=== PATIENT | male | born 1930 | race Caucasian/White ===

== ENCOUNTER 2016-03-08 08:00 | Outpatient (CLI) | payer MEDICARE, OTHER | END 2016-03-08 08:01 | disposition home or self-care (01) | DX: R30.0 Dysuria (principal) ==

== ENCOUNTER 2016-07-12 08:45 | Outpatient (CLI) | payer MEDICARE, OTHER ==
[2016-07-12 13:49] LABS: BASOPHILS % (AUTO) 0.7 %; EOSINOPHILS # (AUTO) 0.3 10^3/uL (0.0-0.7); EOSINOPHILS % (AUTO) 4.7 %; HGB - HEMOGLOBIN 13.7 g/dL (14.0-18.0); LYMPHOCYTES # (AUTO) 1.3 10^3/uL (1.5-3.5); MEAN CORPUSCULAR HEMOGLOBIN 32.5 pg (27.0-31.0); MEAN CORPUSCULAR HGB CONC 34.3 g/dL (32.0-36.0); MEAN CORPUSCULAR VOLUME 94.8 fL (80.0-94.0); MEAN PLATELET VOLUME 9.3 fL (7.4-11.4); MONOCYTES # (AUTO) 0.5 10^3/uL (0.0-1.0); MONOCYTES % (AUTO) 8.8 %; NEUTROPHILS # (AUTO) 3.5 10^3/uL (1.5-6.6); NEUTROPHILS % (AUTO) 62.8 %; RED BLOOD COUNT 4.22 10^6/uL (4.70-6.10); RED CELL DISTRIBUTION WIDTH 11.7 % (12.0-15.0); UNCORRECTED WHITE BLOOD COUNT 5.6 x10^3/uL; WHITE BLOOD COUNT 5.6 x10^3/uL (4.8-10.8)
[2016-07-12 14:28] LABS: ALBUMIN/GLOBULIN RATIO 1.6 (1.0-2.2); BILIRUBIN,TOTAL 0.6 mg/dL (0.2-1.0); BUN - BLOOD UREA NITROGEN 26 mg/dL (6-20); CALCIUM 9.7 mg/dL (8.5-10.3); CARBON DIOXIDE - CO2 26 mmol/L (21-32); CHLORIDE 105 mmol/L (101-111); CHOL/HDL RATIO 6.1 (<5.0); CHOLESTEROL 224 mg/dL; CREATININE 1.2 mg/dL (0.6-1.2); GFR - MDRD 58 (>89); GLUCOSE 123 mg/dL (70-100); HDL CHOLESTEROL 37 mg/dL; HEMOGLOBIN A1C 0.66 g/dL; LDL/HDL RATIO 3.7 (<3.6); POTASSIUM 4.3 mmol/L (3.5-5.0); SODIUM 138 mmol/L (135-145); TOTAL PROTEIN 7.3 g/dL (6.7-8.2); TRIGLYCERIDES 251 mg/dL; VLDL CHOLESTEROL 50 mg/dL
== END 2016-07-12 23:59 | disposition home or self-care (01) ==
LOC: LAB.WCP 08:45
PROVIDERS: ATTEND Family Medicine
DX: E78.5 Hyperlipidemia, unspecified (principal)
CPT/HCPCS: 36415; 80053; 80061; 83036; 85025

== ENCOUNTER 2016-09-11 11:28 | Outpatient (CLI) | payer MEDICARE, OTHER | END 2016-09-11 11:29 | disposition home or self-care (01) | LOC: SC 11:28 | PROVIDERS: ATTEND Nurse Practitioner Family | DX: G47.33 Obstructive sleep apnea (adult) (pediatric) (principal) | CPT/HCPCS: 99214; G0463; 99212 ==

== ENCOUNTER 2016-10-14 13:19 | Outpatient (CLI) | payer MEDICARE, OTHER | END 2016-10-14 13:20 | disposition home or self-care (01) | LOC: SC 13:19 | PROVIDERS: ATTEND Nurse Practitioner Family | DX: G47.33 Obstructive sleep apnea (adult) (pediatric) (principal); G47.00 Insomnia, unspecified | CPT/HCPCS: 99214; G0463; 99212 ==

== ENCOUNTER 2016-11-11 18:25 | Emergency (ER) | payer MEDICARE, OTHER ==
[2016-11-11 18:51] LABS: BASOPHILS # (AUTO) 0.1 10^3/uL (0.0-0.1); BASOPHILS % (AUTO) 0.7 %; EOSINOPHILS # (AUTO) 0.2 10^3/uL (0.0-0.7); EOSINOPHILS % (AUTO) 2.3 %; HCT - HEMATOCRIT 42.9 % (42.0-52.0); HGB - HEMOGLOBIN 14.6 g/dL (14.0-18.0); LYMPHOCYTES # (AUTO) 1.4 10^3/uL (1.5-3.5); LYMPHOCYTES % (AUTO) 14.4 %; MEAN CORPUSCULAR HEMOGLOBIN 33.2 pg (27.0-31.0); MEAN CORPUSCULAR HGB CONC 34.1 g/dL (32.0-36.0); MEAN CORPUSCULAR VOLUME 97.3 fL (80.0-94.0); MEAN PLATELET VOLUME 8.1 fL (7.4-11.4); MONOCYTES # (AUTO) 0.8 10^3/uL (0.0-1.0); MONOCYTES % (AUTO) 8.2 %; NEUTROPHILS # (AUTO) 7.5 10^3/uL (1.5-6.6); NEUTROPHILS % (AUTO) 74.4 %; NUCLEATED RED BLOOD CELLS AUTO 0.1 /100WBC; RED BLOOD COUNT 4.41 10^6/uL (4.70-6.10); RED CELL DISTRIBUTION WIDTH 12.4 % (12.0-15.0); UNCORRECTED WHITE BLOOD COUNT 10.1 x10^3/uL; WHITE BLOOD COUNT 10.1 x10^3/uL (4.8-10.8)
[2016-11-11] MEDS ORDERED: SODIUM CHLORIDE 0.9% 1,000 ML IV ONE (18:59)
[2016-11-11] MEDS ORDERED: HYDROmorphone 1 MG/ML CARPUJECT IVP STA (18:59)
[2016-11-11] MEDS ORDERED: ONDANSETRON 4 MG/2 ML VIAL IVP STA (18:59)
--- NOTE | 2016-11-11 19:03 | ED Physician Documentation ---
PD HPI CHEST PAIN - Stated complaint Stated Complaint: CHEST PAIN - Chief complaint Chief Complaint: Cardiac - History obtained from History obtained from: Patient, Family - History of Present Illness Timing - onset: Other (Abruptly at 1:00 after eating lunch he developed chest pain, although he points at the right upper quadrant which later radiated to the right mid back. He is mildly nauseous. He says it is both sharp and dull and is reminiscent of prior heart attack. His first heart attack was in 1985, he has had a couple of angioplasties and at least one stent since then. 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 denies: Palpitations, Pedal edema, Calf pain Respiratory: denies: Dyspnea, Cough GI: reports: Abdominal Pain, Nausea. denies: Vomiting : denies: Dysuria, Frequency PD PAST MEDICAL HISTORY - Past Medical History Past Medical History: Yes Cardiovascular: Hypertension, High cholesterol, Coronary artery disease, [place] Respiratory: Sleep apnea, CPAP use Neuro: None Endocrine/Autoimmune: Type 2 diabetes GI: GERD, Ulcers, Colon polyps : Nocturia, Frequency HEENT: Chronic vision loss, Chronic hearing loss Musculoskeletal: Osteoarthritis, Chronic back pain, Other Derm: Other - Past Surgical History Past Surgical History: Yes General: Colonoscopy Ortho: Carpal Tunnel surgery Cardiovascular: Coronary stent, Angioplasty - Present Medications Home Medications: Ambulatory Orders Medication Instructions Recorded Confirmed Aspirin [Aspir 81] 81 mg PO DAILY 09/27/13 06/08/15 Cholecalciferol (Vitamin D3) 2,000 unit PO BID 09/27/13 06/08/15 [Vitamin D-3] Cyanocobalamin (Vitamin B-12) 2,500 mcg SL DAILY 09/27/13 06/08/15 [Vitamin B-12] Krill/[place]-3/Dha/Epa/Lipids 1 each PO DAILY 09/27/13 06/08/15 [Krill Oil 300 mg Softgel] Losartan [Cozaar] 50 mg PO DAILY 09/27/13 06/08/15 Metformin HCl 500 mg PO BID 09/27/13 06/08/15 Ubidecarenone [Co Q-10] 200 mg PO DAILY 09/27/13 06/08/15 Vitamin B Complex Vit C No.4 150 mg PO DAILY 09/27/13 06/08/15 [Super B Complex] Esomeprazole Magnesium [Nexium] 20 mg PO DAILY 03/05/15 06/08/15 Meloxicam 15 mg PO DAILY 03/05/15 06/08/15 Hydrocodone/Acetaminophen 1 tab 06/08/15 [Hydrocodon-Acetaminophen 5-325] Multivitamin W/Minerals Liq 06/08/15 [Centrum] HYDROcod/ACETAM 5/325 [Hammond 5/325] 1 - 2 ea PO Q6H PRN #15 tablet 11/11/16 - Allergies Allergies/Adverse Reactions: Allergies Allergy/AdvReac Type Severity Reaction Status Date / Time No Known Drug Allergies Allergy Verified 06/08/15 12:20 - Social History Does the pt smoke?: No Smoking Status: Never smoker Does the pt drink ETOH?: Yes Does the pt have substance abuse?: No - Family History Family history: reports: Non contributory - Immunizations Immunizations are current?: Yes - POLST Patient has POLST: Yes PD ED PE NORMAL - Vitals Vital signs reviewed: Yes - General General: Alert and oriented X 3, No acute distress - HEENT HEENT: PERRL, EOMI - Neck Neck: Supple, no meningeal sign, No bony TTP - Cardiac Cardiac: RRR, Other (4 out of 6 decrescendo systolic murmur, old per patient) - Respiratory Respiratory: No respiratory distress, Clear bilaterally - Abdomen Abdomen: Other (Mild tenderness in the right upper quadrant without guarding or rebound) - Back Back: No CVA TTP, No spinal TTP - Derm Derm: Normal color, Warm and dry - Extremities Extremities: No edema, No calf tenderness / cord - Neuro Neuro: Alert and oriented X 3, Normal speech - Psych Psych: Normal mood, Normal affect Results - Vitals Vitals: Vital Signs - 24 hr 11/11/16 11/11/16 18:32 20:14 Temperature 36.9 C Heart Rate 62 55 L Respiratory 20 16 Rate Blood Pressure 174/147 H 147/76 H O2 Saturation 98 98 Oxygen O2 Source Room air - EKG (time done) 1842 Rate: Rate (enter#) (60) Rhythm: NSR Victor: Normal Intervals: Normal SC Ischemia: Q waves (Inferior) Compare to prior EKG: Unchanged from prior EKG (Prior EKG, June 08, 2015, no change from then.) Computer interpretation: Agree with computer - Labs Labs: Laboratory Tests 11/11/16 11/11/16 11/11/16 18:44 18:44 18:44 WBC 10.1 RBC 4.41 L Hgb 14.6 Hct 42.9 MCV 97.3 H MCH 33.2 H MCHC 34.1 RDW 12.4 Plt Count 188 MPV 8.1 Neut # 7.5 H Lymph # 1.4 L [place] # 0.8 Eos # 0.2 Baso # 0.1 Absolute Nucleated RBC 0.01 Nucleated RBCs 0.1 Sodium 139 Potassium 4.3 Chloride 102 Carbon Dioxide 28 Anion Gap 9.0 BUN 33 H Creatinine 1.4 H Estimated GFR (MDRD) 48 L Glucose 149 H Calcium 9.6 Total Bilirubin 0.7 AST 19 ALT 21 Alkaline Phosphatase 55 Troponin I < 0.04 Total Protein 7.7 Albumin 4.5 Globulin 3.2 Albumin/Globulin Ratio 1.4 Lipase 30 11/11/16 22:06 WBC RBC Hgb Hct MCV MCH MCHC RDW Plt Count MPV Neut # Lymph # [place] # Eos # Baso # Absolute Nucleated RBC Nucleated RBCs Sodium Potassium Chloride Carbon Dioxide Anion Gap BUN Creatinine Estimated GFR (MDRD) Glucose Calcium Total Bilirubin AST ALT Alkaline Phosphatase Troponin I < 0.04 Total Protein Albumin Globulin Albumin/Globulin Ratio Lipase - Rads (name of study) 1v chest Radiology: EMP read contemporaneously (NAD) RUQ sono Radiology: EMP read contemporaneously (Distended GB with gallstones, fatty liver.) Ct Angio abd Radiology: EMP read contemporaneously (Atherosclerosis without dissection. There is some interstitial lung disease, and L4-L5 central canal soft tissue density.) PD MEDICAL DECISION MAKING - ED course ED course: 85-year-old gentleman presents with "chest pain" but he points to the right upper quadrant where he is tender. He does have gallstones on ultrasound. His EKG is unchanged from prior and 2 troponins were done in the department and are undetectable despite continued pain. He remains slightly tender after the administration of Dilaudid but felt much better. There is no evidence of active cholecystitis. The on-call surgeon, Dr. Hassapis briefly saw him in the emergency department and feels he can safely be discharged home and will see him in the office to arrange for interval cholecystectomy in the patient and family were comfortable with the plan. Departure - Departure Disposition: Home, Self Care Clinical Impression: Biliary colic Chest pain Qualifiers: Chest pain type: unspecified Qualified Code(s): R07.9 - Chest pain, unspecified Condition: Good Record reviewed to determine appropriate education?: Yes Instructions: ED Gallstone W Biliary Colic Follow-Up: Mando Eugene MD [Provider Admit Priv/Credential] - Prescriptions: HYDROcod/ACETAM 5/325 [Hammond 5/325] 1 - 2 ea PO Q6H PRN #15 tablet PRN Reason: Pain Comments: Call Dr. Eugene's office tomorrow, make sure his front office medical assistant is aware that he saw you in the emergency department and would like to see the patient as soon as possible. Return if worse. Eat a very light diet with very low fat and protein as discussed.
[2016-11-11 19:06] LABS: ALBUMIN/GLOBULIN RATIO 1.4 (1.0-2.2); BILIRUBIN,TOTAL 0.7 mg/dL (0.2-1.0); CALCIUM 9.6 mg/dL (8.5-10.3); CREATININE 1.4 mg/dL (0.6-1.2); POTASSIUM 4.3 mmol/L (3.5-5.0); TOTAL PROTEIN 7.7 g/dL (6.7-8.2)
[2016-11-11] MEDS ORDERED: ONDANSETRON 4 MG/2 ML VIAL ONE (19:16)
[2016-11-11] MEDS ORDERED: HYDROmorphone 1 MG/ML CARPUJECT ONE (19:16)
--- NOTE | 2016-11-11 19:46 | XRAY Preliminary Report ---
Exam: XR Chest 1 View IMPRESSION: No acute disease. [facility] SITE ID: [id number]
--- NOTE | 2016-11-11 19:48 | XRAY Report ---
EXAM: CHEST RADIOGRAPHY EXAM DATE: 11/11/2016 07:24 PM. CLINICAL HISTORY: Chest pain. COMPARISON: 06/08/2015. TECHNIQUE: 1 view. FINDINGS: Lungs/Pleura: Mild interstitial prominence. No localized infiltrate, consolidation, effusion, or pneu mothorax. Mediastinum: Normal heart size, unchanged. Upper lobe vessels not distended. Other: Right PIC catheter tip at cavoatrial junction about 5.4 cm below level of dotty. Degenerative changes. IMPRESSION: No acute disease. [facility] Referring Provider Line: [phone] SITE ID: [id number]
--- NOTE | 2016-11-11 20:53 | Ultrasound Preliminary Report ---
Exam: US Abdomen Limited IMPRESSION: 1. Distended gallbladder without gallbladder wall thickening or pericholecystic fluid or sonographic Douglass sign. Positive for gallstones. 2. Markedly heterogeneous and hyperechoic liver consistent with fatty infiltration. No mass. 3. Normal common bile duct, however, not well seen. [facility] SITE ID: [id number]
--- NOTE | 2016-11-11 21:06 | Ultrasound Report ---
EXAM: ABDOMEN ULTRASOUND LIMITED, RIGHT UPPER QUADRANT EXAM DATE: 11/11/2016 08:06 PM. CLINICAL HISTORY: Right upper quadrant pain. COMPARISON: None. TECHNIQUE: Real-time scanning was performed with static images obtained. FINDINGS: Liver: Liver parenchyma is heterogeneous and markedly hyperechoic. No discrete liver masses or intr ahepatic bile duct dilation. However, evaluation for masses is limited secondary to the echogenicity . 15.9 cm. Main portal vein flow: Hepatopetal. Focal fat sparing near the gallbladder fossa. Gallbladder: Positive for sludge and multiple stones and possible gallbladder polyps. No gallbladder wall thickening. Per report, patient had a negative sonographic Douglass's sign. No gallbladder wall th ickening is noted. Gallbladder is distended. Biliary System: CBD measures 4 mm. No intrahepatic or extrahepatic ductal dilatation. Not well seen. Right kidney: Length measures 11.3 cm. No hydronephrosis. Other: None. IMPRESSION: 1. Distended gallbladder without gallbladder wall thickening or pericholecystic fluid or sonographic Douglass's sign. Positive for gallstones. 2. Markedly heterogeneous and hyperechoic liver consistent with fatty infiltration. No mass. 3. Normal common bile duct; however, not well seen. [facility] Referring Provider Line: [phone] SITE ID: [id number]
[2016-11-11] MEDS ORDERED: IOPAMIDOL-300 100 ML VIAL ONE (21:35)
--- NOTE | 2016-11-11 22:46 | CT Preliminary Report ---
Exam: CT Abdomen Angio IMPRESSION: 1. Moderate to severe aortic and branch vessel atherosclerosis. No evidence of aortic aneurysm or dis section. 2. Mild peripheral reticular density within the lung bases bilaterally, potentially atelectasis. Mild interstitial lung disease difficult to exclude with certainty. There is small peribronchial opacity within the lingula, which may also be from atelectasis. Aspiration or pneumonia difficult to exclude with certainty. 3. No kidney stone or hydronephrosis. No gallstone, cholecystitis, or biliary ductal dilatation demon strated. No pancreatitis. No bowel obstruction. 4. Increased soft tissue fullness within the L4-L5 central canal region of uncertain significance and etiology. [facility] SITE ID: [id number]
--- NOTE | 2016-11-11 22:56 | CT Report ---
EXAM: CT ANGIOGRAM ABDOMEN WITH CONTRAST EXAM DATE: 11/11/2016 10:04 PM. CLINICAL HISTORY: Abdominal pain with eating to the back COMPARISONS: None. TECHNIQUE: Routine helical CT angiogram imaging was performed through the abdomen in the arterial pha se. IV contrast: 100 mL Isovue 300. Enteric contrast: No. Reconstructions: Coronal, sagittal, and 3D MIP reconstructions. In accordance with CT protocol optimization, one or more of the following dose reduction techniques w ere utilized for this exam: automated exposure control, adjustment of mA and/or KV based on patient s ize, or use of iterative reconstructive technique. FINDINGS: Vasculature: Moderate to severe aortic and branch vessel atherosclerosis is noted. There is no eviden ce of dissection. No aortic aneurysm demonstrated. Conventional upper abdominal arterial anatomy is p resent. Moderate atherosclerosis within the proximal aspect of the superior mesenteric artery. Celiac and SMA are without critical stenosis. There is a single right-sided renal artery with mild to moder ate disease. There is a small accessory left renal artery supplying the lower pole. There is mild dis ease within the left main as well as accessory renal artery. Inferior mesenteric artery is patent. Mo derate disease within the common iliac arteries bilaterally without critical stenosis. Lung Bases: There is no significant consolidation. No significant effusion. Abdominal Solid Organs: Liver, adrenals, pancreas, spleen, and kidneys without definite suspicious ab normality within the confines of arterial phase imaging. This results in slightly reduced exam sensit ivity for detection of a small parenchymal mass. Bowel: Visualized bowel loops are without evidence of obstruction. Other: No free fluid or pathologic lymphadenopathy. Bones: No definite suspicious bony lesions. Multilevel degenerative changes within the spine. L4-L5 p osterior spinous fixation is noted. Hypertrophic L4-L5 facet arthropathy noted. Prior right hemilamin otomy at L4. Abnormal soft tissue fullness is noted at L4-L5 level within the central canal region. Other: None. IMPRESSION: 1. Moderate to severe aortic and branch vessel atherosclerosis. No evidence of aortic aneurysm or dis section demonstrated. 2. Mild peripheral reticular density within the lung bases bilaterally, potentially atelectasis. Mild interstitial lung disease difficult to exclude with certainty. There is small peribronchial opacity within the lingula, which may also be from atelectasis. Aspiration or pneumonia difficult to exclude with certainty. 3. No kidney stone or hydronephrosis. No gallstone, cholecystitis, or biliary ductal dilatation demon strated. No pancreatitis. No bowel obstruction. 4. Increased soft tissue fullness within the L4-L5 central canal region of uncertain significance and etiology. [facility] Referring Provider Line: [phone] SITE ID: [id number]
[2016-11-11] MEDS ORDERED: HYDROcod/ACET 5/325 Prepack 6 PO STA (23:07)
[2016-11-11] MEDS ORDERED: HYDROcod/ACET 5/325 Prepack 6 PO ONE (23:13)
[2016-11-11 23:28] VITALS: BP 140/76
== END 2016-11-11 23:30 | disposition home or self-care (01) ==
LOC: ED 18:25
DX: K80.50 Calculus of bile duct without cholangitis or cholecystitis without obstruction (principal); R07.9 Chest pain, unspecified; I10 Essential (primary) hypertension; I25.10 Atherosclerotic heart disease of native coronary artery without angina pectoris; I25.2 Old myocardial infarction; E11.9 Type 2 diabetes mellitus without complications; Z79.84 Long term (current) use of oral hypoglycemic drugs; E78.00 Pure hypercholesterolemia, unspecified; G47.30 Sleep apnea, unspecified; K21.9 Gastro-esophageal reflux disease without esophagitis; M19.90 Unspecified osteoarthritis, unspecified site; Z86.010 Personal history of colon polyps; Z87.11 Personal history of peptic ulcer disease; Z79.82 Long term (current) use of aspirin
CPT/HCPCS: 36415; 71010; 74175; 76705; 80053; 83690; 84484; 85025; 93005; 96374; 96375; 99283; 99284; J1170; Q9967

== ENCOUNTER 2016-11-17 11:00 | Inpatient (IN) | payer MEDICARE, OTHER ==
[2016-11-17 11:57] LABS: BASOPHILS # (AUTO) 0.1 10^3/uL (0.0-0.1); BASOPHILS % (AUTO) 0.9 %; EOSINOPHILS # (AUTO) 0.3 10^3/uL (0.0-0.7); EOSINOPHILS % (AUTO) 2.4 %; HCT - HEMATOCRIT 36.9 % (42.0-52.0); HGB - HEMOGLOBIN 12.4 g/dL (14.0-18.0); LYMPHOCYTES # (AUTO) 0.7 10^3/uL (1.5-3.5); LYMPHOCYTES % (AUTO) 5.9 %; MEAN CORPUSCULAR HEMOGLOBIN 32.4 pg (27.0-31.0); MEAN CORPUSCULAR HGB CONC 33.7 g/dL (32.0-36.0); MEAN CORPUSCULAR VOLUME 96.1 fL (80.0-94.0); MEAN PLATELET VOLUME 8.1 fL (7.4-11.4); MONOCYTES % (AUTO) 8.8 %; NEUTROPHILS # (AUTO) 9.6 10^3/uL (1.5-6.6); RED BLOOD COUNT 3.84 10^6/uL (4.70-6.10); UNCORRECTED WHITE BLOOD COUNT 11.6 x10^3/uL; WHITE BLOOD COUNT 11.6 x10^3/uL (4.8-10.8)
[2016-11-17 12:09] LABS: BILIRUBIN,TOTAL 0.6 mg/dL (0.2-1.0); CALCIUM 9.8 mg/dL (8.5-10.3); CREATININE 1.2 mg/dL (0.6-1.2); POTASSIUM 4.4 mmol/L (3.5-5.0); TOTAL PROTEIN 8.2 g/dL (6.7-8.2)
[2016-11-17] MEDS ORDERED: SODIUM CHLORIDE 0.9% 1,000 ML IV ONE (12:09)
[2016-11-17] MEDS ORDERED: HYDROmorphone 1 MG/ML CARPUJECT IVP STA (12:09)
[2016-11-17] MEDS ORDERED: ONDANSETRON 4 MG/2 ML VIAL IVP STA (12:09)
--- NOTE | 2016-11-17 12:09 | ED Physician Documentation ---
PD HPI ABD PAIN - Stated complaint Stated Complaint: MALE - Chief complaint Chief Complaint: Abd Pain - History obtained from History obtained from: Patient, Family - History of Present Illness Timing - onset: How many days ago (7) Timing - duration: Days (7) Timing - details: Gradual onset, Still present, Waxing and waning Quality: Sharp, Pain Location: RUQ Radiation: Chest Improved by: Laying still Worsened by: Eating, Moving, Breathing, Position, Palpation Associated symptoms: Nausea Similar symptoms before: Diagnosis (gallbladder) Recently seen: Emergency Dept (one week ago with abdominal pain) - Additional information Additional information: 85-year-old male with a recent history of biliary colic has had pain for the past week it is never completely resolved and over the past 24 hours he has had a marked increase in his pain in the right upper quadrant he was able to eat dinner last night today is not able to eat and has severe pain in the right upper quadrant. Review of Systems Constitutional: denies: Fever, Chills Eyes: denies: Decreased vision Ears: denies: Ear pain Nose: denies: Congestion Throat: denies: Sore throat Cardiac: denies: Chest pain / pressure, Palpitations Respiratory: denies: Dyspnea, Cough GI: reports: Abdominal Pain, Nausea : denies: Dysuria, Frequency Skin: denies: Rash Musculoskeletal: denies: Neck pain, Back pain, Extremity pain Neurologic: reports: Generalized weakness. denies: Focal weakness, Numbness PD PAST MEDICAL HISTORY - Past Medical History Past Medical History: Yes Cardiovascular: Hypertension, High cholesterol, Coronary artery disease, [place] Respiratory: Sleep apnea, CPAP use Neuro: None Endocrine/Autoimmune: Type 2 diabetes GI: GERD, Ulcers, Colon polyps : Nocturia, Frequency HEENT: Chronic vision loss, Chronic hearing loss Musculoskeletal: Osteoarthritis, Chronic back pain, Other Derm: Other - Past Surgical History Past Surgical History: Yes General: Colonoscopy Ortho: Carpal Tunnel surgery Cardiovascular: Coronary stent, Angioplasty - Present Medications Home Medications: Ambulatory Orders Medication Instructions Recorded Confirmed Cholecalciferol (Vitamin D3) 2,000 unit PO BID 09/27/13 06/08/15 [Vitamin D-3] Cyanocobalamin (Vitamin B-12) 2,500 mcg SL DAILY 09/27/13 06/08/15 [Vitamin B-12] Krill/[place]-3/Dha/Epa/Lipids 1 each PO DAILY 09/27/13 06/08/15 [Krill Oil 300 mg Softgel] Losartan [Cozaar] 50 mg PO DAILY 09/27/13 06/08/15 Metformin HCl 500 mg PO BID 09/27/13 06/08/15 Ubidecarenone [Co Q-10] 200 mg PO DAILY 09/27/13 06/08/15 Vitamin B Complex Vit C No.4 150 mg PO DAILY 09/27/13 06/08/15 [Super B Complex] Esomeprazole Magnesium [Nexium] 20 mg PO DAILY 03/05/15 06/08/15 Meloxicam 15 mg PO DAILY 03/05/15 06/08/15 Multivitamin W/Minerals Liq 06/08/15 [Centrum] HYDROcod/ACETAM 5/325 [Natalia 5/325] 1 - 2 ea PO Q6H PRN #15 tablet 11/11/16 - Allergies Allergies/Adverse Reactions: Allergies Allergy/AdvReac Type Severity Reaction Status Date / Time No Known Drug Allergies Allergy Verified 11/17/16 11:06 - Social History Does the pt smoke?: No Smoking Status: Never smoker Does the pt drink ETOH?: Yes Does the pt have substance abuse?: No - Immunizations Immunizations are current?: Yes - POLST Patient has POLST: Yes PD ED PE NORMAL - Vitals Vital signs reviewed: Yes (hypertensive) - General General: Well developed/nourished, Other (85 y/o male appears to be in pain and is grunting with each breath. ) - HEENT HEENT: Atraumatic, PERRL, EOMI - Neck Neck: Supple, no meningeal sign - Cardiac Cardiac: RRR, Other (blowing holosystolic murmer at LSB) - Respiratory Respiratory: No respiratory distress, Clear bilaterally - Abdomen Abdomen: Soft, Other (distended abdomen with marked right upper quadrand tenderness ) - Back Back: No CVA TTP, No spinal TTP - Derm Derm: Normal color, Warm and dry, No rash - Extremities Extremities: No deformity, Normal ROM s pain, No edema - Neuro Neuro: Alert and oriented X 3, No motor deficit, No sensory deficit, Normal speech Results - Vitals Vitals: Vital Signs - 24 hr 11/17/16 11/17/16 11:04 12:45 Temperature 36.5 C Heart Rate 69 67 Respiratory 18 14 Rate Blood Pressure 142/78 H 122/71 O2 Saturation 94 99 Oxygen O2 Source Room air - Labs Labs: Laboratory Tests 11/17/16 11/17/16 11/17/16 11:47 11:47 11:47 WBC 11.6 H RBC 3.84 L Hgb 12.4 L Hct 36.9 L MCV 96.1 H MCH 32.4 H MCHC 33.7 RDW 12.0 Plt Count 272 MPV 8.1 Neut # 9.6 H Lymph # 0.7 L Reynolds # 1.0 Eos # 0.3 Baso # 0.1 Absolute Nucleated RBC 0.00 Nucleated RBC % 0.0 Sodium 136 Potassium 4.4 Chloride 100 L Carbon Dioxide 23 Anion Gap 13.0 BUN 26 H Creatinine 1.2 Estimated GFR (MDRD) 58 L Glucose 171 H Calcium 9.8 Total Bilirubin 0.6 AST 25 ALT 39 Alkaline Phosphatase 69 Troponin I < 0.04 Total Protein 8.2 Albumin 4.0 Globulin 4.2 Albumin/Globulin Ratio 1.0 Lipase 18 L Procedures - Bedside sono Bedside sono by EMP: The gallbladder is imaged in the right upper quadrant it is very lateral it is distended gallbladder wall thickness is up to a centimeter and there does appear to be some pericholecystic fluid. The area is tender in general. PD MEDICAL DECISION MAKING - ED course Complexity details: reviewed old records, reviewed results, re-evaluated patient , considered differential, d/w patient, d/w family ED course: 85-year-old male with acute cholecystitis has worsening over the past week. He has marked right upper quadrant tenderness over the white blood cell count and a tender enlarged gallbladder with thickened wall and pericholecystic fluid. He is administered intravenous Dilaudid and Zofran and a liter of saline and intravenous Zosyn. Dr. Brady is consulted in the case and will admit the patient to the hospital for definitive care. Departure - Departure Disposition: [facility] DC/Erika Clinical Impression: Cholecystitis Condition: Stable
[2016-11-17] MEDS ORDERED: HYDROmorphone 1 MG/ML CARPUJECT ONE (12:22)
[2016-11-17] MEDS ORDERED: ONDANSETRON 4 MG/2 ML VIAL ONE (12:22)
[2016-11-17] MEDS ORDERED: PIPERACILLIN/TAZOBACTAM 3.375 GM in SODIUM CHLORIDE 0.9% MINIBAG 100 ML IV STA (13:26)
[2016-11-17] MEDS ORDERED: SODIUM CHLORIDE FLUSH 0.9% 10 ML SYRINGE IVP ONE (13:38)
[2016-11-17] MEDS ORDERED: ONDANSETRON 4 MG/2 ML VIAL IVP PRN (15:39)
[2016-11-17] MEDS ORDERED: SODIUM CHLORIDE FLUSH 0.9% 10 ML SYRINGE IVP PRN (15:39)
[2016-11-17] MEDS: D5NS W/20 MEQ KCL 1,000 ML IV SCH (17:26)
[2016-11-17] MEDS: PIPERACILLIN/TAZOBACTAM 3.375 GM in SODIUM CHLORIDE 0.9% MINIBAG 100 ML IV SCH ×2 (17:27→22:08)
[2016-11-17] MEDS: SODIUM CHLORIDE FLUSH 0.9% 10 ML SYRINGE IVP SCH (17:27)
[2016-11-17] MEDS: HYDROmorphone 1 MG/ML SYRINGE IVP PRN (17:32)
[2016-11-17] MEDS ORDERED: ZINC OXIDE 20% OINT 28.35 GM TUBE TOP PRN (19:22)
[2016-11-17 19:25] LABS: BILIRUBIN,URINE NEGATIVE (NEGATIVE); PH,URINE 5.5 PH (5.0-7.5)
[2016-11-17 19:26] LABS: UA CHARGE (STRIP ONLY) YES
[2016-11-17 19:27] LABS: UR CULTURE IF IND INDICATED
--- NOTE | 2016-11-18 01:49 | SURGERY HX AND PHYSICAL(T) ---
Surgical History & Physical - PMH/PSH/Social Hx Does the pt have a hx of MRSA?: No Neurological History: None Eyes, Ears, Nose, Throat: Chronic vision loss, Chronic hearing loss Cardiovascular: Hypertension, High cholesterol, Coronary artery disease, NV Respiratory: Sleep apnea, CPAP use Skin: Other Endocrine/Autoimmune: Type 2 diabetes Gastrointestinal: GERD, Ulcers, Colon polyps Urinary: Nocturia, Frequency Musculoskeletal: Osteoarthritis, Chronic back pain, Other General: Colonoscopy Orthopedic: Carpal Tunnel surgery Cardiothoracic: Coronary stent, Angioplasty Smoking Status: Former smoker Does the pt drink ETOH?: Yes Frequency: Daily Number: 1 Amount/day: Glasses/day Does the pt have substance abuse?: No - Home Meds and Allergies Home Medications: Cholecalciferol (Vitamin D3) [Vitamin D-3] 2,000 unit PO BID 09/27/13 Cyanocobalamin (Vitamin B-12) [Vitamin B-12] 2,500 mcg SL DAILY 09/27/13 Krill/[place]-3/Dha/Epa/Lipids [Krill Oil 300 mg Softgel] 1 each PO DAILY Losartan [Cozaar] 50 mg PO DAILY 09/27/13 Metformin HCl 500 mg PO BID 09/27/13 Ubidecarenone [Co Q-10] 200 mg PO DAILY 09/27/13 Vitamin B Complex Vit C No.4 [Super B Complex] 150 mg PO DAILY 09/27/13 Esomeprazole Magnesium [Nexium] 20 mg PO DAILY 03/05/15 Meloxicam 15 mg PO DAILY 03/05/15 Multivitamin W/Minerals Liq [Centrum] 06/08/15 Allergies/Adverse Reactions: Allergies Allergy/AdvReac Type Severity Reaction Status Date / Time No Known Drug Allergies Allergy Verified 11/17/16 11:06 - Vital Signs Heart Rate: 60 Blood Pressure: 112/61 Temperature: 37.4 C Respiratory Rate: 18 O2 Saturation: 96 Weight (kg): 100 kg Height: 1.83 m - Patient Review Patient Review: Problems were reviewed with the patient during this visit. Medications were reviewed with the patient during this visit. Allergies were reviewed this patient during this visit. Pertinent Tests Reviewed: All pertitent test for this patient were reviewed. - Assessment & Plan Assessment and Plan: This very pleasant 85-year-old male represents to our emergency department with worsening right upper quadrant pain and I am calling consultation again by Dr. Lynn to evaluate the patient for this. The ultrasound that was obtained by Dr. Lynn shows that the patient has a worse picture regarding his gallbladder. Dr. Ray Cunha sent this very pleasant 85-year-old male to our office on consultation for evaluation and treatment of symptomatic cholelithiasis back on November 13, 2016. I actually saw the patient on November 11, 2016 in the emergency department and at that time due to the over scheduled operating room explained to him and the family that we could perform his cholecystectomy on a semi-elective case. I would see him this week and plan on operating soon as we had an open slot in the operating room. Please note he has an extraordinarily supportive family. The patient states that the pain is sharp, stabbing, and severe enough where he was doubled over in pain. Eating (especially fatty foods) is an aggravating factor whereas time or pain medications are the only alleviating factors. The patient denies hematemesis, melena, hematochezia, jaundice, or light-colored stools. As an aside the pain was so severe that when he came into the our emergency department initially thought he might be having a heart attack but he was ruled out and the ultrasound did show a distended gallbladder with stones. His called me last night and asked that if she brought him into the emergency room and ask whether or not his operation could be done on a more emergent basis. I explained that if it was an emergency than certainly. She brought him in today and states that he has been having increasing pain. He is a very stoic man. Allergies: None. Current Meds: LOVASTATIN 10 MG TABS (LOVASTATIN) Take one tablet by mouth with evening meal DULCOLAX 5 MG ORAL TBEC (BISACODYL) Take one tablet by mouth daily as needed PROBIOTIC CAPS (PROBIOTIC PRODUCT) Take by mouth daily or as directed for colon health - OTC TYLENOL 8 HOUR 650 MG ORAL CR-TABS (ACETAMINOPHEN) Take one tablet by mouth every four hours as needed. COQ10 200 MG ORAL CAPS (COENZYME Q10) Take one capsule by mouth daily. METFORMIN HCL 500 MG TABS (METFORMIN HCL) Take one tablet by mouth twice a day COZAAR 50 MG ORAL TABS (LOSARTAN POTASSIUM) take one tablet by mouth once a day ASPIRIN 81 MG CHEW (ASPIRIN) Take one tablt by mouth every day NEXIUM 20 MG ORAL CPDR (ESOMEPRAZOLE MAGNESIUM) Take one tablet daily SM SUPER B COMPLEX/C ORAL TABS (B COMPLEX-C) Take one tablet daily [employer] FISH OIL CAPS (OMEGA-3 FATTY ACIDS CAPS) Take one capsule daily VITAMIN D 2000 UNIT ORAL CAPS (CHOLECALCIFEROL) Take one capsule by mouth twice a day NITROSTAT 0.4 MG SUBL (NITROGLYCERIN) For chest pain, place one tablet under the tongue every five minutes for up to three doses. If no relief call 911. TRUETRACK TEST STRP (GLUCOSE BLOOD) Use to test blood sugar as directed * GLUCOMETER AND TEST STRIPS Use A.D. 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 Risk Factors: Smoked Tobacco Use: Former smoker Years Since Last Quit: 29 Smokeless Tobacco Use: Never Passive smoke exposure: no Drug use: no Caffeine use: 3 drinks per day Alcohol use: yes Type: wine Drinks per day: <1 Exercise: no Seatbelt use: 100 % Sun Exposure: occasionally Family History Risk Factors: Family History of NV in females < 65 years old: no Family History of NV in males < 55 years old: no Previous Tobacco Use: Signed On 08/26/2016 Smoked Tobacco Use: Former smoker Year quit: 1987 Years Since Last Quit: 29 years, 9 months, 1 days Smokeless Tobacco Use: Never Passive smoke exposure: no Drug use: no Caffeine use: 3 drinks per day Review of Systems CONSTITUTIONAL: No weight loss, fever, chills, weakness. POSITIVE for easy fatigue. HEENT: Eyes: No visual loss, blurred vision, double vision or yellow sclerae. Ears, Nose, Throat: No hearing loss, sneezing, congestion, runny nose or sore throat. SKIN: No rash or itching. CARDIOVASCULAR: No chest pain, chest pressure or chest discomfort. No palpitations or edema. RESPIRATORY: No shortness of breath, cough or sputum. GASTROINTESTINAL: See above. GENITOURINARY: No dysuria. No impotence. NEUROLOGICAL: No headache, dizziness, syncope, paralysis, ataxia, numbness or tingling in the extremities. No change in bowel or bladder control. MUSCULOSKELETAL: No muscle, back pain, joint pain or stiffness. HEMATOLOGIC: No anemia, bleeding or bruising. LYMPHATICS: No enlarged nodes. No history of splenectomy. PSYCHIATRIC: No history of depression or anxiety. ENDOCRINOLOGIC: No reports of sweating, cold or heat intolerance. No polyuria or polydipsia. ALLERGIES: No history of asthma, hives, eczema or rhinitis. Physical Exam General: 85-year old male, appears stated age, well developed, well nourished, evaluated in room 2208 at [facility] MedSurg unit. HEENT: Normocephalic, atraumatic, extraocular movement intact, mucous membranes pink and moist, sclera anicteric and not injected, white hair, male pattern baldness Neck: Supple without pain on palpation, mass or bruit Cardiac: Regular rate and rhythm without rub, or gallop, loud systolic ejection murmur Chest: Clear to auscultation bilaterally Abdomen: Soft, doughy, obese, slightly tender in right upper quadrant, normoactive bowel sounds, no hepatomegaly, no splenomegaly Genitourinary: Deferred Rectal: Deferred Extremities: No gross neurovascular problem, no clubbing, cyanosis or edema Gait: No gross motor deficit Psychiatric: Alert and oriented to person place and time, asks and answers questions appropriately, mood and affect appropriate Impression & Recommendations: Worsening pain corresponding with the worse ultrasound picture today in a 85- year-old gentleman with symptomatic cholelithiasis. Start IV antibiotics, resuscitate the patient with IV fluids, control his pain, allow anesthesia to evaluate the patient and then laparoscopic cholecystectomy, possible open cholecystectomy, possible intraoperative cholangiogram, possible common bile duct exploration. The indications, procedure, alternatives including no surgery, possible risks including infection (deep or superficial), bleeding requiring transfusion (with all of its risks), common bile duct injury and were fully explained to the patient and all questions answered. In the office, I tori pictures to help describe what the gallbladder is and how it works. In the office, I also explained the pathophysiology. In the office, I explained that following the surgery I did not want him lifting anything over 15 pounds for 6 weeks to allow for optimal healing and to decrease the likelihood that a hernia would occur. All questions were fully answered. Verbal and written consent was obtained. The patient, in preparation for surgery will be nothing by mouth, receive an antibiotic scrub on his anterior abdominal wall, and receive 2 g of Ancef with induction. I asked him to contact me with any surgical questions and his concerns and he stated that he would. I asked him to let me know if there is any way we can make his say at [facility] more comfortable and he stated that he would let me know. 30 minutes of [id number] time spent with the patient and his family in repeating this history and physical and preparing him for surgery Dragon disclaimer: This document was created in part using voice recognition technology. Because of the inherent limitations of the system ([employer]'s [employer] user manual states that the licensee understands that speech recognition is a statistical process and that recognition errors are inherent in the process), occasional same sounding word substitutions and grammatical errors do occur and persist despite proofreading. Please read this document for context.
[2016-11-18] MEDS: PIPERACILLIN/TAZOBACTAM 3.375 GM in SODIUM CHLORIDE 0.9% MINIBAG 100 ML IV SCH ×4 (03:42→21:29)
[2016-11-18] MEDS: D5NS W/20 MEQ KCL 1,000 ML IV SCH ×3 (03:46→19:32)
[2016-11-18] MEDS: HYDROmorphone 1 MG/ML SYRINGE IVP PRN ×4 (05:25→13:09)
[2016-11-18] MEDS: SODIUM CHLORIDE FLUSH 0.9% 10 ML SYRINGE IVP SCH ×3 (05:26→21:30)
[2016-11-18 06:24] LABS: BASOPHILS % (AUTO) 0.4 %; EOSINOPHILS # (AUTO) 0.2 10^3/uL (0.0-0.7); EOSINOPHILS % (AUTO) 2.4 %; HGB - HEMOGLOBIN 12.5 g/dL (14.0-18.0); LYMPHOCYTES # (AUTO) 0.8 10^3/uL (1.5-3.5); LYMPHOCYTES % (AUTO) 8.7 %; MEAN CORPUSCULAR HEMOGLOBIN 33.6 pg (27.0-31.0); MEAN CORPUSCULAR HGB CONC 34.6 g/dL (32.0-36.0); MEAN CORPUSCULAR VOLUME 96.9 fL (80.0-94.0); MONOCYTES # (AUTO) 0.8 10^3/uL (0.0-1.0); MONOCYTES % (AUTO) 7.7 %; NEUTROPHILS # (AUTO) 7.9 10^3/uL (1.5-6.6); NEUTROPHILS % (AUTO) 80.8 %; NUCLEATED RED BLOOD CELLS AUTO 0.1 /100WBC; RED BLOOD COUNT 3.71 10^6/uL (4.70-6.10); RED CELL DISTRIBUTION WIDTH 12.2 % (12.0-15.0); UNCORRECTED WHITE BLOOD COUNT 9.8 x10^3/uL; WHITE BLOOD COUNT 9.8 x10^3/uL (4.8-10.8)
[2016-11-18 06:36] LABS: ALBUMIN/GLOBULIN RATIO 0.8 (1.0-2.2); BILIRUBIN,TOTAL 0.8 mg/dL (0.2-1.0); CALCIUM 8.7 mg/dL (8.5-10.3); CREATININE 1.2 mg/dL (0.6-1.2); POTASSIUM 3.9 mmol/L (3.5-5.0)
[2016-11-18] MEDS ORDERED: PANTOPRAZOLE 40 MG VIAL IVP SCH (07:00)
[2016-11-18] MEDS: POLYETHYLENE GLYCOL 3350 17 GM PACKET PO SCH (09:35)
[2016-11-18] MEDS ORDERED: LACTATED RINGERS 1,000 ML IV ONE ×3 (15:54→19:07)
[2016-11-18] MEDS ORDERED: GLYCOPYRROLATE 1 MG/5 ML VIAL IVP ONE (16:00)
[2016-11-18] MEDS ORDERED: SUCCINYLCHOLINE 200 MG/10 ML VIAL IVP ONE (16:00)
[2016-11-18] MEDS ORDERED: LIDOCAINE-PF 2% 10 ML AMP SUBQ ONE (16:00)
[2016-11-18] MEDS ORDERED: ROCURONIUM 50 MG/5 ML VIAL IVP ONE (16:00)
[2016-11-18] MEDS ORDERED: ePHEDrine 50 MG/ML VIAL IVP ONE (16:00)
[2016-11-18] MEDS ORDERED: NEOSTIGMINE 1 MG/1 ML 10 ML MDV IVP ONE (16:00)
[2016-11-18] MEDS ORDERED: KETOROLAC 30 MG/ML VIAL IVP ONE (16:00)
[2016-11-18] MEDS ORDERED: PROPOFOL 200 MG/20 ML VIAL IVP ONE (16:00)
[2016-11-18] MEDS ORDERED: fentaNYL 100 MCG/2 ML VIAL IVP ONE (16:00)
[2016-11-18] MEDS ORDERED: MIDAZOLAM 2 MG/2 ML VIAL IVP ONE (16:00)
[2016-11-18] MEDS ORDERED: DEXAMETHASONE 4 MG/ML VIAL IVP ONE (16:00)
[2016-11-18] MEDS ORDERED: ONDANSETRON 4 MG/2 ML VIAL IVP ONE (16:00)
[2016-11-18] MEDS ORDERED: ACETAMINOPHEN 1,000 MG/100 ML 100 ML IV ONE (16:00)
[2016-11-18] MEDS ORDERED: BUPIVACAINE 0.5% PF 30 ML VIAL SUBQ ONE (16:35)
[2016-11-18] MEDS: HYDROmorphone 1 MG/ML SYRINGE ONE ×2 (18:50→18:55)
--- NOTE | 2016-11-18 19:13 | OPERATIVE REPORT ---
Operative Report - General Admit Date: 11/17/16 Planned Procedure: Laparoscopic cholecystectomy, possible open cholecystectomy, possible intra Pre-Op Diagnosis: Acute cholecystitis and umbilical hernia Procedure Performed: Laparoscopic cholecystectomy and umbilical herniorrhaphy Post Op Diagnosis: Hydrops of the gallbladder and umbilical hernia - Procedure Note Primary Surgeon: Mando Eugene MD Anesthesia Provider: Ron Ramirez Anesthesia Technique: General ET tube, Local (30 mL's of half percent Marcaine) IV Fluids (mL): 1,800 Estimated Blood Loss (mL): 400 Urine Output (mL): 500 Complications: None. - Other Other Information/Narrative: OPERATIVE DESCRIPTION/REPORT: After verbal and written informed consent was obtained detailing the risks of infection, bleeding with all of its risks including transfusion, common bile duct injury, and the patient was brought to the operative suite and placed in the supine position on the operating room table. Monitoring devices were applied along with TEDs and pneumatic compressive stockings. Care was taken to avoid pressure points. Prophylactic antibiotics were given. An adequate level of general endotracheal anesthesia was established by Khalida. The abdomen was then prepped with ChloraPrep and draped in a sterile fashion. A "time in" then confirmed that the patient was identified with 3 identifiers (name, date and medical record number), the history and physical was in the chart, the signed consent confirming the procedure was in the chart, the patient was in the correct position, the aforementioned prophylactic measures were in place or given, we had the correct perso maya and equipment to complete the procedure and that anesthesia, surgery and nursing were given an opportunity to express any concerns. The initial incision was at the umbilicus and dissection to the hernia defect was completed using blunt dissection. In the hernia defect, a 12 mm blunt tipped, balloon tipped port was placed and the balloon was inflated to keep the port in position. The abdominal cavity was insufflated with carbon dioxide to steady-state pressure of 12 and then 15 mmHg. Three additional 5 mm ports were placed in standard location for laparoscopic cholecystectomy (subxiphoid and 2 right subcostal) under direct vision of the 30 degree laparoscope and without incident. The patient was then placed in reverse Trendelenburg position and was rotated slightly to their left. The gallbladder could not even be seen due to the dense adhesions of the omentum to the gallbladder. A photograph was taken of this. Traction and countertraction was used to free the gallbladder from the dense adhesions of the omentum. The gallbladder could then be seen approximately 4-5 times the size with normal gallbladder and very thick-walled. Due to this large and thick -walled nature I could not grasp the gallbladder. I decided to drain this with a laparoscopic needle and hydrops was noted. Even with the needle I was unable to drain the gallbladder adequately. As such a small opening was made in the gallbladder using Bovie electrocautery and the suction was inserted into the gallbladder and the fluid removed. Please note that the fluid was sent for aerobic and anaerobic culture. The gallbladder fundus was grasped with an atraumatic grasper. Multiple adhesions had to be taken down by blunt and sharp dissection along with electrocautery. Eventually, we identified the infundibulum, and this was then grasped and retracted inferior and laterally. Dissection was then begun in the angle of [place]. The cystic duct and (slightly medially and posteriorly) cystic artery were clearly identified. The critical view was obtained. Two clips proximally and one clip distally were used to control both the cystic duct and cystic artery. The clips were carefully placed to avoid occluding the juncture with the common bile duct. Both the cystic duct and then the cystic artery were then transected with laparoscopic kt. Upon transecting the cystic artery there was some persistent bleeding posteriorly that had to be controlled with placement of several clips as well as Surgicel. The gallbladder was then removed from its fossa in a retrograde fashion using electrocautery. This removal was simply miserable. The gallbladder was densely adherent to the liver and there was no plane. I was either in the gallbladder or I was in the liver. There was no happy medium. Eventually the gallbladder was removed from the liver bed and there was no significant bleeding coming from the liver bed. With the 30 degree 5 mm scope in the subxiphoid position, the gallbladder was placed in an EndoCatch bag to be extracted through the 12 mm port site. I irrigated the right upper quadrant with 3 liters of warm sterile saline, and the area was aspirated dry. I inspected the gallbladder fossa and there was no bleeding or bile leak. Clips on the cystic duct and cystic artery appeared to be secure. I briefly visually explored the abdomen. There was no other evidence of overt pathology. I injected the port sites at the peritoneal, fascial, and skin levels under direct vision with 0.5% Marcaine. All ports and the EndoCatch containing the gallbladder were removed. Following gallbladder removal, the remaining carbon dioxide was expelled from the abdomen. The fascia at the umbilicus was reapproximated using 2 [id number] 0 Vicryl sutures closing the umbilical hernia. The skin at each port site was approximated using a subcuticular 4-0 Monocryl. The surgical count of instruments, needles and sponges was reported as correct twice. Mastisol, Steri -Strips and sterile surgical dressings were applied. The patient was then awakened from anesthesia, extubated, and having tolerated the procedure well, was recovered in the operating room due to his MRSA positivity. No complications were encountered. A "time out" confirmed the operation performed , the fluids given, the estimated blood loss and anesthesia, surgery and nursing were given an opportunity to express any concerns. I then spoke with the patient's and family regarding the operative findings and his postoperative condition.
[2016-11-19] MEDS: PIPERACILLIN/TAZOBACTAM 3.375 GM in SODIUM CHLORIDE 0.9% MINIBAG 100 ML IV SCH ×4 (03:50→22:10)
[2016-11-19] MEDS: HYDROcod/ACETAM 5/325 MG TABLET PO PRN ×2 (03:52→16:02)
[2016-11-19] MEDS: D5NS W/20 MEQ KCL 1,000 ML IV SCH ×3 (06:16→22:11)
[2016-11-19] MEDS: PANTOPRAZOLE 40 MG TABLET PO SCH (06:16)
[2016-11-19] MEDS: SODIUM CHLORIDE FLUSH 0.9% 10 ML SYRINGE IVP SCH ×4 (06:17→18:07)
[2016-11-19] MEDS: HYDROmorphone 1 MG/ML SYRINGE IVP PRN ×2 (06:29→10:07)
[2016-11-19 06:41] LABS: BASOPHILS % (AUTO) 0.3 %; EOSINOPHILS % (AUTO) 0.4 %; HCT - HEMATOCRIT 33.3 % (42.0-52.0); HGB - HEMOGLOBIN 11.3 g/dL (14.0-18.0); LYMPHOCYTES # (AUTO) 0.7 10^3/uL (1.5-3.5); LYMPHOCYTES % (AUTO) 6.5 %; MEAN CORPUSCULAR HEMOGLOBIN 33.2 pg (27.0-31.0); MEAN CORPUSCULAR VOLUME 97.6 fL (80.0-94.0); MEAN PLATELET VOLUME 8.4 fL (7.4-11.4); MONOCYTES # (AUTO) 0.5 10^3/uL (0.0-1.0); MONOCYTES % (AUTO) 5.3 %; NEUTROPHILS # (AUTO) 8.8 10^3/uL (1.5-6.6); NEUTROPHILS % (AUTO) 87.5 %; RED BLOOD COUNT 3.41 10^6/uL (4.70-6.10); RED CELL DISTRIBUTION WIDTH 11.9 % (12.0-15.0); UNCORRECTED WHITE BLOOD COUNT 10.1 x10^3/uL; WHITE BLOOD COUNT 10.1 x10^3/uL (4.8-10.8)
[2016-11-19 06:55] LABS: ALBUMIN/GLOBULIN RATIO 0.8 (1.0-2.2); BILIRUBIN,TOTAL 0.7 mg/dL (0.2-1.0); CALCIUM 8.2 mg/dL (8.5-10.3); CREATININE 1.3 mg/dL (0.6-1.2); POTASSIUM 4.3 mmol/L (3.5-5.0)
[2016-11-19] MEDS: POLYETHYLENE GLYCOL 3350 17 GM PACKET PO SCH (08:00)
[2016-11-19] MEDS ORDERED: HYDROmorphone 1 MG/ML SYRINGE IVP PRN (15:02)
[2016-11-19] MEDS: SODIUM CHLORIDE FLUSH 0.9% 10 ML SYRINGE IVP PRN ×3 (16:02→22:11)
[2016-11-19] MEDS: TAMSULOSIN 0.4 MG CAPSULE PO SCH (16:02)
[2016-11-19] MEDS: ACETAMINOPHEN 325 MG TABLET PO PRN (17:49)
--- NOTE | 2016-11-19 19:12 | XRAY Preliminary Report ---
Exam: XR Chest 2 View PA/LAT IMPRESSION: Hypoinflated lungs with mild bibasilar atelectasis/infiltrate and small pleural effusions . [facility] SITE ID: [id number]
--- NOTE | 2016-11-19 19:14 | XRAY Report ---
EXAM: CHEST RADIOGRAPHY EXAM DATE: 11/19/2016 06:17 PM. CLINICAL HISTORY: Low grade fever. COMPARISON: 11/11/2016. TECHNIQUE: 2 views. FINDINGS: Lungs/Pleura: Hypoinflated lungs with mild haziness in the bases. Upper lungs clear. Lateral film guerrero ws small effusions. No pneumothorax identified. Mediastinum: Heart and mediastinal contours are unremarkable. Other: No compression fractures. IMPRESSION: Hypoinflated lungs with mild bibasilar atelectasis/infiltrate and small pleural effusions . [facility] Referring Provider Line: [phone] SITE ID: [id number]
--- NOTE | 2016-11-19 23:08 | PROVIDER PROGRESS NOTE ---
Subjective - General Admit Date: 11/17/16 Procedure Date: 11/18/16 Post Op Days: 1 Procedure Performed: Laparoscopic cholecystectomy (difficult) with hydrops and umbilical hernior - Review of Systems Wound/Incisions: positive: Healing well General: positive: Other (Postoperative pain but better than previously.) HEENT: positive: No symptoms Pulmonary: positive: Shortness of breath (Slight.) Cardiovascular: positive: No symptoms Gastrointestinal: positive: Abdominal pain (Postoperative and expected.) Genitourinary: positive: Other (Handy was in and pulled. Patient has a history of a neurogenic bladder. Flomax started and hopefully we will be able to keep the Handy out.) Musculoskeletal: positive: No symptoms Skin: positive: No symptoms Psychiatric: positive: No symptoms Objective - Patient Data Reviewed Vital Signs: Yes Vital Signs: Vital Signs x48h Temp Pulse Resp BP Pulse Ox 11/19/16 22:45 73 109/57 L 11/19/16 17:20 38.1 C H 11/19/16 16:59 36.7 C 11/19/16 15:54 38.6 C H 72 20 107/61 96 Weight: Weight 11/17/16 11/18/16 11/19/16 23:59 23:59 23:59 Weight (kg) 100 kg 100 kg Intake & Output: Intake and Output Totals x24h 11/17/16 11/18/16 11/19/16 23:59 23:59 23:59 Intake Total 200 3400.000 3810.200 Output Total 400 890 Balance 200 3000.000 2920.200 - Lab Results Lab Results: 11/19/16 06:16 11/19/16 06:16 Other Lab Results: Lab Results x24hrs 11/19/16 11/19/16 11/19/16 Range/Units 11:33 06:16 06:16 WBC 10.1 (4.8-10.8) x10^3/uL RBC 3.41 L (4.70-6.10) 10^6/uL Hgb 11.3 L (14.0-18.0) g/dL Hct 33.3 L (42.0-52.0) % MCV 97.6 H (80.0-94.0) fL MCH 33.2 H (27.0-31.0) pg MCHC 34.0 (32.0-36.0) g/dL RDW 11.9 L (12.0-15.0) % Plt Count 213 (130-450) 10^3/uL MPV 8.4 (7.4-11.4) fL Neut # 8.8 H (1.5-6.6) 10^3/uL Lymph # 0.7 L (1.5-3.5) 10^3/uL [place] # 0.5 (0.0-1.0) 10^3/uL Eos # 0.0 (0.0-0.7) 10^3/uL Baso # 0.0 (0.0-0.1) 10^3/uL Absolute Nucleated RBC 0.00 x10^3/uL Nucleated RBC % 0.0 /100WBC Sodium 137 (135-145) mmol/L Potassium 4.3 (3.5-5.0) mmol/L Chloride 107 (101-111) mmol/L Carbon Dioxide 22 (21-32) mmol/L Anion Gap 8.0 (6-13) BUN 19 (6-20) mg/dL Creatinine 1.3 H (0.6-1.2) mg/dL Estimated GFR (MDRD) 53 L (>89) Glucose 184 H (70-100) mg/dL POC Whole Bld Glucose 118 H (70 - 100) mg/dL Calcium 8.2 L (8.5-10.3) mg/dL Total Bilirubin 0.7 (0.2-1.0) mg/dL AST 46 H (10-42) IU/L ALT 52 (10-60) IU/L Alkaline Phosphatase 53 (42-121) IU/L Total Protein 6.0 L (6.7-8.2) g/dL Albumin 2.7 L (3.2-5.5) g/dL Globulin 3.3 (2.1-4.2) g/dL Albumin/Globulin Ratio 0.8 L (1.0-2.2) - Current Medications Current Medications: Current Medications Generic Name Dose Route Start Last Admin Trade Name Freq PRN Reason Stop Dose Admin Acetaminophen 650 mg 11/19/16 17:38 11/19/16 17:49 Tylenol PO 650 mg Q4HR PRN Administration Pain or Fever > 38C (100.4F) Acetaminophen/Hydrocodone Bitart 1 tab 11/18/16 19:04 11/19/16 16:02 [place] 5/325 PO 1 tab Q4HR PRN Administration PAIN Hydromorphone HCl 0.2 mg 11/19/16 15:02 11/19/16 22:11 Dilaudid Inj Syringe IVP 0.2 mg Q2HR PRN Administration PAIN Piperacillin Sod/Tazobactam 100 mls @ 200 mls/hr 11/17/16 16:00 11/19/16 22: 40 Sod 3.375 gm/ Sodium Chloride IV Infused Q6H CARLOS Infusion Potassium Chloride/Dextrose/Sod Cl 1,000 mls @ 50 mls/hr 11/19/16 15:02 11/19 22:11 IV 50 mls/hr .Q20H CARLOS Administration Pantoprazole Sodium 40 mg 11/19/16 07:00 11/19/16 06:16 Protonix PO 40 mg QDAC CARLOS Administration Polyethylene Glycol 17 gm 11/18/16 09:00 11/19/16 08:00 Miralax PO Not Given DAILY CARLOS Sodium Chloride 10 ml 11/18/16 22:00 11/19/16 18:07 Normal Saline Flush 0.9% IVP 10 ml Q8HR CARLOS Administration Sodium Chloride 10 ml 11/18/16 19:04 11/19/16 22:11 Normal Saline Flush 0.9% IVP 10 ml PRN PRN Administration NEEDED PER PROVIDER ORDERS Tamsulosin HCl 0.4 mg 11/19/16 16:00 11/19/16 16:02 Flomax PO 0.4 mg DAILY CARLOS Administration - Physical Exam Wound/Incisions: positive: Dressing dry and intact (Mostly.) Eyes Bilateral: positive: No lid inflammation, Conjunctivae nml, No scleral icterus Neck: positive: Trachea midline Respiratory: positive: Chest non-tender, No respiratory distress, Breath sounds nml (Slightly decreased efort.) Cardiovascular: positive: Regular rate & rhythm Abdomen: positive: Abnml bowel sounds (Slightly decreased but patient has been eating without problem. Doughy. Incisional tenderness.) Skin: positive: Color nml Extremities: positive: Nml appearance Neurologic/Psychiatric: positive: Oriented x3 Impression/Plan - Problem List Problem List: Day 1 status post laparoscopic cholecystectomy (very difficult with a markedly enlarged gallbladder necessitating drainage and hydrops) as well as umbilical herniorrhaphy. Due to this patient's advanced age and comorbidities as well as his general weak constitution he is not ready to go home yet today. He is requiring oxygen which he did not require preoperatively and he is developing a fever. He is a set up for an infection as his gallbladder was obstructed and he had hydrops. The fluid was sent off for culture and pulmonary cultures revealed that there are gram-negative rods. He is on the right antibiotics for most all gram- negative rods however there was spillage of bile into the abdominal cavity as well as spillage of several stones that were ultimately not recovered. As such I have a heightened concern for infection. He is to remain on the IV Zosyn. I have ordered up a chest x-ray to ensure that the fever is not pulmonary in origin. Interestingly his white count is normal today. His hemoglobin and hematocrit also appeared to be stable. I have decreased his IV fluids a bit and also decrease his IV pain medication as the month that I gave him 0.5 was simply too much. It has been decreased to 0.2 mg of Dilaudid for breakthrough pain. I have ordered repeat labs in the morning and will check on him. Additionally I have ordered physical therapy to start working with him to see if we cannot increase his strength and mobility.
[2016-11-20] MEDS: HYDROcod/ACETAM 5/325 MG TABLET PO PRN ×4 (00:09→13:35)
[2016-11-20] MEDS: PIPERACILLIN/TAZOBACTAM 3.375 GM in SODIUM CHLORIDE 0.9% MINIBAG 100 ML IV SCH ×3 (04:01→15:58)
[2016-11-20] MEDS: SODIUM CHLORIDE FLUSH 0.9% 10 ML SYRINGE IVP SCH ×3 (04:13→22:51)
[2016-11-20 05:12] LABS: BASOPHILS # (AUTO) 0.1 10^3/uL (0.0-0.1); BASOPHILS % (AUTO) 0.6 %; EOSINOPHILS # (AUTO) 0.2 10^3/uL (0.0-0.7); EOSINOPHILS % (AUTO) 1.9 %; HCT - HEMATOCRIT 32.4 % (42.0-52.0); HGB - HEMOGLOBIN 11.1 g/dL (14.0-18.0); LYMPHOCYTES # (AUTO) 0.8 10^3/uL (1.5-3.5); LYMPHOCYTES % (AUTO) 8.6 %; MEAN CORPUSCULAR HEMOGLOBIN 33.3 pg (27.0-31.0); MEAN CORPUSCULAR HGB CONC 34.2 g/dL (32.0-36.0); MEAN CORPUSCULAR VOLUME 97.4 fL (80.0-94.0); MEAN PLATELET VOLUME 8.2 fL (7.4-11.4); MONOCYTES # (AUTO) 0.5 10^3/uL (0.0-1.0); MONOCYTES % (AUTO) 5.3 %; NEUTROPHILS # (AUTO) 8.2 10^3/uL (1.5-6.6); NEUTROPHILS % (AUTO) 83.6 %; RED BLOOD COUNT 3.32 10^6/uL (4.70-6.10); RED CELL DISTRIBUTION WIDTH 11.8 % (12.0-15.0); UNCORRECTED WHITE BLOOD COUNT 9.8 x10^3/uL; WHITE BLOOD COUNT 9.8 x10^3/uL (4.8-10.8)
[2016-11-20 05:22] LABS: ALBUMIN/GLOBULIN RATIO 0.6 (1.0-2.2); BILIRUBIN,TOTAL 0.7 mg/dL (0.2-1.0); CREATININE 1.2 mg/dL (0.6-1.2); POTASSIUM 3.7 mmol/L (3.5-5.0); TOTAL PROTEIN 6.4 g/dL (6.7-8.2)
[2016-11-20] MEDS: PANTOPRAZOLE 40 MG TABLET PO SCH (06:08)
[2016-11-20] MEDS: POLYETHYLENE GLYCOL 3350 17 GM PACKET PO SCH (08:10)
[2016-11-20] MEDS: TAMSULOSIN 0.4 MG CAPSULE PO SCH (08:11)
[2016-11-20] MEDS: ACETAMINOPHEN 325 MG TABLET PO PRN (18:40)
[2016-11-20] MEDS: D5NS W/20 MEQ KCL 1,000 ML IV SCH (20:30)
--- NOTE | 2016-11-20 22:20 | PROVIDER PROGRESS NOTE ---
Subjective - General Admit Date: 11/17/16 Procedure Date: 11/18/16 Post Op Days: 2 Procedure Performed: Laparoscopic cholecystectomy (difficult) with hydrops and umbilical hernior - Review of Systems Wound/Incisions: positive: Dressing dry and intact (Mostly.) General: positive: Other (Postoperative pain much better.) HEENT: positive: No symptoms Pulmonary: positive: No symptoms Cardiovascular: positive: No symptoms Gastrointestinal: positive: Abdominal pain (Postoperative and expected but markedly approved.) Genitourinary: positive: Other (Handy was in and pulled. Patient has a history of a neurogenic bladder. Flomax started and hopefully we will be able to keep the Handy out.) Musculoskeletal: positive: No symptoms Skin: positive: No symptoms Psychiatric: positive: No symptoms Objective - Patient Data Reviewed Vital Signs: Yes Vital Signs: Vital Signs x48h Temp Pulse Resp BP Pulse Ox 11/20/16 15:42 36.8 C 72 18 126/65 92 Weight: Weight 11/18/16 11/19/16 11/20/16 23:59 23:59 23:59 Weight (kg) 100 kg Intake & Output: Intake and Output Totals x24h 11/18/16 11/19/16 11/20/16 23:59 23:59 23:59 Intake Total 3400.000 3810.200 1930 Output Total 410 078 2315 Balance 3000.000 2920.200 830 - Lab Results Lab Results: 11/20/16 04:57 11/20/16 04:57 Other Lab Results: Lab Results x24hrs 11/20/16 11/20/16 11/20/16 Range/Units 10:55 04:57 04:57 WBC 9.8 (4.8-10.8) x10^3/uL RBC 3.32 L (4.70-6.10) 10^6/uL Hgb 11.1 L (14.0-18.0) g/dL Hct 32.4 L (42.0-52.0) % MCV 97.4 H (80.0-94.0) fL MCH 33.3 H (27.0-31.0) pg MCHC 34.2 (32.0-36.0) g/dL RDW 11.8 L (12.0-15.0) % Plt Count 251 (130-450) 10^3/uL MPV 8.2 (7.4-11.4) fL Neut # 8.2 H (1.5-6.6) 10^3/uL Lymph # 0.8 L (1.5-3.5) 10^3/uL [place] # 0.5 (0.0-1.0) 10^3/uL Eos # 0.2 (0.0-0.7) 10^3/uL Baso # 0.1 (0.0-0.1) 10^3/uL Absolute Nucleated RBC 0.00 x10^3/uL Nucleated RBC % 0.0 /100WBC Sodium 137 (135-145) mmol/L Potassium 3.7 (3.5-5.0) mmol/L Chloride 106 (101-111) mmol/L Carbon Dioxide 22 (21-32) mmol/L Anion Gap 9.0 (6-13) BUN 16 (6-20) mg/dL Creatinine 1.2 (0.6-1.2) mg/dL Estimated GFR (MDRD) 58 L (>89) Glucose 141 H (70-100) mg/dL POC Whole Bld Glucose 181 H (70 - 100) mg/dL Calcium 8.0 L (8.5-10.3) mg/dL Total Bilirubin 0.7 (0.2-1.0) mg/dL AST 37 (10-42) IU/L ALT 54 (10-60) IU/L Alkaline Phosphatase 64 (42-121) IU/L Total Protein 6.4 L (6.7-8.2) g/dL Albumin 2.5 L (3.2-5.5) g/dL Globulin 3.9 (2.1-4.2) g/dL Albumin/Globulin Ratio 0.6 L (1.0-2.2) - Current Medications Current Medications: Current Medications Generic Name Dose Route Start Last Admin Trade Name Freq PRN Reason Stop Dose Admin Acetaminophen 650 mg 11/19/16 17:38 11/20/16 18:40 Tylenol PO 650 mg Q4HR PRN Administration Pain or Fever > 38C (100.4F) Acetaminophen/Hydrocodone Bitart 1 tab 11/18/16 19:04 11/20/16 13:35 [place] 5/325 PO 1 tab Q4HR PRN Administration PAIN Hydromorphone HCl 0.2 mg 11/19/16 15:02 11/19/16 22:11 Dilaudid Inj Syringe IVP 0.2 mg Q2HR PRN Administration PAIN Potassium Chloride/Dextrose/Sod Cl 1,000 mls @ 50 mls/hr 11/19/16 15:02 11/20 20:30 IV 50 mls/hr .Q20H CARLOS Administration Pantoprazole Sodium 40 mg 11/19/16 07:00 11/20/16 06:08 Protonix PO 40 mg QDAC CARLOS Administration Polyethylene Glycol 17 gm 11/18/16 09:00 11/20/16 08:10 Miralax PO 17 gm DAILY CARLOS Administration Sodium Chloride 10 ml 11/18/16 22:00 11/20/16 13:36 Normal Saline Flush 0.9% IVP 10 ml Q8HR CARLOS Administration Sodium Chloride 10 ml 11/18/16 19:04 11/19/16 22:11 Normal Saline Flush 0.9% IVP 10 ml PRN PRN Administration NEEDED PER PROVIDER ORDERS Tamsulosin HCl 0.4 mg 11/19/16 16:00 11/20/16 08:11 Flomax PO 0.4 mg DAILY CARLOS Administration - Physical Exam Wound/Incisions: positive: Dressing dry and intact General Appearance: positive: No acute distress Eyes Bilateral: positive: No lid inflammation, Conjunctivae nml, No scleral icterus Neck: positive: Trachea midline Respiratory: positive: Breath sounds nml (But slightly decreased motion.) Cardiovascular: positive: Regular rate & rhythm, Systolic murmur Abdomen: positive: Nml bowel sounds, Tenderness (Incisional.) Skin: positive: Color nml Extremities: positive: Non-tender, Nml appearance Neurologic/Psychiatric: positive: Oriented x3 Impression/Plan - Problem List Problem List: D2 s/p complex laparoscopic cholecystectomy with umbilical herniorrhapy Patient is tolerating a general diet with minimal IVF to support his fluid intake. PT is working with patient and getting the patient up and walking has been a challenge but this challenge pre-dates his surgery i.e. his surgery does not have a major effect on this. Additionally, the patient has a neurogenic bladder which has been unchanged with the surgery and is not correctable. As such I have removed the patient's Handy and started him on intermittent straight catheterizations as needed which could continue at home. Alternatively , patient could go home with an indwelling Handy. Additionally I prescribed Flomax in the off chance that it might help. There is no indication of ongoing infection but his gallbladder did culture Klebsiella oxytoca. I have stopped his Zosyn and started oral Levaquin (which the Klebsiella oxytoca is VERY sensitive to) and should be continued for 7 days with an eye towards planning for his discharge.
[2016-11-20] MEDS ORDERED: levoFLOXacin 250 MG TABLET PO SCH (23:00)
[2016-11-21] MEDS: HYDROcod/ACETAM 5/325 MG TABLET PO PRN ×2 (05:21→16:38)
[2016-11-21] MEDS: SODIUM CHLORIDE FLUSH 0.9% 10 ML SYRINGE IVP SCH ×3 (06:19→19:39)
[2016-11-21] MEDS: PANTOPRAZOLE 40 MG TABLET PO SCH (06:55)
--- NOTE | 2016-11-21 07:01 | CONSULTATION NOTE ---
Referring Provider Name of Referring Provider:: Mando Eugene MD Consult Date: 11/21/16 Chief Complaint - Chief Complaint Chief Complaint: sudden chest pain History of Present Illness - Admitted From Admitted From:: ER - History Obtained From Records Reviewed: [facility] History obtained from: patient Exam Limitations: memory loss - History of Present Illness HPI Comment/Other: He is an 85-year-old white male with memory loss. He woke up and was sitting at the side of the bed with the sheets thrown off the bed, he is pants taken off and his diaper also about to be removed. He was anxious, describing to the nurse that he was having chest pain. It woke him up. It was making him not be able to breathe. Was nonradiating. In the time it took her to call me, and the lab to get a troponin and EKG, the pain was completely gone within minutes. EKG shows sinus rhythm. 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 He now does not remember that this happened. He has a history of coronary artery disease with an MD and also has hypertension and cholesterol. He tells me he does not have this chest pain on a regular basis and does not remember having this before. He is postoperative day #3 for laparoscopic cholecystectomy. He has been slow to move. Does get up during the day but not regularly. 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 - Past Surgical History General: reports: Colonoscopy Ortho: reports: Carpal Tunnel surgery, Spine surgery Cardiovascular: reports: Coronary stent, Angioplasty - POLST Patient has POLST: Yes Meds/Allgy - Home Medications Home Medications: Ambulatory Orders Medication Instructions Recorded Confirmed Cholecalciferol (Vitamin D3) 2,000 unit PO BID 09/27/13 11/18/16 [Vitamin D-3] Krill/Dwarf-3/Dha/Epa/Lipids 1 each PO DAILY 09/27/13 11/18/16 [Krill Oil 300 mg Softgel] Losartan [Cozaar] 50 mg PO DAILY 09/27/13 11/18/16 Metformin HCl 500 mg PO BID 09/27/13 11/18/16 Ubidecarenone [Co Q-10] 200 mg PO DAILY 09/27/13 11/18/16 Vitamin B Complex Vit C No.4 150 mg PO DAILY 09/27/13 11/18/16 [Super B Complex] Esomeprazole Magnesium [Nexium] 20 mg PO DAILY 03/05/15 11/18/16 Acetaminophen [Tylenol] 650 mg PO Q6H PRN 11/18/16 11/18/16 Aspirin Chewable [St Juvenal 81 mg PO DAILY 11/18/16 11/18/16 Aspirin] Lovastatin 10 mg PO DAILY PM 11/18/16 11/18/16 Nitroglycerin 0.4 mg SL PRN PRN 11/18/16 11/18/16 - Allergies Allergies/Adverse Reactions: Allergies Allergy/AdvReac Type Severity Reaction Status Date / Time No Known Drug Allergies Allergy Verified 11/17/16 11:06 Review of Systems - Constitutional Constitutional: reports: Fatigue - Eyes Eyes: denies: Pain, Amaurosis - Ears, Nose & Throat Ears, Nose & Throat: denies: Tinnitus, Vertigo, Postnasal drainage - Cardiovascular Cariovascular: denies: Irregular heart rate, Palpitations, Chest pain (now. and he can't remember his calling the RN) - Respiratory Respiratory: denies: Cough, Wheezing - Gastrointestinal Gastrointestinal: reports: Abdominal pain (mild as a residual from surgery) - Genitourinary Genitourinary: reports: Other (he has a neurogenic bladder and has retention as noted in the EMR) - Musculoskeletal Musculoskeletal: reports: Back pain (mild) - Integumentary Integumentary: denies: Rash - Neurological Neurological: reports: Memory problems - Endocrine Endocrine: reports: Polyuria, Polydypsia - Hematologic/Lymphatic Hematologic/Lymphatic: reports: Anemia, Bruising, Petechiae Exam - Vital Signs Reviewed Vital Signs: Yes Vital Signs: Vital Signs x48h Temp Pulse Resp BP Pulse Ox 11/21/16 05:00 37.2 C 72 18 149/86 H 95 11/20/16 23:45 36.6 C 63 16 140/74 H 95 - Physical Exam General Appearance: positive: No acute distress, Alert Eyes Bilateral: positive: PERRL ENT: positive: No signs of dehydration Neck: positive: No JVD. negative: Lymphadenopathy (R), Lymphadenopathy (L), Stiff neck, Carotid bruit Respiratory: positive: Chest non-tender. negative: Wheezes, Rales, Rhonchi Cardiovascular: positive: Regular rate & rhythm. negative: Systolic murmur, Gallop/S4, Friction rub Peripheral Pulses: positive: 2+ Abdomen: positive: Nml bowel sounds, Tenderness (mild from incision). negative : Guarding, Rebound Skin: positive: Warm, Dry Extremities: positive: Non-tender, Full ROM Neurologic/Psychiatric: positive: Disoriented to time Conclusion/Plan - Diagnosis Diagnosis: sudden chest pain in a post operative patient with hx of MD and POD # 3 for lap chantelle. Troponin is negative and EKG without change. Order CTA to rule out PE. 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 No acute ST changes. No change from 11/12/16.)
[2016-11-21] MEDS ORDERED: IOPAMIDOL-300 100 ML VIAL ONE (07:17)
[2016-11-21] MEDS ORDERED: IOPAMIDOL-300 100 ML VIAL IVP ONE (08:11)
--- NOTE | 2016-11-21 08:43 | CT Report ---
CT PULMONARY ANGIOGRAM: 11/21/2016 CLINICAL INDICATION: Sudden onset chest pain and shortness of breath. TECHNIQUE: Axial CT images of the chest were obtained with 80 mL Isovue-300 intravenously, in pulmon elba artery phase of opacification. Sagittal and coronal 3D reconstructions were performed. In accordance with CT protocol optimization, one or more of the following dose reduction techniques w ere utilized for this exam: automated exposure control, adjustment of mA and/or KV based on patient size, or use of iterative reconstructive technique. No previous chest CT is available for comparison. FINDINGS: There is a segmental pulmonary embolus in the lateral right upper lobe. No hilar or media stinal lymphadenopathy is present. There is a right lower lobe infiltrate, and patchy left lower lob e infiltrate present, and small right and trace left pleural effusions. No pneumothorax. Limited ev aluation of upper abdominal structures demonstrates normal adrenal glands and fatty infiltration of t he liver. Osseous structures demonstrate degenerative changes. IMPRESSION: RIGHT UPPER LOBE PULMONARY EMBOLUS. RIGHT GREATER THAN LEFT LOWER LOBE INFILTRATES AND RIGHT GREATER THAN LEFT EFFUSIONS, SMALL. CRITICAL RESULT: RESULTS CALLED TO DR. BRODERICK ON 11/21/2016 AT 8:15 A.M. JOB #: [id number] EXT JOB #:[id number]
[2016-11-21] MEDS ORDERED: WARFARIN 5 MG TABLET PO SCH (09:00)
[2016-11-21] MEDS: TAMSULOSIN 0.4 MG CAPSULE PO SCH (09:27)
[2016-11-21] MEDS: ENOXAPARIN 100 MG/ML SYRINGE SUBQ SCH ×2 (09:27→20:00)
[2016-11-21] MEDS: levoFLOXacin 500 MG/100 ML 500 MG/100 ML BAG IV SCH (09:28)
[2016-11-21] MEDS: POLYETHYLENE GLYCOL 3350 17 GM PACKET PO SCH (09:28)
--- NOTE | 2016-11-21 11:18 | PROVIDER PROGRESS NOTE ---
Hospitalist Cross-cover Note - Cross-Cover Note Cross-Cover Note: Patients CTA thorax showed pulmonary embolism and bilateral infiltrates. Patient now requiring O2. Patient started on lovenox and coumadin for PE and levaquin for pneumonia. Patient to be accessed by PT for possible rehab placement. Spoke with patient and examined patient.
[2016-11-21] MEDS: D5NS W/20 MEQ KCL 1,000 ML IV SCH (18:04)
[2016-11-22] MEDS: SODIUM CHLORIDE FLUSH 0.9% 10 ML SYRINGE IVP SCH ×3 (06:15→20:33)
[2016-11-22] MEDS: PANTOPRAZOLE 40 MG TABLET PO SCH (06:15)
[2016-11-22 08:09] LABS: BASOPHILS # (AUTO) 0.1 10^3/uL (0.0-0.1); BASOPHILS % (AUTO) 0.9 %; EOSINOPHILS # (AUTO) 0.3 10^3/uL (0.0-0.7); HCT - HEMATOCRIT 31.9 % (42.0-52.0); LYMPHOCYTES # (AUTO) 0.8 10^3/uL (1.5-3.5); LYMPHOCYTES % (AUTO) 9.2 %; MEAN CORPUSCULAR HGB CONC 34.6 g/dL (32.0-36.0); MEAN CORPUSCULAR VOLUME 95.5 fL (80.0-94.0); MONOCYTES # (AUTO) 0.5 10^3/uL (0.0-1.0); NEUTROPHILS # (AUTO) 7.3 10^3/uL (1.5-6.6); NEUTROPHILS % (AUTO) 80.9 %; RED BLOOD COUNT 3.35 10^6/uL (4.70-6.10); RED CELL DISTRIBUTION WIDTH 12.1 % (12.0-15.0); UNCORRECTED WHITE BLOOD COUNT 9.1 x10^3/uL; WHITE BLOOD COUNT 9.1 x10^3/uL (4.8-10.8)
[2016-11-22 08:15] LABS: INR 1.7 (0.8-1.2)
[2016-11-22 08:30] LABS: ALBUMIN/GLOBULIN RATIO 0.6 (1.0-2.2); BILIRUBIN,TOTAL 0.4 mg/dL (0.2-1.0); BUN - BLOOD UREA NITROGEN 13 mg/dL (6-20); CALCIUM 8.7 mg/dL (8.5-10.3); CARBON DIOXIDE - CO2 23 mmol/L (21-32); CHLORIDE 103 mmol/L (101-111); CREATININE 1.1 mg/dL (0.6-1.2); GFR - MDRD 64 (>89); GLUCOSE 142 mg/dL (70-100); MAGNESIUM 1.9 mg/dL (1.7-2.8); PHOSPHORUS 3.1 mg/dL (2.5-4.6); POTASSIUM 4.1 mmol/L (3.5-5.0); SODIUM 136 mmol/L (135-145); TOTAL PROTEIN 6.4 g/dL (6.7-8.2)
[2016-11-22] MEDS: POLYETHYLENE GLYCOL 3350 17 GM PACKET PO SCH (10:21)
[2016-11-22] MEDS: SENNA 8.6 MG TABLET PO SCH (10:22)
[2016-11-22] MEDS: TAMSULOSIN 0.4 MG CAPSULE PO SCH (10:22)
[2016-11-22] MEDS: DOCUSATE SODIUM 250 MG CAPSULE PO SCH (10:22)
[2016-11-22] MEDS: ENOXAPARIN 100 MG/ML SYRINGE SUBQ SCH ×2 (10:25→20:33)
[2016-11-22] MEDS: levoFLOXacin 500 MG/100 ML 500 MG/100 ML BAG IV SCH (10:29)
[2016-11-22] MEDS ORDERED: WARFARIN 5 MG TABLET PO SCH (14:00)
--- NOTE | 2016-11-22 14:15 | PROVIDER PROGRESS NOTE ---
Subjective - General Admit Date: 11/17/16 Procedure Date: 11/18/16 Post Op Days: 4 Procedure Performed: Laparoscopic cholecystectomy (difficult) with hydrops and umbilical hernior - Review of Systems Wound/Incisions: positive: Healing well General: positive: Other (Postoperative pain much better.) HEENT: positive: No symptoms Pulmonary: positive: No symptoms Cardiovascular: positive: No symptoms Gastrointestinal: positive: Abdominal pain (Postoperative and expected but markedly approved.) Musculoskeletal: positive: No symptoms Skin: positive: No symptoms Psychiatric: positive: No symptoms (Much more awake and alert. States that he cannot leave hospital yet as he is not walking but I reminded him he was not walking well before operation.) Objective - Patient Data Reviewed Vital Signs: Yes Vital Signs: Vital Signs x48h Temp Pulse Resp BP Pulse Ox 11/22/16 11:00 37.2 C 60 16 113/74 95 Intake & Output: Intake and Output Totals x24h 11/20/16 11/21/16 11/22/16 23:59 23:59 23:59 Intake Total 1930 1940 1236 Output Total 3200 1000 150 Balance -9120 554 6141 - Lab Results Lab Results: 11/22/16 08:00 11/22/16 08:00 Other Lab Results: Lab Results x24hrs 11/22/16 11/22/16 11/22/16 Range/Units 11:38 08:00 08:00 WBC (4.8-10.8) x10^3/uL RBC (4.70-6.10) 10^6/uL Hgb (14.0-18.0) g/dL Hct (42.0-52.0) % MCV (80.0-94.0) fL MCH (27.0-31.0) pg MCHC (32.0-36.0) g/dL RDW (12.0-15.0) % Plt Count (130-450) 10^3/uL MPV (7.4-11.4) fL Neut # (1.5-6.6) 10^3/uL Lymph # (1.5-3.5) 10^3/uL [place] # (0.0-1.0) 10^3/uL Eos # (0.0-0.7) 10^3/uL Baso # (0.0-0.1) 10^3/uL Absolute Nucleated RBC x10^3/uL Nucleated RBC % /100WBC PT 19.0 H (9.9-12.6) secs INR 1.7 H (0.8-1.2) Sodium 136 (135-145) mmol/L Potassium 4.1 (3.5-5.0) mmol/L Chloride 103 (101-111) mmol/L Carbon Dioxide 23 (21-32) mmol/L Anion Gap 10.0 (6-13) BUN 13 (6-20) mg/dL Creatinine 1.1 (0.6-1.2) mg/dL Estimated GFR (MDRD) 64 L (>89) Glucose 142 H (70-100) mg/dL POC Whole Bld Glucose 160 H (70 - 100) mg/dL Calcium 8.7 (8.5-10.3) mg/dL Ionized Calcium NO Phosphorus 3.1 (2.5-4.6) mg/dL Magnesium 1.9 (1.7-2.8) mg/dL Total Bilirubin 0.4 (0.2-1.0) mg/dL AST 52 H (10-42) IU/L ALT 91 H (10-60) IU/L Alkaline Phosphatase 83 (42-121) IU/L Total Protein 6.4 L (6.7-8.2) g/dL Albumin 2.5 L (3.2-5.5) g/dL Globulin 3.9 (2.1-4.2) g/dL Albumin/Globulin Ratio 0.6 L (1.0-2.2) 11/22/16 Range/Units 08:00 WBC 9.1 (4.8-10.8) x10^3/uL RBC 3.35 L (4.70-6.10) 10^6/uL Hgb 11.0 L (14.0-18.0) g/dL Hct 31.9 L (42.0-52.0) % MCV 95.5 H (80.0-94.0) fL MCH 33.0 H (27.0-31.0) pg MCHC 34.6 (32.0-36.0) g/dL RDW 12.1 (12.0-15.0) % Plt Count 316 (130-450) 10^3/uL MPV 8.0 (7.4-11.4) fL Neut # 7.3 H (1.5-6.6) 10^3/uL Lymph # 0.8 L (1.5-3.5) 10^3/uL [place] # 0.5 (0.0-1.0) 10^3/uL Eos # 0.3 (0.0-0.7) 10^3/uL Baso # 0.1 (0.0-0.1) 10^3/uL Absolute Nucleated RBC 0.00 x10^3/uL Nucleated RBC % 0.0 /100WBC PT (9.9-12.6) secs INR (0.8-1.2) Sodium (135-145) mmol/L Potassium (3.5-5.0) mmol/L Chloride (101-111) mmol/L Carbon Dioxide (21-32) mmol/L Anion Gap (6-13) BUN (6-20) mg/dL Creatinine (0.6-1.2) mg/dL Estimated GFR (MDRD) (>89) Glucose (70-100) mg/dL POC Whole Bld Glucose (70 - 100) mg/dL Calcium (8.5-10.3) mg/dL Ionized Calcium Phosphorus (2.5-4.6) mg/dL Magnesium (1.7-2.8) mg/dL Total Bilirubin (0.2-1.0) mg/dL AST (10-42) IU/L ALT (10-60) IU/L Alkaline Phosphatase (42-121) IU/L Total Protein (6.7-8.2) g/dL Albumin (3.2-5.5) g/dL Globulin (2.1-4.2) g/dL Albumin/Globulin Ratio (1.0-2.2) - Current Medications Current Medications: Current Medications Generic Name Dose Route Start Last Admin Trade Name Freq PRN Reason Stop Dose Admin Acetaminophen 650 mg 11/19/16 17:38 11/20/16 18:40 Tylenol PO 650 mg Q4HR PRN Administration Pain or Fever > 38C (100.4F) Acetaminophen/Hydrocodone Bitart 1 tab 11/18/16 19:04 11/21/16 16:38 [place] 5/325 PO 1 tab Q4HR PRN Administration PAIN Docusate Sodium 250 - 500 mg 11/22/16 09:00 11/22/16 10:22 Colace 250mg Capsule PO 250 mg DAILY CARLOS Administration Enoxaparin Sodium 100 mg 11/21/16 09:00 11/22/16 10:25 Lovenox SUBQ 100 mg BID CARLOS Administration Hydromorphone HCl 0.2 mg 11/19/16 15:02 11/19/16 22:11 Dilaudid Inj Syringe IVP 0.2 mg Q2HR PRN Administration PAIN Potassium Chloride/Dextrose/Sod Cl 1,000 mls @ 50 mls/hr 11/19/16 15:02 11/22 06:16 IV 50 mls/hr .Q20H CARLOS Infusion Levofloxacin 500 mg in 100 mls @ 100 mls/hr 11/21/16 09:00 11/22/16 11:30 Levaquin 500 Mg/100 Ml IV Infused Q24H CARLOS Infusion Pantoprazole Sodium 40 mg 11/19/16 07:00 11/22/16 06:15 Protonix PO 40 mg QDAC CARLOS Administration Polyethylene Glycol 17 gm 11/18/16 09:00 11/22/16 10:21 Miralax PO 17 gm DAILY CARLOS Administration Senna 8.6 - 17.2 mg 11/22/16 09:00 11/22/16 10:22 Senokot PO 8.6 mg DAILY CARLOS Administration Sodium Chloride 10 ml 11/18/16 22:00 11/22/16 06:15 Normal Saline Flush 0.9% IVP Not Given Q8HR CARLOS Sodium Chloride 10 ml 11/18/16 19:04 11/19/16 22:11 Normal Saline Flush 0.9% IVP 10 ml PRN PRN Administration NEEDED PER PROVIDER ORDERS Tamsulosin HCl 0.4 mg 11/19/16 16:00 11/22/16 10:22 Flomax PO 0.4 mg DAILY CARLOS Administration - Physical Exam Wound/Incisions: positive: Healing well, No drainage. negative: Erythema General Appearance: positive: No acute distress, Alert (Much more alert.) Eyes Bilateral: positive: No lid inflammation, Conjunctivae nml, No scleral icterus, Other (Wearing glassses reading paper when I walked in.) Neck: positive: Trachea midline Respiratory: positive: No respiratory distress, Breath sounds nml Cardiovascular: positive: Regular rate & rhythm, Systolic murmur (Unchanged.) Abdomen: positive: Tenderness (Expected postoperative tenderness. Dressings and steristrips removed.) Skin: positive: Color nml Extremities: positive: Non-tender, Nml appearance Neurologic/Psychiatric: positive: Oriented x3 Impression/Plan - Problem List Problem List: D4 s/p laparoscopic cholecystectomy with umbilical herniorrhaphy complicated by DVT-PE despite TEDs and venadynes. Anticoagulation was not used due to blood loss during operation. Patient is on anticoagulation now. H&H and WBC stable. Tolerating diet. There are NO surgical issues that cannot be handled or managed better as an outpatient. Increased strength and walking will be accomplished over weeks as an outpatient. Patient can and should be discharged home or to [facility] today from a surgical standpoint. Upon discharge I would like to see patient in 7-10 days in my clinic for a postoperative visit. Finish antibiotic course as outpatient - total of 7 days (3 more days or oral Levaquin).
[2016-11-22] MEDS ORDERED: D5NS W/20 MEQ KCL 1,000 ML IV SCH (14:22)
[2016-11-22] MEDS: ACETAMINOPHEN 325 MG TABLET PO PRN (14:49)
--- NOTE | 2016-11-22 16:17 | PROVIDER PROGRESS NOTE ---
Assessment/Plan - Problem List (1) Pulmonary embolism Qualifiers: Chronicity: acute Assessment/Plan: Patient had acute onset chest pain and shortness of air CTA of the lungs showed right upper lobe PE Patient started on Lovenox and coumadin INR today is 1.7 Patient will need to be bridged with lovenox over the next 7-10 days Patient off O2 Feels much better (2) Pneumonia Qualifiers: Laterality: bilateral Lung location: lower lobe of lung Assessment/Plan: Patient had shortness of air and chest pain in the morning yesterday and was found to have a PE on CTA along with right greater than left lower lobe infiltrates concerning for pneumonia Patient started on IV levaquin day 2 Will need 7 days of abx will switch to PO at discharge (3) Diabetes Qualifiers: Diabetes mellitus type: type 2 Assessment/Plan: Patient on metformin at home Will place on SS insulin with DM diet and BG checks ACQHS Stable (4) Cholecystitis Assessment/Plan: s/p Lap chantelle POD#3 Surgery following Pain controlled PT evaluated patient and patient need to go to SNF for rehab Plan for discharge to Rehab tomorrow (5) Urinary retention Assessment/Plan: Patient has a neurogenic bladder and continues to be able to void with PVR of 600 ml The patient does not have any distress and does not want a camp catheter for home Continue flomax - Current Meds Current Meds: Current Medications Generic Name Dose Route Start Last Admin Trade Name Freq PRN Reason Stop Dose Admin Acetaminophen 650 mg 11/19/16 17:38 11/22/16 14:49 Tylenol PO 650 mg Q4HR PRN Administration Pain or Fever > 38C (100.4F) Acetaminophen/Hydrocodone Bitart 1 tab 11/18/16 19:04 11/21/16 16:38 [place]aters 5/325 PO 1 tab Q4HR PRN Administration PAIN Docusate Sodium 250 - 500 mg 11/22/16 09:00 11/22/16 10:22 Colace 250mg Capsule PO 250 mg DAILY CARLOS Administration Enoxaparin Sodium 100 mg 11/21/16 09:00 11/22/16 10:25 Lovenox SUBQ 100 mg BID CARLOS Administration Levofloxacin 500 mg in 100 mls @ 100 mls/hr 11/21/16 09:00 11/22/16 11:30 Levaquin 500 Mg/100 Ml IV Infused Q24H CARLOS Infusion Potassium Chloride/Dextrose/Sod Cl 1,000 mls @ 0 mls/hr 11/22/16 14:22 14:31 IV 30 mls/hr .Q0M CARLOS Administration TKO Pantoprazole Sodium 40 mg 11/19/16 07:00 11/22/16 06:15 Protonix PO 40 mg QDAC CARLOS Administration Polyethylene Glycol 17 gm 11/18/16 09:00 11/22/16 10:21 Miralax PO 17 gm DAILY CARLOS Administration Senna 8.6 - 17.2 mg 11/22/16 09:00 11/22/16 10:22 Senokot PO 8.6 mg DAILY CARLOS Administration Sodium Chloride 10 ml 11/18/16 22:00 11/22/16 14:50 Normal Saline Flush 0.9% IVP Not Given Q8HR CARLOS Sodium Chloride 10 ml 11/18/16 19:04 11/19/16 22:11 Normal Saline Flush 0.9% IVP 10 ml PRN PRN Administration NEEDED PER PROVIDER ORDERS Tamsulosin HCl 0.4 mg 11/19/16 16:00 11/22/16 10:22 Flomax PO 0.4 mg DAILY CARLOS Administration Warfarin Sodium 10 mg 11/22/16 14:00 11/22/16 14:28 Coumadin PO 10 mg QDWARFARIN CARLOS Administration - Lab Result Lab results reviewed: Yes Fish Bone Diagrams: 11/22/16 08:00 11/22/16 08:00 - Diagnostic Imaging Results Diagnostic Imaging Results: Final report reviewed - Additional Planning Condition/Complexity: Improved My Orders: My Active Orders 11/21/16 Dinner DIET [Regular Diet] [DIET] 11/22/16 07:44 Message to Nursing [RC] QSHIFT 11/22/16 09:00 Docusate Sodium 250Mg Capsule [Colace 250Mg Capsule] 250 - 500 mg PO DAILY Senna [Senokot] 8.6 - 17.2 mg PO DAILY 11/22/16 14:00 Warfarin [Coumadin] 10 mg PO QDWARFARIN 11/23/16 05:00 CBC - COMP BLD CT W/AUTO DIFF [HEME] DAILYLAB CMP, RFLX TO IONIZED CA IF [CHEM] DAILYLAB MAGNESIUM [CHEM] DAILYLAB PHOSPHORUS [CHEM] DAILYLAB PT WITH INR [COAG] DAILYLAB Consult/Specialty: Surgery Plan Discussed with:: Patient Time Spent: 31-60 minutes Subjective - Subjective Patient Reports: Other (Patient feels very weak but is improving daily. He denies any more chest pain or shortness of breath. No fevers, chills or abdominal pain.) Nursing Reports: No Complaints Objective Vital Signs: Vital Signs - 24 hr 11/21/16 11/21/16 11/22/16 19:30 23:45 11:00 Temperature 37.3 C 37.2 C Heart Rate [ 63 60 Brachial] Respiratory 16 18 16 Rate Blood Pressure [Left Brachial artery] Blood Pressure 140/66 H 113/74 [Right Brachial artery] O2 Saturation 96 97 95 11/22/16 15:30 Temperature 37.1 C Heart Rate [ 63 Brachial] Respiratory 20 Rate Blood Pressure 141/58 H [Left Brachial artery] Blood Pressure [Right Brachial artery] O2 Saturation 94 Oxygen O2 Source Room air I&O (Last 24 Hrs): Intake and Output Totals x24h 11/20/16 11/21/16 11/22/16 23:59 23:59 23:59 Intake Total 1930 1940 1866 Output Total 3200 1000 150 Balance -5132 205 2928 General: Alert, Oriented x3, Cooperative, No acute distress HEENT: Atraumatic, PERRLA, EOMI, Mucous membr. moist/pink Neck: Supple, No JVD, No thyromegaly, +2 carotid pulse wo bruit, No LAD Lymphatic: no adenopathy Neuro: Alert, Non Focal, CN 2-12 Grossly Intact, Oriented Times 3 Cardiovascular: Regular rate, Normal S1, Normal S2, No murmurs Respiratory: Chest non-tender, Rales (Right lower lobe), Rhonchi (Bilateral lower lobes) Abdomen: Normal bowel sounds, Soft, No tenderness, No hepatospenomegaly Extremities: No clubbing, No cyanosis, No edema Skin: No breakdown - Results Results: Laboratory Results WBC 9.1 x10^3/uL (4.8-10.8) 11/22/16 08:00 RBC 3.35 10^6/uL (4.70-6.10) L 11/22/16 08:00 Hgb 11.0 g/dL (14.0-18.0) L 11/22/16 08:00 Hct 31.9 % (42.0-52.0) L 11/22/16 08:00 MCV 95.5 fL (80.0-94.0) H 11/22/16 08:00 MCH 33.0 pg (27.0-31.0) H 11/22/16 08:00 MCHC 34.6 g/dL (32.0-36.0) 11/22/16 08:00 RDW 12.1 % (12.0-15.0) 11/22/16 08:00 Plt Count 316 10^3/uL (130-450) 11/22/16 08:00 MPV 8.0 fL (7.4-11.4) 11/22/16 08:00 Neut # 7.3 10^3/uL (1.5-6.6) H 11/22/16 08:00 Lymph # 0.8 10^3/uL (1.5-3.5) L 11/22/16 08:00 [place] # 0.5 10^3/uL (0.0-1.0) 11/22/16 08:00 Eos # 0.3 10^3/uL (0.0-0.7) 11/22/16 08:00 Baso # 0.1 10^3/uL (0.0-0.1) 11/22/16 08:00 Absolute Nucleated RBC 0.00 x10^3/uL 11/22/16 08:00 Nucleated RBC % 0.0 /100WBC 11/22/16 08:00 PT 19.0 secs (9.9-12.6) H 11/22/16 08:00 INR 1.7 (0.8-1.2) H 11/22/16 08:00 Sodium 136 mmol/L (135-145) 11/22/16 08:00 Potassium 4.1 mmol/L (3.5-5.0) 11/22/16 08:00 Chloride 103 mmol/L (101-111) 11/22/16 08:00 Carbon Dioxide 23 mmol/L (21-32) 11/22/16 08:00 Anion Gap 10.0 (6-13) 11/22/16 08:00 BUN 13 mg/dL (6-20) 11/22/16 08:00 Creatinine 1.1 mg/dL (0.6-1.2) 11/22/16 08:00 Estimated GFR (MDRD) 64 (>89) L 11/22/16 08:00 Glucose 142 mg/dL (70-100) H 11/22/16 08:00 POC Whole Bld Glucose 160 mg/dL (70 - 100) H 11/22/16 11:38 Calcium 8.7 mg/dL (8.5-10.3) 11/22/16 08:00 Ionized Calcium NO 11/22/16 08:00 Phosphorus 3.1 mg/dL (2.5-4.6) 11/22/16 08:00 Magnesium 1.9 mg/dL (1.7-2.8) 11/22/16 08:00 Total Bilirubin 0.4 mg/dL (0.2-1.0) 11/22/16 08:00 AST 52 IU/L (10-42) H 11/22/16 08:00 ALT 91 IU/L (10-60) H 11/22/16 08:00 Alkaline Phosphatase 83 IU/L (42-121) 11/22/16 08:00 Troponin I < 0.04 ng/mL (<0.49) 11/21/16 06:05 Total Protein 6.4 g/dL (6.7-8.2) L 11/22/16 08:00 Albumin 2.5 g/dL (3.2-5.5) L 11/22/16 08:00 Globulin 3.9 g/dL (2.1-4.2) 11/22/16 08:00 Albumin/Globulin Ratio 0.6 (1.0-2.2) L 11/22/16 08:00 Lipase 18 U/L (22-51) L 11/17/16 11:47 Urine Color YELLOW 11/17/16 18:50 Urine Clarity CLEAR (CLEAR) 11/17/16 18:50 Urine pH 5.5 PH (5.0-7.5) 11/17/16 18:50 Ur Specific [place] 1.025 (1.002-1.030) 11/17/16 18:50 Urine Protein NEGATIVE mg/dL (NEGATIVE) 11/17/16 18:50 Urine Glucose (UA) NEGATIVE mg/dL (NEGATIVE) 11/17/16 18:50 Urine Ketones NEGATIVE mg/dL (NEGATIVE) 11/17/16 18:50 Urine Occult Blood NEGATIVE (NEGATIVE) 11/17/16 18:50 Urine Nitrite POSITIVE (NEGATIVE) H 11/17/16 18:50 Urine Bilirubin NEGATIVE (NEGATIVE) 11/17/16 18:50 Urine Urobilinogen 0.2 (NORMAL) E.U./dL (NORMAL) 11/17/16 18:50 Ur Leukocyte Esterase NEGATIVE (NEGATIVE) 11/17/16 18:50 Ur Microscopic Review NOT INDICATED 11/17/16 18:50 Urine Culture Comments INDICATED 11/17/16 18:50 - Procedures Procedures: Procedures EXCIS KNEE SEMILUN CARTL (09/28/13) KNEE SYNOVECTOMY (09/28/13)
[2016-11-22] MEDS: INSULIN ASPART 300 UNIT/3 ML PEN SUBQ SCH ×2 (17:34→20:33)
[2016-11-23 05:14] LABS: BASOPHILS # (AUTO) 0.1 10^3/uL (0.0-0.1); BASOPHILS % (AUTO) 0.4 %; EOSINOPHILS # (AUTO) 0.3 10^3/uL (0.0-0.7); EOSINOPHILS % (AUTO) 2.6 %; HCT - HEMATOCRIT 33.3 % (42.0-52.0); HGB - HEMOGLOBIN 11.4 g/dL (14.0-18.0); LYMPHOCYTES % (AUTO) 8.9 %; MEAN CORPUSCULAR HGB CONC 34.2 g/dL (32.0-36.0); MEAN CORPUSCULAR VOLUME 96.5 fL (80.0-94.0); MEAN PLATELET VOLUME 8.3 fL (7.4-11.4); MONOCYTES # (AUTO) 0.7 10^3/uL (0.0-1.0); MONOCYTES % (AUTO) 6.2 %; NEUTROPHILS # (AUTO) 9.5 10^3/uL (1.5-6.6); NEUTROPHILS % (AUTO) 81.9 %; RED BLOOD COUNT 3.45 10^6/uL (4.70-6.10); RED CELL DISTRIBUTION WIDTH 12.2 % (12.0-15.0); UNCORRECTED WHITE BLOOD COUNT 11.6 x10^3/uL; WHITE BLOOD COUNT 11.6 x10^3/uL (4.8-10.8)
[2016-11-23 05:19] LABS: INR 2.7 (0.8-1.2); PT - PROTHROMBIN TIME 30.4 secs (9.9-12.6)
[2016-11-23] MEDS: SODIUM CHLORIDE FLUSH 0.9% 10 ML SYRINGE IVP SCH ×2 (05:25→09:41)
[2016-11-23 05:32] LABS: ALBUMIN/GLOBULIN RATIO 0.6 (1.0-2.2); BILIRUBIN,TOTAL 0.4 mg/dL (0.2-1.0); BUN - BLOOD UREA NITROGEN 13 mg/dL (6-20); CALCIUM 9.1 mg/dL (8.5-10.3); CARBON DIOXIDE - CO2 22 mmol/L (21-32); CHLORIDE 103 mmol/L (101-111); CREATININE 1.1 mg/dL (0.6-1.2); GFR - MDRD 64 (>89); GLUCOSE 146 mg/dL (70-100); MAGNESIUM 1.9 mg/dL (1.7-2.8); PHOSPHORUS 3.3 mg/dL (2.5-4.6); POTASSIUM 3.9 mmol/L (3.5-5.0); SODIUM 137 mmol/L (135-145); TOTAL PROTEIN 6.7 g/dL (6.7-8.2)
[2016-11-23] MEDS: PANTOPRAZOLE 40 MG TABLET PO SCH (06:35)
[2016-11-23] MEDS: SENNA 8.6 MG TABLET PO SCH (07:36)
[2016-11-23] MEDS: DOCUSATE SODIUM 250 MG CAPSULE PO SCH (07:36)
[2016-11-23] MEDS: POLYETHYLENE GLYCOL 3350 17 GM PACKET PO SCH (07:36)
[2016-11-23] MEDS: INSULIN ASPART 300 UNIT/3 ML PEN SUBQ SCH ×2 (08:31→12:22)
[2016-11-23] MEDS: ACETAMINOPHEN 325 MG TABLET PO PRN (08:41)
[2016-11-23] MEDS: ENOXAPARIN 100 MG/ML SYRINGE SUBQ SCH (08:41)
[2016-11-23] MEDS: TAMSULOSIN 0.4 MG CAPSULE PO SCH (08:41)
[2016-11-23] MEDS: levoFLOXacin 500 MG/100 ML 500 MG/100 ML BAG IV SCH (09:41)
[2016-11-23] MEDS ORDERED: WARFARIN 5 MG TABLET PO SCH (10:07)
--- NOTE | 2016-11-23 11:01 | Discharge Plan ---
Discharge Plan Disposition: [facility] DC/Xfer Condition: Stable Prescriptions: HYDROcod/ACETAM 325 [[place] 5325] 1 tab PO Q4HR PRN #40 tablet PRN Reason: Pain Diet: Diabetic Activity Restrictions: no lifting over 15 lbs Shower Restrictions: No Driving Restrictions: Yes Assistance Devices: Walker Weight Bearing: Full Weight Additional Instructions or Follow Up instructions: He is to have INR/PT level on Friday with PCP/surgeon being called with results. No Smoking: If you smoke, Please STOP! Call for help. Follow-up with: Ray Cunha MD [Primary Care Provider] - 2 Weeks Mando Eugene MD [Provider Admit Priv/Credential] - 2 Weeks
[2016-11-23 11:24] VITALS: BP 117/62
--- NOTE | 2016-12-03 06:13 | DISCHARGE SUMMARY ---
DATE OF ADMISSION: 11/17/2016 DATE OF DISCHARGE: 11/23/2016 This patient was admitted to the hospital on 11/17/2016 with abdominal pain. He was discharged home o n 11/23/2016 with a diagnosis of hydrops of the gallbladder and umbilical hernia, which was corrected via laparoscopic cholecystectomy and umbilical herniorrhaphy performed by myself on 11/18/2016. Cons ultation was obtained from Dr. Brit Jin on 11/21/2016 for sudden onset chest pain, which turned ou t on workup to be a pulmonary embolus. For this, he was started on blood thinners. He was then discha rged on 11/23/[address] Velasco to a SNF. His activity restrictions included no lifting over 15 poun ds for a total of 6 weeks. There are no restrictions regarding showering. He is not to drive until he was seen by us. He was given a walker for assistance device. He was told that he could bear full barron ght. His diet was a diabetic diet. He is given prescriptions for Nesbit 5/325 one tablet p.o. every 4 hours, given for pain, 40 tablets were given. He had followups with Dr. Cunha in 2 weeks and with myself in [address] Velasco instructed him to contact us with any surgical questions and/or concern s. Dr. Velasco's notes do not make mention of any blood thinners but clearly the patient should be on them on discharge, and warfarin was given in the hospital. Regarding anticoagulation, I will defer to Dr. Cunha. Again, and importantly, the patient was instructed to contact me with any surgical que stions and/or concerns. 22:9:00 JOB #: [id number] EXT JOB #:[id number]
== END 2016-11-23 13:02 | DRG 417 ==
LOC: ED 11:00 → SDS 14:25 → MS2 15:39
PROVIDERS: ADMIT Surgery; ATTEND Surgery
PROC: 0FT44ZZ Resection of Gallbladder, Percutaneous Endoscopic Approach (ICD-10-PCS; principal; 2016-11-18 15:00)
DX: K81.0 Acute cholecystitis (principal); K80.01 Calculus of gallbladder with acute cholecystitis with obstruction; I26.99 Other pulmonary embolism without acute cor pulmonale; J18.9 Pneumonia, unspecified organism; K82.1 Hydrops of gallbladder; K82.8 Other specified diseases of gallbladder; K42.9 Umbilical hernia without obstruction or gangrene; B96.89 Other specified bacterial agents as the cause of diseases classified elsewhere; I10 Essential (primary) hypertension; E78.5 Hyperlipidemia, unspecified; I25.10 Atherosclerotic heart disease of native coronary artery without angina pectoris; G47.30 Sleep apnea, unspecified; E11.9 Type 2 diabetes mellitus without complications; K21.9 Gastro-esophageal reflux disease without esophagitis; G31.84 Mild cognitive impairment of uncertain or unknown etiology; N31.9 Neuromuscular dysfunction of bladder, unspecified; I25.2 Old myocardial infarction; Z22.322 Carrier or suspected carrier of Methicillin resistant Staphylococcus aureus; Z95.5 Presence of coronary angioplasty implant and graft; Z87.891 Personal history of nicotine dependence; Z79.84 Long term (current) use of oral hypoglycemic drugs; Z79.82 Long term (current) use of aspirin
CPT/HCPCS: 36415; 51701; 71020; 71275; 80053; 81001; 81003; 83690; 83735; 84100; 84484; 85025; 85610; 87040; 87070; 87077; 87086; 87205; 87640; 88304; 93005; 96361; 96365; 96375; 99283; 99284; 99285

== ENCOUNTER 2016-12-03 08:00 | Outpatient (CLI) | payer MEDICARE, OTHER ==
[2016-12-03 20:50] LABS: BILIRUBIN,URINE NEGATIVE (NEGATIVE)
[2016-12-03 20:52] LABS: UA w/ MICROSCOPIC CHARGE YES
[2016-12-03 21:04] LABS: UR CULTURE IF IND INDICATED; WBC,URINE >25 /HPF (0-3)
== END 2016-12-03 23:59 | disposition home or self-care (01) ==
LOC: LAB.R 08:00
DX: N39.0 Urinary tract infection, site not specified (principal); I10 Essential (primary) hypertension; D64.9 Anemia, unspecified
CPT/HCPCS: 80053; 81001; 81003; 85025; 87086

== ENCOUNTER 2016-12-04 08:00 | Outpatient (CLI) | payer MEDICARE, OTHER ==
[2016-12-04 20:14] LABS: BASOPHILS # (AUTO) 0.1 10^3/uL (0.0-0.1); BASOPHILS % (AUTO) 1.2 %; EOSINOPHILS # (AUTO) 0.3 10^3/uL (0.0-0.7); HCT - HEMATOCRIT 38.2 % (42.0-52.0); HGB - HEMOGLOBIN 12.7 g/dL (14.0-18.0); LYMPHOCYTES # (AUTO) 1.1 10^3/uL (1.5-3.5); LYMPHOCYTES % (AUTO) 17.6 %; MEAN CORPUSCULAR HEMOGLOBIN 31.8 pg (27.0-31.0); MEAN CORPUSCULAR HGB CONC 33.3 g/dL (32.0-36.0); MEAN CORPUSCULAR VOLUME 95.5 fL (80.0-94.0); MEAN PLATELET VOLUME 7.8 fL (7.4-11.4); MONOCYTES # (AUTO) 0.7 10^3/uL (0.0-1.0); MONOCYTES % (AUTO) 11.9 %; NEUTROPHILS # (AUTO) 3.9 10^3/uL (1.5-6.6); NEUTROPHILS % (AUTO) 64.3 %; NUCLEATED RED BLOOD CELLS AUTO 0.1 /100WBC; RED CELL DISTRIBUTION WIDTH 12.1 % (12.0-15.0); UNCORRECTED WHITE BLOOD COUNT 6.1 x10^3/uL; WHITE BLOOD COUNT 6.1 x10^3/uL (4.8-10.8)
[2016-12-04 20:27] LABS: ALBUMIN/GLOBULIN RATIO 0.8 (1.0-2.2); BILIRUBIN,TOTAL 0.3 mg/dL (0.2-1.0); CREATININE 1.2 mg/dL (0.6-1.2); TOTAL PROTEIN 6.9 g/dL (6.7-8.2)
== END 2016-12-04 08:01 | disposition home or self-care (01) ==
LOC: LAB.R 08:00
DX: I10 Essential (primary) hypertension (principal); D64.9 Anemia, unspecified
CPT/HCPCS: 80053; 85025

== ENCOUNTER 2016-12-13 15:31 | Outpatient (CLI) | payer MEDICARE, OTHER ==
[2016-12-13 18:48] LABS: BASOPHILS # (AUTO) 0.1 10^3/uL (0.0-0.1); EOSINOPHILS # (AUTO) 0.8 10^3/uL (0.0-0.7); EOSINOPHILS % (AUTO) 10.5 %; HCT - HEMATOCRIT 37.9 % (42.0-52.0); HGB - HEMOGLOBIN 12.8 g/dL (14.0-18.0); LYMPHOCYTES # (AUTO) 1.9 10^3/uL (1.5-3.5); LYMPHOCYTES % (AUTO) 23.9 %; MEAN CORPUSCULAR HEMOGLOBIN 32.5 pg (27.0-31.0); MEAN CORPUSCULAR HGB CONC 33.7 g/dL (32.0-36.0); MEAN CORPUSCULAR VOLUME 96.4 fL (80.0-94.0); MEAN PLATELET VOLUME 8.2 fL (7.4-11.4); MONOCYTES # (AUTO) 0.5 10^3/uL (0.0-1.0); MONOCYTES % (AUTO) 6.3 %; NEUTROPHILS # (AUTO) 4.6 10^3/uL (1.5-6.6); NEUTROPHILS % (AUTO) 58.3 %; NUCLEATED RED BLOOD CELLS AUTO 0.1 /100WBC; RED BLOOD COUNT 3.93 10^6/uL (4.70-6.10); RED CELL DISTRIBUTION WIDTH 12.7 % (12.0-15.0); UNCORRECTED WHITE BLOOD COUNT 7.9 x10^3/uL; WHITE BLOOD COUNT 7.9 x10^3/uL (4.8-10.8)
[2016-12-13 19:30] LABS: ALBUMIN/GLOBULIN RATIO 1.2 (1.0-2.2); BILIRUBIN,TOTAL 0.4 mg/dL (0.2-1.0); BUN - BLOOD UREA NITROGEN 26 mg/dL (6-20); CALCIUM 9.5 mg/dL (8.5-10.3); CARBON DIOXIDE - CO2 22 mmol/L (21-32); CHLORIDE 103 mmol/L (101-111); CREATININE 1.3 mg/dL (0.6-1.2); GFR - MDRD 53 (>89); GLUCOSE 153 mg/dL (70-100); POTASSIUM 4.2 mmol/L (3.5-5.0); SODIUM 135 mmol/L (135-145); TOTAL PROTEIN 7.4 g/dL (6.7-8.2)
[2016-12-13 19:38] LABS: THYROID STIMULATING HORMONE 2.44 uIU/mL (0.34-5.60)
== END 2016-12-13 15:32 | disposition home or self-care (01) ==
LOC: LAB.WCP 15:31
PROVIDERS: ATTEND Family Medicine
DX: R41.3 Other amnesia (principal)
CPT/HCPCS: 80053; 82607; 82746; 83921; 84443; 85025

== ENCOUNTER 2016-12-16 15:45 | Outpatient (CLI) | payer MEDICARE, OTHER ==
[2016-12-16 18:42] LABS: BILIRUBIN,URINE NEGATIVE (NEGATIVE)
[2016-12-16 19:10] LABS: UR CULTURE IF IND NOT INDICATED; WBC,URINE 0-3 /HPF (0-3)
== END 2016-12-16 15:46 | disposition home or self-care (01) ==
LOC: LAB.WCP 15:45
PROVIDERS: ATTEND Family Medicine
DX: N39.0 Urinary tract infection, site not specified (principal)
CPT/HCPCS: 81001; 87086

== ENCOUNTER 2017-01-07 10:35 | Outpatient (CLI) | payer MEDICARE, OTHER | END 2017-01-07 10:36 | disposition home or self-care (01) | LOC: SC 10:35 | PROVIDERS: ATTEND Nurse Practitioner Family | DX: G47.33 Obstructive sleep apnea (adult) (pediatric) (principal) | CPT/HCPCS: 99214; G0463; 99212 ==

== ENCOUNTER 2017-02-04 13:53 | Outpatient (CLI) | payer MEDICARE, OTHER | END 2017-02-04 13:54 | disposition home or self-care (01) | LOC: SC 13:53 | PROVIDERS: ATTEND Nurse Practitioner Family | DX: G47.33 Obstructive sleep apnea (adult) (pediatric) (principal) | CPT/HCPCS: 99213; G0463; 99212 ==

== ENCOUNTER 2017-02-24 14:30 | Outpatient (CLI) | payer MEDICARE, OTHER | END 2017-02-24 14:31 | disposition home or self-care (01) | LOC: LAB.R 14:30 | PROVIDERS: ATTEND Physician Assistant Medical | DX: N39.0 Urinary tract infection, site not specified (principal) | CPT/HCPCS: 87086 ==

== ENCOUNTER 2017-03-10 13:45 | Outpatient (CLI) | payer MEDICARE, OTHER | END 2017-03-10 13:46 | disposition home or self-care (01) | LOC: SC 13:45 | PROVIDERS: ATTEND Nurse Practitioner Family | DX: G47.33 Obstructive sleep apnea (adult) (pediatric) (principal) | CPT/HCPCS: 99214; G0463; 99212 ==

== ENCOUNTER 2017-03-13 15:18 | Outpatient (CLI) | payer MEDICARE, OTHER ==
[2017-03-13 16:01] LABS: BASOPHILS # (AUTO) 0.1 10^3/uL (0.0-0.1); BASOPHILS % (AUTO) 0.9 %; EOSINOPHILS # (AUTO) 0.3 10^3/uL (0.0-0.7); EOSINOPHILS % (AUTO) 5.1 %; HGB - HEMOGLOBIN 14.3 g/dL (14.0-18.0); LYMPHOCYTES # (AUTO) 1.4 10^3/uL (1.5-3.5); LYMPHOCYTES % (AUTO) 22.5 %; MEAN CORPUSCULAR HEMOGLOBIN 32.5 pg (27.0-31.0); MEAN CORPUSCULAR HGB CONC 33.9 g/dL (32.0-36.0); MEAN CORPUSCULAR VOLUME 95.9 fL (80.0-94.0); MEAN PLATELET VOLUME 8.3 fL (7.4-11.4); MONOCYTES # (AUTO) 0.4 10^3/uL (0.0-1.0); MONOCYTES % (AUTO) 7.1 %; NEUTROPHILS # (AUTO) 3.9 10^3/uL (1.5-6.6); NEUTROPHILS % (AUTO) 64.4 %; PLT - PLATELET COUNT 209 10^3/uL (130-450); RED BLOOD COUNT 4.39 10^6/uL (4.70-6.10); RED CELL DISTRIBUTION WIDTH 12.5 % (12.0-15.0); WHITE BLOOD COUNT 6.1 x10^3/uL (4.8-10.8)
[2017-03-13 16:08] LABS: ALBUMIN 4.5 g/dL (3.2-5.5); ALBUMIN/GLOBULIN RATIO 1.6 (1.0-2.2); BILIRUBIN,TOTAL 0.3 mg/dL (0.2-1.0); CALCIUM 9.5 mg/dL (8.5-10.3); CREATININE 1.2 mg/dL (0.6-1.2); TOTAL PROTEIN 7.4 g/dL (6.7-8.2)
--- NOTE | 2017-03-14 10:39 | CT Report ---
DATE OF SERVICE: 03/13/2017 CT BRAIN WITHOUT CONTRAST: 03/13/2017 CLINICAL INDICATION: Dizziness. TECHNIQUE: Axial CT images of the brain were obtained without contrast. COMPARISON: MRI of 12/11/2012. FINDINGS: The ventricles and sulci demonstrate moderate symmetric enlargement, compatible with atrophy. The basilar cisterns are patent. There is no evidence of acute hemorrhage, mass effect, or midline shift. The visualized orbital contents and paranasal sinuses are unremarkable. IMPRESSION: ATROPHY. NO EVIDENCE OF HEMORRHAGE OR MASS EFFECT. In accordance with CT protocol optimization, one or more of the following dose reduction techniques were utilized for this exam: automated exposure control, adjustment of mA and/or KV based on patient size, or use of iterative reconstructive technique. TD: 03/14/2017 11:39
== END 2017-03-13 15:19 | disposition home or self-care (01) ==
LOC: DI 15:18
PROVIDERS: ATTEND Physician Assistant Medical
DX: R42 Dizziness and giddiness (principal); G31.9 Degenerative disease of nervous system, unspecified
CPT/HCPCS: 36415; 70450; 80053; 85025

== ENCOUNTER 2017-04-10 13:55 | Outpatient (CLI) | payer MEDICARE, OTHER | END 2017-04-10 13:56 | disposition home or self-care (01) | LOC: SC 13:55 | PROVIDERS: ATTEND Nurse Practitioner Family | DX: G47.33 Obstructive sleep apnea (adult) (pediatric) (principal) | CPT/HCPCS: 99214; G0463; 99212 ==

== ENCOUNTER 2017-04-29 08:00 | Outpatient (CLI) | payer MEDICARE, OTHER | END 2017-04-29 08:01 | disposition home or self-care (01) | LOC: LAB.WCP 08:00 | PROVIDERS: ATTEND Family Medicine | DX: N39.0 Urinary tract infection, site not specified (principal) | CPT/HCPCS: 87086 ==

== ENCOUNTER 2017-06-11 16:46 | Outpatient (CLI) | payer MEDICARE, OTHER | END 2017-06-11 23:59 | LOC: LAB.WCP 16:46 | PROVIDERS: ATTEND Family Medicine | DX: N39.0 Urinary tract infection, site not specified (principal) | CPT/HCPCS: 87086 ==

== ENCOUNTER 2017-07-10 16:42 | Outpatient (CLI) | payer MEDICARE, OTHER | END 2017-07-10 16:43 | disposition home or self-care (01) | LOC: LAB.R 16:42 | PROVIDERS: ATTEND Family Medicine | DX: N39.0 Urinary tract infection, site not specified (principal) | CPT/HCPCS: 87086; 87181 ==

== ENCOUNTER 2017-08-06 08:00 | Outpatient (CLI) | payer MEDICARE, OTHER | END 2017-08-06 08:01 | disposition home or self-care (01) | LOC: LAB.R 08:00 | PROVIDERS: ATTEND Family Medicine | DX: N39.0 Urinary tract infection, site not specified (principal) | CPT/HCPCS: 87086; 87181 ==

== ENCOUNTER 2017-09-02 13:16 | Outpatient (CLI) | payer MEDICARE, OTHER | END 2017-09-02 13:17 | disposition home or self-care (01) | LOC: SC 13:16 | PROVIDERS: ATTEND Nurse Practitioner Family | DX: G47.33 Obstructive sleep apnea (adult) (pediatric) (principal) | CPT/HCPCS: 99213; G0463; 99212 ==

== ENCOUNTER 2017-10-16 13:15 | Outpatient (CLI) | payer MEDICARE, OTHER | END 2017-10-16 13:16 | disposition home or self-care (01) | LOC: SC 13:15 | PROVIDERS: ATTEND Nurse Practitioner Family | DX: G47.33 Obstructive sleep apnea (adult) (pediatric) (principal) | CPT/HCPCS: 99214; G0463; 99212 ==

== ENCOUNTER 2017-12-24 15:10 | Outpatient (CLI) | payer MEDICARE, OTHER | END 2017-12-24 15:11 | disposition home or self-care (01) | LOC: SC 15:10 | PROVIDERS: ATTEND Nurse Practitioner Family | DX: G47.33 Obstructive sleep apnea (adult) (pediatric) (principal) | CPT/HCPCS: 99214; G0463; 99212 ==

== ENCOUNTER 2018-01-01 14:06 | Outpatient (CLI) | payer MEDICARE, OTHER ==
[2018-01-01 19:34] LABS: BASOPHILS # (AUTO) 0.1 10^3/uL (0.0-0.1); BASOPHILS % (AUTO) 0.8 %; EOSINOPHILS # (AUTO) 0.2 10^3/uL (0.0-0.7); EOSINOPHILS % (AUTO) 3.4 %; HGB - HEMOGLOBIN 14.6 g/dL (14.0-18.0); LYMPHOCYTES # (AUTO) 1.6 10^3/uL (1.5-3.5); LYMPHOCYTES % (AUTO) 24.7 %; MEAN CORPUSCULAR HGB CONC 33.5 g/dL (32.0-36.0); MEAN CORPUSCULAR VOLUME 98.6 fL (80.0-94.0); MEAN PLATELET VOLUME 8.8 fL (7.4-11.4); MONOCYTES # (AUTO) 0.5 10^3/uL (0.0-1.0); MONOCYTES % (AUTO) 7.7 %; NEUTROPHILS % (AUTO) 63.4 %; PLT - PLATELET COUNT 243 10^3/uL (130-450); RED BLOOD COUNT 4.41 10^6/uL (4.70-6.10); RED CELL DISTRIBUTION WIDTH 12.5 % (12.0-15.0); WHITE BLOOD COUNT 6.3 x10^3/uL (4.8-10.8)
[2018-01-01 20:05] LABS: ALBUMIN 4.4 g/dL (3.2-5.5); ALBUMIN/GLOBULIN RATIO 1.4 (1.0-2.2); BILIRUBIN,TOTAL 0.8 mg/dL (0.2-1.0); CALCIUM 9.4 mg/dL (8.5-10.3); CREATININE 1.3 mg/dL (0.6-1.2); TOTAL PROTEIN 7.5 g/dL (6.7-8.2)
== END 2018-01-01 14:07 ==
LOC: LAB.WCP 14:06
PROVIDERS: ATTEND Physician Assistant Medical
DX: I10 Essential (primary) hypertension (principal); N39.0 Urinary tract infection, site not specified
CPT/HCPCS: 36415; 80053; 85025

== ENCOUNTER 2018-03-14 19:42 | Outpatient (CLI) | payer MEDICARE, OTHER | END 2018-03-14 19:43 | disposition home or self-care (01) | LOC: SC 19:42 | PROVIDERS: ATTEND Internal Medicine Pulmonary Disease | DX: G47.33 Obstructive sleep apnea (adult) (pediatric) (principal); G47.39 Other sleep apnea | CPT/HCPCS: 95811 ==

== ENCOUNTER 2018-04-09 13:18 | Outpatient (CLI) | payer MEDICARE, OTHER | END 2018-04-09 13:19 | disposition home or self-care (01) | LOC: SC 13:18 | PROVIDERS: ATTEND Nurse Practitioner Family | DX: G47.33 Obstructive sleep apnea (adult) (pediatric) (principal); I49.9 Cardiac arrhythmia, unspecified | CPT/HCPCS: 99215; G0463; 99212 ==

== ENCOUNTER 2018-05-01 22:40 | Outpatient (CLI) | payer MEDICARE, OTHER | END 2018-05-01 23:59 | LOC: LAB.WCP 22:40 | PROVIDERS: ATTEND Physician Assistant Medical | DX: N39.0 Urinary tract infection, site not specified (principal) | CPT/HCPCS: 87086 ==

== ENCOUNTER 2018-05-13 15:15 | Outpatient (CLI) | payer MEDICARE, OTHER | END 2018-05-13 15:16 | disposition home or self-care (01) | LOC: SC 15:15 | PROVIDERS: ATTEND Nurse Practitioner Family | DX: G47.39 Other sleep apnea (principal) | CPT/HCPCS: 99214; G0463; 99212 ==

== ENCOUNTER 2018-08-03 10:23 | Outpatient (CLI) | payer MEDICARE, OTHER ==
[2018-08-03 14:08] LABS: BILIRUBIN,URINE NEGATIVE (NEGATIVE); GLUCOSE, URINE (UA) 100 mg/dL (NEGATIVE); KETONES,URINE (UA) NEGATIVE (NEGATIVE); LEUKOCYTE ESTERASE, URINE NEGATIVE (NEGATIVE); NITRITE,URINE NEGATIVE (NEGATIVE); OCCULT BLOOD,URINE NEGATIVE (NEGATIVE); PH,URINE 5.5 PH (5.0-7.5); PROTEIN,URINE NEGATIVE (NEGATIVE); UROBILINOGEN,URINE 0.2 (NORMAL) E.U./dL (NORMAL)
[2018-08-03 14:10] LABS: CLARITY,URINE CLEAR (CLEAR)
[2018-08-03 15:56] LABS: ALBUMIN 4.3 g/dL (3.2-5.5); ALBUMIN/GLOBULIN RATIO 1.4 (1.0-2.2); ALKALINE PHOSPHATASE 44 IU/L (42-121); ALT ALANINE AMINOTRANSFERASE 41 IU/L (10-60); AST ASPARTATE AMINOTRANSFERASE 30 IU/L (10-42); BILIRUBIN,TOTAL 0.8 mg/dL (0.2-1.0); BUN - BLOOD UREA NITROGEN 24 mg/dL (6-20); CALCIUM 9.5 mg/dL (8.5-10.3); CARBON DIOXIDE - CO2 22 mmol/L (21-32); CHLORIDE 104 mmol/L (101-111); CHOL/HDL RATIO 8.2 (<5.0); CHOLESTEROL 269 mg/dL; CREATININE 1.5 mg/dL (0.6-1.2); GFR - MDRD 44 (>89); GLUCOSE 159 mg/dL (70-100); HDL CHOLESTEROL 33 mg/dL; SODIUM 138 mmol/L (135-145); TOTAL PROTEIN 7.3 g/dL (6.7-8.2)
[2018-08-03 16:16] LABS: LDL CHOLESTEROL,DIRECT 149 mg/dL; LDLD/HDL RATIO 4.5 (<3.6)
[2018-08-03 16:23] LABS: HB2 TOTAL 15.8 g/dL; HEMOGLOBIN A1C 0.92 g/dL; HEMOGLOBIN A1C % 7.5 % (4.6-6.2)
== END 2018-08-03 10:24 | disposition home or self-care (01) ==
LOC: LAB.WCP 10:23
PROVIDERS: ATTEND Physician Assistant Medical
DX: E11.9 Type 2 diabetes mellitus without complications (principal); N39.0 Urinary tract infection, site not specified
CPT/HCPCS: 36415; 80053; 80061; 81001; 81003; 83036; 83721; 87086

== ENCOUNTER 2018-08-11 21:40 | Outpatient (CLI) | payer MEDICARE, OTHER | END 2018-08-11 21:41 | disposition critical access hospital (66) | LOC: EMS 21:40 | PROVIDERS: ATTEND Surgery | DX: R41.0 Disorientation, unspecified (principal); R26.2 Difficulty in walking, not elsewhere classified | CPT/HCPCS: A0425; A0429 ==

== ENCOUNTER 2018-08-11 21:57 | Observation (INO) | payer MEDICARE, OTHER ==
--- NOTE | 2018-08-11 22:04 | ED Physician Documentation ---
PD HPI ALTERED MENTAL STATUS - Stated complaint Stated Complaint: AMS - History obtained from History obtained from: Patient, Family, EMS - History of Present Illness Timing - onset: Today Timing - details: Gradual onset Quality / character: Confused Associated symptoms: General weakness. 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 Family called 911 due to patient exhibiting unsteady gait/bumping into others and furniture since this morning. Over the past 4 hours, he has been increasingly disoriented. He hasn't had BM in over 24 hours, which is unusual for him. Family says this evening he is unable to stand up even with support. Review of Systems Constitutional: reports: Fatigue. denies: Fever, Chills, Sweats Eyes: reports: Reviewed and negative Ears: reports: Reviewed and negative Nose: reports: Reviewed and negative Throat: reports: Reviewed and negative Cardiac: reports: Reviewed and negative Respiratory: reports: Reviewed and negative GI: reports: Constipation. denies: Abdominal Pain, Nausea, Vomiting : denies: Dysuria, Frequency, Incontinent Skin: reports: Reviewed and negative Musculoskeletal: reports: Back pain Neurologic: reports: Generalized weakness. denies: Focal weakness, Numbness PD PAST MEDICAL HISTORY - Past Medical History Cardiovascular: Hypertension, High cholesterol, Coronary artery disease, [place] Respiratory: Sleep apnea, CPAP use Endocrine/Autoimmune: Type 2 diabetes GI: GERD, Ulcers, Colon polyps : Nocturia, Frequency HEENT: Chronic vision loss, Chronic hearing loss Musculoskeletal: Osteoarthritis, Chronic back pain, Other Derm: Other - Past Surgical History Past Surgical History: Yes General: Colonoscopy Ortho: Carpal Tunnel surgery, Spine surgery Cardiovascular: Coronary stent, Angioplasty - Present Medications Home Medications: Ambulatory Orders Medication Instructions Recorded Confirmed Cholecalciferol (Vitamin D3) 2,000 unit PO BID 09/27/13 08/11/18 [Vitamin D3] Krill/[place]-3/Dha/Epa/Lipids 1 each PO DAILY 09/27/13 08/11/18 [Krill Oil 300 mg Softgel] Losartan [Cozaar] 50 mg PO DAILY 09/27/13 08/11/18 Metformin HCl 500 mg PO BID 09/27/13 08/11/18 Ubidecarenone [Co Q-10] 200 mg PO DAILY 09/27/13 08/11/18 Vitamin B Complex Vit C No.4 150 mg PO DAILY 09/27/13 08/11/18 [Super B Complex] Esomeprazole Magnesium [Nexium] 20 mg PO DAILY 03/05/15 08/11/18 Acetaminophen [Tylenol] 650 mg PO Q6H PRN 11/18/16 08/11/18 Aspirin Chewable [St Juven[place] 81 mg PO DAILY 11/18/16 08/11/18 Aspirin] Nitroglycerin 0.4 mg SL PRN PRN 11/18/16 08/11/18 Isosorbide Dinitrate 30 mg PO DAILY 08/11/18 08/11/18 Nitrofurantoin [Macrobid] 100 mg PO DAILY 08/11/18 08/11/18 Tamsulosin [Flomax] 0.4 mg PO DAILY 08/11/18 08/11/18 - Allergies Allergies/Adverse Reactions: Allergies Allergy/AdvReac Type Severity Reaction Status Date / Time No Known Drug Allergies Allergy Verified 08/11/18 22:05 - Social History Does the pt smoke?: No Smoking Status: Former smoker Does the pt drink ETOH?: Yes Does the pt have substance abuse?: No - Immunizations Immunizations are current?: Yes - POLST Patient has POLST: Yes PD ED PE NORMAL - Vitals Vital signs reviewed: Yes - General General: No acute distress, Well developed/nourished, Other (awake, alert, oriented to self. knows he is in a hospital but not which one. States year is 1999 and does not have guess as to month) - HEENT HEENT: PERRL, EOMI, Moist mucous membranes - Neck Neck: Supple, no meningeal sign - Cardiac Cardiac: RRR - Respiratory Respiratory: No respiratory distress, Clear bilaterally - Abdomen Abdomen: Soft, Non tender - Derm Derm: Normal color, Warm and dry - Extremities Extremities: No edema PD ED PE EXPANDED - Cardiac Cardiac: Murmur Present Results - Vitals Vitals: Vital Signs - 24 hr 08/11/18 08/11/18 22:02 23:00 Temperature 37.4 C Heart Rate 81 69 Respiratory 17 15 Rate Blood Pressure 103/82 H O2 Saturation 95 96 Oxygen O2 Source Room air - Labs Labs: Laboratory Tests 08/11/18 08/11/18 08/12/18 22:56 22:56 00:05 WBC 11.7 H RBC 4.58 L Hgb 14.6 Hct 43.9 MCV 95.9 H MCH 31.9 H MCHC 33.3 RDW 11.7 L Plt Count 215 MPV 10.0 Neut # (Auto) 9.4 H Lymph # (Auto) 1.2 L [place] # (Auto) 0.8 Eos # (Auto) 0.2 Baso # (Auto) 0.1 Absolute Nucleated RBC 0.00 Nucleated RBC % 0.0 Sodium 138 Potassium 4.3 Chloride 103 Carbon Dioxide 22 Anion Gap 13.0 BUN 26 H Creatinine 1.4 H Estimated GFR (MDRD) 48 L Glucose 161 H Calcium 9.6 Total Bilirubin 1.1 H AST 33 ALT 51 Alkaline Phosphatase 48 Total Protein 7.3 Albumin 4.3 Globulin 3.0 Albumin/Globulin Ratio 1.4 Lipase 25 Urine Color YELLOW Urine Clarity CLEAR Urine pH 5.5 Ur Specific [place] 1.025 Urine Protein NEGATIVE Urine Glucose (UA) NEGATIVE Urine Ketones NEGATIVE Urine Occult Blood SMALL H Urine Nitrite NEGATIVE Urine Bilirubin NEGATIVE Urine Urobilinogen 0.2 (NORMAL) Ur Leukocyte Esterase NEGATIVE Urine RBC 6-10 H Urine WBC 0-3 Ur Squamous Epith Cells NONE SEEN Urine Bacteria None Seen Ur Microscopic Review INDICATED Urine Culture Comments NOT INDICATED - Rads (name of study) CT head Radiology: Prelim report reviewed, See rad report acute abd. series Radiology: Prelim report reviewed, See rad report PD MEDICAL DECISION MAKING - ED course Complexity details: reviewed results, re-evaluated patient, considered differential, d/w patient, d/w family
--- NOTE | 2018-08-11 22:48 | XRAY Report ---
Reason: abd. distention, constipation Procedure Date: 08/11/2018 Accession Number: [id number] / [id number] Procedure: XR - Abdomen Acute CPT Code: FULL RESULT: EXAM: ABDOMINAL SERIES AND PA CHEST EXAM DATE: 08/11/2018 10:28 PM. CLINICAL HISTORY: Abd. distention, constipation. COMPARISON: CHEST 2 VIEW PA/LAT 01/01/2018 1:47 PM. TECHNIQUE: 2 views abdomen and 1 view chest. FINDINGS: CHEST: Lungs/Pleura: No focal opacities. No effusion or pneumothorax. Mediastinum: Within exam limitations, cardiomediastinal contour is normal. ABDOMEN: Bowel Gas Pattern: Within normal limits. No dilated loops or abnormal fluid levels. Free Air: None. Other: Gallbladder has been resected. This been previous instrumentation at the L5-S1 level of the spine. IMPRESSION: Nonspecific acute abdominal series. RADIA
[2018-08-11 23:01] LABS: BASOPHILS # (AUTO) 0.1 10^3/uL (0.0-0.1); BASOPHILS % (AUTO) 0.4 %; EOSINOPHILS # (AUTO) 0.2 10^3/uL (0.0-0.7); EOSINOPHILS % (AUTO) 1.5 %; HGB - HEMOGLOBIN 14.6 g/dL (14.0-18.0); LYMPHOCYTES # (AUTO) 1.2 10^3/uL (1.5-3.5); LYMPHOCYTES % (AUTO) 10.4 %; MEAN CORPUSCULAR HEMOGLOBIN 31.9 pg (27.0-31.0); MEAN CORPUSCULAR HGB CONC 33.3 g/dL (32.0-36.0); MEAN CORPUSCULAR VOLUME 95.9 fL (80.0-94.0); MONOCYTES # (AUTO) 0.8 10^3/uL (0.0-1.0); MONOCYTES % (AUTO) 7.1 %; NEUTROPHILS # (AUTO) 9.4 10^3/uL (1.5-6.6); PLT - PLATELET COUNT 215 10^3/uL (130-450); RED BLOOD COUNT 4.58 10^6/uL (4.70-6.10); RED CELL DISTRIBUTION WIDTH 11.7 % (12.0-15.0); WHITE BLOOD COUNT 11.7 x10^3/uL (4.8-10.8)
[2018-08-11 23:14] LABS: ALBUMIN 4.3 g/dL (3.2-5.5); ALBUMIN/GLOBULIN RATIO 1.4 (1.0-2.2); BILIRUBIN,TOTAL 1.1 mg/dL (0.2-1.0); CALCIUM 9.6 mg/dL (8.5-10.3); CREATININE 1.4 mg/dL (0.6-1.2); TOTAL PROTEIN 7.3 g/dL (6.7-8.2)
[2018-08-12 00:17] LABS: BILIRUBIN,URINE NEGATIVE (NEGATIVE); GLUCOSE, URINE (UA) NEGATIVE (NEGATIVE); KETONES,URINE (UA) NEGATIVE (NEGATIVE); LEUKOCYTE ESTERASE, URINE NEGATIVE (NEGATIVE); NITRITE,URINE NEGATIVE (NEGATIVE); OCCULT BLOOD,URINE SMALL (NEGATIVE); PH,URINE 5.5 PH (5.0-7.5); PROTEIN,URINE NEGATIVE (NEGATIVE); UROBILINOGEN,URINE 0.2 (NORMAL) E.U./dL (NORMAL)
[2018-08-12 00:18] LABS: CLARITY,URINE CLEAR (CLEAR)
[2018-08-12 00:24] LABS: BACTERIA,URINE None Seen /HPF (None Seen); SQUAMOUS EPITHELIAL CELL,UR NONE SEEN (<= Few)
[2018-08-12] MEDS ORDERED: NITROGLYCERIN SL 0.4 MG TABLET SL PRN (00:26)
--- NOTE | 2018-08-12 00:52 | CT Report ---
Reason: AMS Procedure Date: 08/12/2018 Accession Number: [id number] / [id number] Procedure: CT - HEAD WO CPT Code: FULL RESULT: EXAM: CT HEAD EXAM DATE: 08/12/2018 12:32 AM. CLINICAL HISTORY: AMS. COMPARISON: HEAD W/O 03/13/2017 3:37 PM. TECHNIQUE: Multiaxial CT images were obtained from the foramen magnum to the vertex. Reformats: Sagittal and coronal. IV contrast: None. In accordance with CT protocol optimization, one or more of the following dose reduction techniques were utilized for this exam: automated exposure control, adjustment of mA and/or KV based on patient size, or use of iterative reconstructive technique. FINDINGS: Parenchyma: No intraparenchymal hemorrhage. No evidence of mass, midline shift, or CT findings of acute infarction. Rocha-white differentiation is distinct. Mild diffuse chronic microangiopathic white matter changes are suggested. Extraaxial Spaces: Normal for age. No subdural or epidural collections identified. Ventricles: The ventricles are midline and moderately prominent in size which appears out of proportion to the degree of sulcal prominence. However, these findings appear stable compared to the prior CT. Sinuses and Orbits: Postsurgical changes from cataract extractions are noted in the globes. The paranasal and mastoid sinuses are not opacified. Bones: No evidence of fracture or calvarial defect. Other: Moderate intracranial atherosclerosis is present. IMPRESSION: 1. Ventriculomegaly appears out of proportion to the degree of sulcal prominence but unchanged compared to the brain CT from 03/13/2017. These findings could represent normal pressure hydrocephalus or central greater than peripheral cerebral volume loss. 2. No other acute intracranial process is identified. RADIA
--- NOTE | 2018-08-12 06:35 | HISTORY & PHYSICAL EXAMINATION ---
Chief Complaint - Chief Complaint Chief Complaint: Confused, associated weakness, gait disturbance, bowel/urinary sx's History of Present Illness - Admitted From Admitted From:: ED - History Obtained From Records Reviewed: Yes History obtained from: Family, ER staff Exam Limitations: Yes, patient is poor historian due to confusion - History of Present Illness HPI Comment/Other: This is a 87 y/o male with hx MRSA UTI's in past, HTN, HLP, CAD/NV with angio- stent, GERD/PUD, CBP with multiple back surgeries with C/L-spine fusion (Dr. Sorensen is primary Neuro[facility] in [place]), OA, neurogenic bladder, NIDDM type 2, CHL/CVL, Sleep apnea on cpap who was brought in to ED by family. Family called 911 due to patient exhibiting unsteady gait/bumping into others and furniture since this morning. Over the past 4 hours, he has been increasingly disoriented. He hasn't had BM in over 24 hours, which is unusual for him. Family says this evening he is unable to stand up even with support. Per [facility] records patient has had hx gait issues for which he was receiving outpatient PT and had MRI brain 2012 which showed NPH likely due to lateral/3rd ventricle enlargement, which was again seen on CT head on this admission. In addition, UA did not reveal pyuria or hematuria with WBC 11.7, with a an acute abd series showing NS gas bowel pattern but no overt SBO. On exam pt was distended, Aortic murmur heard, no rales, BLE trace to 1+ edema seen and was confused but hard of hearing and seeing. Daughter in law Peggy Eid was present at bedside and did mention his code status of DNR/DNI along with him being on Macrobid chronically for his repeated UTI's. Cr slightly elevated to 1.4 from baseline 0.4-0.8. History - Past Medical History Cardiovascular: reports: Hypertension, High cholesterol, Coronary artery disease, NV Respiratory: reports: Sleep apnea, CPAP use Endocrine/Autoimmune: reports: Type 2 diabetes GI: reports: GERD, Ulcers, Colon polyps : reports: Nocturia, Frequency HEENT: reports: Chronic vision loss, Chronic hearing loss Psych: reports: None Musculoskeletal: reports: Osteoarthritis, Chronic back pain, Other Derm: reports: Other MRSA Hx?: Yes - Past Surgical History General: reports: Colonoscopy Ortho: reports: Carpal Tunnel surgery, Spine surgery Cardiovascular: reports: Coronary stent, Angioplasty - POLST Patient has POLST: Yes Meds/Allgy - Home Medications Home Medications: Ambulatory Orders Medication Instructions Recorded Confirmed Cholecalciferol (Vitamin D3) 2,000 unit PO BID 09/27/13 08/11/18 [Vitamin D3] Krill/Temple-3/Dha/Epa/Lipids 1 each PO DAILY 09/27/13 08/11/18 [Krill Oil 300 mg Softgel] Losartan [Cozaar] 50 mg PO DAILY 09/27/13 08/11/18 Metformin HCl 500 mg PO BID 09/27/13 08/11/18 Ubidecarenone [Co Q-10] 200 mg PO DAILY 09/27/13 08/11/18 Vitamin B Complex Vit C No.4 150 mg PO DAILY 09/27/13 08/11/18 [Super B Complex] Esomeprazole Magnesium [Nexium] 20 mg PO DAILY 03/05/15 08/11/18 Acetaminophen [Tylenol] 650 mg PO Q6H PRN 11/18/16 08/11/18 Aspirin Chewable [St Juvenal 81 mg PO DAILY 11/18/16 08/11/18 Aspirin] Nitroglycerin 0.4 mg SL PRN PRN 11/18/16 08/11/18 Isosorbide Dinitrate 30 mg PO DAILY 08/11/18 08/11/18 Nitrofurantoin [Macrobid] 100 mg PO DAILY 08/11/18 08/11/18 Tamsulosin [Flomax] 0.4 mg PO DAILY 08/11/18 08/11/18 - Allergies Allergies/Adverse Reactions: Allergies Allergy/AdvReac Type Severity Reaction Status Date / Time No Known Drug Allergies Allergy Verified 08/11/18 22:05 Review of Systems - All Other Systems All Other Systems: reports: Reviewed and negative Prior Level of Functionality: Prior FC with walker at home, unclear of home adl's Exam - Vital Signs Reviewed Vital Signs: Yes Vital Signs: Vital Signs x48h Pulse Resp Pulse Ox 08/11/18 23:00 69 15 96 - Physical Exam General Appearance: positive: Alert, Other (confused but responds to verbal command. Hard of hearing and poor vision) Eyes Bilateral: positive: Normal inspection, PERRL, EOMI, Conjunctivae nml, No scleral icterus ENT: positive: ENT inspection nml, Pharynx nml, No signs of dehydration Neck: positive: Nml inspection, Thyroid nml, No JVD, Trachea midline. negative: Thyromegaly Respiratory: positive: Chest non-tender, No respiratory distress, Breath sounds nml Cardiovascular: positive: Regular rate & rhythm, Systolic murmur (crescendo- decrescendo blowing type murmur). negative: Gallop/S3, Gallop/S4, Friction rub Peripheral Pulses: positive: 2+ Abdomen: positive: Non-tender, No organomegaly, Other (abd distention with tympany). negative: Tenderness Skin: positive: Color nml, No rash, Warm Extremities: positive: Non-tender, Full ROM, Pedal edema (trace to 1+ pedal edema). negative: Calf tenderness, Darian's sign/cords Neurologic/Psychiatric: positive: Motor nml, Sensation nml, Disoriented to time, Weakness. negative: Facial droop, Slurred/abnml speech, Depressed mood/affect Conclusion/Plan - Problem List (1) Encephalopathy acute Conclusion/Plan: Likely secondary to macrobid use. However, hx of uti's but UA was unremarkable and mildly elevated WBC. Would hold macrobid use for now. Supportive care for now, CT head reveals NPH likely, MRI brain to confirm, may need therapeutic LP. Check labs, TSH. (2) Acute renal insufficiency Conclusion/Plan: Baseline 0.4-0.8, with cr 1.4 on admission. IVF's, correct lytes, avoid nephrotoxic agents (3) Ataxia Conclusion/Plan: Associated gait disturbance. Hx falls per [facility] notes. Would have PT evaluate here. May be related to NPH. Correct underlying issue. (4) NPH (normal pressure hydrocephalus) Conclusion/Plan: Would benefit from a therapeutic tap as he has had urinary complaints with incontinence and retention at times with now constipation, he doses have hx neurogenic bladder. May benefit to call primary neurosurgeon Dr. Sorensen at [place], [place] for further recs. (5) Constipation Conclusion/Plan: Place on bowel care protocol, fleet enemas prn, if fails then may need fecal disimpaction. Acute series does not reveal SBO, KUB to follow. Qualifiers: Constipation type: unspecified constipation type Qualified Code(s): K59.00 - Constipation, unspecified (6) Generalized weakness Conclusion/Plan: Related to multifactorial cause, macrobid use, NPH, hx CBP with associated radiculopathies and surgeries. May benefit from PT. (7) Type 2 diabetes mellitus, uncontrolled Conclusion/Plan: Place on ISS, carb controlled diet, A1c to follow. Qualifiers: Glycemic state: with hyperglycemia Qualified Code(s): E11.65 - Type 2 diabetes mellitus with hyperglycemia (8) Hx: UTI (urinary tract infection) Conclusion/Plan: MRSA UTI's in past, would hold macrobid for now as this may be precipitating side effects. UA was unremarkable in ED (meditech down). Risk factors present as he p/w constipation, would treat supportively, denies dysuria, flank pain, fevers, or pelvic pain. (9) Hyperlipidemia Conclusion/Plan: continue with statin Qualifiers: Hyperlipidemia type: unspecified Qualified Code(s): E78.5 - Hyperlipidemia, unspecified (10) Advanced care planning/counseling discussion Conclusion/Plan: Due to patients' confusion the daughter in law who use to work here for 8 years was adamant on patient's DNR/DNI status. Goals of care, medical conditions as well as trajectory of illness discussed in detail with POA. - Lab Results Fish Bones: 08/11/18 22:56 08/11/18 22:56 - Diagnostic Imaging Results Diagnostic Imaging Results: positive: Final report reviewed - EKG Results EKG Interpreted Independently: No Core Measures - Anticipated LOS I expect patient to be DC'd or transferred within 96 hours.: Yes - Issues Hospital Issues and Management Plan: Med mgmt, possible LP for NPH - DVT/VTE - Prophylaxis VTE/DVT Device ordered at admit?: Yes VTE/DVT Prophylaxis med ordered at admit?: Yes - Stroke - Rehab Assessment Rehab services assessment to be ordered?: No Not Ordered - Medical Reason: Not indicated - AMI - Statin at Admit Aspirin Prescribed on Admit: Yes
[2018-08-12] MEDS ORDERED: SIMETHICONE CHEW 80 MG TABLET PO ONE (07:00)
[2018-08-12] MEDS ORDERED: TEMAZEPAM 15 MG CAPSULE PO PRN (08:06)
[2018-08-12] MEDS ORDERED: ONDANSETRON ODT 4 MG TABLET TL PRN (08:06)
[2018-08-12 08:40] LABS: BASOPHILS # (AUTO) 0.1 10^3/uL (0.0-0.1); BASOPHILS % (AUTO) 0.4 %; EOSINOPHILS # (AUTO) 0.2 10^3/uL (0.0-0.7); EOSINOPHILS % (AUTO) 1.5 %; HGB - HEMOGLOBIN 14.3 g/dL (14.0-18.0); LYMPHOCYTES # (AUTO) 1.4 10^3/uL (1.5-3.5); LYMPHOCYTES % (AUTO) 10.7 %; MEAN CORPUSCULAR HEMOGLOBIN 32.4 pg (27.0-31.0); MEAN CORPUSCULAR HGB CONC 33.7 g/dL (32.0-36.0); MEAN CORPUSCULAR VOLUME 95.9 fL (80.0-94.0); MEAN PLATELET VOLUME 10.1 fL (7.4-11.4); MONOCYTES # (AUTO) 1.1 10^3/uL (0.0-1.0); MONOCYTES % (AUTO) 8.1 %; NEUTROPHILS # (AUTO) 10.2 10^3/uL (1.5-6.6); NEUTROPHILS % (AUTO) 78.7 %; PLT - PLATELET COUNT 204 10^3/uL (130-450); RED BLOOD COUNT 4.42 10^6/uL (4.70-6.10); RED CELL DISTRIBUTION WIDTH 11.8 % (12.0-15.0); WHITE BLOOD COUNT 12.9 x10^3/uL (4.8-10.8)
[2018-08-12 08:57] LABS: ALBUMIN/GLOBULIN RATIO 1.4 (1.0-2.2); BILIRUBIN,TOTAL 1.2 mg/dL (0.2-1.0); CALCIUM 9.3 mg/dL (8.5-10.3); CREATININE 1.3 mg/dL (0.6-1.2); TOTAL PROTEIN 6.8 g/dL (6.7-8.2); URIC ACID 6.9 mg/dL (2.6-7.2)
--- NOTE | 2018-08-12 09:04 | ADVANCE CARE PLANNING NOTE ---
Advance Care Planning - Date/Time Date: 08/12/18 Time: 10:00 - Purpose of encounter Text: To discuss goals of care as it pertains to patient's personal values, beliefs and understanding of medical conditions - Parties in attendance Parties in attendance: POA daughter in law Peggy Eid, son of patient and patient. - Decisional capacity Decisional capacity of: Due to patient's confusion, decision-making capacity is compromised. - Subjective/Patient's story Subjective/Patient's story: Patient states that he has trouble hearing and seeing but feels like his bladder has issues and always getting antibiotics. Admits to being clumsy by bumping into furniture and not having the strength and energy like before. Says his daughter in law takes care of him well and especially when he gets sick. He doesn't think his medical conditions are compromising his health despite feeling weak, confused and not knowing his prognosis to his current medical conditions. - Objective/Medical story Objective/Medical Story: This is a 87 y/o male with hx MRSA UTI's in past, HTN, HLP, CAD/[place] with angio- stent, GERD/PUD, CBP with multiple back surgeries with C/L-spine fusion (Dr. Sorensen is primary [facility] in [place]), OA, neurogenic bladder, NIDDM type 2, CHL/CVL, Sleep apnea on cpap who was brought in to ED by family. Family called 911 due to patient exhibiting unsteady gait/bumping into others and furniture since this morning. Over the past 4 hours, he has been increasingly disoriented. He hasn't had BM in over 24 hours, which is unusual for him. Family says this evening he is unable to stand up even with support. Per [facility] records patient has had hx gait issues for which he was receiving outpatient PT and had MRI brain 2012 which showed NPH likely due to lateral/3rd ventricle enlargement, which was again seen on CT head on this admission. In addition, UA did not reveal pyuria or hematuria with WBC 11.7, with a an acute abd series showing NS gas bowel pattern but no overt SBO. On exam pt was distended, Aortic murmur heard, no rales, BLE trace to 1+ edema seen and was confused but hard of hearing and seeing. Daughter in law Peggy Eid was present at bedside and did mention his code status of DNR/DNI along with him being on Macrobid chronically for his repeated UTI's. Cr slightly elevated to 1.4 from baseline 0.4-0.8. - Goals of Care Goals of care determinations: Goals of care determinations to be assessed in detail as it pertains to trajectory of illness, provider burden with daughter in law who is the POA and how they affect his terminal system operator prognosis to see if palliative care consultation is indicated and possibly hospice if further detioration is seen with his neurological status or worsening NPH which is to be determined whether this pursued with therapeutic LP vs a DIRECTOR TREASURER shunt for which the primary neurosurgeon would determine the risks and benefits of treatment options. - Plan Plan: To continue with med mgmt along with possible LP and primary neurosurgeon recommendations on intermittent LP's vs a DIRECTOR TREASURER shunt placement and neuroimaging such as MRI brain to evaluate the extent of NPH that is symptomatic. - Code Status Code Status: Do Not Attempt Resuscitation - Time Spent on Advance Care Planning Time spent on advance care plannin - Other Other comments: Consider Palliative care consultation
[2018-08-12] MEDS: ISOSORBIDE DINITRATE 10 MG TABLET PO SCH (09:21)
[2018-08-12] MEDS: FAMOTIDINE 20 MG TABLET PO SCH ×2 (09:22→21:15)
[2018-08-12] MEDS: ASPIRIN CHEW 81 MG TABLET PO SCH (09:22)
[2018-08-12] MEDS: POLYETHYLENE GLYCOL 3350 17 GM PACKET PO SCH (09:23)
[2018-08-12] MEDS: TAMSULOSIN 0.4 MG CAPSULE PO SCH (09:23)
[2018-08-12] MEDS: HEPARIN 5,000 UNIT/ML VIAL IVP SCH ×2 (09:23→21:15)
[2018-08-12] MEDS ORDERED: oxyCODONE 5 MG TABLET PO PRN (10:52)
[2018-08-12 12:10] LABS: HB2 TOTAL 14.1 g/dL; HEMOGLOBIN A1C 0.89 g/dL; HEMOGLOBIN A1C % 7.9 % (4.6-6.2)
[2018-08-12] MEDS: SODIUM CHLORIDE 0.9% 1,000 ML IV SCH ×2 (12:57→22:11)
[2018-08-12] MEDS: INSULIN ASPART 300 UNIT/3 ML PEN SUBQ SCH ×3 (12:58→21:16)
--- NOTE | 2018-08-12 14:27 | PROVIDER PROGRESS NOTE ---
Subjective - Prog Note Date Prog Note Date: 08/12/18 - Subjective Pt reports feeling: No change Subjective: pt is alert and oriented to himself and location but does not know the time, and report he is hardly hearing. he report back pain as his chronic. pt present dehydration with dry mouth and dark urine. pt denies fever, chill and chest pain Current Medications - Current Medications Current Medications: Active Medications Aspirin (St Juvenal Aspirin) 81 mg PO DAILY [facility] Last Admin: 08/12/18 09:22 Dose: 81 mg Famotidine (Pepcid) 20 mg PO BID [facility] Last Admin: 08/12/18 09:22 Dose: 20 mg Heparin Sodium (Porcine) () 5,000 unit IVP Q12H [facility] Last Admin: 08/12/18 09:23 Dose: 5,000 unit Sodium Chloride (Normal Saline 0.9%) 1,000 mls @ 100 mls/hr IV .Q10H [facility] Stop: 08/13/18 07:59 Last Admin: 08/12/18 12:57 Dose: 100 mls/hr Insulin Aspart (Novolog) 1 - 5 unit SUBQ 0800,1200,1700,2100 [facility]; Protocol Last Admin: 08/12/18 12:58 Dose: 2 unit Isosorbide Dinitrate (Isordil) 30 mg PO DAILY [facility] Last Admin: 08/12/18 09:21 Dose: 30 mg Losartan Potassium (Cozaar) 50 mg PO DAILY [facility] Nitroglycerin (Nitrostat) 0.4 mg SL PRN PRN PRN Reason: Chest Pain Ondansetron HCl (Zofran Odt) 4 mg TL Q6HR PRN PRN Reason: Nausea / Vomiting Oxycodone HCl (Roxicodone) 5 mg PO Q4HR PRN PRN Reason: PAIN Polyethylene Glycol (Miralax) 17 gm PO DAILY [facility] Last Admin: 08/12/18 09:23 Dose: 17 gm Simethicone (Mylicon) 80 mg PO 0900,1300,1800,2100 [facility] Tamsulosin HCl (Flomax) 0.4 mg PO DAILY [facility] Last Admin: 08/12/18 09:23 Dose: 0.4 mg Temazepam (Restoril) 15 mg PO QPM PRN PRN Reason: Insomnia Cholecalciferol (Vitamin D3) [Vitamin D3] 2,000 unit PO BID 09/27/13 Krill/[place]-3/Dha/Epa/Lipids [Krill Oil 300 mg Softgel] 1 each PO DAILY 09/27/13 Losartan [Cozaar] 50 mg PO DAILY 09/27/13 Metformin HCl 500 mg PO BID 09/27/13 Ubidecarenone [Co Q-10] 200 mg PO DAILY 09/27/13 Vitamin B Complex Vit C No.4 [Super B Complex] 150 mg PO DAILY 09/27/13 Esomeprazole Magnesium [Nexium] 20 mg PO DAILY 03/05/15 Acetaminophen [Tylenol] 650 mg PO Q6H PRN 11/18/16 Aspirin Chewable [St Juvenal Aspirin] 81 mg PO DAILY 11/18/16 Nitroglycerin 0.4 mg SL PRN PRN 11/18/16 Isosorbide Dinitrate 30 mg PO DAILY 08/11/18 Nitrofurantoin [Macrobid] 100 mg PO DAILY 08/11/18 Tamsulosin [Flomax] 0.4 mg PO DAILY 08/11/18 Objective - Vital Signs/Intake & Output Reviewed Vital Signs: Yes Vital Signs: Vital Signs x48h Temp Pulse Pulse Resp BP BP Pulse Ox 08/12/18 11:48 36.2 C L 60 18 105/47 L 97 08/12/18 11:30 61 105/47 L 08/12/18 09:00 36.6 C 63 18 117/54 L 97 Intake & Output: Intake & Output 08/09/18 08/10/18 08/11/18 08/12/18 23:59 23:59 23:59 23:59 Intake Total 360 Output Total 750 Balance -390 - Objective General Appearance: positive: No acute distress, Alert. negative: Lethargic Eyes Bilateral: positive: Normal inspection, PERRL, No lid inflammation, Conjunctivae nml ENT: positive: ENT inspection nml, Pharynx nml, No signs of dehydration. negative: Purulent nasal drainage, Pharyngeal erythema, Oral lesions Neck: positive: Nml inspection, Thyroid nml, No JVD, Trachea midline. negative: Thyromegaly, Lymphadenopathy (R), Lymphadenopathy (L), Stiff neck, Kernig's sign, Brudzinski's sign, Carotid bruit, Swelling/bruising, Tracheal deviation Respiratory: positive: Chest non-tender, No respiratory distress, Breath sounds nml. negative: Wheezes, Rales, Rhonchi Cardiovascular: positive: Regular rate & rhythm, No gallop, Systolic murmur. negative: No murmur, Irregularly irregular, Extrasystoles, Tachycardia, Bradycardia, JVD present, Diastolic murmur Peripheral Pulses: 2+ Radial (R), 2+ Radial (L), 2+ Dorsalis pedis (R), 2+ Dorsalis pedis (L) Abdomen: positive: Non-tender, No organomegaly, Nml bowel sounds, No distention. negative: Tenderness, Guarding, Rebound Back: positive: Nml inspection. negative: CVA tenderness (R), CVA tenderness (L) Skin: positive: Color nml, No rash, Warm, Dry. negative: Cyanosis, Diaphoresis, Pallor Extremities: positive: Non-tender, Nml appearance. negative: Calf tenderness, Joint swelling, Darian's sign/cords Neurologic/Psychiatric: positive: Sensation nml, Mood/affect nml. negative: Weakness, Sensory loss, Facial droop, Slurred/abnml speech, Depressed mood/affect - Lab Results Fish Bones: 08/12/18 08:20 08/12/18 08:20 Other Labs: Lab Results x24hrs 08/12/18 08/12/18 08/12/18 Range/Units 11:30 11:30 11:30 WBC (4.8-10.8) x10^3/uL RBC (4.70-6.10) 10^6/uL Hgb (14.0-18.0) g/dL Hct (42.0-52.0) % MCV (80.0-94.0) fL MCH (27.0-31.0) pg MCHC (32.0-36.0) g/dL RDW (12.0-15.0) % Plt Count (130-450) 10^3/uL MPV (7.4-11.4) fL Neut # (Auto) (1.5-6.6) 10^3/uL Lymph # (Auto) (1.5-3.5) 10^3/uL Spink # (Auto) (0.0-1.0) 10^3/uL Eos # (Auto) (0.0-0.7) 10^3/uL Baso # (Auto) (0.0-0.1) 10^3/uL Absolute Nucleated RBC x10^3/uL Nucleated RBC % /100WBC ESR 14 (0-20) mm/Hr Sodium (135-145) mmol/L Potassium (3.5-5.0) mmol/L Chloride (101-111) mmol/L Carbon Dioxide (21-32) mmol/L Anion Gap (6-13) BUN (6-20) mg/dL Creatinine (0.6-1.2) mg/dL Estimated GFR (MDRD) (>89) Glucose (70-100) mg/dL Glycated Hemoglobin (4.6-6.2) % Estim Average Glucose (70-100) Uric Acid (2.6-7.2) mg/dL Calcium (8.5-10.3) mg/dL Phosphorus (2.5-4.6) mg/dL Total Bilirubin (0.2-1.0) mg/dL AST (10-42) IU/L ALT (10-60) IU/L Alkaline Phosphatase (42-121) IU/L Troponin I < 0.04 (<0.49) ng/mL C-Reactive Protein 6.8 H (0-1.0) mg/dL Total Protein (6.7-8.2) g/dL Albumin (3.2-5.5) g/dL Globulin (2.1-4.2) g/dL Albumin/Globulin Ratio (1.0-2.2) Lipase (22-51) U/L TSH (0.34-5.60) uIU/mL Urine Color Urine Clarity (CLEAR) Urine pH (5.0-7.5) PH Ur Specific Peggs (1.002-1.030) Urine Protein (NEGATIVE) mg/dL Urine Glucose (UA) (NEGATIVE) mg/dL Urine Ketones (NEGATIVE) mg/dL Urine Occult Blood (NEGATIVE) Urine Nitrite (NEGATIVE) Urine Bilirubin (NEGATIVE) Urine Urobilinogen (NORMAL) E.U./dL Ur Leukocyte Esterase (NEGATIVE) Urine RBC (0-5) /HPF Urine WBC (0-3) /HPF Ur Squamous Epith Cells (<= Few) Urine Bacteria (None Seen) /HPF Ur Microscopic Review Urine Culture Comments Nasal Screen MRSA (PCR) (NEGATIVE) 08/12/18 08/12/18 08/12/18 Range/Units 08:30 08:20 08:20 WBC (4.8-10.8) x10^3/uL RBC (4.70-6.10) 10^6/uL Hgb (14.0-18.0) g/dL Hct (42.0-52.0) % MCV (80.0-94.0) fL MCH (27.0-31.0) pg MCHC (32.0-36.0) g/dL RDW (12.0-15.0) % Plt Count (130-450) 10^3/uL MPV (7.4-11.4) fL Neut # (Auto) (1.5-6.6) 10^3/uL Lymph # (Auto) (1.5-3.5) 10^3/uL Spink # (Auto) (0.0-1.0) 10^3/uL Eos # (Auto) (0.0-0.7) 10^3/uL Baso # (Auto) (0.0-0.1) 10^3/uL Absolute Nucleated RBC x10^3/uL Nucleated RBC % /100WBC ESR (0-20) mm/Hr Sodium 136 (135-145) mmol/L Potassium 3.8 (3.5-5.0) mmol/L Chloride 99 L (101-111) mmol/L Carbon Dioxide 23 (21-32) mmol/L Anion Gap 14.0 H (6-13) BUN 25 H (6-20) mg/dL Creatinine 1.3 H (0.6-1.2) mg/dL Estimated GFR (MDRD) 52 L (>89) Glucose 166 H (70-100) mg/dL Glycated Hemoglobin 7.9 H (4.6-6.2) % Estim Average Glucose 180 H (70-100) Uric Acid 6.9 (2.6-7.2) mg/dL Calcium 9.3 (8.5-10.3) mg/dL Phosphorus 3.0 (2.5-4.6) mg/dL Total Bilirubin 1.2 H (0.2-1.0) mg/dL AST 28 (10-42) IU/L ALT 44 (10-60) IU/L Alkaline Phosphatase 44 (42-121) IU/L Troponin I (<0.49) ng/mL C-Reactive Protein (0-1.0) mg/dL Total Protein 6.8 (6.7-8.2) g/dL Albumin 4.0 (3.2-5.5) g/dL Globulin 2.8 (2.1-4.2) g/dL Albumin/Globulin Ratio 1.4 (1.0-2.2) Lipase (22-51) U/L TSH 1.59 (0.34-5.60) uIU/mL Urine Color Urine Clarity (CLEAR) Urine pH (5.0-7.5) PH Ur Specific Peggs (1.002-1.030) Urine Protein (NEGATIVE) mg/dL Urine Glucose (UA) (NEGATIVE) mg/dL Urine Ketones (NEGATIVE) mg/dL Urine Occult Blood (NEGATIVE) Urine Nitrite (NEGATIVE) Urine Bilirubin (NEGATIVE) Urine Urobilinogen (NORMAL) E.U./dL Ur Leukocyte Esterase (NEGATIVE) Urine RBC (0-5) /HPF Urine WBC (0-3) /HPF Ur Squamous Epith Cells (<= Few) Urine Bacteria (None Seen) /HPF Ur Microscopic Review Urine Culture Comments Nasal Screen MRSA (PCR) (NEGATIVE) 08/12/18 08/12/18 08/12/18 Range/Units 08:20 03:00 00:05 WBC 12.9 H (4.8-10.8) x10^3/uL RBC 4.42 L (4.70-6.10) 10^6/uL Hgb 14.3 (14.0-18.0) g/dL Hct 42.4 (42.0-52.0) % MCV 95.9 H (80.0-94.0) fL MCH 32.4 H (27.0-31.0) pg MCHC 33.7 (32.0-36.0) g/dL RDW 11.8 L (12.0-15.0) % Plt Count 204 (130-450) 10^3/uL MPV 10.1 (7.4-11.4) fL Neut # (Auto) 10.2 H (1.5-6.6) 10^3/uL Lymph # (Auto) 1.4 L (1.5-3.5) 10^3/uL Spink # (Auto) 1.1 H (0.0-1.0) 10^3/uL Eos # (Auto) 0.2 (0.0-0.7) 10^3/uL Baso # (Auto) 0.1 (0.0-0.1) 10^3/uL Absolute Nucleated RBC 0.00 x10^3/uL Nucleated RBC % 0.0 /100WBC ESR (0-20) mm/Hr Sodium (135-145) mmol/L Potassium (3.5-5.0) mmol/L Chloride (101-111) mmol/L Carbon Dioxide (21-32) mmol/L Anion Gap (6-13) BUN (6-20) mg/dL Creatinine (0.6-1.2) mg/dL Estimated GFR (MDRD) (>89) Glucose (70-100) mg/dL Glycated Hemoglobin (4.6-6.2) % Estim Average Glucose (70-100) Uric Acid (2.6-7.2) mg/dL Calcium (8.5-10.3) mg/dL Phosphorus (2.5-4.6) mg/dL Total Bilirubin (0.2-1.0) mg/dL AST (10-42) IU/L ALT (10-60) IU/L Alkaline Phosphatase (42-121) IU/L Troponin I (<0.49) ng/mL C-Reactive Protein (0-1.0) mg/dL Total Protein (6.7-8.2) g/dL Albumin (3.2-5.5) g/dL Globulin (2.1-4.2) g/dL Albumin/Globulin Ratio (1.0-2.2) Lipase (22-51) U/L TSH (0.34-5.60) uIU/mL Urine Color YELLOW Urine Clarity CLEAR (CLEAR) Urine pH 5.5 (5.0-7.5) PH Ur Specific Peggs 1.025 (1.002-1.030) Urine Protein NEGATIVE (NEGATIVE) mg/dL Urine Glucose (UA) NEGATIVE (NEGATIVE) mg/dL Urine Ketones NEGATIVE (NEGATIVE) mg/dL Urine Occult Blood SMALL H (NEGATIVE) Urine Nitrite NEGATIVE (NEGATIVE) Urine Bilirubin NEGATIVE (NEGATIVE) Urine Urobilinogen 0.2 (NORMAL) (NORMAL) E.U./dL Ur Leukocyte Esterase NEGATIVE (NEGATIVE) Urine RBC 6-10 H (0-5) /HPF Urine WBC 0-3 (0-3) /HPF Ur Squamous Epith Cells NONE SEEN (<= Few) Urine Bacteria None Seen (None Seen) /HPF Ur Microscopic Review INDICATED Urine Culture Comments NOT INDICATED Nasal Screen MRSA (PCR) NEGATIVE (NEGATIVE) 08/11/18 08/11/18 Range/Units 22:56 22:56 WBC 11.7 H (4.8-10.8) x10^3/uL RBC 4.58 L (4.70-6.10) 10^6/uL Hgb 14.6 (14.0-18.0) g/dL Hct 43.9 (42.0-52.0) % MCV 95.9 H (80.0-94.0) fL MCH 31.9 H (27.0-31.0) pg MCHC 33.3 (32.0-36.0) g/dL RDW 11.7 L (12.0-15.0) % Plt Count 215 (130-450) 10^3/uL MPV 10.0 (7.4-11.4) fL Neut # (Auto) 9.4 H (1.5-6.6) 10^3/uL Lymph # (Auto) 1.2 L (1.5-3.5) 10^3/uL Spink # (Auto) 0.8 (0.0-1.0) 10^3/uL Eos # (Auto) 0.2 (0.0-0.7) 10^3/uL Baso # (Auto) 0.1 (0.0-0.1) 10^3/uL Absolute Nucleated RBC 0.00 x10^3/uL Nucleated RBC % 0.0 /100WBC ESR (0-20) mm/Hr Sodium 138 (135-145) mmol/L Potassium 4.3 (3.5-5.0) mmol/L Chloride 103 (101-111) mmol/L Carbon Dioxide 22 (21-32) mmol/L Anion Gap 13.0 (6-13) BUN 26 H (6-20) mg/dL Creatinine 1.4 H (0.6-1.2) mg/dL Estimated GFR (MDRD) 48 L (>89) Glucose 161 H (70-100) mg/dL Glycated Hemoglobin (4.6-6.2) % Estim Average Glucose (70-100) Uric Acid (2.6-7.2) mg/dL Calcium 9.6 (8.5-10.3) mg/dL Phosphorus (2.5-4.6) mg/dL Total Bilirubin 1.1 H (0.2-1.0) mg/dL AST 33 (10-42) IU/L ALT 51 (10-60) IU/L Alkaline Phosphatase 48 (42-121) IU/L Troponin I (<0.49) ng/mL C-Reactive Protein (0-1.0) mg/dL Total Protein 7.3 (6.7-8.2) g/dL Albumin 4.3 (3.2-5.5) g/dL Globulin 3.0 (2.1-4.2) g/dL Albumin/Globulin Ratio 1.4 (1.0-2.2) Lipase 25 (22-51) U/L TSH (0.34-5.60) uIU/mL Urine Color Urine Clarity (CLEAR) Urine pH (5.0-7.5) PH Ur Specific Peggs (1.002-1.030) Urine Protein (NEGATIVE) mg/dL Urine Glucose (UA) (NEGATIVE) mg/dL Urine Ketones (NEGATIVE) mg/dL Urine Occult Blood (NEGATIVE) Urine Nitrite (NEGATIVE) Urine Bilirubin (NEGATIVE) Urine Urobilinogen (NORMAL) E.U./dL Ur Leukocyte Esterase (NEGATIVE) Urine RBC (0-5) /HPF Urine WBC (0-3) /HPF Ur Squamous Epith Cells (<= Few) Urine Bacteria (None Seen) /HPF Ur Microscopic Review Urine Culture Comments Nasal Screen MRSA (PCR) (NEGATIVE) ABX Reporting Has patient been on IV antibiotics over the past 48 hours?: No Assessment/Plan - Problem List (1) Encephalopathy acute Impression: 08/12 pt is alert and oriented. he answer questions appropriately. CT head reveals NPH likely MRI of brain is pending. pt did not present fever, stiff neck, kernig's sign or headache radiologist report he can not do LP puncture because of history C/L-spine infusion (2) Acute renal insufficiency Conclusion/Plan: improved. creatinine is 1.3, continue hydration, lab monitor,avoid nephrotoxic agents (3) Ataxia Conclusion/Plan: PT evaluation and treatment for pt, will followup the recommendation (4) NPH (normal pressure hydrocephalus) Conclusion/Plan: stable, chronic condition as 2012 image study radiologist report he can not do LP puncture because of history C/L-spine infusion (5) Constipation Conclusion/Plan: nurse report pt had bowel movement on yesterday continue bowel care protocol (6) Generalized weakness Conclusion/Plan: continue PT. 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 pt has no fever or chill, or dysuria (9) Hyperlipidemia Conclusion/Plan: stable, continue with statin (10) dehydration pt present dry mouth and darken urine IVF of NS. lab monitor
[2018-08-12] MEDS: SIMETHICONE CHEW 80 MG TABLET PO SCH ×3 (15:15→21:17)
--- NOTE | 2018-08-12 16:51 | MRI Report ---
Reason: tia Procedure Date: 08/12/2018 Accession Number: [id number] / [id number] Procedure: MRI - Brain W/O CPT Code: FULL RESULT: EXAM: MRI BRAIN WITHOUT CONTRAST EXAM DATE: 08/12/2018 03:43 PM. CLINICAL HISTORY: Effusion. Weakness. Transient ischemic attack. COMPARISON: CT head 08/12/2018. TECHNIQUE: Multiplanar, multisequence T1-weighted and fluid-sensitive MR sequences of the brain were performed. Sequences optimized for routine evaluation. Other: None. IV Contrast: None. FINDINGS: No abnormal restricted diffusion signal is present in the brain parenchyma. There is a small area of gyriform magnetic susceptibility at the junction of the right parietal and temporal lobe. No abnormal T1 shortening is present in the brain parenchyma. Prominence of the ventricles is seen involving the lateral and third ventricle which is out of proportion to sulcal prominence. No abnormal T2 or FLAIR hyperintense signal is seen in the infratentorial brain. There are punctate FLAIR hyperintensities seen scattered throughout the cerebral hemisphere white matter bilaterally. No mass is present in either orbit. No mass is present in either Meckel's cave. There is an expected flow-void in the distal cervical ICA at the skull base bilaterally. The right vertebral artery is poorly visualized. This might well be small on a developmental basis. An expected flow-void is seen in the distal left vertebral artery at the skull base. IMPRESSION: 1. No acute CVA. 2. Small vessel ischemic change is present throughout the cerebral hemisphere white matter. 3. Prominence of the lateral ventricles and the third ventricle with some crowding of the sulci at the vertex. This suggests NPH rather than central volume loss. 4. No intracranial mass [facility] ADDENDUM: 08/12/18 18:07 IMPRESSION: 5. The small focus of magnetic susceptibility which is somewhat gyriform in appearance at the junction of the right parietal and temporal lobe could reflect hemosiderin staining from prior subarachnoid hemorrhage, cerebral amyloid angiopathy, or could reflect a prior ischemic event that a hemorrhagic element
[2018-08-12] MEDS ORDERED: NITROFURANTOIN MACRO 100 MG CAPSULE PO SCH (17:50)
--- NOTE | 2018-08-12 18:55 | XRAY Report ---
Reason: SOB Procedure Date: 08/12/2018 Accession Number: [id number] / [id number] Procedure: XR - Chest 1 View X-Ray CPT Code: 20413 FULL RESULT: EXAM: CHEST RADIOGRAPHY EXAM DATE: 08/12/2018 06:29 PM. CLINICAL HISTORY: Dyspnea. COMPARISON: ABDOMEN ACUTE 08/11/2018 10:09 PM. TECHNIQUE: 1 view. FINDINGS: Lungs/Pleura: No focal opacities evident. No pleural effusion. No pneumothorax. Mediastinum: Normal heart size. There is mild thoracic aortic tortuosity. Other: None. IMPRESSION: No acute intrathoracic plain film abnormality. [facility]
[2018-08-13 05:40] LABS: BASOPHILS % (AUTO) 0.3 %; EOSINOPHILS # (AUTO) 0.2 10^3/uL (0.0-0.7); EOSINOPHILS % (AUTO) 1.4 %; HGB - HEMOGLOBIN 12.7 g/dL (14.0-18.0); LYMPHOCYTES # (AUTO) 1.7 10^3/uL (1.5-3.5); LYMPHOCYTES % (AUTO) 14.3 %; MEAN CORPUSCULAR HEMOGLOBIN 32.1 pg (27.0-31.0); MEAN CORPUSCULAR HGB CONC 33.2 g/dL (32.0-36.0); MEAN CORPUSCULAR VOLUME 96.5 fL (80.0-94.0); MEAN PLATELET VOLUME 10.3 fL (7.4-11.4); MONOCYTES % (AUTO) 8.2 %; NEUTROPHILS # (AUTO) 8.9 10^3/uL (1.5-6.6); NEUTROPHILS % (AUTO) 75.4 %; PLT - PLATELET COUNT 183 10^3/uL (130-450); RED BLOOD COUNT 3.96 10^6/uL (4.70-6.10); WHITE BLOOD COUNT 11.9 x10^3/uL (4.8-10.8)
[2018-08-13 05:48] LABS: ALBUMIN 3.6 g/dL (3.2-5.5); ALBUMIN/GLOBULIN RATIO 1.3 (1.0-2.2); BILIRUBIN,TOTAL 1.1 mg/dL (0.2-1.0); CALCIUM 8.8 mg/dL (8.5-10.3); CREATININE 1.4 mg/dL (0.6-1.2); MAGNESIUM 1.7 mg/dL (1.7-2.8); TOTAL PROTEIN 6.3 g/dL (6.7-8.2)
[2018-08-13] MEDS: INSULIN ASPART 300 UNIT/3 ML PEN SUBQ SCH ×4 (08:14→20:34)
[2018-08-13] MEDS: ASPIRIN CHEW 81 MG TABLET PO SCH (10:46)
[2018-08-13] MEDS: ISOSORBIDE DINITRATE 10 MG TABLET PO SCH (10:46)
[2018-08-13] MEDS: FAMOTIDINE 20 MG TABLET PO SCH ×2 (10:47→20:34)
[2018-08-13] MEDS: LOSARTAN 50 MG TABLET PO SCH (10:47)
[2018-08-13] MEDS: SIMETHICONE CHEW 80 MG TABLET PO SCH ×4 (10:47→20:34)
[2018-08-13] MEDS: HEPARIN 5,000 UNIT/ML VIAL IVP SCH ×2 (10:47→20:36)
[2018-08-13] MEDS: TAMSULOSIN 0.4 MG CAPSULE PO SCH (10:47)
[2018-08-13] MEDS: POLYETHYLENE GLYCOL 3350 17 GM PACKET PO SCH (10:47)
[2018-08-13 11:55] LABS: BILIRUBIN,URINE NEGATIVE (NEGATIVE); GLUCOSE, URINE (UA) 500 mg/dL (NEGATIVE); KETONES,URINE (UA) NEGATIVE (NEGATIVE); LEUKOCYTE ESTERASE, URINE SMALL (NEGATIVE); NITRITE,URINE NEGATIVE (NEGATIVE); OCCULT BLOOD,URINE SMALL (NEGATIVE); PROTEIN,URINE NEGATIVE (NEGATIVE); UROBILINOGEN,URINE 1 (NORMAL) E.U./dL (NORMAL)
[2018-08-13 11:56] LABS: CLARITY,URINE CLEAR (CLEAR)
[2018-08-13 12:17] LABS: BACTERIA,URINE Rare /HPF (None Seen); SQUAMOUS EPITHELIAL CELL,UR NONE SEEN (<= Few)
--- NOTE | 2018-08-13 16:35 | PROVIDER PROGRESS NOTE ---
Subjective - Prog Note Date Prog Note Date: 08/13/18 - Subjective Pt reports feeling: No change Subjective: pt still present weakness, slowly speech. pt is alert and oriented to himself and hospital, not the time and day. pt denies fever, chill, chest pain. I called pt's neurosurgeon, Dr.Barry Moise to report pt's current image studies and medical conditions. Dr. Moise told me pt has no acute need to have surgery, and is willing to see pt after pt is d/c, and recommend pt follow up neurologist as out-pt as well. PT report pt is qualified for SNF I called pt's daughter Peggy, reported pt's medical condition to her. I answered all her concerns, and she understood. Current Medications - Current Medications Current Medications: Active Medications Aspirin (St Juvenal Aspirin) 81 mg PO DAILY [facility] Last Admin: 08/13/18 10:46 Dose: 81 mg Famotidine (Pepcid) 20 mg PO BID [facility] Last Admin: 08/13/18 10:47 Dose: 20 mg Heparin Sodium (Porcine) () 5,000 unit IVP Q12H [facility] Last Admin: 08/13/18 10:47 Dose: 5,000 unit Sodium Chloride (Normal Saline 0.9%) 1,000 mls @ 100 mls/hr IV .Q10H [facility] Stop: 08/14/18 12:59 Insulin Aspart (Novolog) 1 - 9 unit SUBQ 0800,1200,1700,2100 [facility]; Protocol Isosorbide Dinitrate (Isordil) 30 mg PO DAILY [facility] Last Admin: 08/13/18 10:46 Dose: 30 mg Losartan Potassium (Cozaar) 50 mg PO DAILY [facility] Last Admin: 08/13/18 10:47 Dose: 50 mg Nitroglycerin (Nitrostat) 0.4 mg SL PRN PRN PRN Reason: Chest Pain Ondansetron HCl (Zofran Odt) 4 mg TL Q6HR PRN PRN Reason: Nausea / Vomiting Oxycodone HCl (Roxicodone) 5 mg PO Q4HR PRN PRN Reason: PAIN Polyethylene Glycol (Miralax) 17 gm PO DAILY [facility] Last Admin: 08/13/18 10:47 Dose: 17 gm Simethicone (Mylicon) 80 mg PO 0900,1300,1800,2100 [facility] Last Admin: 08/13/18 13:11 Dose: 80 mg Tamsulosin HCl (Flomax) 0.4 mg PO DAILY [facility] Last Admin: 08/13/18 10:47 Dose: 0.4 mg Temazepam (Restoril) 15 mg PO QPM PRN PRN Reason: Insomnia Cholecalciferol (Vitamin D3) [Vitamin D3] 2,000 unit PO BID 09/27/13 Krill/[place]-3/Dha/Epa/Lipids [Krill Oil 300 mg Softgel] 1 each PO DAILY 09/27/13 Losartan [Cozaar] 50 mg PO DAILY 09/27/13 Metformin HCl 500 mg PO BID 09/27/13 Ubidecarenone [Co Q-10] 200 mg PO DAILY 09/27/13 Vitamin B Complex Vit C No.4 [Super B Complex] 150 mg PO DAILY 09/27/13 Esomeprazole Magnesium [Nexium] 20 mg PO DAILY 03/05/15 Acetaminophen [Tylenol] 650 mg PO Q6H PRN 11/18/16 Aspirin Chewable [St Juvenal Aspirin] 81 mg PO DAILY 11/18/16 Nitroglycerin 0.4 mg SL PRN PRN 11/18/16 Isosorbide Dinitrate 30 mg PO DAILY 08/11/18 Nitrofurantoin [Macrobid] 100 mg PO DAILY 08/11/18 Tamsulosin [Flomax] 0.4 mg PO DAILY 08/11/18 Objective - Vital Signs/Intake & Output Reviewed Vital Signs: Yes Vital Signs: Vital Signs x48h Temp Pulse Pulse Resp Resp BP BP 08/13/18 15:38 36.8 C 62 20 101/54 L 08/13/18 13:25 59 L 16 104/52 L 08/13/18 12:30 36.7 C 58 L 18 101/53 L Pulse Ox Pulse Ox 08/13/18 15:38 100 08/13/18 13:25 97 08/13/18 12:30 98 Intake & Output: Intake & Output 08/10/18 08/11/18 08/12/18 08/13/18 23:59 23:59 23:59 23:59 Intake Total 7425.377 6690 Output Total 1075 950 Balance 628.333 760 - Objective General Appearance: positive: No acute distress, Alert. negative: Lethargic Eyes Bilateral: positive: Normal inspection, PERRL, No lid inflammation, Conjunctivae nml ENT: positive: ENT inspection nml, Pharynx nml, No signs of dehydration. nega tive: Purulent nasal drainage, Pharyngeal erythema, Oral lesions Neck: positive: Nml inspection, Thyroid nml, No JVD, Trachea midline. negative: Thyromegaly, Lymphadenopathy (R), Lymphadenopathy (L), Stiff neck, Swelling/bruising, Tracheal deviation Respiratory: positive: Chest non-tender, No respiratory distress, Breath sounds nml. negative: Wheezes, Rales, Rhonchi Cardiovascular: positive: Regular rate & rhythm, No murmur, No gallop. negative: Irregularly irregular, Extrasystoles, Tachycardia, Bradycardia, JVD present, Systolic murmur, Diastolic murmur Peripheral Pulses: 2+ Radial (R), 2+ Radial (L), 2+ Dorsalis pedis (R), 2+ Dorsalis pedis (L) Abdomen: positive: Non-tender, No organomegaly, Nml bowel sounds, No distention. negative: Tenderness, Guarding, Rebound Back: positive: Nml inspection. negative: CVA tenderness (R), CVA tenderness (L) Skin: positive: Color nml, No rash, Warm, Dry. negative: Cyanosis, Diaphoresis, Pallor Extremities: positive: Non-tender. negative: Calf tenderness, Joint swelling, Darian's sign/cords Neurologic/Psychiatric: positive: Sensation nml, Mood/affect nml, Slurred/abnml speech. negative: Weakness, Sensory loss, Facial droop, Depressed mood/affect - Lab Results Fish Bones: 08/13/18 05:10 08/13/18 05:10 Other Labs: Lab Results x24hrs 08/13/18 08/13/18 08/13/18 Range/Units 10:55 05:10 05:10 WBC 11.9 H (4.8-10.8) x10^3/uL RBC 3.96 L (4.70-6.10) 10^6/uL Hgb 12.7 L (14.0-18.0) g/dL Hct 38.2 L (42.0-52.0) % MCV 96.5 H (80.0-94.0) fL MCH 32.1 H (27.0-31.0) pg MCHC 33.2 (32.0-36.0) g/dL RDW 12.0 (12.0-15.0) % Plt Count 183 (130-450) 10^3/uL MPV 10.3 (7.4-11.4) fL Neut # (Auto) 8.9 H (1.5-6.6) 10^3/uL Lymph # (Auto) 1.7 (1.5-3.5) 10^3/uL [place] # (Auto) 1.0 (0.0-1.0) 10^3/uL Eos # (Auto) 0.2 (0.0-0.7) 10^3/uL Baso # (Auto) 0.0 (0.0-0.1) 10^3/uL Absolute Nucleated RBC 0.00 x10^3/uL Nucleated RBC % 0.0 /100WBC Sodium 137 (135-145) mmol/L Potassium 3.7 (3.5-5.0) mmol/L Chloride 106 (101-111) mmol/L Carbon Dioxide 22 (21-32) mmol/L Anion Gap 9.0 (6-13) BUN 20 (6-20) mg/dL Creatinine 1.4 H (0.6-1.2) mg/dL Estimated GFR (MDRD) 48 L (>89) Glucose 157 H (70-100) mg/dL Calcium 8.8 (8.5-10.3) mg/dL Magnesium 1.7 (1.7-2.8) mg/dL Total Bilirubin 1.1 H (0.2-1.0) mg/dL AST 24 (10-42) IU/L ALT 36 (10-60) IU/L Alkaline Phosphatase 42 (42-121) IU/L Total Creatine Kinase (22-269) IU/L Total Protein 6.3 L (6.7-8.2) g/dL Albumin 3.6 (3.2-5.5) g/dL Globulin 2.7 (2.1-4.2) g/dL Albumin/Globulin Ratio 1.3 (1.0-2.2) Urine Color YELLOW Urine Clarity CLEAR (CLEAR) Urine pH 6.0 (5.0-7.5) PH Ur Specific [place] 1.015 (1.002-1.030) Urine Protein NEGATIVE (NEGATIVE) mg/dL Urine Glucose (UA) 500 H (NEGATIVE) mg/dL Urine Ketones NEGATIVE (NEGATIVE) mg/dL Urine Occult Blood SMALL H (NEGATIVE) Urine Nitrite NEGATIVE (NEGATIVE) Urine Bilirubin NEGATIVE (NEGATIVE) Urine Urobilinogen 1 (NORMAL) (NORMAL) E.U./dL Ur Leukocyte Esterase SMALL H (NEGATIVE) Urine RBC 6-10 H (0-5) /HPF Urine WBC 11-25 H (0-3) /HPF Ur Squamous Epith Cells NONE SEEN (<= Few) Urine Bacteria Rare (None Seen) /HPF Urine Culture Comments INDICATED 08/13/18 Range/Units 00:35 WBC (4.8-10.8) x10^3/uL RBC (4.70-6.10) 10^6/uL Hgb (14.0-18.0) g/dL Hct (42.0-52.0) % MCV (80.0-94.0) fL MCH (27.0-31.0) pg MCHC (32.0-36.0) g/dL RDW (12.0-15.0) % Plt Count (130-450) 10^3/uL MPV (7.4-11.4) fL Neut # (Auto) (1.5-6.6) 10^3/uL Lymph # (Auto) (1.5-3.5) 10^3/uL [place] # (Auto) (0.0-1.0) 10^3/uL Eos # (Auto) (0.0-0.7) 10^3/uL Baso # (Auto) (0.0-0.1) 10^3/uL Absolute Nucleated RBC x10^3/uL Nucleated RBC % /100WBC Sodium (135-145) mmol/L Potassium (3.5-5.0) mmol/L Chloride (101-111) mmol/L Carbon Dioxide (21-32) mmol/L Anion Gap (6-13) BUN (6-20) mg/dL Creatinine (0.6-1.2) mg/dL Estimated GFR (MDRD) (>89) Glucose (70-100) mg/dL Calcium (8.5-10.3) mg/dL Magnesium (1.7-2.8) mg/dL Total Bilirubin (0.2-1.0) mg/dL AST (10-42) IU/L ALT (10-60) IU/L Alkaline Phosphatase (42-121) IU/L Total Creatine Kinase 136 (22-269) IU/L Total Protein (6.7-8.2) g/dL Albumin (3.2-5.5) g/dL Globulin (2.1-4.2) g/dL Albumin/Globulin Ratio (1.0-2.2) Urine Color Urine Clarity (CLEAR) Urine pH (5.0-7.5) PH Ur Specific [place] (1.002-1.030) Urine Protein (NEGATIVE) mg/dL Urine Glucose (UA) (NEGATIVE) mg/dL Urine Ketones (NEGATIVE) mg/dL Urine Occult Blood (NEGATIVE) Urine Nitrite (NEGATIVE) Urine Bilirubin (NEGATIVE) Urine Urobilinogen (NORMAL) E.U./dL Ur Leukocyte Esterase (NEGATIVE) Urine RBC (0-5) /HPF Urine WBC (0-3) /HPF Ur Squamous Epith Cells (<= Few) Urine Bacteria (None Seen) /HPF Urine Culture Comments ABX Reporting Has patient been on IV antibiotics over the past 48 hours?: No Sepsis Event Note (H) - Evaluation Current Stage of Sepsis: Ruled out Assessment/Plan - Problem List (1) Encephalopathy acute Impression: 08/13, pt is alert and oriented to himself and location, unchanged from yesterday, stable. 08/12 pt is alert and oriented+2. he answer questions appropriately. CT head reveals NPH likely MRI of brain is pending. pt did not present fever, stiff neck, kernig's sign or headache radiologist report he can not do LP puncture because of history C/L-spine infusion (2) Acute renal insufficiency Conclusion/Plan: 08/13 stable, creatinine 1.4 continue hydration, lab monitor, avoid nephrotoxic agents improved. creatinine is 1.3, continue hydration, lab monitor,avoid nephrotoxic agents (3) Ataxia Conclusion/Plan: 08/13 PT recommend pt be d/c to SNF for continuing training. PT evaluation and treatment for pt, will followup the recommendation (4) NPH (normal pressure hydrocephalus) Conclusion/Plan: 08/13 I called pt's neurosurgeon, no acute surgery needed per surgeon's recommendation, surgeon will followup pt after d/c stable, chronic condition as 2012 image study radiologist report he can not do LP puncture because of history C/L-spine infusion (5) Constipation Conclusion/Plan: nurse report pt had bowel movement on yesterday continue bowel care protocol (6) Generalized weakness Conclusion/Plan: 08/13 PT recommend pt be d/c to SNF for continuing training. continue PT. 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 pt has no fever or chill, or dysuria (9) Hyperlipidemia Conclusion/Plan: stable, continue with statin (10) dehydration pt present dry mouth and darken urine IVF of NS. lab monitor
[2018-08-13] MEDS ORDERED: SODIUM CHLORIDE FLUSH 0.9% 10 ML SYRINGE ONE (16:55)
[2018-08-13] MEDS: SODIUM CHLORIDE 0.9% 1,000 ML IV SCH (17:51)
[2018-08-14] MEDS: SODIUM CHLORIDE 0.9% 1,000 ML IV SCH (03:39)
[2018-08-14 06:07] LABS: BASOPHILS % (AUTO) 0.4 %; EOSINOPHILS # (AUTO) 0.3 10^3/uL (0.0-0.7); EOSINOPHILS % (AUTO) 2.7 %; HGB - HEMOGLOBIN 12.2 g/dL (14.0-18.0); LYMPHOCYTES # (AUTO) 1.5 10^3/uL (1.5-3.5); LYMPHOCYTES % (AUTO) 16.4 %; MEAN CORPUSCULAR HEMOGLOBIN 31.9 pg (27.0-31.0); MEAN CORPUSCULAR HGB CONC 32.8 g/dL (32.0-36.0); MEAN CORPUSCULAR VOLUME 97.4 fL (80.0-94.0); MEAN PLATELET VOLUME 10.2 fL (7.4-11.4); MONOCYTES # (AUTO) 0.8 10^3/uL (0.0-1.0); MONOCYTES % (AUTO) 8.2 %; NEUTROPHILS # (AUTO) 6.7 10^3/uL (1.5-6.6); NEUTROPHILS % (AUTO) 71.9 %; PLT - PLATELET COUNT 169 10^3/uL (130-450); RED BLOOD COUNT 3.82 10^6/uL (4.70-6.10); RED CELL DISTRIBUTION WIDTH 12.2 % (12.0-15.0); WHITE BLOOD COUNT 9.3 x10^3/uL (4.8-10.8)
[2018-08-14 06:23] LABS: ALBUMIN 3.4 g/dL (3.2-5.5); ALBUMIN/GLOBULIN RATIO 1.1 (1.0-2.2); CALCIUM 8.9 mg/dL (8.5-10.3); CREATININE 1.4 mg/dL (0.6-1.2); TOTAL PROTEIN 6.5 g/dL (6.7-8.2)
[2018-08-14] MEDS: HEPARIN 5,000 UNIT/ML VIAL IVP SCH ×2 (08:49→20:18)
[2018-08-14] MEDS: INSULIN ASPART 300 UNIT/3 ML PEN SUBQ SCH ×4 (08:51→20:16)
[2018-08-14] MEDS: ISOSORBIDE DINITRATE 10 MG TABLET PO SCH (08:57)
[2018-08-14] MEDS: TAMSULOSIN 0.4 MG CAPSULE PO SCH (08:58)
[2018-08-14] MEDS: LOSARTAN 50 MG TABLET PO SCH (08:58)
[2018-08-14] MEDS: FAMOTIDINE 20 MG TABLET PO SCH ×2 (08:58→20:13)
[2018-08-14] MEDS: ASPIRIN CHEW 81 MG TABLET PO SCH (08:58)
[2018-08-14] MEDS: SIMETHICONE CHEW 80 MG TABLET PO SCH ×4 (08:58→20:13)
[2018-08-14] MEDS: POLYETHYLENE GLYCOL 3350 17 GM PACKET PO SCH (08:59)
[2018-08-14] MEDS: NITROFURANTOIN MACRO 100 MG CAPSULE PO SCH ×2 (10:39→20:13)
--- NOTE | 2018-08-14 11:57 | PROVIDER PROGRESS NOTE ---
Subjective - Prog Note Date Prog Note Date: 08/14/18 - Subjective Pt reports feeling: No change Subjective: pt present confused today. UA culture reveal positive for Staphy Aureus, sensitive study is pending. 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 pt take Macrobid as preventative at home. Current Medications - Current Medications Current Medications: Active Medications Aspirin (St Juvenal Aspirin) 81 mg PO DAILY [facility] Last Admin: 08/14/18 08:58 Dose: 81 mg Famotidine (Pepcid) 20 mg PO BID [facility] Last Admin: 08/14/18 08:58 Dose: 20 mg Heparin Sodium (Porcine) () 5,000 unit IVP Q12H [facility] Last Admin: 08/14/18 08:49 Dose: 5,000 unit Sodium Chloride (Normal Saline 0.9%) 1,000 mls @ 100 mls/hr IV .Q10H [facility] Stop: 08/14/18 12:59 Last Admin: 08/14/18 03:39 Dose: 100 mls/hr Insulin Aspart (Novolog) 1 - 9 unit SUBQ 0800,1200,1700,2100 [facility]; Protocol Last Admin: 08/14/18 11:54 Dose: 3 unit Isosorbide Dinitrate (Isordil) 30 mg PO DAILY [facility] Last Admin: 08/14/18 08:57 Dose: 30 mg Losartan Potassium (Cozaar) 50 mg PO DAILY [facility] Last Admin: 08/14/18 08:58 Dose: 50 mg Nitrofurantoin (Macrobid) 100 mg PO BID [facility] Last Admin: 08/14/18 10:39 Dose: 100 mg Nitroglycerin (Nitrostat) 0.4 mg SL PRN PRN PRN Reason: Chest Pain Ondansetron HCl (Zofran Odt) 4 mg TL Q6HR PRN PRN Reason: Nausea / Vomiting Oxycodone HCl (Roxicodone) 5 mg PO Q4HR PRN PRN Reason: PAIN Polyethylene Glycol (Miralax) 17 gm PO DAILY [facility] Last Admin: 08/14/18 08:59 Dose: 17 gm Simethicone (Mylicon) 80 mg PO 0900,1300,1800,2100 [facility] Last Admin: 08/14/18 11:55 Dose: 80 mg Tamsulosin HCl (Flomax) 0.4 mg PO DAILY [facility] Last Admin: 08/14/18 08:58 Dose: 0.4 mg Temazepam (Restoril) 15 mg PO QPM PRN PRN Reason: Insomnia Cholecalciferol (Vitamin D3) [Vitamin D3] 2,000 unit PO BID 09/27/13 Krill/[place]-3/Dha/Epa/Lipids [Krill Oil 300 mg Softgel] 1 each PO DAILY 09/27/13 Losartan [Cozaar] 50 mg PO DAILY 09/27/13 Metformin HCl 500 mg PO BID 09/27/13 Ubidecarenone [Co Q-10] 200 mg PO DAILY 09/27/13 Vitamin B Complex Vit C No.4 [Super B Complex] 150 mg PO DAILY 09/27/13 Esomeprazole Magnesium [Nexium] 20 mg PO DAILY 03/05/15 Acetaminophen [Tylenol] 650 mg PO Q6H PRN 11/18/16 Aspirin Chewable [St Juvenal Aspirin] 81 mg PO DAILY 11/18/16 Nitroglycerin 0.4 mg SL PRN PRN 11/18/16 Isosorbide Dinitrate 30 mg PO DAILY 08/11/18 Nitrofurantoin [Macrobid] 100 mg PO DAILY 08/11/18 Tamsulosin [Flomax] 0.4 mg PO DAILY 08/11/18 Objective - Vital Signs/Intake & Output Vital Signs: Vital Signs x48h Temp Pulse Resp BP Pulse Ox 08/14/18 07:32 37.3 C 58 L 18 113/50 L 96 08/14/18 04:25 36.9 C 59 L 16 115/68 94 Intake & Output: Intake & Output 08/11/18 08/12/18 08/13/18 08/14/18 23:59 23:59 23:59 23:59 Intake Total 6135.227 9840 1340 Output Total 1075 1325 1000 Balance 628.333 805 340 - Objective General Appearance: positive: No acute distress, Alert. negative: Lethargic Eyes Bilateral: positive: Normal inspection, PERRL, No lid inflammation, Conjunctivae nml ENT: positive: ENT inspection nml, Pharynx nml, No signs of dehydration. negative: Purulent nasal drainage, Pharyngeal erythema, Oral lesions Neck: positive: Nml inspection, Thyroid nml, No JVD, Trachea midline. negative: Thyromegaly, Lymphadenopathy (R), Lymphadenopathy (L), Stiff neck, Swelling/bruising, Tracheal deviation Respiratory: positive: Chest non-tender, No respiratory distress, Breath sounds nml. negative: Wheezes, Rales, Rhonchi Cardiovascular: positive: Regular rate & rhythm, No murmur, No gallop, Irregularly irregular, Extrasystoles, Bradycardia. negative: Tachycardia, JVD present, Systolic murmur, Diastolic murmur Peripheral Pulses: 2+ Radial (R), 2+ Radial (L), 2+ Dorsalis pedis (R), 2+ Dorsalis pedis (L) Abdomen: positive: Non-tender, No organomegaly, Nml bowel sounds, No distention. negative: Tenderness, Guarding, Rebound Back: positive: Nml inspection. negative: CVA tenderness (R), CVA tenderness (L) Skin: positive: Color nml, No rash, Warm, Dry. negative: Cyanosis, Diaphoresis, Pallor Extremities: positive: Non-tender, Nml appearance. negative: Calf tenderness, Joint swelling, Darian's sign/cords Neurologic/Psychiatric: positive: Sensation nml, Weakness. negative: Sensory loss, Facial droop, Slurred/abnml speech, Depressed mood/affect - Lab Results Fish Bones: 08/14/18 05:50 08/14/18 05:50 Other Labs: Lab Results x24hrs 08/14/18 08/14/18 08/13/18 Range/Units 05:50 05:50 10:55 WBC 9.3 (4.8-10.8) x10^3/uL RBC 3.82 L (4.70-6.10) 10^6/uL Hgb 12.2 L (14.0-18.0) g/dL Hct 37.2 L (42.0-52.0) % MCV 97.4 H (80.0-94.0) fL MCH 31.9 H (27.0-31.0) pg MCHC 32.8 (32.0-36.0) g/dL RDW 12.2 (12.0-15.0) % Plt Count 169 (130-450) 10^3/uL MPV 10.2 (7.4-11.4) fL Neut # (Auto) 6.7 H (1.5-6.6) 10^3/uL Lymph # (Auto) 1.5 (1.5-3.5) 10^3/uL [place] # (Auto) 0.8 (0.0-1.0) 10^3/uL Eos # (Auto) 0.3 (0.0-0.7) 10^3/uL Baso # (Auto) 0.0 (0.0-0.1) 10^3/uL Absolute Nucleated RBC 0.00 x10^3/uL Nucleated RBC % 0.0 /100WBC Sodium 139 (135-145) mmol/L Potassium 3.8 (3.5-5.0) mmol/L Chloride 107 (101-111) mmol/L Carbon Dioxide 23 (21-32) mmol/L Anion Gap 9.0 (6-13) BUN 19 (6-20) mg/dL Creatinine 1.4 H (0.6-1.2) mg/dL Estimated GFR (MDRD) 48 L (>89) Glucose 157 H (70-100) mg/dL Calcium 8.9 (8.5-10.3) mg/dL Total Bilirubin 1.0 (0.2-1.0) mg/dL AST 30 (10-42) IU/L ALT 43 (10-60) IU/L Alkaline Phosphatase 45 (42-121) IU/L Total Protein 6.5 L (6.7-8.2) g/dL Albumin 3.4 (3.2-5.5) g/dL Globulin 3.1 (2.1-4.2) g/dL Albumin/Globulin Ratio 1.1 (1.0-2.2) Urine Color YELLOW Urine Clarity CLEAR (CLEAR) Urine pH 6.0 (5.0-7.5) PH Ur Specific [place] 1.015 (1.002-1.030) Urine Protein NEGATIVE (NEGATIVE) mg/dL Urine Glucose (UA) 500 H (NEGATIVE) mg/dL Urine Ketones NEGATIVE (NEGATIVE) mg/dL Urine Occult Blood SMALL H (NEGATIVE) Urine Nitrite NEGATIVE (NEGATIVE) Urine Bilirubin NEGATIVE (NEGATIVE) Urine Urobilinogen 1 (NORMAL) (NORMAL) E.U./dL Ur Leukocyte Esterase SMALL H (NEGATIVE) Urine RBC 6-10 H (0-5) /HPF Urine WBC 11-25 H (0-3) /HPF Ur Squamous Epith Cells NONE SEEN (<= Few) Urine Bacteria Rare (None Seen) /HPF Urine Culture Comments INDICATED ABX Reporting Has patient been on IV antibiotics over the past 48 hours?: Yes Sepsis Event Note (H) - Evaluation Current Stage of Sepsis: Ruled out Assessment/Plan - Problem List (1) Encephalopathy acute Impression: 08/14 pt confused today. pt has negative UA at admission, but at secondary UA reveals positive Staph Aureus. pt had long hx of UTI, previous study reveals sensitive to Macrobid. treat underline UTI infection, reconcile Macrobid and new sensitive study is pending, will adjust as needed nurse support, re-orientation for pt 08/13, pt is alert and oriented to himself and location, unchanged from yesterday, stable. 08/12 pt is alert and oriented+2. he answer questions appropriately. CT head reveals NPH likely MRI of brain is pending. pt did not present fever, stiff neck, kernig's sign or headache radiologist report he can not do LP puncture because of history C/L-spine infusion (2) Acute renal insufficiency Conclusion/Plan: 08/14 stable 08/13 stable, creatinine 1.4 continue hydration, lab monitor, avoid nephrotoxic agents improved. creatinine is 1.3, continue hydration, lab monitor,avoid nephrotoxic agents (3) Ataxia Conclusion/Plan: 08/14 stable, followup PT/OT 08/13 PT recommend pt be d/c to SNF for continuing training. PT evaluation and treatment for pt, will followup the recommendation (4) NPH (normal pressure hydrocephalus) Conclusion/Plan: 08/14, advise pt followup neurosurgeon. discussed with pt's daughter for the care plan 08/13 I called pt's neurosurgeon, no acute surgery needed per surgeon's recommendation, surgeon will followup pt after d/c stable, chronic condition as 2012 image study radiologist report he can not do LP puncture because of history C/L-spine infusion (5) Constipation Conclusion/Plan: resolved nurse report pt had bowel movement on yesterday continue bowel care protocol (6) Generalized weakness Conclusion/Plan: 08/14 plan to d/c to SNF, per PT recommend 08/13 PT recommend pt be d/c to SNF for continuing training. continue PT. 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 pt has no fever or chill, or dysuria (9) Hyperlipidemia Conclusion/Plan: stable, continue with statin (10) dehydration 08/14 continue hydration, precaution of fluid over-load pt present dry mouth and darken urine IVF of NS. lab monitor (11) urinary retention pt present urinary retention, pt has hx of urinary retention, and on and off Handy in the past. Handy for pt now, and Handy care by nurse discussed care plan with pt's daughter (12) pt has bradycardia at HR 58, with missed one beats at tele strip. pt is asymptomatic, he denies dizziness, shortness of breath, chest pain. advise pt followup security intelligence analyst for further evaluation.
[2018-08-15 05:55] LABS: BASOPHILS % (AUTO) 0.5 %; EOSINOPHILS # (AUTO) 0.4 10^3/uL (0.0-0.7); EOSINOPHILS % (AUTO) 4.8 %; HGB - HEMOGLOBIN 12.7 g/dL (14.0-18.0); LYMPHOCYTES # (AUTO) 1.9 10^3/uL (1.5-3.5); LYMPHOCYTES % (AUTO) 25.1 %; MEAN CORPUSCULAR HEMOGLOBIN 33.2 pg (27.0-31.0); MEAN CORPUSCULAR HGB CONC 33.3 g/dL (32.0-36.0); MEAN CORPUSCULAR VOLUME 99.7 fL (80.0-94.0); MEAN PLATELET VOLUME 10.1 fL (7.4-11.4); MONOCYTES # (AUTO) 0.6 10^3/uL (0.0-1.0); MONOCYTES % (AUTO) 8.5 %; NEUTROPHILS # (AUTO) 4.5 10^3/uL (1.5-6.6); NEUTROPHILS % (AUTO) 60.3 %; PLT - PLATELET COUNT 193 10^3/uL (130-450); RED BLOOD COUNT 3.82 10^6/uL (4.70-6.10); RED CELL DISTRIBUTION WIDTH 11.9 % (12.0-15.0); WHITE BLOOD COUNT 7.5 x10^3/uL (4.8-10.8)
[2018-08-15 06:07] LABS: ALBUMIN 3.3 g/dL (3.2-5.5); BILIRUBIN,TOTAL 0.9 mg/dL (0.2-1.0); CREATININE 1.4 mg/dL (0.6-1.2); TOTAL PROTEIN 6.5 g/dL (6.7-8.2)
[2018-08-15] MEDS: LOSARTAN 50 MG TABLET PO SCH (09:40)
[2018-08-15] MEDS: NITROFURANTOIN MACRO 100 MG CAPSULE PO SCH (09:40)
[2018-08-15] MEDS: FAMOTIDINE 20 MG TABLET PO SCH (09:40)
[2018-08-15] MEDS: POLYETHYLENE GLYCOL 3350 17 GM PACKET PO SCH (09:41)
[2018-08-15] MEDS: INSULIN ASPART 300 UNIT/3 ML PEN SUBQ SCH ×2 (09:41→12:00)
[2018-08-15] MEDS: TAMSULOSIN 0.4 MG CAPSULE PO SCH (09:41)
[2018-08-15] MEDS: ISOSORBIDE DINITRATE 10 MG TABLET PO SCH (09:41)
[2018-08-15] MEDS: ASPIRIN CHEW 81 MG TABLET PO SCH (09:41)
[2018-08-15] MEDS: SIMETHICONE CHEW 80 MG TABLET PO SCH ×2 (09:41→12:47)
[2018-08-15] MEDS: HEPARIN 5,000 UNIT/ML VIAL IVP SCH (10:35)
--- NOTE | 2018-08-15 12:09 | Discharge Plan ---
"Discharge Plan for SNF / [facility] - Discharge Plan And Transition Orders Problem Reviewed?: Yes Disposition: 03 SNF DC/Xfer Condition: Poor Allergies and Adverse Reactions: Allergies Allergy/AdvReac Type Severity Reaction Status Date / Time No Known Drug Allergies Allergy Verified 08/11/18 22:05 Health Concerns: chronic UTI, normal pressure hydrocephalus, bradycardia Plan of Treatment: continue antibiotics course, and followup neurosurgeon, and neurologist, and followup skeet operator Care Goals: stabilization of pt's medical condition. Assessment: pt's MRI and CT of brain reveals NPH, normal pressure hydrocephalus, ECHO reveals unremarkable. - SNF / PENITENTIARY Transition Orders Admit to (Facility): [facility] Under the care of (Name): Medical provider of [facility] Discharge Diagnosis: normal pressure hydrocephalus, encephalopathy, renal insufficiency, ataxia, weakness, DM2, constipation, UTI, Medicare Certification Statement: I certify that Post Hospital detention care is medically necessary on a c ontinuing basis for any of the conditions for which she/he is receiving care during hospitalization. Notify PCP of admission and forward orders to primary provider for signature. Weight on admission and: Daily Call PCP immediately if weight increases by: 2 kg Other Notification Orders: Call PCP immediately if patient develops dyspnea, chest pain/tightness or edema. House Bowel Program: Yes Additional Bowel Program Orders: If no BM after 2 days, nurse may give M.O.M. 30ml PO PRN and/or ducolax Supp 1 [place] and/or JULIAN 250mg P.O., and/or senna 1-2 tabs PO. On day 3 nurse may give repeat above order until residents constipation is resolved. Annual Influenza Vaccine (between Oct 18 and May 17): Yes Two-step PPD per [facility] [phone] or approved exception documents: Yes Treatments & Other Orders: you may followup medical provider when you are arrival to [facility], may followup your neurosurgeon, neurologist and skeet operator as out-pt. Medication Orders: PLEASE REFER TO THE DISCHARGE MEDICATION LIST. Insulin Orders?: No - Medications New Prescriptions: Nitrofurantoin [Macrobid] 100 mg PO BID #14 capsule - Diet Type: Geriatric Texture: Regular Liquids: Thin May have monthly special meal: Yes - Therapies | Activity Therapy: Evaluation | Treat if indicated: PT, OT Rehabilitation Potential: Maximize functional status Activity: Activity as Tolerated Additional Instructions: you may followup medical provider when you are arrival to [facility], may followup your neurosurgeon, neurologist and skeet operator as out-pt."
--- NOTE | 2018-08-15 15:13 | DISCHARGE SUMMARY ---
Discharge Summary Discharge Date: 08/15/18 Discharging Provider: SERVIN Primary Care Provider: Vikki Bautista Condition at Discharge: Poor Discharge Disposition: 03 SNF DC/Xfer Discharge Facility Name: [facility] - DIAGNOSES Admission Diagnoses: (1) Encephalopathy acute (2) Acute renal insufficiency (3) Ataxia (4) NPH (normal pressure hydrocephalus) (5) Constipation (6) Generalized weakness (7) Type 2 diabetes mellitus, uncontrolled (8) Hx: UTI (urinary tract infection) (9) Hyperlipidemia Discharge Diagnoses with Status of Each Condition: (1) Encephalopathy acute resolved. pt is alert and oriented self, location and time. pt has UTI and NPH (2) Acute renal insufficiency stable. pt has creatinine at 1.3 at 2018. now his creatinine is 1.4 and stable. I discussed with pt, keeping hydration is high recommendation to him. he verbally state he understand. His is at the bedside, she will encourage her keep hydration pt's ECHO is unremarkable (3) Ataxia stable. PT/OT evaluated and treated pt pt's CT and MRI of brain reveals NPH, no stroke or no hemorrhage. I called pt's neurosurgeon, Dr. Moise told me pt has no acute need to have surgery, and is willing to see pt after pt is d/c, and recommend pt follow up neurologist as out-pt as well. I discussed with above consult with pt's daughter Peggy. (4) NPH (normal pressure hydrocephalus) stable. pt's CT and MRI of brain reveals NPH. I called pt's neurosurgeon, Dr. Moise told me pt has no acute need to have surgery, and is willing to see pt after pt is d/c, and recommend pt follow up neurologist as out-pt as well. I discussed with above consult with pt's daughter Peggy. (5) Constipation resolved, per nurse report (6) Generalized weakness improved. PT/OT evaluated and treated pt, home health PT was arranged for pt. social media marketing specialist called pt's daughter, she is happy pt can go to [facility]. pt is willing to go to [facility]. pt's is happy pt can go to [facility] as well. (7) Type 2 diabetes mellitus, uncontrolled stable, continue home regimen, followup PCP (8) urinary tract infection pt has MRSA UTI now. pt has hx of MRSA UTI. UA sensitive study reveals MRSA is sensitive to Macrobid. pt is prescribed macrobid now followup PCP and urologist continue management. (9) Hyperlipidemia stable, continue home meds (10) dehydration resolved. discussed with pt, keeping hydration is high recommendation to him. he verbally state he understand. His is at the bedside, she will encourage her keep hydration (11) urinary retention pt can not urinate by himself at this time. I discussed with pt's daughter Peggy about this new problem, she understood and will consult with urologist as out- pt. (12) Bradycardia pt has HR at 52 but pt is asymptomatic. recommend pt followup classified advertising supervisor as out-pt - HPI History of Present Illness: refer from Dr. Tirado's HPI on 08/12/18 This is a 87 y/o male with hx MRSA UTI's in past, HTN, HLP, CAD/ID with angio- stent, GERD/PUD, CBP with multiple back surgeries with C/L-spine fusion (Dr. Sorensen is primary Neurosx in [place]), OA, neurogenic bladder, NIDDM type 2, CHL/CVL, Sleep apnea on cpap who was brought in to ED by family. Family called 911 due to patient exhibiting unsteady gait/bumping into others and furniture since this morning. Over the past 4 hours, he has been increasingly disoriented. He hasn't had BM in over 24 hours, which is unusual for him. Family says this evening he is unable to stand up even with support. Per [facility] records patient has had hx gait issues for which he was receiving outpatient PT and had MRI brain 2012 which showed NPH likely due to lateral/3rd ventricle enlargement, which was again seen on CT head on this admission. In addition, UA did not reveal pyuria or hematuria with WBC 11.7, with a an acute abd series showing NS gas bowel pattern but no overt SBO. On exam pt was distended, Aortic murmur heard, no rales, BLE trace to 1+ edema seen and was confused but hard of hearing and seeing. Daughter in law Peggy Eid was present at bedside and did mention his code status of DNR/DNI along with him being on Macrobid chronically for his repeated UTI's. Cr slightly elevated to 1.4 from baseline 0.4-0.8. - HOSPITAL COURSE Hospital Course: pt was admitted for confused, ataxia, new urinary retention and weakness. pt was found to have MRSA UTI, pt was also found to have NPH normal pressure hydrocephalus in pt's MRI and CT of head. Pt has above medical hx. I called pt's neurosurgeon, Surgeon recommend no acute surgery need, will followup pt. pt was treated with antibiotics and prescribed antibiotic per sensitive study for his UTI. pt is alert and oriented to three after treatment. pt, and pt's family are happy to be discharged to [facility]. pt is arranged to have PT/OT in [facility]. - ALLERGIES Allergies/Adverse Reactions: Allergies Allergy/AdvReac Type Severity Reaction Status Date / Time No Known Drug Allergies Allergy Verified 08/11/18 22:05 - MEDICATIONS Home Medications: Ambulatory Orders Medication Instructions Recorded Confirmed Cholecalciferol (Vitamin D3) 2,000 unit PO BID 09/27/13 08/11/18 [Vitamin D3] Krill/[place]-3/Dha/Epa/Lipids 1 each PO DAILY 09/27/13 08/11/18 [Krill Oil 300 mg Softgel] Losartan [Cozaar] 50 mg PO DAILY 09/27/13 08/11/18 Metformin HCl 500 mg PO BID 09/27/13 08/11/18 Ubidecarenone [Co Q-10] 200 mg PO DAILY 09/27/13 08/11/18 Vitamin B Complex Vit C No.4 150 mg PO DAILY 09/27/13 08/11/18 [Super B Complex] Esomeprazole Magnesium [Nexium] 20 mg PO DAILY 03/05/15 08/11/18 Acetaminophen [Tylenol] 650 mg PO Q6H PRN 11/18/16 08/11/18 Aspirin Chewable [St Juvenal 81 mg PO DAILY 11/18/16 08/11/18 Aspirin] Nitroglycerin 0.4 mg SL PRN PRN 11/18/16 08/11/18 Isosorbide Dinitrate 30 mg PO DAILY 08/11/18 08/11/18 Tamsulosin [Flomax] 0.4 mg PO DAILY 08/11/18 08/11/18 Nitrofurantoin [Macrobid] 100 mg PO BID #14 capsule 08/15/18 - PHYSICAL EXAM AT DISCHARGE General Appearance: positive: No acute distress, Alert. negative: Lethargic Eyes Bilateral: positive: Normal inspection, PERRL, No lid inflammation, Conjunctivae nml ENT: positive: ENT inspection nml, Pharynx nml, No signs of dehydration. negative: Purulent nasal drainage, Pharyngeal erythema, Oral lesions Neck: positive: Nml inspection, Thyroid nml, No JVD, Trachea midline. negative: Thyromegaly, Lymphadenopathy (R), Lymphadenopathy (L), Stiff neck, Swelling/bruising, Tracheal deviation Respiratory: positive: Chest non-tender, No respiratory distress, Breath sounds nml. negative: Wheezes, Rales, Rhonchi Cardiovascular: positive: Regular rate & rhythm, No murmur, No gallop, Irregularly irregular. negative: Extrasystoles, Tachycardia, Bradycardia, JVD present, Systolic murmur, Diastolic murmur Peripheral Pulses: positive: 2+ Abdomen: positive: Non-tender, No organomegaly, Nml bowel sounds, No distention. negative: Tenderness, Guarding, Rebound Back: positive: Nml inspection. negative: CVA tenderness (R), CVA tenderness (L) Skin: positive: Color nml, No rash, Warm, Dry. negative: Cyanosis, Diaphoresis, Pallor Extremities: positive: Non-tender, Full ROM, Nml appearance. negative: Calf tenderness, Joint swelling, Darian's sign/cords Neurologic/Psychiatric: positive: Oriented x3, Sensation nml, Mood/affect nml. negative: Weakness, Sensory loss, Facial droop, Slurred/abnml speech, Depressed mood/affect - LABS Result Diagrams: 08/15/18 05:45 08/15/18 05:45 - SEPSIS Current Stage of Sepsis: Ruled out - FOLLOW UP Follow Up: you may followup medical provider when you are arrival to [facility], may followup your neurosurgeon, neurologist, urologist and classified advertising supervisor as out-pt. - TIME SPENT Time Spent in Discharge (Minutes): 60
[2018-08-15 15:46] VITALS: BP 102/55
== END 2018-08-15 16:40 ==
LOC: EDSEX → EDUNIT# → ED 21:57 → UNDOADMIN 08-12 02:15 → MS2 08-12 02:15 → MS3 08-12 02:15 → UNDODISIN 08-15 16:40
PROVIDERS: ADMIT Family Medicine; ATTEND Nurse Practitioner Gerontology
DX: G93.40 Encephalopathy, unspecified (principal); N28.9 Disorder of kidney and ureter, unspecified; R27.0 Ataxia, unspecified; N39.0 Urinary tract infection, site not specified; B95.62 Methicillin resistant Staphylococcus aureus infection as the cause of diseases classified elsewhere; G91.2 (Idiopathic) normal pressure hydrocephalus; K59.00 Constipation, unspecified; R53.1 Weakness; E11.65 Type 2 diabetes mellitus with hyperglycemia; E78.5 Hyperlipidemia, unspecified; E86.0 Dehydration; R33.9 Retention of urine, unspecified; R00.1 Bradycardia, unspecified; I25.10 Atherosclerotic heart disease of native coronary artery without angina pectoris; N31.9 Neuromuscular dysfunction of bladder, unspecified; I10 Essential (primary) hypertension; G47.30 Sleep apnea, unspecified; K21.9 Gastro-esophageal reflux disease without esophagitis; K27.9 Peptic ulcer, site unspecified, unspecified as acute or chronic, without hemorrhage or perforation; G89.29 Other chronic pain; M54.9 Dorsalgia, unspecified; R35.1 Nocturia; R35.0 Frequency of micturition; M19.90 Unspecified osteoarthritis, unspecified site; H90.2 Conductive hearing loss, unspecified; H54.7 Unspecified visual loss; Z98.1 Arthrodesis status; Z66 Do not resuscitate; Z79.2 Long term (current) use of antibiotics; Z79.84 Long term (current) use of oral hypoglycemic drugs; Z79.82 Long term (current) use of aspirin; Z95.5 Presence of coronary angioplasty implant and graft; Z87.440 Personal history of urinary (tract) infections; I25.2 Old myocardial infarction
CPT/HCPCS: 36415; 51701; 70450; 70551; 71045; 74022; 80053; 81001; 82550; 83036; 83690; 83735; 84100; 84484; 84550; 85025; 85651; 86140; 87086; 87150; 87181; 93306; 97110; 97161; 97165; 97530; 97535; 99284; A9270; G0378; 80069; 81003; 84443; 87640; 99282

== ENCOUNTER 2018-08-18 16:37 | Outpatient (CLI) | payer MEDICARE, OTHER ==
[2018-08-18 18:29] LABS: BASOPHILS # (AUTO) 0.1 10^3/uL (0.0-0.1); BASOPHILS % (AUTO) 0.8 %; EOSINOPHILS # (AUTO) 0.3 10^3/uL (0.0-0.7); EOSINOPHILS % (AUTO) 3.8 %; HGB - HEMOGLOBIN 13.8 g/dL (14.0-18.0); LYMPHOCYTES # (AUTO) 1.4 10^3/uL (1.5-3.5); LYMPHOCYTES % (AUTO) 16.1 %; MEAN CORPUSCULAR HEMOGLOBIN 33.2 pg (27.0-31.0); MEAN CORPUSCULAR HGB CONC 33.8 g/dL (32.0-36.0); MEAN CORPUSCULAR VOLUME 98.1 fL (80.0-94.0); MEAN PLATELET VOLUME 10.2 fL (7.4-11.4); MONOCYTES # (AUTO) 0.6 10^3/uL (0.0-1.0); MONOCYTES % (AUTO) 7.2 %; NEUTROPHILS % (AUTO) 70.7 %; PLT - PLATELET COUNT 282 10^3/uL (130-450); RED BLOOD COUNT 4.16 10^6/uL (4.70-6.10); RED CELL DISTRIBUTION WIDTH 11.8 % (12.0-15.0); WHITE BLOOD COUNT 8.5 x10^3/uL (4.8-10.8)
[2018-08-18 19:05] LABS: ALBUMIN 3.6 g/dL (3.2-5.5); ALBUMIN/GLOBULIN RATIO 1.2 (1.0-2.2); BILIRUBIN,TOTAL 0.6 mg/dL (0.2-1.0); CALCIUM 9.2 mg/dL (8.5-10.3); CREATININE 1.3 mg/dL (0.6-1.2); TOTAL PROTEIN 6.5 g/dL (6.7-8.2)
== END 2018-08-18 17:00 | disposition home or self-care (01) ==
LOC: LAB.R 16:37
PROVIDERS: ATTEND Physician Assistant Medical
DX: N18.9 Chronic kidney disease, unspecified (principal)
CPT/HCPCS: 80053; 85025

== ENCOUNTER 2018-10-02 14:32 | Outpatient (CLI) | payer MEDICARE, OTHER ==
[2018-10-02 19:50] LABS: BILIRUBIN,URINE NEGATIVE (NEGATIVE); GLUCOSE, URINE (UA) 250 mg/dL (NEGATIVE); KETONES,URINE (UA) NEGATIVE (NEGATIVE); LEUKOCYTE ESTERASE, URINE SMALL (NEGATIVE); NITRITE,URINE POSITIVE (NEGATIVE); OCCULT BLOOD,URINE NEGATIVE (NEGATIVE); PH,URINE 5.5 PH (5.0-7.5); PROTEIN,URINE NEGATIVE (NEGATIVE); UROBILINOGEN,URINE 0.2 (NORMAL) E.U./dL (NORMAL)
[2018-10-02 19:52] LABS: CLARITY,URINE HAZY (CLEAR)
[2018-10-02 20:01] LABS: BACTERIA,URINE Few /HPF (None Seen); RBC,URINE 0-5 /HPF (0-5); SQUAMOUS EPITHELIAL CELL,UR NONE SEEN (<= Few)
== END 2018-10-02 23:59 | disposition home or self-care (01) ==
LOC: LAB.R 14:32
PROVIDERS: ATTEND Physician Assistant Medical
DX: N39.0 Urinary tract infection, site not specified (principal)
CPT/HCPCS: 81001; 81003; 87086; 87181

== ENCOUNTER 2018-12-08 08:00 | Outpatient (CLI) | payer MEDICARE, OTHER | END 2018-12-08 08:01 | disposition home or self-care (01) | LOC: LAB.R 08:00 | PROVIDERS: ATTEND Physician Assistant Medical | DX: L89.309 Pressure ulcer of unspecified buttock, unspecified stage (principal) | CPT/HCPCS: 87070; 87077; 87181; 87205 ==

== ENCOUNTER 2019-01-21 07:00 | Outpatient (CLI) | payer MEDICARE, OTHER ==
[2019-01-21 18:49] LABS: BILIRUBIN,URINE NEGATIVE (NEGATIVE); GLUCOSE, URINE (UA) >=1000 mg/dL (NEGATIVE); KETONES,URINE (UA) NEGATIVE (NEGATIVE); LEUKOCYTE ESTERASE, URINE SMALL (NEGATIVE); NITRITE,URINE POSITIVE (NEGATIVE); OCCULT BLOOD,URINE NEGATIVE (NEGATIVE); PROTEIN,URINE NEGATIVE (NEGATIVE); UROBILINOGEN,URINE 0.2 (NORMAL) E.U./dL (NORMAL)
[2019-01-21 18:55] LABS: CLARITY,URINE HAZY (CLEAR)
[2019-01-21 19:25] LABS: BACTERIA,URINE Rare /HPF (None Seen); RBC,URINE 0-5 /HPF (0-5); SQUAMOUS EPITHELIAL CELL,UR RARE Squamous (<= Few); YEAST,URINE PRESENT
== END 2019-01-21 23:59 | disposition home or self-care (01) ==
LOC: LAB.R 07:00
PROVIDERS: ATTEND Physician Assistant Medical
DX: N39.0 Urinary tract infection, site not specified (principal)
CPT/HCPCS: 81001; 81003; 87077; 87086; 87181

== ENCOUNTER 2019-03-03 08:00 | Outpatient (CLI) | payer MEDICARE, OTHER | END 2019-03-03 23:59 | disposition home or self-care (01) | LOC: LAB.R 08:00 | PROVIDERS: ATTEND Physician Assistant Medical | DX: L89.329 Pressure ulcer of left buttock, unspecified stage (principal) | CPT/HCPCS: 87070; 87205 ==

== ENCOUNTER 2019-10-14 21:16 | Outpatient (CLI) | payer MEDICARE, OTHER | END 2019-10-14 21:17 | disposition critical access hospital (66) | LOC: EMS 21:16 | PROVIDERS: ATTEND Surgery | DX: R41.0 Disorientation, unspecified (principal); R53.83 Other fatigue; R50.9 Fever, unspecified | CPT/HCPCS: A0425; A0427 ==

== ENCOUNTER 2019-10-14 21:31 | Inpatient (IN) | payer MEDICARE, OTHER ==
--- NOTE | 2019-10-14 21:29 | ED Physician Documentation ---
History of Present Illness - Stated complaint Stated Complaint: LETHARGIC, AMS S/P TOOTH EXTRACTION - History obtained from History obtained from: Other (dentist dr. kathleen best) - Additonal information Additional information: History obtained from the patient's dentist as the patient is to lethargic to provide a history the dentist is Dr. Kathleen Best who states he performed a dental extraction recently and went to check on this patient tonight and he is not doing well and sent him to the emergency department. The dentist was concerned for postop dental infection. Remainder of the history is unknown. Review of Systems Unable to obtain: Confused PD PAST MEDICAL HISTORY - Present Medications Home Medications: Ambulatory Orders Medication Instructions Recorded Confirmed Cholecalciferol (Vitamin D3) 2,000 unit PO BID 09/27/13 07/07/19 [Vitamin D3] Krill/[place]-3/Dha/Epa/Lipids 1 each PO DAILY 09/27/13 10/14/19 [Krill Oil 300 mg Softgel] Losartan [Cozaar] 50 mg PO DAILY 09/27/13 10/14/19 Metformin HCl 500 mg PO BID 09/27/13 10/14/19 Ubidecarenone [Co Q-10] 200 mg PO DAILY 09/27/13 10/14/19 Vitamin B Complex Vit C No.4 150 mg PO DAILY 09/27/13 10/14/19 [Super B Complex] Esomeprazole Magnesium [Nexium] 20 mg PO DAILY 03/05/15 10/14/19 Acetaminophen [Tylenol] 650 mg PO Q6H PRN 11/18/16 07/07/19 Aspirin Chewable [St Juvenal 81 mg PO DAILY 11/18/16 10/14/19 Aspirin] Isosorbide Dinitrate 30 mg PO DAILY 08/11/18 10/14/19 Cyanocobalamin (Vitamin B-12) 1 tab PO DAILY 04/05/19 07/07/19 [Vitamin B-12] Multivit-Min/FA/Lycopen/Lutein 1 tab PO DAILY 04/05/19 10/14/19 [Centrum Silver Men Tablet] Rosuvastatin Calcium 0.5 tab PO DAILY 04/05/19 10/14/19 Nitrofurantoin [Macrobid] 1 cap PO BID 07/07/19 10/14/19 - Allergies Allergies/Adverse Reactions: Allergies Allergy/AdvReac Type Severity Reaction Status Date / Time No Known Drug Allergies Allergy Verified 10/14/19 21:39 PD ED PE NORMAL - Vitals Vital signs reviewed: Yes - General General: Other - HEENT HEENT: PERRL, Other (floor of the mouth is tight, submandibular region is Erythematous and swollen.Trachea midline currently protecting his airway, muffled voice Noted.) - Neck Neck: Supple, no meningeal sign - Cardiac Cardiac: RRR, No murmur - Respiratory Respiratory: No respiratory distress, Clear bilaterally - Abdomen Abdomen: Normal bowel sounds, Soft, Non tender, Non distended, No organomegaly, Other (No midline abdominal pulsatile mass) - Derm Derm: Warm and dry - Extremities Extremities: No deformity - Neuro Neuro: Other (Confused) - Psych Psych: Normal mood, Normal affect Results - Vitals Vitals: Vital Signs - 24 hr 10/14/19 10/14/19 10/14/19 21:39 21:45 21:46 Temperature 38.1 C H Heart Rate 86 86 80 Respiratory 20 18 18 Rate Blood Pressure 151/79 H 151/79 H 131/81 H O2 Saturation 99 99 98 10/14/19 10/14/19 10/14/19 22:00 22:34 23:24 Temperature Heart Rate 86 88 83 Respiratory 20 Rate Blood Pressure 131/83 H 153/88 H 158/74 H O2 Saturation 99 98 96 10/14/19 10/15/19 10/15/19 23:27 00:00 00:30 Temperature 38.1 C H Heart Rate 78 78 Respiratory 16 16 Rate Blood Pressure 136/71 H 144/71 H O2 Saturation 97 97 Oxygen O2 Source [Without Activity] Room air O2 Source Room air - EKG (time done) 00:00 Rate: Other (no stemi) - Labs Labs: Laboratory Tests 10/14/19 10/14/19 10/14/19 21:58 21:58 21:58 WBC 15.5 H RBC 4.52 L Hgb 15.1 Hct 44.3 MCV 98.0 H MCH 33.4 H MCHC 34.1 RDW 11.9 L Plt Count 214 MPV 9.8 Neut # (Auto) 13.3 H Lymph # (Auto) 0.7 L [place] # (Auto) 1.2 H Eos # (Auto) 0.2 Baso # (Auto) 0.1 Absolute Nucleated RBC 0.00 Nucleated RBC % 0.0 PT 12.4 INR 1.1 APTT 28.5 VBG pH VBG pCO2 VBG pO2 VBG HCO3 VBG Total CO2 VBG O2 Saturation VBG Base Excess Sodium 137 Potassium 4.7 Chloride 100 L Carbon Dioxide 24 Anion Gap 13.0 BUN 24 H Creatinine 1.4 H Estimated GFR (MDRD) 48 L Glucose 241 H Lactic Acid Calcium 9.7 Magnesium 1.5 L Total Bilirubin 1.1 H AST 21 ALT 30 Alkaline Phosphatase 47 Total Creatine Kinase 44 Troponin I High Sens B-Natriuretic Peptide Total Protein 7.7 Albumin 4.3 Globulin 3.4 Albumin/Globulin Ratio 1.3 Lipase 25 Urine Color Urine Clarity Urine pH Ur Specific [place] Urine Protein Urine Glucose (UA) Urine Ketones Urine Occult Blood Urine Nitrite Urine Bilirubin Urine Urobilinogen Ur Leukocyte Esterase Ur Microscopic Review Urine Culture Comments Serum Ketones NEGATIVE Influenza A (Rapid) Influenza B (Rapid) Group A Strep Rapid 10/14/19 10/14/19 10/14/19 21:58 21:58 21:58 WBC RBC Hgb Hct MCV MCH MCHC RDW Plt Count MPV Neut # (Auto) Lymph # (Auto) [place] # (Auto) Eos # (Auto) Baso # (Auto) Absolute Nucleated RBC Nucleated RBC % PT INR APTT VBG pH VBG pCO2 VBG pO2 VBG HCO3 VBG Total CO2 VBG O2 Saturation VBG Base Excess Sodium Potassium Chloride Carbon Dioxide Anion Gap BUN Creatinine Estimated GFR (MDRD) Glucose Lactic Acid 1.7 Calcium Magnesium Total Bilirubin AST ALT Alkaline Phosphatase Total Creatine Kinase Troponin I High Sens 10.3 B-Natriuretic Peptide 46 Total Protein Albumin Globulin Albumin/Globulin Ratio Lipase Urine Color Urine Clarity Urine pH Ur Specific [place] Urine Protein Urine Glucose (UA) Urine Ketones Urine Occult Blood Urine Nitrite Urine Bilirubin Urine Urobilinogen Ur Leukocyte Esterase Ur Microscopic Review Urine Culture Comments Serum Ketones Influenza A (Rapid) Influenza B (Rapid) Group A Strep Rapid 10/14/19 10/14/19 10/14/19 21:58 22:15 22:15 WBC RBC Hgb Hct MCV MCH MCHC RDW Plt Count MPV Neut # (Auto) Lymph # (Auto) [place] # (Auto) Eos # (Auto) Baso # (Auto) Absolute Nucleated RBC Nucleated RBC % PT INR APTT VBG pH 7.394 VBG pCO2 36.8 L VBG pO2 29.3 VBG HCO3 22.0 L VBG Total CO2 23.1 L VBG O2 Saturation 58.4 L VBG Base Excess -2.3 L Sodium Potassium Chloride Carbon Dioxide Anion Gap BUN Creatinine Estimated GFR (MDRD) Glucose Lactic Acid Calcium Magnesium Total Bilirubin AST ALT Alkaline Phosphatase Total Creatine Kinase Troponin I High Sens B-Natriuretic Peptide Total Protein Albumin Globulin Albumin/Globulin Ratio Lipase Urine Color Urine Clarity Urine pH Ur Specific [place] Urine Protein Urine Glucose (UA) Urine Ketones Urine Occult Blood Urine Nitrite Urine Bilirubin Urine Urobilinogen Ur Leukocyte Esterase Ur Microscopic Review Urine Culture Comments Serum Ketones Influenza A (Rapid) Negative Influenza B (Rapid) Negative Group A Strep Rapid Negative 10/14/19 23:23 WBC RBC Hgb Hct MCV MCH MCHC RDW Plt Count MPV Neut # (Auto) Lymph # (Auto) [place] # (Auto) Eos # (Auto) Baso # (Auto) Absolute Nucleated RBC Nucleated RBC % PT INR APTT VBG pH VBG pCO2 VBG pO2 VBG HCO3 VBG Total CO2 VBG O2 Saturation VBG Base Excess Sodium Potassium Chloride Carbon Dioxide Anion Gap BUN Creatinine Estimated GFR (MDRD) Glucose Lactic Acid Calcium Magnesium Total Bilirubin AST ALT Alkaline Phosphatase Total Creatine Kinase Troponin I High Sens B-Natriuretic Peptide Total Protein Albumin Globulin Albumin/Globulin Ratio Lipase Urine Color YELLOW Urine Clarity CLEAR Urine pH 5.5 Ur Specific [place] 1.015 Urine Protein NEGATIVE Urine Glucose (UA) 500 H Urine Ketones TRACE Urine Occult Blood NEGATIVE Urine Nitrite NEGATIVE Urine Bilirubin NEGATIVE Urine Urobilinogen 0.2 (NORMAL) Ur Leukocyte Esterase NEGATIVE Ur Microscopic Review NOT INDICATED Urine Culture Comments NOT INDICATED Serum Ketones Influenza A (Rapid) Influenza B (Rapid) Group A Strep Rapid PD MEDICAL DECISION MAKING - ED course Complexity details: reviewed results, re-evaluated patient, considered differential (Initial concern is for postop dental infection such as Edy's. Zosyn initiated. However imaging shows no signs of postop dental infection chest x-ray does suggest pneumonia as well as leukocytosis. Patient will be admitted for observation for IV antibiotics and), d/w patient, d/w family, d/w rehabilitation consultant (dr. love. will admit patient. ) - Consults Consults: Discussed case with (dr. bo cleaning, [facility]. He has seen and evaluated this patient there is no signs of distress or Edy's.) - Critical Care Time(min): 30 Time Includes: Direct patient care, Review records, Reassess patient, Document care, Coordinate care, Medical consult, Family consult for tx dec Data interpretation: Labs, CXR Procedures included in critical care time: Peripheral IV Procedures excluded from critical care time: EKG Departure - Departure Disposition: ED Place in Observation Clinical Impression: Fever Qualifiers: Fever type: unspecified Qualified Code(s): R50.9 - Fever, unspecified Leukocytosis Qualifiers: Leukocytosis type: unspecified Qualified Code(s): D72.829 - Elevated white blood cell count, unspecified Pneumonia Qualifiers: Pneumonia type: due to unspecified organism Laterality: unspecified laterality Lung location: unspecified part of lung Qualified Code(s): J18.9 - Pneumonia, unspecified organism Condition: Stable Discharge Date/Time: 10/15/19 02:00
[2019-10-14] MEDS ORDERED: PIPERACILLIN/TAZOBACTAM 3.375 GM in SODIUM CHLORIDE 0.9% MINIBAG 100 ML IV STA (21:49)
[2019-10-14] MEDS ORDERED: SODIUM CHLORIDE 0.9% 1,000 ML IV STA (21:49)
[2019-10-14] MEDS ORDERED: ACETAMINOPHEN 1,000 MG/100 ML 100 ML IV ONE (21:55)
[2019-10-14 22:06] LABS: BASOPHILS # (AUTO) 0.1 10^3/uL (0.0-0.1); BASOPHILS % (AUTO) 0.3 %; EOSINOPHILS # (AUTO) 0.2 10^3/uL (0.0-0.7); HGB - HEMOGLOBIN 15.1 g/dL (14.0-18.0); LYMPHOCYTES # (AUTO) 0.7 10^3/uL (1.5-3.5); LYMPHOCYTES % (AUTO) 4.5 %; MEAN CORPUSCULAR HEMOGLOBIN 33.4 pg (27.0-31.0); MEAN CORPUSCULAR HGB CONC 34.1 g/dL (32.0-36.0); MEAN PLATELET VOLUME 9.8 fL (7.4-11.4); MONOCYTES # (AUTO) 1.2 10^3/uL (0.0-1.0); MONOCYTES % (AUTO) 7.8 %; NEUTROPHILS # (AUTO) 13.3 10^3/uL (1.5-6.6); NEUTROPHILS % (AUTO) 85.7 %; PLT - PLATELET COUNT 214 10^3/uL (130-450); RED BLOOD COUNT 4.52 10^6/uL (4.70-6.10); RED CELL DISTRIBUTION WIDTH 11.9 % (12.0-15.0); WHITE BLOOD COUNT 15.5 x10^3/uL (4.8-10.8)
[2019-10-14 22:07] LABS: VBG PCO2 36.8 mmHg (41-51); VBG PH 7.394 (7.31-7.41); VBG PO2 29.3 mmHg (25-47); VBG TOTAL CO2 23.1 mmol/L (24-29)
[2019-10-14 22:08] LABS: VBG BASE EXCESS -2.3 mmol/L (-2 - +2)
[2019-10-14 22:12] LABS: INR 1.1 (0.8-1.2); PT - PROTHROMBIN TIME 12.4 secs (9.9-12.6)
[2019-10-14 22:13] LABS: KETONES, SERUM (ACETEST) NEGATIVE (NEGATIVE)
[2019-10-14] MEDS ORDERED: IOVERSOL 320 100 ML VIAL IVP ONE ×2 (22:17→23:51)
[2019-10-14 22:18] LABS: ALBUMIN 4.3 g/dL (3.2-5.5); ALBUMIN/GLOBULIN RATIO 1.3 (1.0-2.2); ALKALINE PHOSPHATASE 47 IU/L (42-121); ALT ALANINE AMINOTRANSFERASE 30 IU/L (10-60); AST ASPARTATE AMINOTRANSFERASE 21 IU/L (10-42); BILIRUBIN,TOTAL 1.1 mg/dL (0.2-1.0); BUN - BLOOD UREA NITROGEN 24 mg/dL (6-20); CALCIUM 9.7 mg/dL (8.5-10.3); CARBON DIOXIDE - CO2 24 mmol/L (21-32); CHLORIDE 100 mmol/L (101-111); CK- CREATINE KINASE 44 IU/L (22-269); CREATININE 1.4 mg/dL (0.6-1.2); GLUCOSE 241 mg/dL (70-100); LIPASE 25 U/L (22-51); MAGNESIUM 1.5 mg/dL (1.7-2.8); SODIUM 137 mmol/L (135-145); TOTAL PROTEIN 7.7 g/dL (6.7-8.2)
[2019-10-14 22:19] LABS: PARTIAL THROMBOPLASTIN TIME 28.5 secs (24.9-33.3)
[2019-10-14 22:31] LABS: RAPID STREP SCREEN Negative (Negative)
[2019-10-14 23:29] LABS: BILIRUBIN,URINE NEGATIVE (NEGATIVE); CLARITY,URINE CLEAR (CLEAR); GLUCOSE, URINE (UA) 500 mg/dL (NEGATIVE); KETONES,URINE (UA) TRACE mg/dL (NEGATIVE); LEUKOCYTE ESTERASE, URINE NEGATIVE (NEGATIVE); NITRITE,URINE NEGATIVE (NEGATIVE); OCCULT BLOOD,URINE NEGATIVE (NEGATIVE); PH,URINE 5.5 PH (5.0-7.5); PROTEIN,URINE NEGATIVE (NEGATIVE); UROBILINOGEN,URINE 0.2 (NORMAL) E.U./dL (NORMAL)
--- NOTE | 2019-10-14 23:29 | CONSULTATION NOTE ---
Referring Provider Name of Referring Provider:: Asad Dosstiffani Consult Date: 10/14/19 Chief Complaint - Chief Complaint Chief Complaint: Mouth Pain History of Present Illness - Admitted From Admitted From:: ER - History Obtained From History obtained from: [id number] Peggy - History of Present Illness HPI Comment/Other: 88 yo M presented this evening for fever, altered mental status, and lethargy. His daughter in law, Peggy, is a nurse and she is his POA. She provided the history to me. He had multiple teeth removed on Friday and had a full upper denture made for him by his dentist, Ray Wilks. Yesterday he began to feel unwell and today he was lethargic all day. He complained of difficulty opening his mouth. His PO intake was poor. Dr. Wilks visited him and recommended he be brought to the ER and have the extraction sites debrided. On presentation the patient had a temperature of 38.1 C and an altered sounding voice, and there was concern for developing Kirk's angina. OM was consulted for evaluation and management of the patient, as a cyber security consultant. Prashant was unable to cooperate with questions during the exam. History - Past Medical History Cardiovascular: reports: Hypertension, High cholesterol, Coronary artery disease, [place], Other Respiratory: reports: Sleep apnea, CPAP use Endocrine/Autoimmune: reports: Type 2 diabetes GI: reports: GERD, Ulcers, Colon polyps : reports: Incontinence, Nocturia, Frequency HEENT: reports: Chronic vision loss, Chronic hearing loss Psych: reports: None Musculoskeletal: reports: Osteoarthritis, Chronic back pain, Other Derm: reports: Other MRSA Hx?: No - Past Surgical History General: reports: Colonoscopy Ortho: reports: Carpal Tunnel surgery, Spine surgery Cardiovascular: reports: Coronary stent, Angioplasty - Substance History Use: Uses substance without health or social issues: NONE - POLST Patient has POLST: Yes POLST Status: Limited Interventions (Interventions per daughter. She would like to proceed with surgical management of the disease but would not like to proceed with prolonged intubation.) Meds/Allgy - Home Medications Home Medications: Ambulatory Orders Medication Instructions Recorded Confirmed Cholecalciferol (Vitamin D3) 2,000 unit PO BID 09/27/13 07/07/19 [Vitamin D3] Krill/[place]-3/Dha/Epa/Lipids 1 each PO DAILY 09/27/13 10/14/19 [Krill Oil 300 mg Softgel] Losartan [Cozaar] 50 mg PO DAILY 09/27/13 10/14/19 Metformin HCl 500 mg PO BID 09/27/13 10/14/19 Ubidecarenone [Co Q-10] 200 mg PO DAILY 09/27/13 10/14/19 Vitamin B Complex Vit C No.4 150 mg PO DAILY 09/27/13 10/14/19 [Super B Complex] Esomeprazole Magnesium [Nexium] 20 mg PO DAILY 03/05/15 10/14/19 Acetaminophen [Tylenol] 650 mg PO Q6H PRN 11/18/16 07/07/19 Aspirin Chewable [St Juvenal 81 mg PO DAILY 11/18/16 10/14/19 Aspirin] Isosorbide Dinitrate 30 mg PO DAILY 08/11/18 10/14/19 Cyanocobalamin (Vitamin B-12) 1 tab PO DAILY 04/05/19 07/07/19 [Vitamin B-12] Multivit-Min/FA/Lycopen/Lutein 1 tab PO DAILY 04/05/19 10/14/19 [Centrum Silver Men Tablet] Rosuvastatin Calcium 0.5 tab PO DAILY 04/05/19 10/14/19 Nitrofurantoin [Macrobid] 1 cap PO BID 07/07/19 10/14/19 - Allergies Allergies/Adverse Reactions: Allergies Allergy/AdvReac Type Severity Reaction Status Date / Time No Known Drug Allergies Allergy Verified 10/14/19 21:39 Review of Systems - Constitutional Constitutional: reports: Fatigue - Ears, Nose & Throat Ears, Nose & Throat: reports: Other (Mouth pain. Unable to specify where.) - Respiratory Respiratory: denies: Cough - Genitourinary Genitourinary: reports: Other (history of UTIs) - Neurological Neurological: reports: General weakness - All Other Systems All Other Systems: reports: Other (The ROS was obtained from Peggy, his POA, to the best of her knowledge. He was unable to provide answers to most questions about his ROS and was confused about why he was in the ER.) Exam - Vital Signs Vital Signs: Vital Signs x48h Temp Pulse Resp BP Pulse Ox 10/14/19 23:24 83 158/74 H 96 10/14/19 22:34 88 20 153/88 H 98 10/14/19 22:00 86 131/83 H 99 10/14/19 21:46 80 18 131/81 H 98 10/14/19 21:45 86 18 151/79 H 99 10/14/19 21:39 38.1 C H 86 20 151/79 H 99 - Physical Exam General Appearance: positive: No acute distress, Lethargic Eyes Bilateral: positive: PERRL ENT: positive: Other (Malodorous breath. Removed upper denture. Extraction sites healing well, no drainage, good blood clots, no active bleeding. Generalined mild postoperative swelling. No obvious facial asymetry. No submandibular swelling. Uvula midline. FOM s, nt, ne. Tongue non-elevated. No lateral pharyngea) Neck: positive: Nml inspection, Other (Cervical lymphadenopathy, mobile. Mild ecchymosis of the R manidbular body extending down into the R submandibular area, but no erythema or cellulitis. Neck FROM) Respiratory: positive: Chest non-tender, No respiratory distress Cardiovascular: positive: Regular rate & rhythm Peripheral Pulses: positive: 2+ Abdomen: positive: Non-tender, No distention Skin: positive: Color nml, Warm, Dry Extremities: positive: Other (Moving all extremities spontaenously. Some pitting edema of the bilateral lower extremities.) Neurologic/Psychiatric: positive: CN's nml (2-12) (Grossly intact cranial nerves. 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 - Plan Plan: We anticipate nonoperative management at this time. Clinically there is a weak picture of cellulitis of the right maxillary vestibule, but it difficult to differentiate between postoperative swelling and developing canine space infection. In light of the fever, leukocytosis, and lethargy, it should be managed as a developing canine space cellulitis with IV antibiotics and hydration until the patient is no longer febrile. Recommend Unasyn 3g q6h (or renally dosed as deemed necessary) while in house and Augmentin 875mg BID x 7 days after d/c Should follow up in my clinic within 24 hours of discharge from the hospital The denture was removed and given to Peggy Chlorhexidine mouthrinse BID Puree diet Hydration per IM Consider other sources of fever and leukocytosis as the appearance of his maxillary soft tissues is not impressive. He had sedation during his tooth removal on Friday (whether it was IV or oral sedation is not known). Consider PNA. He also has a history of UTIs. Thank you for including me in the care of this patient. Please let me know if you have any questions. Barbrandyn De LeónILYALawanda [phone] - Lab Results Fish Bones: 10/14/19 21:58 10/14/19 21:58 - Diagnostic Imaging Results Diagnostic Imaging Results: positive: Other (There is no obvious fluid collection on the CT scan. Airway widely patent with no deviation or mass effect. Paranasal sinuses clear. There is a maxillary full denture in place, with seven recent tooth extraction sites. No evidence of osteomyelitis. No fractures.)
--- NOTE | 2019-10-15 01:56 | HISTORY & PHYSICAL EXAMINATION ---
Chief Complaint - Chief Complaint Chief Complaint: confusion History of Present Illness - Admitted From Admitted From:: [facility] ED - History Obtained From Records Reviewed: yes History obtained from: ED physician Exam Limitations: confusion - History of Present Illness HPI Comment/Other: The encounter below is obtained from the ED physician because the patient is somewhat confused and not very reliable historian. Also there is no family at bedside at this time overnight to assist with the history. Patient is an 88-year-old male who presented to the ED with altered mental status, lethargy and fever. It is reported that he had multiple teeth extracted and a full upper denture made by his dentist Ray Wilks 3 days ago. Yesterday he started feeling lethargic. He complained of difficulty opening his mouth and had a poor oral intake. His dentist visited him and recommend that he be evaluated in the emergency department and possibly have the extraction site debrided. A concern for possibly Kirk's angina was raised. In the ED the patient was found to have a temperature of 38.1 C and a white blood cell count of 15. Oromaxillofacial surgery was consulted and saw the patient in the ED. The patient also had a chest x-ray done which raised the possibility for atypical pneumonia. Consequently the patient is being admitted for further treatment with IV antibiotics. History - Past Medical History Cardiovascular: reports: Hypertension, High cholesterol, Coronary artery disease, VT, Other Respiratory: reports: Sleep apnea, CPAP use Endocrine/Autoimmune: reports: Type 2 diabetes GI: reports: GERD, Ulcers, Colon polyps : reports: Incontinence, Nocturia, Frequency HEENT: reports: Chronic vision loss, Chronic hearing loss Psych: reports: None Musculoskeletal: reports: Osteoarthritis, Chronic back pain, Other Derm: reports: Other MRSA Hx?: No - Past Surgical History General: reports: Colonoscopy Ortho: reports: Carpal Tunnel surgery, Spine surgery Cardiovascular: reports: Coronary stent, Angioplasty - Family & Social History Family History Comment/Other: None germane to the patient's presentation today. Living arrangement: At home Living Situation: With family Social History Notes: Could not obtain because patient is a poor historian and somewhat confused currently. - Substance History Use: Uses substance without health or social issues: NONE - POLST Patient has POLST: Yes POLST Status: Limited Interventions (Interventions per daughter. She would like to proceed with surgical management of the disease but would not like to proceed with prolonged intubation.) Meds/Allgy - Home Medications Home Medications: Ambulatory Orders Medication Instructions Recorded Confirmed Cholecalciferol (Vitamin D3) 2,000 unit PO BID 09/27/13 07/07/19 [Vitamin D3] Krill/Ona-3/Dha/Epa/Lipids 1 each PO DAILY 09/27/13 10/14/19 [Krill Oil 300 mg Softgel] Losartan [Cozaar] 50 mg PO DAILY 09/27/13 10/14/19 Metformin HCl 500 mg PO BID 09/27/13 10/14/19 Ubidecarenone [Co Q-10] 200 mg PO DAILY 09/27/13 10/14/19 Vitamin B Complex Vit C No.4 150 mg PO DAILY 09/27/13 10/14/19 [Super B Complex] Esomeprazole Magnesium [Nexium] 20 mg PO DAILY 03/05/15 10/14/19 Acetaminophen [Tylenol] 650 mg PO Q6H PRN 11/18/16 07/07/19 Aspirin Chewable [St Juvenal 81 mg PO DAILY 11/18/16 10/14/19 Aspirin] Isosorbide Dinitrate 30 mg PO DAILY 08/11/18 10/14/19 Cyanocobalamin (Vitamin B-12) 1 tab PO DAILY 04/05/19 07/07/19 [Vitamin B-12] Multivit-Min/FA/Lycopen/Lutein 1 tab PO DAILY 04/05/19 10/14/19 [Centrum Silver Men Tablet] Rosuvastatin Calcium 0.5 tab PO DAILY 04/05/19 10/14/19 Nitrofurantoin [Macrobid] 1 cap PO BID 07/07/19 10/14/19 - Allergies Allergies/Adverse Reactions: Allergies Allergy/AdvReac Type Severity Reaction Status Date / Time No Known Drug Allergies Allergy Verified 10/14/19 21:39 Review of Systems - Other Findings Other Findings: Review of system is limited because the patient is a poor historian and also currently somewhat confused thus unable to provide. Exam - Vital Signs Vital Signs: Vital Signs x48h Temp Pulse Resp BP Pulse Ox 10/15/19 00:30 78 16 144/71 H 97 10/15/19 00:00 78 16 136/71 H 97 10/14/19 23:27 38.1 C H 10/14/19 23:24 83 158/74 H 96 10/14/19 22:34 88 20 153/88 H 98 10/14/19 22:00 86 131/83 H 99 10/14/19 21:46 80 18 131/81 H 98 10/14/19 21:45 86 18 151/79 H 99 10/14/19 21:39 38.1 C H 86 20 151/79 H 99 - Physical Exam General Appearance: positive: Alert (Not oriented to reason for presentation or placwe), Mild distress Eyes Bilateral: positive: PERRL, EOMI ENT: positive: No signs of dehydration, Other (removed upper dentures,) Neck: positive: No JVD, Trachea midline. negative: Swelling/bruising Respiratory: positive: Chest non-tender, No respiratory distress, Breath sounds nml. negative: Wheezes, Rales, Rhonchi Cardiovascular: positive: Regular rate & rhythm Abdomen: positive: Non-tender, Nml bowel sounds, No distention Back: positive: Nml inspection Skin: positive: Color nml, No rash, Warm, Dry Extremities: positive: Non-tender, Full ROM, Nml appearance, Pedal edema (left greater than right) Neurologic/Psychiatric: positive: Disoriented to place, Disoriented to time. negative: Oriented x3 Conclusion/Plan - Problem List (1) Pneumonia Conclusion/Plan: Chest x-ray suggested possibly atypical pneumonia. However differential also includes interstitial pulmonary edema. In light of patient's WBC of 15, temperature 38.1C and BNP of 48 only Blood cultures were drawn and patient was started on Zosyn every 6 hours. Zithromax 500 mg IV daily x3 days added. Qualifiers: Pneumonia type: due to unspecified organism Laterality: unspecified laterality Lung location: unspecified part of lung Qualified Code(s): J18.9 - Pneumonia, unspecified organism (2) Cellulitis Conclusion/Plan: Of the right canine spacStatus post recent tooth extraction. Patient was seen by [facility] (Dr. De León) Recommend the in light of the fever, leukocytosis, lethargy and postop swelling around the extraction site. Canine space infection cannot be eliminated. Thus he recommended placing the patient on IV antibiotics. And switching to Augmentin 875 mg twice daily x7 days upon discharge. The patient is currently on Zosyn. He also recommended chlorhexidine mouth rinse twice daily Pured diet. He also recommended follow-up with his clininc within 24 hours of discharge from the hospital (3) CKD (chronic kidney disease) Conclusion/Plan: Patient's baseline creatinine has been 1.4 for the past 2 years. We will continue to monitor. (4) Diabetes Conclusion/Plan: Patient takes metformin at home. We will do Accu-Cheks and sliding scale insulin. Qualifiers: Diabetes mellitus type: type 2 (5) Hyperlipidemia Conclusion/Plan: Patient is on rosuvastatin at home. We will continue the equivalent statin on formulary once verified. Qualifiers: Hyperlipidemia type: unspecified Qualified Code(s): E78.5 - Hyperlipidemia, unspecified (6) GERD (gastroesophageal reflux disease) Conclusion/Plan: Patient is on omeprazole at home. Protonix has been ordered. - Lab Results Fish Bones: 10/14/19 21:58 10/14/19 21:58 Core Measures - Anticipated LOS I expect patient to be DC'd or transferred within 96 hours.: Yes - DVT/VTE - Prophylaxis VTE/DVT Device ordered at admit?: Yes VTE/DVT Prophylaxis med ordered at admit?: Yes
[2019-10-15] MEDS: PIPERACILLIN/TAZOBACTAM 3.375 GM in SODIUM CHLORIDE 0.9% MINIBAG 100 ML IV SCH ×2 (02:20→02:32)
[2019-10-15] MEDS: SODIUM CHLORIDE 0.9% 1,000 ML IV SCH ×3 (03:00→16:13)
[2019-10-15 05:02] LABS: BASOPHILS # (AUTO) 0.1 10^3/uL (0.0-0.1); BASOPHILS % (AUTO) 0.4 %; EOSINOPHILS # (AUTO) 0.1 10^3/uL (0.0-0.7); EOSINOPHILS % (AUTO) 0.5 %; HGB - HEMOGLOBIN 14.5 g/dL (14.0-18.0); LYMPHOCYTES # (AUTO) 1.1 10^3/uL (1.5-3.5); LYMPHOCYTES % (AUTO) 6.3 %; MEAN CORPUSCULAR HGB CONC 34.3 g/dL (32.0-36.0); MEAN CORPUSCULAR VOLUME 96.1 fL (80.0-94.0); MEAN PLATELET VOLUME 10.1 fL (7.4-11.4); MONOCYTES # (AUTO) 1.3 10^3/uL (0.0-1.0); MONOCYTES % (AUTO) 7.4 %; NEUTROPHILS # (AUTO) 14.7 10^3/uL (1.5-6.6); NEUTROPHILS % (AUTO) 84.3 %; PLT - PLATELET COUNT 223 10^3/uL (130-450); RED CELL DISTRIBUTION WIDTH 11.9 % (12.0-15.0); WHITE BLOOD COUNT 17.4 x10^3/uL (4.8-10.8)
[2019-10-15 05:10] LABS: CALCIUM 9.3 mg/dL (8.5-10.3); CREATININE 1.4 mg/dL (0.6-1.2)
[2019-10-15] MEDS ORDERED: PANTOPRAZOLE 40 MG TABLET PO SCH (07:00)
--- NOTE | 2019-10-15 07:47 | CT Report ---
PROCEDURE: SOFT TISSUE NECK W INDICATIONS: post op dental infection CONTRAST: IV CONTRAST: Optiray 320 ml: 50 PO CONTRAST: *NO PO CONTRAST TECHNIQUE: After the administration of intravenous contrast, 3.0 mm axial sections acquired from the sella to th e aortic arch. Additional oblique axial 3.0 mm sections acquired through the pharynx. 3 mm thick co shirley reformats were generated. For radiation dose reduction, the following was used: automated exp osure control, adjustment of mA and/or kV according to patient size. COMPARISON: None. FINDINGS: Image quality: Limited by beam hardening artifact related to metallic dental hardware. Lymph nodes: No enlarged lymph nodes seen throughout the neck. Vessels: Visualized vasculature appears patent. Neck spaces: Swelling noted in the right soft tissues of the oropharynx and in the right pterygoid m usculature compatible with cellulitis/myositis.. No discrete abscess identified. The nasopharynx, and pharynx demonstrate no mucosal lesions. The vocal cords, false vocal cords, pyriform sinuses, epigl ottis, vallecula, and tongue base all appear normal. Extramucosal spaces appear unremarkable. Glands: The parotid and submandibular glands appear normal. The thyroid is normal in size. Miscellaneous: Visualized brain demonstrates ventricular megaly which be due to central volume loss v ersus normal pressure hydrocephalus. The orbits appear normal. Lung apices appear clear. Superficia l soft tissues appear normal. Multiple teeth are absent. Bones: No suspicious bony lesions. Spine degenerative disc disease and facet arthropathy are noted. Postsurgical changes compatible with C3-C6 laminectomies noted. Severe C2-C3 central canal narrowing. Visualized sinuses and mastoids appear unremarkable. IMPRESSION: 1. Soft tissue swelling involving the right oropharynx and the right pterygoid musculature compatible with cellulitis and myositis. 2. No drainable abscess identified. 3. Complete absence of the upper teeth. Reviewed by: Caro Troy MD, PhD on 10/15/2019 7:45 AM PDT Approved by: Caro Troy MD, PhD on 10/15/2019 7:45 AM PDT Station ID: [id number]
--- NOTE | 2019-10-15 07:50 | CT Report ---
PROCEDURE: MAXILLOFACIAL W INDICATIONS: post op dental infection CONTRAST: IV CONTRAST: Optiray 320 ml: 100 PO CONTRAST: *NO PO CONTRAST TECHNIQUE: After the administration of intravenous contrast, 3.0 mm axial sections acquired from the mid-neck to the frontal sinuses, with coronal reformatting. For radiation dose reduction, the following was use d: automated exposure control, adjustment of mA and/or kV according to patient size. COMPARISON: None. FINDINGS: Image quality: Excellent. Soft tissues: Soft tissue swelling involving the right oropharyngeal mucosa and the right pterygoid m usculature compatible cellulitis/myositis. No abscess identified. No enlarged lymph nodes. Vascular: Visualized vascular structures appear patent throughout. Bony vascular foramina and canal s appear normal. Bones: Facial bones appear intact, without fractures, erosions, or destruction. Postsurgical changes noted in the visualized spine. Spinal degenerative disease and facet arthropathy. Visualized portion s of the skull base and auditory canals also appear normal. There is complete absence of the upper te eth. Sinuses: Paranasal sinuses are aerated without fluid levels, mucosal thickening, or mucoceles. Mast oid air cells are aerated. IMPRESSION: 1. Soft tissue swelling involving the right lower pharynx and the right pterygoid musculature compati ble with cellulitis/myositis. 2. No abscess. 3. Complete absence of upper teeth. Reviewed by: Caro Troy MD, PhD on 10/15/2019 7:49 AM PDT Approved by: Caro Troy MD, PhD on 10/15/2019 7:49 AM PDT Station ID: [id number]
--- NOTE | 2019-10-15 08:01 | PROVIDER PROGRESS NOTE ---
Subjective - Prog Note Date Prog Note Date: 10/15/19 Prog Note Time: 07:57 - Subjective Subjective: H/P from Dr Alicia reviewed and discussed with him Patient drowsy , awakens to name , knows in hospital , "because of my teeth" I spoke with and daughter in law (RN) re; plan and failed swallow eval, and expecting likely quick improvement of pharynx swelling on antibiotics Swallow eval; Signs of aspiration w/ thin and nectar thick liquids, BOLT HEADER ther apist suspects pharyngeal retention post swallow; high risk for penetration / aspiration during and after swallow. More viscous textures not appropriate Current Medications - Current Medications Current Medications: Active Medications Generic Name Dose Route Start Last Admin Trade Name Freq PRN Reason Stop Dose Admin Acetaminophen 650 mg 10/15/19 01:36 Tylenol PO Q6HR PRN Pain 1 to 4 Chlorhexidine Gluconate 15 ml 10/15/19 09:00 10/15/19 08:42 Peridex PO 15 ml BID CARLOS Administration Enoxaparin Sodium 40 mg 10/15/19 09:00 10/15/19 08:43 Lovenox SUBQ 40 mg DAILY CARLOS Administration Azithromycin 500 mg/ Sodium 250 mls @ 250 mls/hr 10/15/19 09:00 10/15/19 09:43 Chloride IV 10/17/19 12:00 Infused DAILY CARLOS Infusion Sodium Chloride 1,000 mls @ 75 mls/hr 10/15/19 03:00 10/15/19 16:13 Normal Saline 0.9% IV 75 mls/hr .[id number] CARLOS Administration Ampicillin Sodium/Sulbactam 100 mls @ 200 mls/hr 10/15/19 12:11 10/15/19 18:36 Sodium 3 gm/ Sodium Chloride IV Infused Q6HR CARLOS Infusion Insulin Glargine 5 unit 10/15/19 21:00 Lantus Solostar SUBQ QPM CARLOS Insulin Human Regular 1 - 5 unit 10/15/19 18:00 10/15/19 18:09 Humulin R SUBQ 2 unit Q6HR CARLOS Administration Protocol Mineral Oil 1 applic 10/15/19 03:09 Cavilon TOP PRN PRN Skin Care Nitroglycerin 1 patch 10/16/19 09:00 Nitro-Dur TOP DAILY CARLOS Pantoprazole Sodium 40 mg 10/15/19 07:00 10/15/19 06:05 Protonix PO 40 mg QDAC CARLOS Administration Sodium Chloride 10 ml 10/15/19 01:36 Normal Saline Flush 0.9% IVP PRN PRN NEEDED PER PROVIDER ORDERS Sodium Chloride 10 ml 10/15/19 09:00 10/15/19 16:13 Normal Saline Flush 0.9% IVP 10 ml 0100,[id number],1700 CARLOS Administration Throat Lozenges 1 lozenge 10/15/19 08:15 10/15/19 08:42 Cepacol MM 1 lozenge Q2HR PRN Administration Throat pain Cholecalciferol (Vitamin D3) [Vitamin D3] 2,000 unit PO BID 09/27/13 Krill/[place]-3/Dha/Epa/Lipids [Krill Oil 300 mg Softgel] 1 each PO DAILY 09/27/13 Losartan [Cozaar] 50 mg PO DAILY 09/27/13 Metformin HCl 500 mg PO BID 09/27/13 Ubidecarenone [Co Q-10] 200 mg PO DAILY 09/27/13 Vitamin B Complex Vit C No.4 [Super B Complex] 150 mg PO DAILY 09/27/13 Esomeprazole Magnesium [Nexium] 20 mg PO DAILY 03/05/15 Acetaminophen [Tylenol] 650 mg PO Q6H PRN 11/18/16 Aspirin Chewable [St Juvenal Aspirin] 81 mg PO DAILY 11/18/16 Isosorbide Dinitrate 30 mg PO DAILY 08/11/18 Cyanocobalamin (Vitamin B-12) [Vitamin B-12] 1 tab PO DAILY 04/05/19 Multivit-Min/FA/Lycopen/Lutein [Centrum Silver Men Tablet] 1 tab PO DAILY 04/05/19 Rosuvastatin Calcium 0.5 tab PO DAILY 04/05/19 Nitrofurantoin [Macrobid] 1 cap PO BID 07/07/19 Objective - Vital Signs/Intake & Output Reviewed Vital Signs: Yes Vital Signs: Vital Signs x48h Temp Pulse Pulse Resp BP BP BP 10/15/19 06:18 36.9 C 72 20 142/77 H 10/15/19 06:07 37.3 C 74 16 10/15/19 02:28 37.3 C 74 16 147/80 H 10/15/19 01:48 81 16 147/68 H 10/15/19 00:30 78 16 144/71 H 10/15/19 00:00 78 16 136/71 H Pulse Ox 10/15/19 06:18 98 10/15/19 06:07 97 10/15/19 02:28 97 10/15/19 01:48 98 10/15/19 00:30 97 10/15/19 00:00 97 Intake & Output: Intake & Output 10/12/19 10/13/19 10/14/19 10/15/19 23:59 23:59 23:59 23:59 Intake Total 1200 100 Balance 1200 100 - Objective General Appearance: positive: Mild distress (winces with gentle oral care with toothette and tongue blade to assess dental extraction site), Other (patient evaluated x 2 , drowsy but awakens to name, answers some questions, mouth br eathing) Eyes Bilateral: negative: EOMI (unable to assess EoM's but opens eyes to name) ENT: positive: Dry mucous membranes (dry tongue), Other (patient able to cough and clear throat w/ the scant liquid on toothette, dry tongue). negative: ENT inspection nml (Recent dental extraction sites w/ sl yellow tissue), Pharynx nml (unable to visualize posterior oropharynx, tolerating oral secretions, no drooling) Neck: positive: Other (Right anterior chin ecchymosis, R neck fullness below R mastoid, fimr, mildly tender). negative: Lymphadenopathy (R), Lymphadenopathy (L) Respiratory: positive: No respiratory distress, Breath sounds nml, Other Cardiovascular: positive: Regular rate & rhythm. negative: No murmur (2/6 midpeaking murmur), Extrasystoles Abdomen: positive: Nml bowel sounds. negative: No distention, Tenderness (Generaous abdomen + BS, firm (? distended bladder), seems to wince w/ pressure, adult pad) Skin: positive: Warm, Dry Extremities: positive: Other (SCD's bilaterally, sl pedal edma) - Lab Results Fish Bones: 10/15/19 04:40 10/15/19 04:40 Other Labs: Lab Results x24hrs 10/15/19 10/15/19 10/14/19 Range/Units 04:40 04:40 23:23 WBC 17.4 H (4.8-10.8) x10^3/uL RBC 4.40 L (4.70-6.10) 10^6/uL Hgb 14.5 (14.0-18.0) g/dL Hct 42.3 (42.0-52.0) % MCV 96.1 H (80.0-94.0) fL MCH 33.0 H (27.0-31.0) pg MCHC 34.3 (32.0-36.0) g/dL RDW 11.9 L (12.0-15.0) % Plt Count 223 (130-450) 10^3/uL MPV 10.1 (7.4-11.4) fL Neut # (Auto) 14.7 H (1.5-6.6) 10^3/uL Lymph # (Auto) 1.1 L (1.5-3.5) 10^3/uL [place] # (Auto) 1.3 H (0.0-1.0) 10^3/uL Eos # (Auto) 0.1 (0.0-0.7) 10^3/uL Baso # (Auto) 0.1 (0.0-0.1) 10^3/uL Absolute Nucleated RBC 0.00 x10^3/uL Nucleated RBC % 0.0 /100WBC PT (9.9-12.6) secs INR (0.8-1.2) APTT (24.9-33.3) secs VBG pH (7.31-7.41) VBG pCO2 (41-51) mmHg VBG pO2 (25-47) mmHg VBG HCO3 (23-28) mmol/L VBG Total CO2 (24-29) mmol/L VBG O2 Saturation (60-80) % VBG Base Excess (-2 - +2) mmol/L Sodium 136 (135-145) mmol/L Potassium 4.3 (3.5-5.0) mmol/L Chloride 104 (101-111) mmol/L Carbon Dioxide 21 (21-32) mmol/L Anion Gap 11.0 (6-13) BUN 20 (6-20) mg/dL Creatinine 1.4 H (0.6-1.2) mg/dL Estimated GFR (MDRD) 48 L (>89) Glucose 256 H (70-100) mg/dL Lactic Acid (0.5-2.2) mmol/L Calcium 9.3 (8.5-10.3) mg/dL Magnesium (1.7-2.8) mg/dL Total Bilirubin (0.2-1.0) mg/dL AST (10-42) IU/L ALT (10-60) IU/L Alkaline Phosphatase (42-121) IU/L Total Creatine Kinase (22-269) IU/L Troponin I High Sens (2.3-19.7) ng/L B-Natriuretic Peptide (5-100) pg/mL Total Protein (6.7-8.2) g/dL Albumin (3.2-5.5) g/dL Globulin (2.1-4.2) g/dL Albumin/Globulin Ratio (1.0-2.2) Lipase (22-51) U/L Urine Color YELLOW Urine Clarity CLEAR (CLEAR) Urine pH 5.5 (5.0-7.5) PH Ur Specific [place] 1.015 (1.002-1.030) Urine Protein NEGATIVE (NEGATIVE) mg/dL Urine Glucose (UA) 500 H (NEGATIVE) mg/dL Urine Ketones TRACE (NEGATIVE) mg/dL Urine Occult Blood NEGATIVE (NEGATIVE) Urine Nitrite NEGATIVE (NEGATIVE) Urine Bilirubin NEGATIVE (NEGATIVE) Urine Urobilinogen 0.2 (NORMAL) (NORMAL) E.U./dL Ur Leukocyte Esterase NEGATIVE (NEGATIVE) Ur Microscopic Review NOT INDICATED Urine Culture Comments NOT INDICATED Serum Ketones (NEGATIVE) Influenza A (Rapid) (Negative) Influenza B (Rapid) (Negative) Group A Strep Rapid (Negative) 10/14/19 10/14/19 10/14/19 Range/Units 22:15 22:15 21:58 WBC (4.8-10.8) x10^3/uL RBC (4.70-6.10) 10^6/uL Hgb (14.0-18.0) g/dL Hct (42.0-52.0) % MCV (80.0-94.0) fL MCH (27.0-31.0) pg MCHC (32.0-36.0) g/dL RDW (12.0-15.0) % Plt Count (130-450) 10^3/uL MPV (7.4-11.4) fL Neut # (Auto) (1.5-6.6) 10^3/uL Lymph # (Auto) (1.5-3.5) 10^3/uL [place] # (Auto) (0.0-1.0) 10^3/uL Eos # (Auto) (0.0-0.7) 10^3/uL Baso # (Auto) (0.0-0.1) 10^3/uL Absolute Nucleated RBC x10^3/uL Nucleated RBC % /100WBC PT (9.9-12.6) secs INR (0.8-1.2) APTT (24.9-33.3) secs VBG pH 7.394 (7.31-7.41) VBG pCO2 36.8 L (41-51) mmHg VBG pO2 29.3 (25-47) mmHg VBG HCO3 22.0 L (23-28) mmol/L VBG Total CO2 23.1 L (24-29) mmol/L VBG O2 Saturation 58.4 L (60-80) % VBG Base Excess -2.3 L (-2 - +2) mmol/L Sodium (135-145) mmol/L Potassium (3.5-5.0) mmol/L Chloride (101-111) mmol/L Carbon Dioxide (21-32) mmol/L Anion Gap (6-13) BUN (6-20) mg/dL Creatinine (0.6-1.2) mg/dL Estimated GFR (MDRD) (>89) Glucose (70-100) mg/dL Lactic Acid (0.5-2.2) mmol/L Calcium (8.5-10.3) mg/dL Magnesium (1.7-2.8) mg/dL Total Bilirubin (0.2-1.0) mg/dL AST (10-42) IU/L ALT (10-60) IU/L Alkaline Phosphatase (42-121) IU/L Total Creatine Kinase (22-269) IU/L Troponin I High Sens (2.3-19.7) ng/L B-Natriuretic Peptide (5-100) pg/mL Total Protein (6.7-8.2) g/dL Albumin (3.2-5.5) g/dL Globulin (2.1-4.2) g/dL Albumin/Globulin Ratio (1.0-2.2) Lipase (22-51) U/L Urine Color Urine Clarity (CLEAR) Urine pH (5.0-7.5) PH Ur Specific [place] (1.002-1.030) Urine Protein (NEGATIVE) mg/dL Urine Glucose (UA) (NEGATIVE) mg/dL Urine Ketones (NEGATIVE) mg/dL Urine Occult Blood (NEGATIVE) Urine Nitrite (NEGATIVE) Urine Bilirubin (NEGATIVE) Urine Urobilinogen (NORMAL) E.U./dL Ur Leukocyte Esterase (NEGATIVE) Ur Microscopic Review Urine Culture Comments Serum Ketones (NEGATIVE) Influenza A (Rapid) Negative (Negative) Influenza B (Rapid) Negative (Negative) Group A Strep Rapid Negative (Negative) 10/14/19 10/14/19 10/14/19 Range/Units 21:58 21:58 21:58 WBC (4.8-10.8) x10^3/uL RBC (4.70-6.10) 10^6/uL Hgb (14.0-18.0) g/dL Hct (42.0-52.0) % MCV (80.0-94.0) fL MCH (27.0-31.0) pg MCHC (32.0-36.0) g/dL RDW (12.0-15.0) % Plt Count (130-450) 10^3/uL MPV (7.4-11.4) fL Neut # (Auto) (1.5-6.6) 10^3/uL Lymph # (Auto) (1.5-3.5) 10^3/uL [place] # (Auto) (0.0-1.0) 10^3/uL Eos # (Auto) (0.0-0.7) 10^3/uL Baso # (Auto) (0.0-0.1) 10^3/uL Absolute Nucleated RBC x10^3/uL Nucleated RBC % /100WBC PT (9.9-12.6) secs INR (0.8-1.2) APTT (24.9-33.3) secs VBG pH (7.31-7.41) VBG pCO2 (41-51) mmHg VBG pO2 (25-47) mmHg VBG HCO3 (23-28) mmol/L VBG Total CO2 (24-29) mmol/L VBG O2 Saturation (60-80) % VBG Base Excess (-2 - +2) mmol/L Sodium (135-145) mmol/L Potassium (3.5-5.0) mmol/L Chloride (101-111) mmol/L Carbon Dioxide (21-32) mmol/L Anion Gap (6-13) BUN (6-20) mg/dL Creatinine (0.6-1.2) mg/dL Estimated GFR (MDRD) (>89) Glucose (70-100) mg/dL Lactic Acid 1.7 (0.5-2.2) mmol/L Calcium (8.5-10.3) mg/dL Magnesium (1.7-2.8) mg/dL Total Bilirubin (0.2-1.0) mg/dL AST (10-42) IU/L ALT (10-60) IU/L Alkaline Phosphatase (42-121) IU/L Total Creatine Kinase (22-269) IU/L Troponin I High Sens 10.3 (2.3-19.7) ng/L B-Natriuretic Peptide 46 (5-100) pg/mL Total Protein (6.7-8.2) g/dL Albumin (3.2-5.5) g/dL Globulin (2.1-4.2) g/dL Albumin/Globulin Ratio (1.0-2.2) Lipase (22-51) U/L Urine Color Urine Clarity (CLEAR) Urine pH (5.0-7.5) PH Ur Specific [place] (1.002-1.030) Urine Protein (NEGATIVE) mg/dL Urine Glucose (UA) (NEGATIVE) mg/dL Urine Ketones (NEGATIVE) mg/dL Urine Occult Blood (NEGATIVE) Urine Nitrite (NEGATIVE) Urine Bilirubin (NEGATIVE) Urine Urobilinogen (NORMAL) E.U./dL Ur Leukocyte Esterase (NEGATIVE) Ur Microscopic Review Urine Culture Comments Serum Ketones (NEGATIVE) Influenza A (Rapid) (Negative) Influenza B (Rapid) (Negative) Group A Strep Rapid (Negative) 10/14/19 10/14/19 10/14/19 Range/Units 21:58 21:58 21:58 WBC 15.5 H (4.8-10.8) x10^3/uL RBC 4.52 L (4.70-6.10) 10^6/uL Hgb 15.1 (14.0-18.0) g/dL Hct 44.3 (42.0-52.0) % MCV 98.0 H (80.0-94.0) fL MCH 33.4 H (27.0-31.0) pg MCHC 34.1 (32.0-36.0) g/dL RDW 11.9 L (12.0-15.0) % Plt Count 214 (130-450) 10^3/uL MPV 9.8 (7.4-11.4) fL Neut # (Auto) 13.3 H (1.5-6.6) 10^3/uL Lymph # (Auto) 0.7 L (1.5-3.5) 10^3/uL [place] # (Auto) 1.2 H (0.0-1.0) 10^3/uL Eos # (Auto) 0.2 (0.0-0.7) 10^3/uL Baso # (Auto) 0.1 (0.0-0.1) 10^3/uL Absolute Nucleated RBC 0.00 x10^3/uL Nucleated RBC % 0.0 /100WBC PT 12.4 (9.9-12.6) secs INR 1.1 (0.8-1.2) APTT 28.5 (24.9-33.3) secs VBG pH (7.31-7.41) VBG pCO2 (41-51) mmHg VBG pO2 (25-47) mmHg VBG HCO3 (23-28) mmol/L VBG Total CO2 (24-29) mmol/L VBG O2 Saturation (60-80) % VBG Base Excess (-2 - +2) mmol/L Sodium 137 (135-145) mmol/L Potassium 4.7 (3.5-5.0) mmol/L Chloride 100 L (101-111) mmol/L Carbon Dioxide 24 (21-32) mmol/L Anion Gap 13.0 (6-13) BUN 24 H (6-20) mg/dL Creatinine 1.4 H (0.6-1.2) mg/dL Estimated GFR (MDRD) 48 L (>89) Glucose 241 H (70-100) mg/dL Lactic Acid (0.5-2.2) mmol/L Calcium 9.7 (8.5-10.3) mg/dL Magnesium 1.5 L (1.7-2.8) mg/dL Total Bilirubin 1.1 H (0.2-1.0) mg/dL AST 21 (10-42) IU/L ALT 30 (10-60) IU/L Alkaline Phosphatase 47 (42-121) IU/L Total Creatine Kinase 44 (22-269) IU/L Troponin I High Sens (2.3-19.7) ng/L B-Natriuretic Peptide (5-100) pg/mL Total Protein 7.7 (6.7-8.2) g/dL Albumin 4.3 (3.2-5.5) g/dL Globulin 3.4 (2.1-4.2) g/dL Albumin/Globulin Ratio 1.3 (1.0-2.2) Lipase 25 (22-51) U/L Urine Color Urine Clarity (CLEAR) Urine pH (5.0-7.5) PH Ur Specific [place] (1.002-1.030) Urine Protein (NEGATIVE) mg/dL Urine Glucose (UA) (NEGATIVE) mg/dL Urine Ketones (NEGATIVE) mg/dL Urine Occult Blood (NEGATIVE) Urine Nitrite (NEGATIVE) Urine Bilirubin (NEGATIVE) Urine Urobilinogen (NORMAL) E.U./dL Ur Leukocyte Esterase (NEGATIVE) Ur Microscopic Review Urine Culture Comments Serum Ketones NEGATIVE (NEGATIVE) Influenza A (Rapid) (Negative) Influenza B (Rapid) (Negative) Group A Strep Rapid (Negative) Assessment/Plan - Problem List (1) Cellulitis of pharynx Impression: 1 Cellulitis suspected R canine space s/p upper teeth (all) extraction on [place] [facility] León evaluated patient in ED before admission/ advised IV ABX Is on appropriate coverage for oral kasie , see #3, Zosyn changed to unasyn Chlorehexidine mouth rinse bid AFebrle today, but unable to tolerate PO (see #2) Patient to f/u in Dr De León [facility] clinic w/in 24 hrs of discharge (this rec was before planned admission) Dr De León rec'd change to Augmentin 875 bidx 7 days on d/c (if prolonged admit, recheck w/ Dr De León duration of ABX) 2) Dysphagia due to pharyngeal inflammation from infection Appreciate speech/swallow eval NPO for now Reassess when more alert which is anticipated as infection controlled with abx/ primarily anaerobe coverage Reeval in am (unfortunately no BOLT HEADER on w/e for formal reeval) Daughter in law indicated family /patient would not want even short term dobhoff or similar if nutrition recommended 2) Pneumonia Conclusion/Plan: CXR suggestive of atypical pneumonia vs mild pulm edema Given failed swallow, possibly aspiration pneumonia (though Chest imaging not typical) no indication for pseudomonas coverage; as above d/c pip/tazo/ change back to unasyn given known #1, not likely atypical PNAbut will complete 3 days azithro ordered. Clinical hx , rosemary of poor po intake less c/w volume overload Folllow up blood cultures/ no micro result today Recheck WBC in am (3) CKD (chronic kidney disease) Conclusion/Plan: Patient's baseline creatinine has been 1.4 for the past 2 years. At baseline Gentle IVF (he has had hx of urinary retentionhere before, checking one in and out cath bc scanner always reads zero although incontinenty) (4) Diabetes Conclusion/Plan: Patient takes metformin at home. Glucoses mid 200's (family reports rarely hyperglycemic at home) Low dose lantus added this pm w/ NPO correctional scale Reeval and adjust as warranted for gluc goal < 180 5) Coronary artery disease On ISDN 30 daily, ARB, statin, ASA at home NPO currently due to #1,2 BP subooptimal but not severely elevated, Adding 0.1mg nitropatch while NPO hopefully on ABX swallow much improved tomororw and can give PO's If unable , consider AL ASA tomorrow (hx CAD/ normal EF 07/2018, Grade II DDsfxn, but mild 36mmHg/20mmHg, AoVa 2cm, mild to mod AR (5) Hyperlipidemia Conclusion/Plan: Patient is on rosuvastatin at home. atorvastatin here (resome when tolerating PO) (6) GERD (gastroesophageal reflux disease) Conclusion/Plan: Patient is on omeprazole at home. Protonix has been ordered (on hold while NPO)
[2019-10-15] MEDS ORDERED: BENZOCAINE/MENTHOL LOZENGE MM PRN (08:15)
[2019-10-15] MEDS: CHLORHEXIDINE GLUCONATE 15 ML UDC PO SCH ×2 (08:42→21:24)
[2019-10-15] MEDS: ENOXAPARIN 40 MG/0.4 ML SYRINGE SUBQ SCH (08:43)
[2019-10-15] MEDS: AZITHROMYCIN INJ 500 MG in SODIUM CHLORIDE 0.9% 250 ML IV SCH (08:43)
[2019-10-15] MEDS: INSULIN ASPART 300 UNIT/3 ML PEN SUBQ SCH ×2 (08:44→12:32)
[2019-10-15] MEDS: SODIUM CHLORIDE FLUSH 0.9% 10 ML SYRINGE IVP SCH ×2 (08:45→16:13)
--- NOTE | 2019-10-15 09:02 | XRAY Report ---
PROCEDURE: Chest 1 View X-Ray INDICATIONS: fever TECHNIQUE: One view of the chest was acquired. COMPARISON: 08/12/2018 FINDINGS: Surgical changes and devices: None. Lungs and pleura: No pleural effusions or pneumothorax. Interstitial prominence in the lungs bilater ally which could represent atypical pneumonia or pulmonary edema. Mediastinum: Mediastinal contours appear normal. Heart size is normal. Bones and chest wall: No suspicious bony lesions. Overlying soft tissues appear unremarkable. IMPRESSION: Bilateral lung interstitial prominence compatible with atypical pneumonia versus pulmonary edema. Reviewed by: Caro Troy MD, PhD on 10/15/2019 9:01 AM PDT Approved by: Caro Troy MD, PhD on 10/15/2019 9:01 AM PDT Station ID: [id number]
--- NOTE | 2019-10-15 11:18 | PHARMACY PROGRESS NOTE ---
- Best Possible Medication History Admit Date and Time: 10/15/19 0136 Processed by: Pharmacy Medication History completed: Yes (completed by pharmacist - no further info available at this time) As the person ultimately responsible for medication therapy, providers are able to order a medication from an existing home medication list in [facility] via the "Reconcile Routine" prior to Confirmation of that medication by desktop support engineer. Such practice is discouraged except when the physician, in their clinical judgment, deems that a medical need exists for a medication without regard to previous use.
[2019-10-15] MEDS ORDERED: AMPICILLIN/SULBACTAM 3 GM in SODIUM CHLORIDE 0.9% MINIBAG 100 ML IV SCH ×2 (12:00→12:30)
[2019-10-15] MEDS: AMPICILLIN/SULBACTAM 3 GM in SODIUM CHLORIDE 0.9% MINIBAG 100 ML IV SCH (18:06)
[2019-10-15] MEDS: INSULIN REGULAR HUMAN 300 UNIT/3 ML VIAL SUBQ SCH (18:09)
[2019-10-15] MEDS: INSULIN GLARGINE 300 UNIT/3 ML PEN SUBQ SCH (21:33)
[2019-10-16] MEDS: SODIUM CHLORIDE FLUSH 0.9% 10 ML SYRINGE IVP SCH ×4 (00:57→23:40)
[2019-10-16] MEDS: AMPICILLIN/SULBACTAM 3 GM in SODIUM CHLORIDE 0.9% MINIBAG 100 ML IV SCH ×5 (00:57→23:35)
[2019-10-16] MEDS: INSULIN REGULAR HUMAN 300 UNIT/3 ML VIAL SUBQ SCH ×5 (00:58→23:38)
[2019-10-16 04:59] LABS: BASOPHILS % (AUTO) 0.2 %; EOSINOPHILS # (AUTO) 0.1 10^3/uL (0.0-0.7); EOSINOPHILS % (AUTO) 0.8 %; HGB - HEMOGLOBIN 12.9 g/dL (14.0-18.0); LYMPHOCYTES # (AUTO) 1.4 10^3/uL (1.5-3.5); LYMPHOCYTES % (AUTO) 10.6 %; MEAN CORPUSCULAR HEMOGLOBIN 32.9 pg (27.0-31.0); MEAN CORPUSCULAR HGB CONC 33.9 g/dL (32.0-36.0); MEAN CORPUSCULAR VOLUME 96.9 fL (80.0-94.0); MEAN PLATELET VOLUME 10.2 fL (7.4-11.4); MONOCYTES # (AUTO) 0.8 10^3/uL (0.0-1.0); MONOCYTES % (AUTO) 6.3 %; NEUTROPHILS % (AUTO) 81.5 %; PLT - PLATELET COUNT 193 10^3/uL (130-450); RED BLOOD COUNT 3.92 10^6/uL (4.70-6.10); RED CELL DISTRIBUTION WIDTH 12.1 % (12.0-15.0); WHITE BLOOD COUNT 13.4 x10^3/uL (4.8-10.8)
[2019-10-16 05:28] LABS: CALCIUM 8.6 mg/dL (8.5-10.3); CREATININE 1.3 mg/dL (0.6-1.2)
[2019-10-16] MEDS: SODIUM CHLORIDE 0.9% 1,000 ML IV SCH ×2 (05:45→21:36)
[2019-10-16] MEDS: PANTOPRAZOLE 40 MG VIAL IVP SCH (06:37)
[2019-10-16] MEDS: SODIUM CHLORIDE FLUSH 0.9% 10 ML SYRINGE IVP PRN (06:38)
[2019-10-16] MEDS ORDERED: BISACODYL 10 MG SUPP PR ONE (08:01)
[2019-10-16] MEDS ORDERED: ACETAMINOPHEN 650 MG SUPP PR PRN (08:09)
[2019-10-16] MEDS: AZITHROMYCIN INJ 500 MG in SODIUM CHLORIDE 0.9% 250 ML IV SCH (09:05)
[2019-10-16] MEDS: NITROGLYCERIN 0.1 MG/HR PATCH TOP SCH (09:10)
[2019-10-16] MEDS: ENOXAPARIN 40 MG/0.4 ML SYRINGE SUBQ SCH (09:11)
[2019-10-16] MEDS: CHLORHEXIDINE GLUCONATE 15 ML UDC PO SCH ×2 (10:44→21:36)
--- NOTE | 2019-10-16 11:01 | PROVIDER PROGRESS NOTE ---
Assessment/Plan - Problem List (1) AMS (altered mental status) Assessment/Plan: He is extremely lethargic, opens his eyes, whispers an answer, is unable to swallow or to cough to clear secretions in his pharynx. The RN is suctioning thick yellow mucus with a Yankauer catheter. The RN called the to determine if this is his usual mentation and the reported that he usually sleeps in a chair or is laying down all day. We do not know if he normally is able to feed himself. It is unknown if he is ambulatory at home but he has to wounds over his ischial tuberosities indicating that he is mostly not laying. There are no focal deficits to suggest an acute stroke. Presumably this is from his current fever, dehydration and active infection. If there is no improvement will recheck CT of the head both for eval brain parenchyma and to check for sinusitis for example. (2) Cellulitis of pharynx Assessment/Plan: Cellulitis suspected by Dr De León ([id number] surgeon who saw him in the ER), s/p upper teeth (all) extraction on 10/11/19. Dr De León advised IV ABx. he had a low grade fever of 37.7C this morning. The pt is on appropriate iv antibx coverage for oral kasie Chlorehexidine mouth rinse bid ordered Dr De León recommended change to po Augmentin 875 bid x 7 days on d/c, but if prolonged admit, recheck w/ Dr De León duration of ABx (3) Dysphagia Assessment/Plan: Appreciate speech/swallow eval that documented he has risk of aspiration, failed his bedside clinical swallowing eval He remains NPO for now Will plan reassessment when more alert which is anticipated as infection controlled with abx and as fevers stop Unfortunately we have no Speech Therapist on weekends for formal reeval (today is Sat). RN will try bedside swallowing eval. Daughter in law indicated family /patient would not want even short term dobhoff or similar if nutrition recommended. told the RN today that he also would n ot want a PEG tube. also reported that usually he eats regular solid foods, unknown if he feeds himself. (4) Aspiration pneumonia Assessment/Plan: CXR suggestive of atypical pneumonia vs mild pulm edema Given failed swallow, possibly aspiration pneumonia No indication for pseudomonas coverage, he was changed back to unasyn Will also plan completion of 3 days azithro ordered. Await blood culture results Follow CBC daily. (5) CKD (chronic kidney disease) Assessment/Plan: Patient's baseline creatinine has been 1.4 for the past 2 years. Gentle IVF continue, since he is NPO (6) Diabetes Qualifiers: Diabetes mellitus type: type 2 Assessment/Plan: Patient takes metformin at home. Glucoses mid 200's (family reports rarely hyperglycemic at home) Low dose lantus added in pm w/ NPO correctional scale (7) Acute urinary retention Assessment/Plan: He has had hx of urinary retentionhere before. Bladder scan ordered because abd was firm distended yesterday evening. Scan showed large volume Handy placed and 1400cc drained. (8) Hx of coronary artery disease Assessment/Plan: He was on Isordil 30 mg daily, ARB, statin, and ASA at home NPO currently, therefore he was started on 0.1mg nitropatch topically daily while NPO Will start [place] ASA daily today (His last Echo was in 07/2018, normal LFEF, Grade II DDsfxn, also mild 36mmHg/20mmHg, AoVa 2cm, and mild to mod AR) (9) Hyperlipidemia Qualifiers: Hyperlipidemia type: unspecified Qualified Code(s): E78.5 - Hyperlipidemia, unspecified Assessment/Plan: Patient is on rosuvastatin at home. Atorvastatin planned here when tolerating PO (10) GERD (gastroesophageal reflux disease) Assessment/Plan: Patient is on omeprazole at home. Protonix po has been ordered here. Since he is still not taking p.o., will change to IV Protonix - Current Meds Current Meds: Current Medications Generic Name Dose Route Start Last Admin Trade Name Freq PRN Reason Stop Dose Admin Acetaminophen 650 mg 10/16/19 08:09 10/16/19 08:49 Tylenol W[place] 650 mg Q6HR PRN Administration Pain or Fever > 38C (100.4F) Chlorhexidine Gluconate 15 ml 10/15/19 09:00 10/16/19 10:44 Peridex PO 15 ml BID CARLOS Administration Enoxaparin Sodium 40 mg 10/15/19 09:00 10/16/19 09:11 Lovenox SUBQ 40 mg DAILY CARLOS Administration Azithromycin 500 mg/ Sodium 250 mls @ 250 mls/hr 10/15/19 09:00 10/16/19 10:05 Chloride IV 10/17/19 12:00 Infused DAILY CARLOS Infusion Sodium Chloride 1,000 mls @ 75 mls/hr 10/15/19 03:00 10/16/19 10:05 Normal Saline 0.9% IV 75 mls/hr .[id number] CARLOS Infusion Ampicillin Sodium/Sulbactam 100 mls @ 200 mls/hr 10/15/19 12:11 10/16/19 06:38 Sodium 3 gm/ Sodium Chloride IV Infused Q6HR CARLOS Infusion Insulin Glargine 5 unit 10/15/19 21:00 10/15/19 21:33 Lantus Solostar SUBQ 5 unit QPM CARLOS Administration Insulin Human Regular 1 - 5 unit 10/15/19 18:00 10/16/19 05:48 Humulin R SUBQ 2 unit Q6HR CARLOS Administration Protocol Nitroglycerin 1 patch 10/16/19 09:00 10/16/19 09:10 Nitro-Dur TOP 1 patch DAILY CARLOS Administration Pantoprazole Sodium 40 mg 10/16/19 07:00 10/16/19 06:37 Protonix IVP 40 mg QDAC CARLOS Administration Sodium Chloride 10 ml 10/15/19 01:36 10/16/19 06:38 Normal Saline Flush 0.9% IVP 10 ml PRN PRN Administration NEEDED PER PROVIDER ORDERS Sodium Chloride 10 ml 10/15/19 09:00 10/16/19 09:11 Normal Saline Flush 0.9% IVP 10 ml 0100,0900,1700 CARLOS Administration Throat Lozenges 1 lozenge 10/15/19 08:15 10/15/19 08:42 Cepacol MM 1 lozenge Q2HR PRN Administration Throat pain - Lab Result Fish Bone Diagrams: 10/16/19 04:40 10/16/19 04:40 - Additional Planning My Orders: My Active Orders 10/16/19 07:42 Infection Precautions - Discon [RC] .ONCE 10/16/19 08:09 Acetaminophen [Tylenol] 650 mg WV Q6HR PRN Subjective - Subjective Patient Reports: Resting Comfortably Objective Vital Signs: Vital Signs - 24 hr 10/15/19 10/15/19 10/16/19 16:00 21:20 01:28 Temperature 37.2 C 36.7 C 36.5 C Heart Rate [ 66 65 66 Brachial] Respiratory 20 20 26 H Rate Blood Pressure 143/51 H 134/55 H [Left Brachial artery] Blood Pressure 135/58 H [Right Brachial artery] O2 Saturation 95 96 95 10/16/19 08:02 Temperature 37.7 C H Heart Rate [ 62 Brachial] Respiratory 24 Rate Blood Pressure 136/66 H [Left Brachial artery] Blood Pressure [Right Brachial artery] O2 Saturation 95 Oxygen O2 Source [Without Activity] Room air O2 Source Room air I&O (Last 24 Hrs): Intake and Output Totals x24h 10/14/19 10/15/19 10/16/19 23:59 23:59 23:59 Intake Total 1200 2000.00 1171.25 Output Total 2800 550 Balance 1200 -800.00 621.25 General: Other (Lethargic but opens eyes to his name and whispers and answer) HEENT: Other (Thick secretions being suctioned from posterior pharynx and he has no active cough) Neck: Supple Neuro: Other Cardiovascular: Regular rate Respiratory: No respiratory distress Abdomen: Soft, Other (Obese with a pannus) Genitourinary: Other (Handy in place) Extremities: No edema - Results Results: Laboratory Results WBC 13.4 x10^3/uL (4.8-10.8) H 10/16/19 04:40 RBC 3.92 10^6/uL (4.70-6.10) L 10/16/19 04:40 Hgb 12.9 g/dL (14.0-18.0) L 10/16/19 04:40 Hct 38.0 % (42.0-52.0) L 10/16/19 04:40 MCV 96.9 fL (80.0-94.0) H 10/16/19 04:40 MCH 32.9 pg (27.0-31.0) H 10/16/19 04:40 MCHC 33.9 g/dL (32.0-36.0) 10/16/19 04:40 RDW 12.1 % (12.0-15.0) 10/16/19 04:40 Plt Count 193 10^3/uL (130-450) 10/16/19 04:40 MPV 10.2 fL (7.4-11.4) 10/16/19 04:40 Neut # (Auto) 11.0 10^3/uL (1.5-6.6) H 10/16/19 04:40 Lymph # (Auto) 1.4 10^3/uL (1.5-3.5) L 10/16/19 04:40 Titus # (Auto) 0.8 10^3/uL (0.0-1.0) 10/16/19 04:40 Eos # (Auto) 0.1 10^3/uL (0.0-0.7) 10/16/19 04:40 Baso # (Auto) 0.0 10^3/uL (0.0-0.1) 10/16/19 04:40 Absolute Nucleated RBC 0.00 x10^3/uL 10/16/19 04:40 Nucleated RBC % 0.0 /100WBC 10/16/19 04:40 PT 12.4 secs (9.9-12.6) 10/14/19 21:58 INR 1.1 (0.8-1.2) 10/14/19 21:58 APTT 28.5 secs (24.9-33.3) 10/14/19 21:58 VBG pH 7.394 (7.31-7.41) 10/14/19 21:58 VBG pCO2 36.8 mmHg (41-51) L 10/14/19 21:58 VBG pO2 29.3 mmHg (25-47) 10/14/19 21:58 VBG HCO3 22.0 mmol/L (23-28) L 10/14/19 21:58 VBG Total CO2 23.1 mmol/L (24-29) L 10/14/19 21:58 VBG O2 Saturation 58.4 % (60-80) L 10/14/19 21:58 VBG Base Excess -2.3 mmol/L (-2 - +2) L 10/14/19 21:58 Sodium 138 mmol/L (135-145) 10/16/19 04:40 Potassium 3.8 mmol/L (3.5-5.0) 10/16/19 04:40 Chloride 106 mmol/L (101-111) 10/16/19 04:40 Carbon Dioxide 20 mmol/L (21-32) L 10/16/19 04:40 Anion Gap 12.0 (6-13) 10/16/19 04:40 BUN 19 mg/dL (6-20) 10/16/19 04:40 Creatinine 1.3 mg/dL (0.6-1.2) H 10/16/19 04:40 Estimated GFR (MDRD) 52 (>89) L 10/16/19 04:40 Glucose 218 mg/dL (70-100) H 10/16/19 04:40 Estimat Average Glucose 212 mg/dL (70-100) H 10/16/19 04:40 Hemoglobin A1c % 9.0 % (4.27-6.07) H 10/16/19 04:40 Lactic Acid 1.7 mmol/L (0.5-2.2) 10/14/19 21:58 Calcium 8.6 mg/dL (8.5-10.3) 10/16/19 04:40 Magnesium 1.5 mg/dL (1.7-2.8) L 10/14/19 21:58 Total Bilirubin 1.1 mg/dL (0.2-1.0) H 10/14/19 21:58 AST 21 IU/L (10-42) 10/14/19 21:58 ALT 30 IU/L (10-60) 10/14/19 21:58 Alkaline Phosphatase 47 IU/L (42-121) 10/14/19 21:58 Total Creatine Kinase 44 IU/L (22-269) 10/14/19 21:58 Troponin I High Sens 10.3 ng/L (2.3-19.7) 10/14/19 21:58 B-Natriuretic Peptide 46 pg/mL (5-100) 10/14/19 21:58 Total Protein 7.7 g/dL (6.7-8.2) 10/14/19 21:58 Albumin 4.3 g/dL (3.2-5.5) 10/14/19 21:58 Globulin 3.4 g/dL (2.1-4.2) 10/14/19 21:58 Albumin/Globulin Ratio 1.3 (1.0-2.2) 10/14/19 21:58 Lipase 25 U/L (22-51) 10/14/19 21:58 Urine Color YELLOW 10/14/19 23:23 Urine Clarity CLEAR (CLEAR) 10/14/19 23:23 Urine pH 5.5 PH (5.0-7.5) 10/14/19 23:23 Ur Specific Morven 1.015 (1.002-1.030) 10/14/19 23:23 Urine Protein NEGATIVE mg/dL (NEGATIVE) 10/14/19 23:23 Urine Glucose (UA) 500 mg/dL (NEGATIVE) H 10/14/19 23:23 Urine Ketones TRACE mg/dL (NEGATIVE) 10/14/19 23:23 Urine Occult Blood NEGATIVE (NEGATIVE) 10/14/19 23:23 Urine Nitrite NEGATIVE (NEGATIVE) 10/14/19 23:23 Urine Bilirubin NEGATIVE (NEGATIVE) 10/14/19 23:23 Urine Urobilinogen 0.2 (NORMAL) E.U./dL (NORMAL) 10/14/19 23:23 Ur Leukocyte Esterase NEGATIVE (NEGATIVE) 10/14/19 23:23 Ur Microscopic Review NOT INDICATED 10/14/19 23:23 Urine Culture Comments NOT INDICATED 10/14/19 23:23 Serum Ketones NEGATIVE (NEGATIVE) 10/14/19 21:58 Coronavirus (PCR) NEGATIVE 10/14/19 22:15 Influenza A (Rapid) Negative (Negative) 10/14/19 22:15 Influenza B (Rapid) Negative (Negative) 10/14/19 22:15 Group A Strep Rapid Negative (Negative) 10/14/19 22:15 - Procedures Procedures: Procedures EXCIS KNEE SEMILUN CARTL (09/28/13) KNEE SYNOVECTOMY (09/28/13) RESECTION OF GALLBLADDER, PERCUTANEOUS ENDOSCOPIC APPROACH (11/17/16)
[2019-10-16] MEDS: INSULIN GLARGINE 300 UNIT/3 ML PEN SUBQ SCH (21:41)
[2019-10-16] MEDS: MIN OIL/DIMETHICON/COCONUT OIL 92 GM TUBE TOP PRN (23:59)
[2019-10-17 05:22] LABS: BASOPHILS % (AUTO) 0.3 %; EOSINOPHILS # (AUTO) 0.2 10^3/uL (0.0-0.7); EOSINOPHILS % (AUTO) 2.1 %; HGB - HEMOGLOBIN 12.4 g/dL (14.0-18.0); LYMPHOCYTES # (AUTO) 1.3 10^3/uL (1.5-3.5); LYMPHOCYTES % (AUTO) 11.1 %; MEAN CORPUSCULAR HEMOGLOBIN 31.9 pg (27.0-31.0); MEAN CORPUSCULAR VOLUME 99.7 fL (80.0-94.0); MEAN PLATELET VOLUME 10.6 fL (7.4-11.4); MONOCYTES # (AUTO) 0.8 10^3/uL (0.0-1.0); MONOCYTES % (AUTO) 6.7 %; NEUTROPHILS # (AUTO) 9.2 10^3/uL (1.5-6.6); NEUTROPHILS % (AUTO) 79.4 %; PLT - PLATELET COUNT 193 10^3/uL (130-450); RED BLOOD COUNT 3.89 10^6/uL (4.70-6.10); RED CELL DISTRIBUTION WIDTH 12.1 % (12.0-15.0); WHITE BLOOD COUNT 11.6 x10^3/uL (4.8-10.8)
[2019-10-17 05:33] LABS: CALCIUM 8.4 mg/dL (8.5-10.3); CREATININE 1.3 mg/dL (0.6-1.2)
[2019-10-17] MEDS: AMPICILLIN/SULBACTAM 3 GM in SODIUM CHLORIDE 0.9% MINIBAG 100 ML IV SCH ×3 (06:08→17:33)
[2019-10-17] MEDS: INSULIN REGULAR HUMAN 300 UNIT/3 ML VIAL SUBQ SCH ×3 (06:08→18:11)
[2019-10-17] MEDS: PANTOPRAZOLE 40 MG VIAL IVP SCH (06:09)
[2019-10-17] MEDS: SODIUM CHLORIDE FLUSH 0.9% 10 ML SYRINGE IVP PRN (06:10)
[2019-10-17] MEDS: AZITHROMYCIN INJ 500 MG in SODIUM CHLORIDE 0.9% 250 ML IV SCH (09:01)
[2019-10-17] MEDS: NITROGLYCERIN 0.1 MG/HR PATCH TOP SCH (09:04)
[2019-10-17] MEDS: ENOXAPARIN 40 MG/0.4 ML SYRINGE SUBQ SCH (09:04)
[2019-10-17] MEDS: CHLORHEXIDINE GLUCONATE 15 ML UDC PO SCH ×2 (09:05→22:00)
[2019-10-17] MEDS: SODIUM CHLORIDE FLUSH 0.9% 10 ML SYRINGE IVP SCH ×2 (09:05→16:32)
[2019-10-17] MEDS ORDERED: PHENOL THROAT SPRAY 177 ML MM PRN (10:35)
[2019-10-17] MEDS: SODIUM CHLORIDE 0.9% 1,000 ML IV SCH (13:29)
[2019-10-17] MEDS ORDERED: IOVERSOL 320 100 ML VIAL IVP ONE ×2 (14:28→14:54)
--- NOTE | 2019-10-17 15:07 | CT Report ---
PROCEDURE: SOFT TISSUE NECK W INDICATIONS: Throat swelling CONTRAST: IV CONTRAST: Optiray 320 ml: 100 PO CONTRAST: *NO PO CONTRAST TECHNIQUE: After the administration of intravenous contrast, 3.0 mm axial sections acquired from the sella to th e aortic arch. Additional oblique axial 3.0 mm sections acquired through the pharynx. 3 mm thick co shirley reformats were generated. For radiation dose reduction, the following was used: automated exp osure control, adjustment of mA and/or kV according to patient size. COMPARISON: 10/14/2019 FINDINGS: Image quality: Excellent. Lymph nodes: No enlarged lymph nodes seen throughout the neck. Vessels: Visualized vasculature appears patent. Neck spaces: Soft tissue swelling is again seen involving the right floor of the mouth and the right lateral mouth, with swelling of the right pterygoid musculature, with generalized inflammatory mcintyre e. The amount of soft tissue swelling is overall mildly increased compared to 10/14/2019 examination. The right tonsil is deviated medially, which is slightly more prominent than on the prior examination . Mild narrowing of the airway along the posterior aspect of the oropharynx can be seen. No focal fl uid collection is seen to suggest a drainable abscess at this time. No mucosal masses can be seen. Glands: The parotid and submandibular glands appear normal. The thyroid is normal in size. Miscellaneous: Visualized brain and orbits appear normal. Lung apices appear clear. Superficial so ft tissues appear normal. Bones: Poor dentition is seen, with no maxillary teeth. No suspicious bony lesions. Visualized sinus es and mastoids appear unremarkable. Relatively prominent lower cervical spine degenerative changes are seen. IMPRESSION: Worsening of the right floor of the mouth and right lateral oropharynx swelling, with expansion of th e right pterygoid musculature. There is increased mass effect seen, with the right tonsil further dev iated medially. No drainable abscess can be seen. Poor dentition, with no maxillary teeth. Reviewed by: Zechariah Davis MD on 10/17/2019 2:05 PM MADYSON Approved by: Zechariah Davis MD on 10/17/2019 2:05 PM AKDAHIANA Station ID: [id number]
--- NOTE | 2019-10-17 16:15 | PROVIDER PROGRESS NOTE ---
Subjective - Prog Note Date Prog Note Date: 10/17/19 Prog Note Time: 16:12 - Subjective Pt reports feeling: Worse (Prashant has not improved during his hospitalization, in spite of IV Unasyn. He has not been febrile since the ER. His leukocytosis is trending in the right direction, but he remains lethargic and reports worsening throat swelling.) Subjective: A new CT soft tissue neck was taken today, demonstrating worsening swelling of the right pharyngeal tonsil and infratonsilar soft tissues, down to the level of the glottis. Dr. Collins requested that I reevaluate the patient in light of his failure to improve. Objective - Vital Signs/Intake & Output Reviewed Vital Signs: Yes Vital Signs: Vital Signs x48h Temp Pulse Resp BP Pulse Ox 10/17/19 16:00 36.4 C L 61 20 138/59 H 95 Intake & Output: Intake & Output 10/14/19 10/15/19 10/16/19 10/17/19 23:59 23:59 23:59 23:59 Intake Total 1200 2000.00 2336.25 1353.75 Output Total 2800 1255 900 Balance 1200 -800.00 1081.25 453.75 - Objective General Appearance: positive: No acute distress, Lethargic, Other (Difficult to wake. Can't cooperate with evaluation. Irritable during attempts to perform exam.) Eyes Bilateral: positive: PERRL ENT: positive: Other (Breathing through mouth while sleeping supine, with no stridor and no visible increase in respiratory effort. Oral mucusa dry. No purulent drainage. Pharyngeal exam w/ tongue blade: moderate swelling of the R pharyngeal tonsil and draping of the soft palate. Uvula remains midline. No discolorat) Neck: positive: Other (No palpable swelling of the submanidibular area or submental area. Note that during FOM exam, which is not elevated, he expresses pain during palpation of bilateral FOM.) Respiratory: positive: No respiratory distress - Lab Results Fish Bones: 10/17/19 04:40 10/17/19 04:40 Other Labs: Lab Results x24hrs 10/17/19 10/17/19 Range/Units 04:40 04:40 WBC 11.6 H (4.8-10.8) x10^3/uL RBC 3.89 L (4.70-6.10) 10^6/uL Hgb 12.4 L (14.0-18.0) g/dL Hct 38.8 L (42.0-52.0) % MCV 99.7 H (80.0-94.0) fL MCH 31.9 H (27.0-31.0) pg MCHC 32.0 (32.0-36.0) g/dL RDW 12.1 (12.0-15.0) % Plt Count 193 (130-450) 10^3/uL MPV 10.6 (7.4-11.4) fL Neut # (Auto) 9.2 H (1.5-6.6) 10^3/uL Lymph # (Auto) 1.3 L (1.5-3.5) 10^3/uL Perry # (Auto) 0.8 (0.0-1.0) 10^3/uL Eos # (Auto) 0.2 (0.0-0.7) 10^3/uL Baso # (Auto) 0.0 (0.0-0.1) 10^3/uL Absolute Nucleated RBC 0.00 x10^3/uL Nucleated RBC % 0.0 /100WBC Sodium 142 (135-145) mmol/L Potassium 3.7 (3.5-5.0) mmol/L Chloride 109 (101-111) mmol/L Carbon Dioxide 22 (21-32) mmol/L Anion Gap 11.0 (6-13) BUN 23 H (6-20) mg/dL Creatinine 1.3 H (0.6-1.2) mg/dL Estimated GFR (MDRD) 52 L (>89) Glucose 179 H (70-100) mg/dL Calcium 8.4 L (8.5-10.3) mg/dL - Diagnostic Imaging Diagnostic Imaging Comments: New CT today demonstrates increased swelling of the R pharyngeal tonsil. Increased effacement of the R pharynx, extending down to the larynx. Assessment/Plan - Problem List (1) Cellulitis of pharynx Impression: 88 yo M w/ cellulitis of the R pharynx of unclear etiology, likely peritonsillar abscess. Unasyn Day 4 - no distinct fluid collection on CT - improving leukocytosis - temp 38.1 on arrival, but afebrile since then - worsening CT soft tissue neck evaluation - worsening symptoms - clinical exam: increased swelling of the R tonsil with new drape of the R soft palate P: Needs direct laryngoscopy and pharyngoscopy. Recommend transfer to a facility where these studies can be performed. Without a clear fluid collection, incision and drainage of the R lateral pharyngeal swelling cannot reliably improve his presentation. Thank you for including me in the care of Prashant. Please let me know if there is anything else that is needed. Bar De León, ILYAS [phone]
[2019-10-17] MEDS ORDERED: DEXAMETHASONE 10 MG/ML VIAL IVP ONE (17:13)
--- NOTE | 2019-10-17 17:22 | PROVIDER PROGRESS NOTE ---
Assessment/Plan - Problem List (1) Cellulitis of pharynx Assessment/Plan: The patient continues to have very dried thick secretions in the posterior pharynx, need Yankauer for suctioning by the nurse, he is wincing in pain when trying to swallow and not having a productive cough to clear that airway. The RN felt that there was more swelling that she found compared to yesterday with suctioning (same RN). I called Dr. Bar De León regarding this development who recommended a soft tissue CT scan which was done and then Dr. De León saw the patient and a consult here today. The soft tissue CT shows worsening: There isIncreased amount of soft tissue swelling and the right tonsil is deviated medially which is slightly more than on the exam 3 days ago. 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 Dr. De León and I reviewed the films together; Dr De León had a suspicion this could be a tumor in this area with infection around it. He advised transfer to a center that has ENT specialty. I discussed this with the . She would like the patient to go to [facility], where he has other specialists (Cardiology with Dr. Barrios). I then spoke to the [facility] mailhouse operator who connected me to (by paging) the ENT specialist on-call. I spoke to Dr. Chevy Nava of ENT and reviewed the entire case including the worsening condition by today's imaging. This ENT specialist recommend that the patient get Decadron 20 mg IV tonight, broaden his antibiotic coverage, give Decadron 20 mg in the morning. If he does not "turn the corner" by tomorrow morning, he recomends to have the patient transferred on the hospitalist service to [facility] tomorrow and his ENT group will see the patient in consult and for further management there. I will order IV Decadron 20 mg now and in a.m. I will broaden coverage to add IV Flagyl to better cover anaerobes and iv Vanco for poss MRSA. His had gone home after the above call with ENT transpired. I called Lavonne and spoke to her by phone, to inform her of the recommendations from ENT and that the pt will stay here tonight, but if there is no improvement by the morning, he will be transferred to [facility] tomorrow. (2) Dysphagia Assessment/Plan: Chloraseptic [place] has been ordered for help with some of the pain, he cannot handle a lozenge and saliva management. An attempt to have him swallow water today also resulted in him coughing and unable to manage that. He will remain n.p.o. He continues to need oral care by his nurse. (3) AMS (altered mental status) Assessment/Plan: Today the visited and I spoke to her at bedside. We both saw how somnolent to this patient was and how weak however he recognized her, he responded appropriately but fell back asleep. He is moving all extremities. He is saying that he has pain of his buttocks as well. His obtundation is probably related to the infection. The said he normally does take naps several times a day but he is awake and alert and watches TV and communicates normally other times of the day. He has now had head imaging that does not show any significant abnormality, sinusitis has been ruled out. (4) Aspiration pneumonia Assessment/Plan: The throat culture was negative for strep. Blood cultures are negative after 2 days Continue with empiric iv antibiotics. (5) CKD (chronic kidney disease) Assessment/Plan: Creatinine remains at 1.3-1.4 daily Continue with IV hydration. Follow BMP daily (6) Diabetes Qualifiers: Diabetes mellitus type: type 2 Assessment/Plan: Continue with peripheral D5 and sliding scale insulin insulin coverage (7) Acute urinary retention Assessment/Plan: He now has a Handy in because of urinary retention which started right after admission (8) Hx of coronary artery disease Assessment/Plan: No cardiopulmonary issues at this time (9) Hyperlipidemia Qualifiers: Hyperlipidemia type: unspecified Qualified Code(s): E78.5 - Hyperlipidemia, unspecified Assessment/Plan: He is unable to get his oral pills currently (10) Decubitus ulcer of right ischial tuberosity region Assessment/Plan: Limitation he had 2 large red areas over both ischial tuberosities, his pain is worse on the left. Continue with rotating in bed and topical management by nursing. Have egg carton foam mattress cover I will order that. (11) GERD (gastroesophageal reflux disease) Assessment/Plan: He is getting IV Protonix for ulcer prophylaxis. - Current Meds Current Meds: Current Medications Generic Name Dose Route Start Last Admin Trade Name Freq PRN Reason Stop Dose Admin Acetaminophen 650 mg 10/16/19 08:09 10/16/19 08:49 Tylenol [place] 650 mg Q6HR PRN Administration Pain or Fever > 38C (100.4F) Chlorhexidine Gluconate 15 ml 10/15/19 09:00 10/17/19 09:05 Peridex PO 15 ml BID CARLOS Administration Enoxaparin Sodium 40 mg 10/15/19 09:00 10/17/19 09:04 Lovenox SUBQ 40 mg DAILY CARLOS Administration Sodium Chloride 1,000 mls @ 75 mls/hr 10/15/19 03:00 10/17/19 13:29 Normal Saline 0.9% IV 75 mls/hr .[id number] CARLOS Administration Ampicillin Sodium/Sulbactam 100 mls @ 200 mls/hr 10/15/19 12:11 10/17/19 12:17 Sodium 3 gm/ Sodium Chloride IV Infused Q6HR CARLOS Infusion Insulin Glargine 5 unit 10/15/19 21:00 10/16/19 21:41 Lantus Solostar SUBQ 5 unit QPM CARLOS Administration Insulin Human Regular 1 - 5 unit 10/15/19 18:00 10/17/19 11:51 Humulin R SUBQ 1 unit Q6HR CARLOS Administration Protocol Mineral Oil 1 applic 10/15/19 03:09 10/16/19 23:59 Cavilon TOP 1 applic PRN PRN Administration Skin Care Nitroglycerin 1 patch 10/16/19 09:00 10/17/19 09:04 Nitro-Dur TOP 1 patch DAILY CARLOS Administration Pantoprazole Sodium 40 mg 10/16/19 07:00 10/17/19 06:09 Protonix IVP 40 mg QDAC CARLOS Administration Phenol/Menthol 2 sprays 10/17/19 10:35 10/17/19 11:47 Chloraseptic MM 2 sprays Q2HR PRN Administration Throat Pain Sodium Chloride 10 ml 10/15/19 01:36 10/17/19 06:10 Normal Saline Flush 0.9% IVP 10 ml PRN PRN Administration NEEDED PER PROVIDER ORDERS Sodium Chloride 10 ml 10/15/19 09:00 10/17/19 16:32 Normal Saline Flush 0.9% IVP Not Given 0100,0900,1700 CARLOS - Lab Result Fish Bone Diagrams: 10/17/19 04:40 10/17/19 04:40 - Additional Planning My Orders: My Active Orders 10/17/19 Consult [General Surgery Consult] [CONS] Routine 10/17/19 10:35 Phenol [Chloraseptic] 2 sprays MM Q2HR PRN 10/17/19 17:13 dexAMETHasone [Decadron] 20 mg IVP ONCE ONE 10/17/19 18:00 metroNIDAZOLE/NS 500 mg/100 mL Q8H metroNIDAZOLE 500 MG/100 ML [Flagyl 500 mg/100 ml] 500 mg in 100 ml IV Q8H 10/18/19 08:00 dexAMETHasone [Decadron] 20 mg IVP 0800 ONE Objective Vital Signs: Vital Signs - 24 hr 10/16/19 10/17/19 10/17/19 23:45 00:00 07:49 Temperature 36.4 C L 36.4 C L 37 C Heart Rate [ 62 62 57 L Brachial] Respiratory 20 26 H 24 Rate Blood Pressure 148/62 H 148/62 H [Left Brachial artery] Blood Pressure 145/57 H [Right Brachial artery] O2 Saturation 93 93 93 10/17/19 16:00 Temperature 36.4 C L Heart Rate [ 61 Brachial] Respiratory 20 Rate Blood Pressure [Left Brachial artery] Blood Pressure 138/59 H [Right Brachial artery] O2 Saturation 95 Oxygen O2 Source [Without Activity] Room air O2 Source Room air I&O (Last 24 Hrs): Intake and Output Totals x24h 10/15/19 10/16/19 10/17/19 23:59 23:59 23:59 Intake Total 2000.00 2336.25 1353.75 Output Total 2800 1255 900 Balance -800.00 1081.25 453.75 - Results Results: Laboratory Results WBC 11.6 x10^3/uL (4.8-10.8) H 10/17/19 04:40 RBC 3.89 10^6/uL (4.70-6.10) L 10/17/19 04:40 Hgb 12.4 g/dL (14.0-18.0) L 10/17/19 04:40 Hct 38.8 % (42.0-52.0) L 10/17/19 04:40 MCV 99.7 fL (80.0-94.0) H 10/17/19 04:40 MCH 31.9 pg (27.0-31.0) H 10/17/19 04:40 MCHC 32.0 g/dL (32.0-36.0) 10/17/19 04:40 RDW 12.1 % (12.0-15.0) 10/17/19 04:40 Plt Count 193 10^3/uL (130-450) 10/17/19 04:40 MPV 10.6 fL (7.4-11.4) 10/17/19 04:40 Neut # (Auto) 9.2 10^3/uL (1.5-6.6) H 10/17/19 04:40 Lymph # (Auto) 1.3 10^3/uL (1.5-3.5) L 10/17/19 04:40 [place] # (Auto) 0.8 10^3/uL (0.0-1.0) 10/17/19 04:40 Eos # (Auto) 0.2 10^3/uL (0.0-0.7) 10/17/19 04:40 Baso # (Auto) 0.0 10^3/uL (0.0-0.1) 10/17/19 04:40 Absolute Nucleated RBC 0.00 x10^3/uL 10/17/19 04:40 Nucleated RBC % 0.0 /100WBC 10/17/19 04:40 PT 12.4 secs (9.9-12.6) 10/14/19 21:58 INR 1.1 (0.8-1.2) 10/14/19 21:58 APTT 28.5 secs (24.9-33.3) 10/14/19 21:58 VBG pH 7.394 (7.31-7.41) 10/14/19 21:58 VBG pCO2 36.8 mmHg (41-51) L 10/14/19 21:58 VBG pO2 29.3 mmHg (25-47) 10/14/19 21:58 VBG HCO3 22.0 mmol/L (23-28) L 10/14/19 21:58 VBG Total CO2 23.1 mmol/L (24-29) L 10/14/19 21:58 VBG O2 Saturation 58.4 % (60-80) L 10/14/19 21:58 VBG Base Excess -2.3 mmol/L (-2 - +2) L 10/14/19 21:58 Sodium 142 mmol/L (135-145) 10/17/19 04:40 Potassium 3.7 mmol/L (3.5-5.0) 10/17/19 04:40 Chloride 109 mmol/L (101-111) 10/17/19 04:40 Carbon Dioxide 22 mmol/L (21-32) 10/17/19 04:40 Anion Gap 11.0 (6-13) 10/17/19 04:40 BUN 23 mg/dL (6-20) H 10/17/19 04:40 Creatinine 1.3 mg/dL (0.6-1.2) H 10/17/19 04:40 Estimated GFR (MDRD) 52 (>89) L 10/17/19 04:40 Glucose 179 mg/dL (70-100) H 10/17/19 04:40 Estimat Average Glucose 212 mg/dL (70-100) H 10/16/19 04:40 Hemoglobin A1c % 9.0 % (4.27-6.07) H 10/16/19 04:40 Lactic Acid 1.7 mmol/L (0.5-2.2) 10/14/19 21:58 Calcium 8.4 mg/dL (8.5-10.3) L 10/17/19 04:40 Magnesium 1.5 mg/dL (1.7-2.8) L 10/14/19 21:58 Total Bilirubin 1.1 mg/dL (0.2-1.0) H 10/14/19 21:58 AST 21 IU/L (10-42) 10/14/19 21:58 ALT 30 IU/L (10-60) 10/14/19 21:58 Alkaline Phosphatase 47 IU/L (42-121) 10/14/19 21:58 Total Creatine Kinase 44 IU/L (22-269) 10/14/19 21:58 Troponin I High Sens 10.3 ng/L (2.3-19.7) 10/14/19 21:58 B-Natriuretic Peptide 46 pg/mL (5-100) 10/14/19 21:58 Total Protein 7.7 g/dL (6.7-8.2) 10/14/19 21:58 Albumin 4.3 g/dL (3.2-5.5) 10/14/19 21:58 Globulin 3.4 g/dL (2.1-4.2) 10/14/19 21:58 Albumin/Globulin Ratio 1.3 (1.0-2.2) 10/14/19 21:58 Lipase 25 U/L (22-51) 10/14/19 21:58 Urine Color YELLOW 10/14/19 23:23 Urine Clarity CLEAR (CLEAR) 10/14/19 23:23 Urine pH 5.5 PH (5.0-7.5) 10/14/19 23:23 Ur Specific [place] 1.015 (1.002-1.030) 10/14/19 23:23 Urine Protein NEGATIVE mg/dL (NEGATIVE) 10/14/19 23:23 Urine Glucose (UA) 500 mg/dL (NEGATIVE) H 10/14/19 23:23 Urine Ketones TRACE mg/dL (NEGATIVE) 10/14/19 23:23 Urine Occult Blood NEGATIVE (NEGATIVE) 10/14/19 23:23 Urine Nitrite NEGATIVE (NEGATIVE) 10/14/19 23:23 Urine Bilirubin NEGATIVE (NEGATIVE) 10/14/19 23:23 Urine Urobilinogen 0.2 (NORMAL) E.U./dL (NORMAL) 10/14/19 23:23 Ur Leukocyte Esterase NEGATIVE (NEGATIVE) 10/14/19 23:23 Ur Microscopic Review NOT INDICATED 10/14/19 23:23 Urine Culture Comments NOT INDICATED 10/14/19 23:23 Serum Ketones NEGATIVE (NEGATIVE) 10/14/19 21:58 Coronavirus (PCR) NEGATIVE 10/14/19 22:15 Influenza A (Rapid) Negative (Negative) 10/14/19 22:15 Influenza B (Rapid) Negative (Negative) 10/14/19 22:15 Group A Strep Rapid Negative (Negative) 10/14/19 22:15 - Procedures Procedures: Procedures EXCIS KNEE SEMILUN CARTL (09/28/13) KNEE SYNOVECTOMY (09/28/13) RESECTION OF GALLBLADDER, PERCUTANEOUS ENDOSCOPIC APPROACH (11/17/16)
[2019-10-17] MEDS ORDERED: DEXAMETHASONE 4 MG/ML VIAL IVP ONE (18:00)
[2019-10-17] MEDS ORDERED: VANCOMYCIN INJ 1.5 GM in SODIUM CHLORIDE 0.9% 500 ML IV SCH (18:00)
[2019-10-17] MEDS: metroNIDAZOLE 500 MG/100 ML 500 MG/100 ML BAG IV SCH (18:11)
[2019-10-17] MEDS: INSULIN GLARGINE 300 UNIT/3 ML PEN SUBQ SCH (21:59)
[2019-10-18] MEDS: AMPICILLIN/SULBACTAM 3 GM in SODIUM CHLORIDE 0.9% MINIBAG 100 ML IV SCH ×2 (00:07→06:12)
[2019-10-18] MEDS: INSULIN REGULAR HUMAN 300 UNIT/3 ML VIAL SUBQ SCH ×4 (00:09→17:43)
[2019-10-18] MEDS: SODIUM CHLORIDE FLUSH 0.9% 10 ML SYRINGE IVP SCH ×3 (00:10→16:17)
[2019-10-18] MEDS: metroNIDAZOLE 500 MG/100 ML 500 MG/100 ML BAG IV SCH (02:09)
[2019-10-18] MEDS: SODIUM CHLORIDE 0.9% 1,000 ML IV SCH ×3 (06:12→17:43)
[2019-10-18] MEDS: PANTOPRAZOLE 40 MG VIAL IVP SCH (06:12)
[2019-10-18 07:37] LABS: CALCIUM 8.1 mg/dL (8.5-10.3); CREATININE 1.3 mg/dL (0.6-1.2)
[2019-10-18 07:38] LABS: BASOPHILS % (AUTO) 0.3 %; EOSINOPHILS % (AUTO) 0.1 %; HGB - HEMOGLOBIN 12.7 g/dL (14.0-18.0); LYMPHOCYTES # (AUTO) 0.6 10^3/uL (1.5-3.5); LYMPHOCYTES % (AUTO) 8.1 %; MEAN CORPUSCULAR HGB CONC 33.8 g/dL (32.0-36.0); MEAN CORPUSCULAR VOLUME 97.7 fL (80.0-94.0); MEAN PLATELET VOLUME 10.8 fL (7.4-11.4); MONOCYTES # (AUTO) 0.3 10^3/uL (0.0-1.0); MONOCYTES % (AUTO) 3.5 %; NEUTROPHILS # (AUTO) 6.9 10^3/uL (1.5-6.6); NEUTROPHILS % (AUTO) 87.2 %; PLT - PLATELET COUNT 198 10^3/uL (130-450); RED BLOOD COUNT 3.85 10^6/uL (4.70-6.10); RED CELL DISTRIBUTION WIDTH 11.7 % (12.0-15.0); WHITE BLOOD COUNT 7.9 x10^3/uL (4.8-10.8)
[2019-10-18] MEDS ORDERED: DEXAMETHASONE 10 MG/ML VIAL IVP ONE (08:00)
[2019-10-18] MEDS ORDERED: DEXAMETHASONE 20 MG/5 ML VIAL IVP ONE (08:00)
[2019-10-18] MEDS: ENOXAPARIN 40 MG/0.4 ML SYRINGE SUBQ SCH (09:07)
[2019-10-18] MEDS: NITROGLYCERIN 0.1 MG/HR PATCH TOP SCH (09:08)
[2019-10-18] MEDS: CHLORHEXIDINE GLUCONATE 15 ML UDC PO SCH ×2 (09:28→21:08)
--- NOTE | 2019-10-18 10:59 | PHARMACY PROGRESS NOTE ---
- Therapy Status Vancomycin regimen day #: 1 Therapy status: Awaiting steady state Basis for treatment: Empirical Treatment indication: PHARYNX CELLULITIS Trough goal: 15-20 Concurrent antibiotics: ZOSYN EXTENDED INFUSION - RUIZ Risk Acute Kidney Injury risk factors: Piperacillin/Tozobactam, Wt >100kg or BMI >40, IV contrast within 72 hrs, Goal trough >15, Diabetes - Monitoring and Recommendation Clinical response to treatment: I&O Previous 24 hours 10/16/19 10/17/19 10/18/19 23:59 23:59 23:59 Intake Total 2336.25 2355.00 898.75 Output Total 1255 1325 400 Balance 1081.25 1030.00 498.75 Lab Results 10/18/19 10/17/19 10/16/19 07:19 04:40 04:40 BUN 29 H 23 H 19 Creatinine 1.3 H 1.3 H 1.3 H Estimated GFR (MDRD) 52 L 52 L 52 L 10/15/19 10/14/19 04:40 21:58 BUN 20 24 H Creatinine 1.4 H 1.4 H Estimated GFR (MDRD) 48 L 48 L Cultures 10/14/19 22:05 Blood Blood Culture - Preliminary NO GROWTH AFTER 2 DAYS 10/14/19 21:58 Blood - Right Arm Blood Culture - Preliminary NO GROWTH AFTER 2 DAYS 10/14/19 22:15 Throat Group A Strep Throat Culture - Final MIXED OROPHARYNGEAL LIZY PRESENT. NO BETA STREP PRESENT IN CULTURE. Monitoring plan: Daily serum creatinine, Draw trough early, Suggest ongoing fluid replacement Next trough due prior to maintenance dose #: 3 (Initial 1.5 gram dosing being treated as pseudo-loading dose. Changed from q18h to q24h dosing with change of concurrent antibiotic to zosyn. Giving longer "resting" period for kidneys in response to zosyn insult) Next trough due (date/time): 10/19 @ 15:30 Areas for additional monitoring: IV to PO when appropriate, Therapy de- escalation based on culture results, Acute Kidney Injury, C. difficile infection risk reduction, Adverse Drug Event concerns Pharmacy recommendation: Continue current regime
[2019-10-18] MEDS: PIPERACILLIN/TAZOBACTAM 3.375 GM in SODIUM CHLORIDE 0.9% MINIBAG 100 ML IV SCH ×2 (12:34→19:23)
--- NOTE | 2019-10-18 15:33 | PROVIDER PROGRESS NOTE ---
Assessment/Plan - Problem List (1) Cellulitis of pharynx Assessment/Plan: The patient had very dried thick secretions in the posterior pharynx, needed a Yankauer for suctioning by the nurse, he was wincing in pain when trying to swallow and did not have a productive cough to clear that airway. Yesterday, the RN felt that there was more swelling seen during suctioning compared to admission. Yesterday soft tissue CT was repeated and showed worsening: There was increased amount of soft tissue swelling and the right tonsil is deviated medially which is slightly more than on the exam 3 days ago. There is mild narrowing of the airway along the posterior aspect of the oropharynx, no fluid collection or drainable abscess is seen. Dr. De León re-saw the patient in consult and we reviewed the films together; Dr De León had a suspicion this could be a tumor in this area with infection around it. He advised transfer to a center that has ENT specialty. I discussed this with the . She chose [facility], where he has other specialists (Cardiology with Dr. Barrios). I spoke to Dr. Chevy Nava on-call for ENT and reviewed the entire case including the worsening condition by imaging. This ENT specialist recommend that the patient get Decadron 20 mg IV tonight, broaden his antibiotic coverage, give Decadron 20 mg in the morning. If he does not "turn the corner" by tomorrow morning, to transfer the patient. Today, he has marked improvement, is much more awake, has a strong cough. Will continue with the new antibx and no transfer needed. Will consider further steroids as well. (2) Dysphagia Assessment/Plan: Chloraseptic [place] has been ordered for help with some of the pain, he cannot handle a lozenge and saliva management. He has failed 3 swallow evals, starts coughing and unable to manage even thickened liquids. The ST will retuirn this evening for swallow eval again. He will remain n.p.o. He continues to need oral care by his nurse. (3) Aspiration pneumonia Assessment/Plan: The throat culture was negative for strep. He had no sputum at admission, to send for culture. Blood cultures are negative to date. Continue with empiric iv antibiotics. (4) CKD (chronic kidney disease) Assessment/Plan: Creatinine remains at 1.3-1.4 daily Continue with IV hydration until eating and drinking. Follow BMP daily (5) Diabetes Qualifiers: Diabetes mellitus type: type 2 Assessment/Plan: Continue with peripheral D5 and sliding scale insulin insulin coverage (6) Acute urinary retention Assessment/Plan: He now has a Handy in because of urinary retention which started right after admission (7) Hx of coronary artery disease Assessment/Plan: No cardiopulmonary issues at this time (8) Hyperlipidemia Qualifiers: Hyperlipidemia type: unspecified Qualified Code(s): E78.5 - Hyperlipidemia, unspecified Assessment/Plan: He is unable to get his oral pills currently (9) Decubitus ulcer of right ischial tuberosity region Assessment/Plan: Actually, he had large red areas over both ischial tuberosities, his pain is worse on the left. Continue with rotating in bed and topical management by nursing. If central supply has an egg carton foam mattress, I ordered that. The said he normally does take naps several times a day but he is awake and alert and watches TV sitting Will start PT and OT eval today. (10) GERD (gastroesophageal reflux disease) Assessment/Plan: He is getting IV Protonix for ulcer prophylaxis. (11) AMS (altered mental status) Assessment/Plan: Resolved, he is communicative, joking, says he is interested in starting food. and I were at bedside together and she said jaidenuis is his usual personality. - Current Meds Current Meds: Current Medications Generic Name Dose Route Start Last Admin Trade Name Freq PRN Reason Stop Dose Admin Acetaminophen 650 mg 10/16/19 08:09 10/16/19 08:49 Tylenol [place] 650 mg Q6HR PRN Administration Pain or Fever > 38C (100.4F) Chlorhexidine Gluconate 15 ml 10/15/19 09:00 10/18/19 09:28 Peridex PO 15 ml BID CARLOS Administration Enoxaparin Sodium 40 mg 10/15/19 09:00 10/18/19 09:07 Lovenox SUBQ 40 mg DAILY CARLOS Administration Sodium Chloride 1,000 mls @ 75 mls/hr 10/15/19 03:00 10/18/19 11:59 Normal Saline 0.9% IV Not Given .[id number] CARLOS Piperacillin Sod/Tazobactam 100 mls @ 25 mls/hr 10/18/19 11:00 10/18/19 12:34 Sod 3.375 gm/ Sodium Chloride IV 25 mls/hr Q8H CARLOS Administration Insulin Glargine 5 unit 10/15/19 21:00 10/17/19 21:59 Lantus Solostar SUBQ 5 unit QPM CARLOS Administration Insulin Human Regular 1 - 5 unit 10/15/19 18:00 10/18/19 12:38 Humulin R SUBQ 2 unit Q6HR CARLOS Administration Protocol Mineral Oil 1 applic 10/15/19 03:09 10/16/19 23:59 Cavilon TOP 1 applic PRN PRN Administration Skin Care Nitroglycerin 1 patch 10/16/19 09:00 10/18/19 09:08 Nitro-Dur TOP 1 patch DAILY CARLOS Administration Pantoprazole Sodium 40 mg 10/16/19 07:00 10/18/19 06:12 Protonix IVP 40 mg QDAC CARLOS Administration Phenol/Menthol 2 sprays 10/17/19 10:35 10/17/19 11:47 Chloraseptic MM 2 sprays Q2HR PRN Administration Throat Pain Sodium Chloride 10 ml 10/15/19 01:36 10/17/19 06:10 Normal Saline Flush 0.9% IVP 10 ml PRN PRN Administration NEEDED PER PROVIDER ORDERS Sodium Chloride 10 ml 10/15/19 09:00 10/18/19 09:28 Normal Saline Flush 0.9% IVP Not Given 0100,0900,1700 CARLOS - Lab Result Fish Bone Diagrams: 10/18/19 07:19 10/18/19 07:19 - Additional Planning My Orders: My Active Orders 10/17/19 17:28 Miscellaenous Nursing Order [RC] DAILY 10/18/19 Evaluate and Treat OT [OT] Routine Evaluate and Treat PT [PT] Routine 10/18/19 11:00 Piperacillin/Tazobactam [Zosyn] 3.375 gm Sodium Chloride 0.9% Minibag [Normal Saline 0.9% Minibag] 100 ml IV Q8H 10/18/19 16:00 Vancomycin Inj [Vancomycin] 2 gm Sodium Chloride 0.9% [Normal Saline 0.9%] 500 ml IV Q24H Subjective - Subjective Patient Reports: Feeling Better, Other (Recognized his , speaking normally) Objective Vital Signs: Vital Signs - 24 hr 10/17/19 10/17/1910/17/20 16:00 23:44 07:55 Temperature 36.4 C L 36.2 C L 36.6 C Heart Rate [ 61 55 L 52 L Brachial] Respiratory 20 20 20 Rate Blood Pressure 138/59 H 143/68 H 137/69 H [Right Brachial artery] O2 Saturation 95 97 96 Oxygen O2 Source [Without Activity] Room air O2 Source Room air I&O (Last 24 Hrs): Intake and Output Totals x24h 10/16/19 10/17/19 10/18/19 23:59 23:59 23:59 Intake Total 2336.25 2355.00 998.75 Output Total 1255 1325 850 Balance 1081.25 1030.00 148.75 General: Alert, Oriented x3 HEENT: Mucous membr. moist/pink Neck: Supple Neuro: Alert, Non Focal Cardiovascular: Regular rate Respiratory: No respiratory distress Abdomen: Soft Extremities: No edema - Results Results: Laboratory Results WBC 7.9 x10^3/uL (4.8-10.8) 10/18/19 07:19 RBC 3.85 10^6/uL (4.70-6.10) L 10/18/19 07:19 Hgb 12.7 g/dL (14.0-18.0) L 10/18/19 07:19 Hct 37.6 % (42.0-52.0) L 10/18/19 07:19 MCV 97.7 fL (80.0-94.0) H 10/18/19 07:19 MCH 33.0 pg (27.0-31.0) H 10/18/19 07:19 MCHC 33.8 g/dL (32.0-36.0) 10/18/19 07:19 RDW 11.7 % (12.0-15.0) L 10/18/19 07:19 Plt Count 198 10^3/uL (130-450) 10/18/19 07:19 MPV 10.8 fL (7.4-11.4) 10/18/19 07:19 Neut # (Auto) 6.9 10^3/uL (1.5-6.6) H 10/18/19 07:19 Lymph # (Auto) 0.6 10^3/uL (1.5-3.5) L 10/18/19 07:19 [place] # (Auto) 0.3 10^3/uL (0.0-1.0) 10/18/19 07:19 Eos # (Auto) 0.0 10^3/uL (0.0-0.7) 10/18/19 07:19 Baso # (Auto) 0.0 10^3/uL (0.0-0.1) 10/18/19 07:19 Absolute Nucleated RBC 0.00 x10^3/uL 10/18/19 07:19 Nucleated RBC % 0.0 /100WBC 10/18/19 07:19 PT 12.4 secs (9.9-12.6) 10/14/19 21:58 INR 1.1 (0.8-1.2) 10/14/19 21:58 APTT 28.5 secs (24.9-33.3) 10/14/19 21:58 VBG pH 7.394 (7.31-7.41) 10/14/19 21:58 VBG pCO2 36.8 mmHg (41-51) L 10/14/19 21:58 VBG pO2 29.3 mmHg (25-47) 10/14/19 21:58 VBG HCO3 22.0 mmol/L (23-28) L 10/14/19 21:58 VBG Total CO2 23.1 mmol/L (24-29) L 10/14/19 21:58 VBG O2 Saturation 58.4 % (60-80) L 10/14/19 21:58 VBG Base Excess -2.3 mmol/L (-2 - +2) L 10/14/19 21:58 Sodium 143 mmol/L (135-145) 10/18/19 07:19 Potassium 3.9 mmol/L (3.5-5.0) 10/18/19 07:19 Chloride 109 mmol/L (101-111) 10/18/19 07:19 Carbon Dioxide 17 mmol/L (21-32) L 10/18/19 07:19 Anion Gap 17.0 (6-13) H 10/18/19 07:19 BUN 29 mg/dL (6-20) H 10/18/19 07:19 Creatinine 1.3 mg/dL (0.6-1.2) H 10/18/19 07:19 Estimated GFR (MDRD) 52 (>89) L 10/18/19 07:19 Glucose 231 mg/dL (70-100) H 10/18/19 07:19 POC Whole Bld Glucose 209 mg/dL (70 - 100) H 10/18/19 11:01 Estimat Average Glucose 212 mg/dL (70-100) H 10/16/19 04:40 Hemoglobin A1c % 9.0 % (4.27-6.07) H 10/16/19 04:40 Lactic Acid 1.7 mmol/L (0.5-2.2) 10/14/19 21:58 Calcium 8.1 mg/dL (8.5-10.3) L 10/18/19 07:19 Magnesium 1.5 mg/dL (1.7-2.8) L 10/14/19 21:58 Total Bilirubin 1.1 mg/dL (0.2-1.0) H 10/14/19 21:58 AST 21 IU/L (10-42) 10/14/19 21:58 ALT 30 IU/L (10-60) 10/14/19 21:58 Alkaline Phosphatase 47 IU/L (42-121) 10/14/19 21:58 Total Creatine Kinase 44 IU/L (22-269) 10/14/19 21:58 Troponin I High Sens 10.3 ng/L (2.3-19.7) 10/14/19 21:58 B-Natriuretic Peptide 46 pg/mL (5-100) 10/14/19 21:58 Total Protein 7.7 g/dL (6.7-8.2) 10/14/19 21:58 Albumin 4.3 g/dL (3.2-5.5) 10/14/19 21:58 Globulin 3.4 g/dL (2.1-4.2) 10/14/19 21:58 Albumin/Globulin Ratio 1.3 (1.0-2.2) 10/14/19 21:58 Lipase 25 U/L (22-51) 10/14/19 21:58 Urine Color YELLOW 10/14/19 23:23 Urine Clarity CLEAR (CLEAR) 10/14/19 23:23 Urine pH 5.5 PH (5.0-7.5) 10/14/19 23:23 Ur Specific [place] 1.015 (1.002-1.030) 10/14/19 23:23 Urine Protein NEGATIVE mg/dL (NEGATIVE) 10/14/19 23:23 Urine Glucose (UA) 500 mg/dL (NEGATIVE) H 10/14/19 23:23 Urine Ketones TRACE mg/dL (NEGATIVE) 10/14/19 23:23 Urine Occult Blood NEGATIVE (NEGATIVE) 10/14/19 23:23 Urine Nitrite NEGATIVE (NEGATIVE) 10/14/19 23:23 Urine Bilirubin NEGATIVE (NEGATIVE) 10/14/19 23:23 Urine Urobilinogen 0.2 (NORMAL) E.U./dL (NORMAL) 10/14/19 23:23 Ur Leukocyte Esterase NEGATIVE (NEGATIVE) 10/14/19 23:23 Ur Microscopic Review NOT INDICATED 10/14/19 23:23 Urine Culture Comments NOT INDICATED 10/14/19 23:23 Serum Ketones NEGATIVE (NEGATIVE) 10/14/19 21:58 Coronavirus (PCR) NEGATIVE 10/14/19 22:15 Influenza A (Rapid) Negative (Negative) 10/14/19 22:15 Influenza B (Rapid) Negative (Negative) 10/14/19 22:15 Group A Strep Rapid Negative (Negative) 10/14/19 22:15 - Procedures Procedures: Procedures EXCIS KNEE SEMILUN CARTL (09/28/13) KNEE SYNOVECTOMY (09/28/13) RESECTION OF GALLBLADDER, PERCUTANEOUS ENDOSCOPIC APPROACH (11/17/16)
[2019-10-18] MEDS: VANCOMYCIN INJ 2 GM in SODIUM CHLORIDE 0.9% 500 ML IV SCH (16:15)
[2019-10-18] MEDS: INSULIN ASPART 300 UNIT/3 ML PEN SUBQ SCH ×2 (17:42→21:10)
[2019-10-18] MEDS ORDERED: INSULIN ASPART 300 UNIT/3 ML PEN SUBQ SCH (21:04)
[2019-10-18] MEDS: MIN OIL/DIMETHICON/COCONUT OIL 92 GM TUBE TOP PRN (21:08)
[2019-10-18] MEDS: INSULIN GLARGINE 300 UNIT/3 ML PEN SUBQ SCH (21:09)
[2019-10-19] MEDS: PIPERACILLIN/TAZOBACTAM 3.375 GM in SODIUM CHLORIDE 0.9% MINIBAG 100 ML IV SCH ×3 (02:49→19:03)
[2019-10-19] MEDS: SODIUM CHLORIDE FLUSH 0.9% 10 ML SYRINGE IVP SCH ×3 (02:49→16:52)
[2019-10-19 05:26] LABS: BASOPHILS % (AUTO) 0.2 %; HGB - HEMOGLOBIN 12.1 g/dL (14.0-18.0); LYMPHOCYTES # (AUTO) 0.7 10^3/uL (1.5-3.5); LYMPHOCYTES % (AUTO) 7.5 %; MEAN CORPUSCULAR HEMOGLOBIN 33.2 pg (27.0-31.0); MEAN CORPUSCULAR HGB CONC 33.9 g/dL (32.0-36.0); MEAN CORPUSCULAR VOLUME 97.8 fL (80.0-94.0); MEAN PLATELET VOLUME 10.9 fL (7.4-11.4); MONOCYTES # (AUTO) 0.5 10^3/uL (0.0-1.0); MONOCYTES % (AUTO) 5.2 %; NEUTROPHILS # (AUTO) 7.7 10^3/uL (1.5-6.6); NEUTROPHILS % (AUTO) 86.3 %; PLT - PLATELET COUNT 206 10^3/uL (130-450); RED BLOOD COUNT 3.65 10^6/uL (4.70-6.10); RED CELL DISTRIBUTION WIDTH 11.8 % (12.0-15.0); WHITE BLOOD COUNT 8.9 x10^3/uL (4.8-10.8)
[2019-10-19 05:34] LABS: CREATININE 1.2 mg/dL (0.6-1.2)
[2019-10-19] MEDS: SODIUM CHLORIDE 0.9% 1,000 ML IV SCH ×2 (06:41→19:03)
[2019-10-19] MEDS: SODIUM CHLORIDE FLUSH 0.9% 10 ML SYRINGE IVP PRN (06:42)
[2019-10-19] MEDS: PANTOPRAZOLE 40 MG VIAL IVP SCH (06:42)
[2019-10-19] MEDS: INSULIN ASPART 300 UNIT/3 ML PEN SUBQ SCH ×4 (11:07→20:52)
[2019-10-19] MEDS: ENOXAPARIN 40 MG/0.4 ML SYRINGE SUBQ SCH (11:09)
[2019-10-19] MEDS: CHLORHEXIDINE GLUCONATE 15 ML UDC PO SCH ×2 (11:09→20:52)
[2019-10-19] MEDS: NITROGLYCERIN 0.1 MG/HR PATCH TOP SCH (11:09)
[2019-10-19] MEDS ORDERED: INSULIN ASPART 300 UNIT/3 ML PEN SUBQ ONE (12:51)
--- NOTE | 2019-10-19 13:49 | PROVIDER PROGRESS NOTE ---
Assessment/Plan - Problem List (1) Cellulitis of pharynx Assessment/Plan: Patient had significant improvement, Patient reported he did swallow good. Patient ate 100% of his meal. Patient WBC is normal, blood culture is negative for bacteremia, no fever or chilly. Patient started with new antibiotics on . Add probiotics. Patient was not transferred to high level of care on yesterday, patient stay in hospital and and improved.We will continue consult and follow-up with surgeon as well. Continue Zosyn and vancomycin. (2) Dysphagia Assessment/Plan: Improved, patient had a 100% of his meal without difficulty. continues to need oral care by his nurse. (3) Aspiration pneumonia Assessment/Plan: Patient had 97% sats on room air without Respiratory distress. The throat culture was negative for strep. He had no sputum at admission, to send for culture. Blood cultures are negative to date. Continue with empiric iv antibiotics, Zosyn and vancomycin (4) CKD (chronic kidney disease) Assessment/Plan: Improved, Creatinine is 1.2 today,Creatinine remains at 1.3-1.4 daily Continue with IV hydration until eating and drinking. Follow BMP daily (5) Diabetes Patient's glucose level is elevated, is likely from recently usage of steroid. increase of Lantus and sliding scale insulin insulin coverage (6) Acute urinary retention Assessment/Plan: We will try remove Hnady on today. He now has a Handy in because of urinary retention which started right after admission (7) Hx of coronary artery disease Assessment/Plan: No cardiopulmonary issues at this time (8) Hyperlipidemia Qualifiers: Hyperlipidemia type: unspecified Qualified Code(s): E78.5 - Hyperlipidemia, unspecified Assessment/Plan: He is unable to get his oral pills currently (9) Decubitus ulcer of right ischial tuberosity region Assessment/Plan: Improved, Continue nursing care and every 2 hour position change. Actually, he had large red areas over both ischial tuberosities, his pain is worse on the left. Per PT/OT recommendation, home health PT/OT and ST is arranged for patient (10) GERD (gastroesophageal reflux disease) Assessment/Plan: He is getting IV Protonix for ulcer prophylaxis. (11) AMS (altered mental status) Assessment/Plan: Resolved, he is communicative, joking, says he is interested in starting food. and I were at bedside together and she said faith is his usual personality. - Current Meds Current Meds: Current Medications Generic Name Dose Route Start Last Admin Trade Name Freq PRN Reason Stop Dose Admin Acetaminophen 650 mg 10/16/19 08:09 10/16/19 08:49 Tylenol SC 650 mg Q6HR PRN Administration Pain or Fever > 38C (100.4F) Chlorhexidine Gluconate 15 ml 10/15/19 09:00 10/19/19 11:09 Peridex PO 15 ml BID CARLOS Administration Enoxaparin Sodium 40 mg 10/15/19 09:00 10/19/19 11:09 Lovenox SUBQ 40 mg DAILY CARLOS Administration Sodium Chloride 1,000 mls @ 75 mls/hr 10/15/19 03:00 10/19/19 06:41 Normal Saline 0.9% IV 75 mls/hr .[id number] CARLOS Administration Piperacillin Sod/Tazobactam 100 mls @ 25 mls/hr 10/18/19 11:00 10/19/19 11:08 Sod 3.375 gm/ Sodium Chloride IV 25 mls/hr Q8H CARLOS Administration Vancomycin HCl 2 gm/ Sodium 500 mls @ 250 mls/hr 10/18/19 16:00 10/18/19 18:15 Chloride IV Infused Q24H CARLOS Infusion Mineral Oil 1 applic 10/15/19 03:09 10/18/19 21:08 Cavilon TOP 2 applic PRN PRN Administration Skin Care Nitroglycerin 1 patch 10/16/19 09:00 10/19/19 11:09 Nitro-Dur TOP 1 patch DAILY CARLOS Administration Pantoprazole Sodium 40 mg 10/16/19 07:00 10/19/19 06:42 Protonix IVP 40 mg QDAC CARLOS Administration Phenol/Menthol 2 sprays 10/17/19 10:35 10/17/19 11:47 Chloraseptic MM 2 sprays Q2HR PRN Administration Throat Pain Sodium Chloride 10 ml 10/15/19 01:36 10/19/19 06:42 Normal Saline Flush 0.9% IVP 10 ml PRN PRN Administration NEEDED PER PROVIDER ORDERS Sodium Chloride 10 ml 10/15/19 09:00 10/19/19 11:10 Normal Saline Flush 0.9% IVP Not Given 0100,0900,1700 CARLOS - Lab Result Fish Bone Diagrams: 10/19/19 05:12 10/19/19 05:12 - Additional Planning My Orders: My Active Orders 10/19/19 Home Health Referral [CONS] Routine 10/19/19 17:00 Insulin Aspart [NovoLOG] 3 - 11 unit SUBQ 0800,1200,1700,2100 10/19/19 21:00 Insulin Glargine [Lantus Solostar] 10 unit SUBQ QPM Subjective - Subjective Patient Reports: Feeling Better Objective Vital Signs: Vital Signs - 24 hr 10/18/19 10/18/19 10/18/19 14:25 15:00 15:44 Temperature 36.4 C L Heart Rate [ 54 L 52 L Activity] Heart Rate [ 51 L Brachial] Heart Rate [ 54 L Sitting] Heart Rate [ 46 L Supine] Respiratory 18 Rate Blood Pressure 127/106 H 127/106 H [Activity] Blood Pressure 116/52 L [Left Brachial artery] Blood Pressure [Right Brachial artery] Blood Pressure 133/87 H [Sitting] Blood Pressure 128/51 L [Supine] O2 Saturation 95 10/18/19 10/19/19 23:54 07:31 Temperature 36.3 C L 36.3 C L Heart Rate [ Activity] Heart Rate [ 60 50 L Brachial] Heart Rate [ Sitting] Heart Rate [ Supine] Respiratory 20 20 Rate Blood Pressure [Activity] Blood Pressure 131/59 H [Left Brachial artery] Blood Pressure 127/56 L [Right Brachial artery] Blood Pressure [Sitting] Blood Pressure [Supine] O2 Saturation 97 97 Oxygen O2 Source [Without Activity] Room air O2 Source Room air I&O (Last 24 Hrs): Intake and Output Totals x24h 10/17/19 10/18/19 10/19/19 23:59 23:59 23:59 Intake Total 2355.00 2567.50 2432.5 Output Total 1325 1250 475 Balance 1030.00 1317.50 1957.5 General: Alert, No acute distress HEENT: Atraumatic Neck: Supple Lymphatic: no adenopathy Neuro: Alert, Non Focal Cardiovascular: Regular rate, Normal S1 Respiratory: Chest non-tender, No respiratory distress Abdomen: Normal bowel sounds, Soft, No tenderness Extremities: Normal pulses - Results Results: Laboratory Results WBC 8.9 x10^3/uL (4.8-10.8) 10/19/19 05:12 RBC 3.65 10^6/uL (4.70-6.10) L 10/19/19 05:12 Hgb 12.1 g/dL (14.0-18.0) L 10/19/19 05:12 Hct 35.7 % (42.0-52.0) L 10/19/19 05:12 MCV 97.8 fL (80.0-94.0) H 10/19/19 05:12 MCH 33.2 pg (27.0-31.0) H 10/19/19 05:12 MCHC 33.9 g/dL (32.0-36.0) 10/19/19 05:12 RDW 11.8 % (12.0-15.0) L 10/19/19 05:12 Plt Count 206 10^3/uL (130-450) 10/19/19 05:12 MPV 10.9 fL (7.4-11.4) 10/19/19 05:12 Neut # (Auto) 7.7 10^3/uL (1.5-6.6) H 10/19/19 05:12 Lymph # (Auto) 0.7 10^3/uL (1.5-3.5) L 10/19/19 05:12 [place] # (Auto) 0.5 10^3/uL (0.0-1.0) 10/19/19 05:12 Eos # (Auto) 0.0 10^3/uL (0.0-0.7) 10/19/19 05:12 Baso # (Auto) 0.0 10^3/uL (0.0-0.1) 10/19/19 05:12 Absolute Nucleated RBC 0.00 x10^3/uL 10/19/19 05:12 Nucleated RBC % 0.0 /100WBC 10/19/19 05:12 PT 12.4 secs (9.9-12.6) 10/14/19 21:58 INR 1.1 (0.8-1.2) 10/14/19 21:58 APTT 28.5 secs (24.9-33.3) 10/14/19 21:58 VBG pH 7.394 (7.31-7.41) 10/14/19 21:58 VBG pCO2 36.8 mmHg (41-51) L 10/14/19 21:58 VBG pO2 29.3 mmHg (25-47) 10/14/19 21:58 VBG HCO3 22.0 mmol/L (23-28) L 10/14/19 21:58 VBG Total CO2 23.1 mmol/L (24-29) L 10/14/19 21:58 VBG O2 Saturation 58.4 % (60-80) L 10/14/19 21:58 VBG Base Excess -2.3 mmol/L (-2 - +2) L 10/14/19 21:58 Sodium 143 mmol/L (135-145) 10/19/19 05:12 Potassium 3.7 mmol/L (3.5-5.0) 10/19/19 05:12 Chloride 115 mmol/L (101-111) H 10/19/19 05:12 Carbon Dioxide 20 mmol/L (21-32) L 10/19/19 05:12 Anion Gap 8.0 (6-13) 10/19/19 05:12 BUN 37 mg/dL (6-20) H 10/19/19 05:12 Creatinine 1.2 mg/dL (0.6-1.2) 10/19/19 05:12 Estimated GFR (MDRD) 57 (>89) L 10/19/19 05:12 Glucose 277 mg/dL (70-100) H 10/19/19 05:12 POC Whole Bld Glucose 316 mg/dL (70 - 100) H 10/19/19 11:02 Estimat Average Glucose 212 mg/dL (70-100) H 10/16/19 04:40 Hemoglobin A1c % 9.0 % (4.27-6.07) H 10/16/19 04:40 Lactic Acid 1.7 mmol/L (0.5-2.2) 10/14/19 21:58 Calcium 8.0 mg/dL (8.5-10.3) L 10/19/19 05:12 Magnesium 1.5 mg/dL (1.7-2.8) L 10/14/19 21:58 Total Bilirubin 1.1 mg/dL (0.2-1.0) H 10/14/19 21:58 AST 21 IU/L (10-42) 10/14/19 21:58 ALT 30 IU/L (10-60) 10/14/19 21:58 Alkaline Phosphatase 47 IU/L (42-121) 10/14/19 21:58 Total Creatine Kinase 44 IU/L (22-269) 10/14/19 21:58 Troponin I High Sens 10.3 ng/L (2.3-19.7) 10/14/19 21:58 B-Natriuretic Peptide 46 pg/mL (5-100) 10/14/19 21:58 Total Protein 7.7 g/dL (6.7-8.2) 10/14/19 21:58 Albumin 4.3 g/dL (3.2-5.5) 10/14/19 21:58 Globulin 3.4 g/dL (2.1-4.2) 10/14/19 21:58 Albumin/Globulin Ratio 1.3 (1.0-2.2) 10/14/19 21:58 Lipase 25 U/L (22-51) 10/14/19 21:58 Urine Color YELLOW 10/14/19 23:23 Urine Clarity CLEAR (CLEAR) 10/14/19 23:23 Urine pH 5.5 PH (5.0-7.5) 10/14/19 23:23 Ur Specific [place] 1.015 (1.002-1.030) 10/14/19 23:23 Urine Protein NEGATIVE mg/dL (NEGATIVE) 10/14/19 23:23 Urine Glucose (UA) 500 mg/dL (NEGATIVE) H 10/14/19 23:23 Urine Ketones TRACE mg/dL (NEGATIVE) 10/14/19 23:23 Urine Occult Blood NEGATIVE (NEGATIVE) 10/14/19 23:23 Urine Nitrite NEGATIVE (NEGATIVE) 10/14/19 23:23 Urine Bilirubin NEGATIVE (NEGATIVE) 10/14/19 23:23 Urine Urobilinogen 0.2 (NORMAL) E.U./dL (NORMAL) 10/14/19 23:23 Ur Leukocyte Esterase NEGATIVE (NEGATIVE) 10/14/19 23:23 Ur Microscopic Review NOT INDICATED 10/14/19 23:23 Urine Culture Comments NOT INDICATED 10/14/19 23:23 Serum Ketones NEGATIVE (NEGATIVE) 10/14/19 21:58 Coronavirus (PCR) NEGATIVE 10/14/19 22:15 Influenza A (Rapid) Negative (Negative) 10/14/19 22:15 Influenza B (Rapid) Negative (Negative) 10/14/19 22:15 Group A Strep Rapid Negative (Negative) 10/14/19 22:15 - Procedures Procedures: Procedures EXCIS KNEE SEMILUN CARTL (09/28/13) KNEE SYNOVECTOMY (09/28/13) RESECTION OF GALLBLADDER, PERCUTANEOUS ENDOSCOPIC APPROACH (11/17/16) ABX Reporting Has patient been on IV antibiotics over the past 48 hours?: Yes Current Medications - Current Medications Current Medications: Active Medications Acetaminophen (Tylenol) 650 mg PO Q6HR PRN PRN Reason: Pain 1 to 4 Acetaminophen (Tylenol) 650 mg SC Q6HR PRN PRN Reason: Pain or Fever > 38C (100.4F) Last Admin: 10/16/19 08:49 Dose: 650 mg Documented by: Chlorhexidine Gluconate (Peridex) 15 ml PO BID [facility] Last Admin: 10/19/19 11:09 Dose: 15 ml Documented by: Enoxaparin Sodium (Lovenox) 40 mg SUBQ DAILY [facility] Last Admin: 10/19/19 11:09 Dose: 40 mg Documented by: Sodium Chloride (Normal Saline 0.9%) 1,000 mls @ 75 mls/hr IV .[id number] [facility] Last Admin: 10/19/19 06:41 Dose: 75 mls/hr Documented by: Piperacillin Sod/Tazobactam (Sod 3.375 gm/ Sodium Chloride) 100 mls @ 25 mls/hr IV Q8H [facility] Last Admin: 10/19/19 11:08 Dose: 25 mls/hr Documented by: Vancomycin HCl 2 gm/ Sodium (Chloride) 500 mls @ 250 mls/hr IV Q24H [facility] Last Infusion: 10/18/19 18:15 Dose: Infused Documented by: Insulin Aspart (Novolog) 3 - 11 unit SUBQ 0800,1200,1700,2100 [facility]; Protocol Insulin Glargine (Lantus Solostar) 10 unit SUBQ QPM [facility] Mineral Oil (Cavilon) 1 applic TOP PRN PRN PRN Reason: Skin Care Last Admin: 10/18/19 21:08 Dose: 2 applic Documented by: Nitroglycerin (Nitro-Dur) 1 patch TOP DAILY [facility] Last Admin: 10/19/19 11:09 Dose: 1 patch Documented by: Pantoprazole Sodium (Protonix) 40 mg IVP QDAC [facility] Last Admin: 10/19/19 06:42 Dose: 40 mg Documented by: Phenol/Menthol (Chloraseptic) 2 sprays MM Q2HR PRN PRN Reason: Throat Pain Last Admin: 10/17/19 11:47 Dose: 2 sprays Documented by: Saccharomyces Boulardii (Florastor) 250 mg PO BIDWM [facility] Sodium Chloride (Normal Saline Flush 0.9%) 10 ml IVP PRN PRN PRN Reason: NEEDED PER PROVIDER ORDERS Last Admin: 10/19/19 06:42 Dose: 10 ml Documented by: Sodium Chloride (Normal Saline Flush 0.9%) 10 ml IVP 0100,0900,1700 [facility] Last Admin: 10/19/19 11:10 Dose: Not Given Documented by: Cholecalciferol (Vitamin D3) [Vitamin D3] 2,000 unit PO BID 09/27/13 Krill/Mcgregor-3/Dha/Epa/Lipids [Krill Oil 300 mg Softgel] 1 each PO DAILY 09/27/13 Losartan [Cozaar] 50 mg PO DAILY 09/27/13 Metformin HCl 500 mg PO BID 09/27/13 Ubidecarenone [Co Q-10] 200 mg PO DAILY 09/27/13 Vitamin B Complex Vit C No.4 [Super B Complex] 150 mg PO DAILY 09/27/13 Esomeprazole Magnesium [Nexium] 20 mg PO DAILY 03/05/15 Acetaminophen [Tylenol] 650 mg PO Q6H PRN 11/18/16 Aspirin Chewable [St Juvenal Aspirin] 81 mg PO DAILY 11/18/16 Isosorbide Dinitrate 30 mg PO DAILY 08/11/18 Cyanocobalamin (Vitamin B-12) [Vitamin B-12] 1 tab PO DAILY 04/05/19 Multivit-Min/FA/Lycopen/Lutein [Centrum Silver Men Tablet] 1 tab PO DAILY 04/05/19 Rosuvastatin Calcium 0.5 tab PO DAILY 04/05/19 Nitrofurantoin [Macrobid] 1 cap PO BID 07/07/19
[2019-10-19] MEDS: VANCOMYCIN INJ 2 GM in SODIUM CHLORIDE 0.9% 500 ML IV SCH (16:51)
[2019-10-19] MEDS: SACCHAROMYCES BOULARDII 250 MG CAPSULE PO SCH (16:51)
[2019-10-19] MEDS: MIN OIL/DIMETHICON/COCONUT OIL 92 GM TUBE TOP PRN (20:52)
[2019-10-19] MEDS: INSULIN GLARGINE 300 UNIT/3 ML PEN SUBQ SCH (20:53)
[2019-10-20] MEDS: SODIUM CHLORIDE FLUSH 0.9% 10 ML SYRINGE IVP SCH ×3 (00:46→17:19)
[2019-10-20] MEDS: PIPERACILLIN/TAZOBACTAM 3.375 GM in SODIUM CHLORIDE 0.9% MINIBAG 100 ML IV SCH ×3 (02:55→19:40)
[2019-10-20 05:32] LABS: BASOPHILS % (AUTO) 0.5 %; EOSINOPHILS # (AUTO) 0.3 10^3/uL (0.0-0.7); EOSINOPHILS % (AUTO) 3.6 %; LYMPHOCYTES # (AUTO) 1.3 10^3/uL (1.5-3.5); LYMPHOCYTES % (AUTO) 15.3 %; MEAN CORPUSCULAR HEMOGLOBIN 32.8 pg (27.0-31.0); MEAN CORPUSCULAR HGB CONC 33.1 g/dL (32.0-36.0); MEAN CORPUSCULAR VOLUME 99.2 fL (80.0-94.0); MEAN PLATELET VOLUME 10.6 fL (7.4-11.4); MONOCYTES # (AUTO) 0.4 10^3/uL (0.0-1.0); MONOCYTES % (AUTO) 5.2 %; NEUTROPHILS # (AUTO) 6.1 10^3/uL (1.5-6.6); NEUTROPHILS % (AUTO) 73.5 %; PLT - PLATELET COUNT 222 10^3/uL (130-450); RED BLOOD COUNT 3.66 10^6/uL (4.70-6.10); WHITE BLOOD COUNT 8.3 x10^3/uL (4.8-10.8)
[2019-10-20 05:38] LABS: CALCIUM 8.4 mg/dL (8.5-10.3); CREATININE 1.3 mg/dL (0.6-1.2)
[2019-10-20] MEDS: PANTOPRAZOLE 40 MG VIAL IVP SCH (06:22)
[2019-10-20] MEDS ORDERED: LACTATED RINGERS 1,000 ML IV SCH ×2 (08:00)
[2019-10-20] MEDS: INSULIN ASPART 300 UNIT/3 ML PEN SUBQ SCH ×4 (08:24→21:54)
[2019-10-20] MEDS: SACCHAROMYCES BOULARDII 250 MG CAPSULE PO SCH ×2 (08:25→17:19)
[2019-10-20] MEDS: SODIUM CHLORIDE 0.9% 1,000 ML IV SCH (08:25)
[2019-10-20] MEDS ORDERED: ISOSORBIDE MONONITRATE ER 30 MG TABLET PO SCH ×2 (09:00→12:11)
[2019-10-20] MEDS: ASPIRIN CHEW 81 MG TABLET PO SCH (09:44)
[2019-10-20] MEDS: ENOXAPARIN 40 MG/0.4 ML SYRINGE SUBQ SCH (09:45)
[2019-10-20] MEDS: CHLORHEXIDINE GLUCONATE 15 ML UDC PO SCH ×2 (09:45→21:54)
[2019-10-20] MEDS: ACETAMINOPHEN 325 MG TABLET PO PRN ×2 (09:50→17:40)
[2019-10-20 15:25] LABS: VANCOMYCIN,TROUGH 14.8 ug/mL (10.0-20.0)
[2019-10-20 15:37] LABS: CALCIUM 8.2 mg/dL (8.5-10.3); CREATININE 1.4 mg/dL (0.6-1.2)
--- NOTE | 2019-10-20 17:00 | PROVIDER PROGRESS NOTE ---
Assessment/Plan - Problem List (1) Acute urinary retention Assessment/Plan: 2We will DC the Handy, but the patient cannot urinated by self for over 6 hours. Bladder scale showed patient had over 400 urine bladder. back of Handy again. Continue flomax, Advised patient follow-up with urologist as outpatient. (2) Cellulitis of pharynx 2Continue to improve,WBC is normal now, Patient has no fever or chill.Continue antibiotics, We will switch to oral antibiotics when patient is discharged. Patient had significant improvement, Patient reported he did swallow good. Patient ate 100% of his meal. Patient WBC is normal, blood culture is negative for bacteremia, no fever or chilly. Patient started with new antibiotics on yesterday. Add probiotics. Patient was not transferred to high level of care on yesterday, patient stay in hospital and and improved.We will continue consult and follow-up with surgeon as well. Continue Zosyn and vancomycin. (3) Dysphagia Assessment/Plan: 92, patient 100% for his dysphagia diet. We will consult with cleat layer and education patient with discharge of dysphagia diet. Improved, patient had a 100% of his meal without difficulty. continues to need oral care by his nurse. (4) Aspiration pneumonia Assessment/Plan: Continue improved. Non respiratory distress now. Patient had 97% sats on room air without Respiratory distress. The throat cul ture was negative for strep. He had no sputum at admission, to send for culture. Blood cultures are negative to date. Continue with empiric iv antibiotics, Zosyn and vancomycin (5) CKD (chronic kidney disease) Assessment/Plan: Improved, Creatinine is 1.2 today,Creatinine remains at 1.3-1.4 daily Continue with IV hydration until eating and drinking. Follow BMP daily (6) Diabetes Patient's glucose level is elevated, is likely from recently usage of steroid. increase of Lantus and sliding scale insulin insulin coverage (7) Hx of coronary artery disease Assessment/Plan: No cardiopulmonary issues at this time (8) Hyperlipidemia Qualifiers: Hyperlipidemia type: unspecified Qualified Code(s): E78.5 - Hyperlipidemia, unspecified Assessment/Plan: He is unable to get his oral pills currently (9) Decubitus ulcer of right ischial tuberosity region Assessment/Plan: Improved, Continue nursing care and every 2 hour position change. Actually, he had large red areas over both ischial tuberosities, his pain is worse on the le ft. Per PT/OT recommendation, home health PT/OT and ST is arranged for patient (10) GERD (gastroesophageal reflux disease) Assessment/Plan: He is getting IV Protonix for ulcer prophylaxis. (11) AMS (altered mental status) Assessment/Plan: Resolved, he is communicative, joking, says he is interested in starting food. and I were at bedside together and she said thuis is his usual personality. - Current Meds Current Meds: Current Medications Generic Name Dose Route Start Last Admin Trade Name Freq PRN Reason Stop Dose Admin Acetaminophen 650 mg 10/15/19 01:36 10/20/19 09:50 Tylenol PO 650 mg Q6HR PRN Administration Pain 1 to 4 Acetaminophen 650 mg 10/16/19 08:09 10/16/19 08:49 Tylenol UT 650 mg Q6HR PRN Administration Pain or Fever > 38C (100.4F) Aspirin 81 mg 10/20/19 09:00 10/20/19 09:44 [place] Aspirin PO 81 mg DAILY CARLOS Administration Chlorhexidine Gluconate 15 ml 10/15/19 09:00 10/20/19 09:45 Peridex PO 15 ml BID CARLOS Administration Enoxaparin Sodium 40 mg 10/15/19 09:00 10/20/19 09:45 Lovenox SUBQ 40 mg DAILY CARLOS Administration Piperacillin Sod/Tazobactam 100 mls @ 25 mls/hr 10/18/19 11:00 10/20/19 15:25 Sod 3.375 gm/ Sodium Chloride IV Infused Q8H CARLOS Infusion Vancomycin HCl 2 gm/ Sodium 500 mls @ 250 mls/hr 10/18/19 16:00 10/19/19 18:56 Chloride IV Infused Q24H CARLOS Infusion Insulin Aspart 3 - 11 unit 10/19/19 17:00 10/20/19 11:34 Novolog SUBQ 7 unit 0800,1200,1700,2100 CARLOS Administration Protocol Insulin Glargine 10 unit 10/19/19 21:00 10/19/19 20:53 Lantus Solostar SUBQ 10 unit QPM CARLOS Administration Mineral Oil 1 applic 10/15/19 03:09 10/19/19 20:52 Cavilon TOP 1 applic PRN PRN Administration Skin Care Pantoprazole Sodium 40 mg 10/16/19 07:00 10/20/19 06:22 Protonix IVP 40 mg QDAC CARLOS Administration Phenol/Menthol 2 sprays 10/17/19 10:35 10/17/19 11:47 Chloraseptic MM 2 sprays Q2HR PRN Administration Throat Pain Saccharomyces Boulardii 250 mg 10/19/19 17:00 10/20/19 08:25 Florastor PO 250 mg BIDWM CARLOS Administration Sodium Chloride 10 ml 10/15/19 01:36 10/19/19 06:42 Normal Saline Flush 0.9% IVP 10 ml PRN PRN Administration NEEDED PER PROVIDER ORDERS Sodium Chloride 10 ml 10/15/19 09:00 10/20/19 10:55 Normal Saline Flush 0.9% IVP Not Given 0100,0900,1700 CARLOS - Lab Result Fish Bone Diagrams: 10/20/19 04:50 10/20/19 15:09 - Additional Planning My Orders: My Active Orders 10/19/19 17:00 Insulin Aspart [NovoLOG] 3 - 11 unit SUBQ 0800,1200,1700,2100 Saccharomyces Boulardii [Florastor] 250 mg PO BIDWM 10/19/19 21:00 Insulin Glargine [Lantus Solostar] 10 unit SUBQ QPM 10/20/19 09:00 Aspirin Chewable [St Juvenal Aspirin] 81 mg PO DAILY 10/20/19 12:11 Isosorbide Mononitrate ER [Imdur] 30 mg PO DAILY 10/20/19 15:50 Nutrition Consult [CONS] Routine 10/20/19 15:55 Tamsulosin [Flomax] 0.4 mg PO DAILY Subjective - Subjective Patient Reports: Feeling Better Objective Vital Signs: Vital Signs - 24 hr 10/19/19 10/19/19 10/20/19 18:49 23:55 08:00 Temperature 36.5 C 36.3 C L Heart Rate [ 51 L 55 L 47 L Brachial] Respiratory 16 18 Rate Blood Pressure 109/77 [Left Brachial artery] Blood Pressure 137/69 H [Right Brachial artery] O2 Saturation 99 96 Oxygen O2 Source [Without Activity] Room air O2 Source Room air I&O (Last 24 Hrs): Intake and Output Totals x24h 10/18/19 10/19/19 10/20/19 23:59 23:59 23:59 Intake Total 2567.50 4447.0 2213.333 Output Total 1250 1650 1050 Balance 1317.50 2797.0 1163.333 General: Alert, No acute distress HEENT: Atraumatic Neck: Supple Lymphatic: no adenopathy Neuro: Alert, Non Focal Cardiovascular: Normal S1, Normal S2 Respiratory: Chest non-tender, No respiratory distress Abdomen: Normal bowel sounds, Soft, No tenderness Extremities: Normal pulses - Results Results: Laboratory Results WBC 8.3 x10^3/uL (4.8-10.8) 10/20/19 04:50 RBC 3.66 10^6/uL (4.70-6.10) L 10/20/19 04:50 Hgb 12.0 g/dL (14.0-18.0) L 10/20/19 04:50 Hct 36.3 % (42.0-52.0) L 10/20/19 04:50 MCV 99.2 fL (80.0-94.0) H 10/20/19 04:50 MCH 32.8 pg (27.0-31.0) H 10/20/19 04:50 MCHC 33.1 g/dL (32.0-36.0) 10/20/19 04:50 RDW 12.0 % (12.0-15.0) 10/20/19 04:50 Plt Count 222 10^3/uL (130-450) 10/20/19 04:50 MPV 10.6 fL (7.4-11.4) 10/20/19 04:50 Neut # (Auto) 6.1 10^3/uL (1.5-6.6) 10/20/19 04:50 Lymph # (Auto) 1.3 10^3/uL (1.5-3.5) L 10/20/19 04:50 Summers # (Auto) 0.4 10^3/uL (0.0-1.0) 10/20/19 04:50 Eos # (Auto) 0.3 10^3/uL (0.0-0.7) 10/20/19 04:50 Baso # (Auto) 0.0 10^3/uL (0.0-0.1) 10/20/19 04:50 Absolute Nucleated RBC 0.00 x10^3/uL 10/20/19 04:50 Nucleated RBC % 0.0 /100WBC 10/20/19 04:50 PT 12.4 secs (9.9-12.6) 10/14/19 21:58 INR 1.1 (0.8-1.2) 10/14/19 21:58 APTT 28.5 secs (24.9-33.3) 10/14/19 21:58 VBG pH 7.394 (7.31-7.41) 10/14/19 21:58 VBG pCO2 36.8 mmHg (41-51) L 10/14/19 21:58 VBG pO2 29.3 mmHg (25-47) 10/14/19 21:58 VBG HCO3 22.0 mmol/L (23-28) L 10/14/19 21:58 VBG Total CO2 23.1 mmol/L (24-29) L 10/14/19 21:58 VBG O2 Saturation 58.4 % (60-80) L 10/14/19 21:58 VBG Base Excess -2.3 mmol/L (-2 - +2) L 10/14/19 21:58 Sodium 141 mmol/L (135-145) 10/20/19 15:09 Potassium 3.6 mmol/L (3.5-5.0) 10/20/19 15:09 Chloride 110 mmol/L (101-111) 10/20/19 15:09 Carbon Dioxide 23 mmol/L (21-32) 10/20/19 15:09 Anion Gap 8.0 (6-13) 10/20/19 15:09 BUN 33 mg/dL (6-20) H 10/20/19 15:09 Creatinine 1.4 mg/dL (0.6-1.2) H 10/20/19 15:09 Estimated GFR (MDRD) 48 (>89) L 10/20/19 15:09 Glucose 276 mg/dL (70-100) H 10/20/19 15:09 POC Whole Bld Glucose 232 mg/dL (70 - 100) H 10/20/19 11:29 Estimat Average Glucose 212 mg/dL (70-100) H 10/16/19 04:40 Hemoglobin A1c % 9.0 % (4.27-6.07) H 10/16/19 04:40 Lactic Acid 1.7 mmol/L (0.5-2.2) 10/14/19 21:58 Calcium 8.2 mg/dL (8.5-10.3) L 10/20/19 15:09 Magnesium 1.5 mg/dL (1.7-2.8) L 10/14/19 21:58 Total Bilirubin 1.1 mg/dL (0.2-1.0) H 10/14/19 21:58 AST 21 IU/L (10-42) 10/14/19 21:58 ALT 30 IU/L (10-60) 10/14/19 21:58 Alkaline Phosphatase 47 IU/L (42-121) 10/14/19 21:58 Total Creatine Kinase 44 IU/L (22-269) 10/14/19 21:58 Troponin I High Sens 10.3 ng/L (2.3-19.7) 10/14/19 21:58 B-Natriuretic Peptide 46 pg/mL (5-100) 10/14/19 21:58 Total Protein 7.7 g/dL (6.7-8.2) 10/14/19 21:58 Albumin 4.3 g/dL (3.2-5.5) 10/14/19 21:58 Globulin 3.4 g/dL (2.1-4.2) 10/14/19 21:58 Albumin/Globulin Ratio 1.3 (1.0-2.2) 10/14/19 21:58 Lipase 25 U/L (22-51) 10/14/19 21:58 Urine Color YELLOW 10/14/19 23:23 Urine Clarity CLEAR (CLEAR) 10/14/19 23:23 Urine pH 5.5 PH (5.0-7.5) 10/14/19 23:23 Ur Specific [place] 1.015 (1.002-1.030) 10/14/19 23:23 Urine Protein NEGATIVE mg/dL (NEGATIVE) 10/14/19 23:23 Urine Glucose (UA) 500 mg/dL (NEGATIVE) H 10/14/19 23:23 Urine Ketones TRACE mg/dL (NEGATIVE) 10/14/19 23:23 Urine Occult Blood NEGATIVE (NEGATIVE) 10/14/19 23:23 Urine Nitrite NEGATIVE (NEGATIVE) 10/14/19 23:23 Urine Bilirubin NEGATIVE (NEGATIVE) 10/14/19 23:23 Urine Urobilinogen 0.2 (NORMAL) E.U./dL (NORMAL) 10/14/19 23:23 Ur Leukocyte Esterase NEGATIVE (NEGATIVE) 10/14/19 23:23 Ur Microscopic Review NOT INDICATED 10/14/19 23:23 Urine Culture Comments NOT INDICATED 10/14/19 23:23 Nasal Screen MRSA (PCR) NEGATIVE (NEGATIVE) 10/19/19 13:18 Last Dose Date 10/19/2019 10/20/19 15:09 Last Dose Time 18:56 10/20/19 15:09 Vancomycin Trough 14.8 ug/mL (10.0-20.0) 10/20/19 15:09 Serum Ketones NEGATIVE (NEGATIVE) 10/14/19 21:58 Coronavirus (PCR) NEGATIVE 10/14/19 22:15 Influenza A (Rapid) Negative (Negative) 10/14/19 22:15 Influenza B (Rapid) Negative (Negative) 10/14/19 22:15 Group A Strep Rapid Negative (Negative) 10/14/19 22:15 - Procedures Procedures: Procedures EXCIS KNEE SEMILUN CARTL (09/28/13) KNEE SYNOVECTOMY (09/28/13) RESECTION OF GALLBLADDER, PERCUTANEOUS ENDOSCOPIC APPROACH (11/17/16) ABX Reporting Has patient been on IV antibiotics over the past 48 hours?: Yes Current Medications - Current Medications Current Medications: Active Medications Acetaminophen (Tylenol) 650 mg PO Q6HR PRN PRN Reason: Pain 1 to 4 Last Admin: 10/20/19 17:40 Dose: 650 mg Documented by: Acetaminophen (Tylenol) 650 mg [place] Q6HR PRN PRN Reason: Pain or Fever > 38C (100.4F) Last Admin: 10/16/19 08:49 Dose: 650 mg Documented by: Aspirin (St Juvenal Aspirin) 81 mg PO DAILY [facility] Last Admin: 10/20/19 09:44 Dose: 81 mg Documented by: Chlorhexidine Gluconate (Peridex) 15 ml PO BID [facility] Last Admin: 10/20/19 09:45 Dose: 15 ml Documented by: Enoxaparin Sodium (Lovenox) 40 mg SUBQ DAILY [facility] Last Admin: 10/20/19 09:45 Dose: 40 mg Documented by: Piperacillin Sod/Tazobactam (Sod 3.375 gm/ Sodium Chloride) 100 mls @ 25 mls/hr IV Q8H [facility] Last Infusion: 10/20/19 15:25 Dose: Infused Documented by: Vancomycin HCl 2 gm/ Sodium (Chloride) 500 mls @ 250 mls/hr IV Q24H [facility] Last Admin: 10/20/19 17:18 Dose: 250 mls/hr Documented by: Insulin Aspart (Novolog) 3 - 11 unit SUBQ 0800,1200,1700,2100 [facility]; Protocol Last Admin: 10/20/19 17:45 Dose: 5 unit Documented by: Insulin Glargine (Lantus Solostar) 10 unit SUBQ QPM [facility] Last Admin: 10/19/19 20:53 Dose: 10 unit Documented by: Isosorbide Mononitrate (Imdur) 30 mg PO DAILY [facility] Mineral Oil (Cavilon) 1 applic TOP PRN PRN PRN Reason: Skin Care Last Admin: 10/19/19 20:52 Dose: 1 applic Documented by: Pantoprazole Sodium (Protonix) 40 mg IVP QDAC [facility] Last Admin: 10/20/19 06:22 Dose: 40 mg Documented by: Phenol/Menthol (Chloraseptic) 2 sprays MM Q2HR PRN PRN Reason: Throat Pain Last Admin: 10/17/19 11:47 Dose: 2 sprays Documented by: Saccharomyces Boulardii (Florastor) 250 mg PO BIDWM [facility] Last Admin: 10/20/19 17:19 Dose: 250 mg Documented by: Sodium Chloride (Normal Saline Flush 0.9%) 10 ml IVP PRN PRN PRN Reason: NEEDED PER PROVIDER ORDERS Last Admin: 10/19/19 06:42 Dose: 10 ml Documented by: Sodium Chloride (Normal Saline Flush 0.9%) 10 ml IVP 0100,0900,1700 [facility] Last Admin: 10/20/19 17:19 Dose: Not Given Documented by: Tamsulosin HCl (Flomax) 0.4 mg PO DAILY [facility] Last Admin: 10/20/19 17:18 Dose: 0.4 mg Documented by: Cholecalciferol (Vitamin D3) [Vitamin D3] 2,000 unit PO BID 09/27/13 Krill/[place]-3/Dha/Epa/Lipids [Krill Oil 300 mg Softgel] 1 each PO DAILY 09/27/13 Losartan [Cozaar] 50 mg PO DAILY 09/27/13 Metformin HCl 500 mg PO BID 09/27/13 Ubidecarenone [Co Q-10] 200 mg PO DAILY 09/27/13 Vitamin B Complex Vit C No.4 [Super B Complex] 150 mg PO DAILY 09/27/13 Esomeprazole Magnesium [Nexium] 20 mg PO DAILY 03/05/15 Acetaminophen [Tylenol] 650 mg PO Q6H PRN 11/18/16 Aspirin Chewable [St Juvenal Aspirin] 81 mg PO DAILY 11/18/16 Cyanocobalamin (Vitamin B-12) [Vitamin B-12] 1 tab PO DAILY 04/05/19 Multivit-Min/FA/Lycopen/Lutein [Centrum Silver Men Tablet] 1 tab PO DAILY 04/05/19 Rosuvastatin Calcium 0.5 tab PO DAILY 04/05/19 Nitrofurantoin [Macrobid] 1 cap PO BID 07/07/19 Isosorbide Mononitrate ER [Imdur] 30 mg PO DAILY 10/20/19
[2019-10-20] MEDS ORDERED: LIDOCAINE 2% URO-JET 5 ML SYRINGE UR ONE (17:08)
[2019-10-20] MEDS: TAMSULOSIN 0.4 MG CAPSULE PO SCH (17:18)
[2019-10-20] MEDS: VANCOMYCIN INJ 2 GM in SODIUM CHLORIDE 0.9% 500 ML IV SCH (17:18)
[2019-10-20] MEDS: INSULIN GLARGINE 300 UNIT/3 ML PEN SUBQ SCH (21:54)
[2019-10-20] MEDS: MIN OIL/DIMETHICON/COCONUT OIL 92 GM TUBE TOP PRN (21:55)
[2019-10-21] MEDS: SODIUM CHLORIDE FLUSH 0.9% 10 ML SYRINGE IVP SCH ×2 (00:45→08:14)
[2019-10-21] MEDS: PIPERACILLIN/TAZOBACTAM 3.375 GM in SODIUM CHLORIDE 0.9% MINIBAG 100 ML IV SCH (02:53)
[2019-10-21] MEDS ORDERED: SODIUM CHLORIDE 0.9% 500 ML IV PRN (06:09)
[2019-10-21] MEDS: PANTOPRAZOLE 40 MG VIAL IVP SCH (06:37)
[2019-10-21 08:08] LABS: BASOPHILS % (AUTO) 0.5 %; EOSINOPHILS # (AUTO) 0.3 10^3/uL (0.0-0.7); EOSINOPHILS % (AUTO) 3.7 %; HGB - HEMOGLOBIN 12.6 g/dL (14.0-18.0); LYMPHOCYTES # (AUTO) 1.1 10^3/uL (1.5-3.5); LYMPHOCYTES % (AUTO) 14.1 %; MEAN CORPUSCULAR HEMOGLOBIN 33.4 pg (27.0-31.0); MEAN CORPUSCULAR HGB CONC 34.4 g/dL (32.0-36.0); MEAN CORPUSCULAR VOLUME 97.1 fL (80.0-94.0); MEAN PLATELET VOLUME 10.6 fL (7.4-11.4); MONOCYTES # (AUTO) 0.4 10^3/uL (0.0-1.0); MONOCYTES % (AUTO) 5.3 %; NEUTROPHILS # (AUTO) 5.7 10^3/uL (1.5-6.6); NEUTROPHILS % (AUTO) 74.2 %; PLT - PLATELET COUNT 225 10^3/uL (130-450); RED BLOOD COUNT 3.77 10^6/uL (4.70-6.10); RED CELL DISTRIBUTION WIDTH 11.9 % (12.0-15.0); WHITE BLOOD COUNT 7.7 x10^3/uL (4.8-10.8)
[2019-10-21 08:11] LABS: CALCIUM 8.3 mg/dL (8.5-10.3); CREATININE 1.1 mg/dL (0.6-1.2)
[2019-10-21] MEDS: SACCHAROMYCES BOULARDII 250 MG CAPSULE PO SCH (08:11)
[2019-10-21] MEDS: CHLORHEXIDINE GLUCONATE 15 ML UDC PO SCH (08:11)
[2019-10-21] MEDS: ENOXAPARIN 40 MG/0.4 ML SYRINGE SUBQ SCH (08:11)
[2019-10-21] MEDS: INSULIN ASPART 300 UNIT/3 ML PEN SUBQ SCH ×2 (08:12→11:35)
[2019-10-21] MEDS: TAMSULOSIN 0.4 MG CAPSULE PO SCH (08:12)
[2019-10-21] MEDS: ASPIRIN CHEW 81 MG TABLET PO SCH (08:13)
--- NOTE | 2019-10-21 10:06 | XRAY Report ---
PROCEDURE: Chest 1 View X-Ray INDICATIONS: SOB TECHNIQUE: One view of the chest was acquired. COMPARISON: 10/14/2019 FINDINGS: Surgical changes and devices: None. Lungs and pleura: No pleural effusions or pneumothorax. Mild pulmonary vascular congestion is seen. Overall bilateral lung aeration has improved since previous study. Mediastinum: Mediastinal contours appear normal. Heart size is normal. Bones and chest wall: No suspicious bony lesions. Overlying soft tissues appear unremarkable. IMPRESSION: Very mild pulmonary vascular congestion and suggestion of very mild pulmonary edema. No definite foca l infiltrate. No pleural effusion or pneumothorax. Reviewed by: Rinku Clinton MD on 10/21/2019 10:05 AM PDT Approved by: Rinku Clinton MD on 10/21/2019 10:05 AM PDT Station ID: [id number]
--- NOTE | 2019-10-21 11:31 | Discharge Plan ---
Discharge Plan Problem Reviewed?: Yes Disposition: Home Health Service Condition: Stable Prescriptions: Amox/Clav 875/125 [Augmentin 875/125] 1 tab PO BID #10 tablet Amox/Clav 875/125 [Augmentin] 1 each PO Q12H #4 tablet Tamsulosin [Flomax] 0.4 mg PO DAILY #15 capsule Saccharomyces Boulardii [Florastor] 250 mg PO BID #10 capsule Chlorhexidine [Peridex] 15 ml PO BID #20 udc Diet: Diabetic Activity Restrictions: Activity as Tolerated Shower Restrictions: No (fall precaution, caregiver closely monitor) Instruction Topics: Tamsulosin capsules, Amoxicillin Clavulanic Acid tablets Health Concerns: cellulitis of the right maxillary vestibule, aspiration pneumonia, and urinary retention Plan of Treatment: you are prescribed Augmentin 875mg BID x 7 days after d/c, advise you follow up in Dr. Bar De León within 24 hours of discharge from the hospital. you are prescribed Chlorhexidine mouthrinse BID, advise you have Puree diet, keep hydration. Followup with your PCP and Dr. De León to have swallow image study as out-pt as clinic indicated. You still have urinary retention, you are prescribed Flomax now, advise you followup with urologist and PCP as out-pt to manage. Care Goals: stabilization and improvement of your medical conditions Assessment: discuss the care plan with you and your , you your understood Additional Instructions or Follow Up instructions: You may follow-up with Dr. De León in 24 hours, followup with your PCP in one week, followup with urologist as out-pt. Should your symptoms return or worsen, you may present ER or call 911 for help. No Smoking: If you smoke, Please STOP! Call for help. Follow-up with: Ray Cunha MD [Primary Care Provider] -
[2019-10-21] MEDS ORDERED: AMOX/CLAV 875 MG/125 MG TABLET PO SCH (12:00)
--- NOTE | 2019-10-21 13:38 | DISCHARGE SUMMARY ---
Discharge Summary Admit Date: 10/15/19 Discharge Date: 10/21/19 Discharging Provider: Demetrius shannon Primary Care Provider: Dr. Cunha Condition at Discharge: Stable Discharge Disposition: Home Health Service Discharge Facility Name: home - DIAGNOSES Discharge Diagnoses with Status of Each Condition: (1) Acute urinary retention Patient Had urinary retention problem at this admission, patient had a Handy initially then we D/C the Handy and let pt urinate by himself, but the patient still can not urinate by self, then we will put a Handy back for patient. patient was prescribed Flomax. Advised the patient follow-up with urologist and his PCP continue management. (2) Cellulitis of pharynx Stable/resolved. Patient has a normal WBC, patient has no fever, patient ate his puree diet 100% without a difficult. Patient is prescribed antibiotics Augmentin and follow-up with Dr. De León in 24 hours per surgeon's advise. (3) Dysphagia resolved/stable. pt tolerated puree diet very well, ate 100% at hospital without difficult. pt's diet was recommended for puree diet for his d/c home diet, I educated pt for puree diet, and assistant prosecuting attorney was consulted for pt how to prepare his puree diet, pt's was at the bedside and know pt need the puree diet. pt also was educated for keeping hydration. pt was advised to followup with his PCP or Dr. De León for swallow image study if he continue to have issue. unfortunately our hospital did not have swallowing image study. (4) Aspiration pneumonia Patient had 97% sats on room air without Respiratory distress. pt was recommended for puree diet. pt is prescribed Augmentin to finish the treatment course. educated pt for aspiration precaution. (5) CKD (chronic kidney disease) improved. Creatinine is 1.1 at the d/c. advise pt keep hydration (6) Diabetes chronic (7) Hx of coronary artery disease stable (8) Hyperlipidemia chronic (9) Decubitus ulcer of right ischial tuberosity region healing/resolved (10) GERD (gastroesophageal reflux disease) chronic (11) AMS (altered mental status) Resolved - HPI History of Present Illness: refer from Dr. Ascencio's HPI on 10/15/2019 The encounter below is obtained from the ED physician because the patient is somewhat confused and not very reliable historian. Also there is no family at bedside at this time overnight to assist with the history. Patient is an 88-year-old male who presented to the ED with altered mental status, lethargy and fever. It is reported that he had multiple teeth extracted and a full upper denture made by his dentist Ray Wilks 3 days ago. Yesterday he started feeling lethargic. He complained of difficulty opening his mouth and had a poor oral intake. His dentist visited him and recommend that he be e valuated in the emergency department and possibly have the extraction site debrided. A concern for possibly Kirk's angina was raised. In the ED the patient was found to have a temperature of 38.1 C and a white blood cell count of 15. Oromaxillofacial surgery was consulted and saw the patient in the ED. The patient also had a chest x-ray done which raised the possibility for atypical pneumonia. Consequently the patient is being admitted for further treatment - HOSPITAL COURSE Hospital Course: pt was admitted for altered mental status, lethargy and fever. pt was reported to have multiple teeth extracted and a full upper denture made by his dentist Ray Wilks 3 days ago. One day before the admission, he started feeling lethargic. Pt complained of difficulty opening his mouth and had a poor oral intake. Surgeon Dr Bernal was consulted. Pt was tried to be transferred to high level care. After our provider talked with ENT in [facility], and followed with ENT's advise, pt clinically had much improved. pt tolerated puree diet. pt had no more fever or chill, WBC became normal, hemodynamically pt became stable, blood culture was negative for bacteremia. pt was prescribed antibiotics and followup with Dr. De León in one day per surgeon's recommendation. - ALLERGIES Allergies/Adverse Reactions: Allergies Allergy/AdvReac Type Severity Reaction Status Date / Time No Known Drug Allergies Allergy Verified 10/14/19 21:39 - MEDICATIONS Home Medications: Ambulatory Orders Medication Instructions Recorded Confirmed Cholecalciferol (Vitamin D3) 2,000 unit PO BID 09/27/13 07/07/19 [Vitamin D3] Krill/[place]-3/Dha/Epa/Lipids 1 each PO DAILY 09/27/13 10/14/19 [Krill Oil 300 mg Softgel] Losartan [Cozaar] 50 mg PO DAILY 09/27/13 10/14/19 Metformin HCl 500 mg PO BID 09/27/13 10/14/19 Ubidecarenone [Co Q-10] 200 mg PO DAILY 09/27/13 10/14/19 Vitamin B Complex Vit C No.4 150 mg PO DAILY 09/27/13 10/14/19 [Super B Complex] Esomeprazole Magnesium [Nexium] 20 mg PO DAILY 03/05/15 10/14/19 Acetaminophen [Tylenol] 650 mg PO Q6H PRN 11/18/16 07/07/19 Aspirin Chewable [St Juvenal 81 mg PO DAILY 11/18/16 10/14/19 Aspirin] Cyanocobalamin (Vitamin B-12) 1 tab PO DAILY 04/05/19 07/07/19 [Vitamin B-12] Multivit-Min/FA/Lycopen/Lutein 1 tab PO DAILY 04/05/19 10/14/19 [Centrum Silver Men Tablet] Rosuvastatin Calcium 0.5 tab PO DAILY 04/05/19 10/14/19 Isosorbide Mononitrate ER [Imdur] 30 mg PO DAILY 10/20/19 10/20/19 Amox/Clav 875/125 [Augmentin 1 tab PO BID #10 tablet 10/21/19 875/125] Amox/Clav 875/125 [Augmentin] 1 each PO Q12H #4 tablet 10/21/19 Chlorhexidine [Peridex] 15 ml PO BID #20 udc 10/21/19 Saccharomyces Boulardii [Florastor] 250 mg PO BID #10 capsule 10/21/19 Tamsulosin [Flomax] 0.4 mg PO DAILY #15 capsule 10/21/19 - PHYSICAL EXAM AT DISCHARGE General Appearance: positive: No acute distress, Alert. negative: Lethargic Eyes Bilateral: positive: Normal inspection, PERRL, No lid inflammation ENT: positive: ENT inspection nml, No signs of dehydration. negative: Purulent nasal drainage, Dry mucous membranes Neck: positive: Nml inspection, Thyroid nml, Trachea midline. negative: Thyromegaly, Stiff neck, Tracheal deviation Respiratory: positive: Chest non-tender, No respiratory distress, Breath sounds nml. negative: Wheezes, Rales, Rhonchi Cardiovascular: positive: Regular rate & rhythm, No murmur, Bradycardia. negative: Tachycardia, Systolic murmur, Diastolic murmur Peripheral Pulses: positive: 2+ Abdomen: positive: Non-tender, Nml bowel sounds, No distention. negative: Tenderness, Guarding, Rebound Back: positive: Nml inspection. negative: CVA tenderness (R), CVA tenderness (L) Skin: positive: Color nml, No rash, Warm, Dry. negative: Cyanosis, Diaphoresis, Pallor Extremities: positive: Non-tender, Full ROM, Nml appearance. negative: Calf tenderness, Darian's sign/cords Neurologic/Psychiatric: positive: Motor nml, Sensation nml, Mood/affect nml. negative: Weakness, Sensory loss, Facial droop, Slurred/abnml speech, Depressed mood/affect - LABS Result Diagrams: 10/21/19 07:52 10/21/19 07:52 - FOLLOW UP Follow Up: you are prescribed Augmentin 875mg BID x 7 days after d/c, advise you follow up in Dr. Bar De León within 24 hours of discharge from the hospital. you are prescribed Chlorhexidine mouthrinse BID, advise you have Puree diet, keep hydration. Followup with your PCP and Dr. De León to have swallow image study as out-pt as clinic indicated. You still have urinary retention, you have a Handy now. you are prescribed Flomax now, advise you followup with urologist and PCP as out-pt to manage. - TIME SPENT Time Spent in Discharge (Minutes): 30
[2019-10-21 14:00] VITALS: BP 112/60
== END 2019-10-21 14:25 | disposition home health service (06) | DRG 178 ==
LOC: EDUNIT# → ED 21:31 → MS2 10-15 01:36 → OBSVTOIN 10-15 10:40
PROVIDERS: ADMIT Internal Medicine; ATTEND Nurse Practitioner Gerontology
DX: J18.9 Pneumonia, unspecified organism (principal); J69.0 Pneumonitis due to inhalation of food and vomit; T81.49XA Infection following a procedure, other surgical site, initial encounter; K04.7 Periapical abscess without sinus; J39.1 Other abscess of pharynx; Y84.9 Medical procedure, unspecified as the cause of abnormal reaction of the patient, or of later complication, without mention of misadventure at the time of the procedure; I12.9 Hypertensive chronic kidney disease with stage 1 through stage 4 chronic kidney disease, or unspecified chronic kidney disease; R33.9 Retention of urine, unspecified; E11.22 Type 2 diabetes mellitus with diabetic chronic kidney disease; N18.9 Chronic kidney disease, unspecified; L89.159 Pressure ulcer of sacral region, unspecified stage; E11.65 Type 2 diabetes mellitus with hyperglycemia; R13.10 Dysphagia, unspecified; I25.10 Atherosclerotic heart disease of native coronary artery without angina pectoris; Z20.828 Contact with and (suspected) exposure to other viral communicable diseases; E78.5 Hyperlipidemia, unspecified; G47.30 Sleep apnea, unspecified; K21.9 Gastro-esophageal reflux disease without esophagitis; R32 Unspecified urinary incontinence; R35.1 Nocturia; R35.0 Frequency of micturition; H54.7 Unspecified visual loss; H91.90 Unspecified hearing loss, unspecified ear; G89.29 Other chronic pain; M54.9 Dorsalgia, unspecified; Z95.5 Presence of coronary angioplasty implant and graft; Z79.84 Long term (current) use of oral hypoglycemic drugs; Z79.82 Long term (current) use of aspirin; Z79.899 Other long term (current) drug therapy; I25.2 Old myocardial infarction
CPT/HCPCS: 36415; 70487; 70491; 71045; 80048; 80053; 80202; 81003; 82009; 82550; 82803; 83036; 83605; 83690; 83735; 83880; 84484; 85025; 85610; 85730; 87040; 87070; 87275; 87276; 87430; 87640; 92526; 92610; 93005; 96361; 96365; 96366; 96367; 96368; 96372; 97116; 97162; 97166; 97530; 99291; A6250; A9270; G0378; J0131; J1650; J1815; J3370; J7120; Q9967; U0004; 81001; 87086

== ENCOUNTER 2019-10-22 13:43 | Outpatient (CLI) | payer MEDICARE, OTHER | END 2019-10-22 13:44 | disposition critical access hospital (66) | LOC: EMS 13:43 | PROVIDERS: ATTEND Surgery | DX: R53.1 Weakness (principal); R00.1 Bradycardia, unspecified | CPT/HCPCS: A0425; A0427 ==

== ENCOUNTER 2019-10-22 14:00 | Emergency (ER) | payer MEDICARE, OTHER ==
--- NOTE | 2019-10-22 14:44 | ED Physician Documentation ---
History of Present Illness - Stated complaint Stated Complaint: WEAK - Chief complaint Chief Complaint: Cardiac - History obtained from History obtained from: Patient - History of Present Illness Timing: Today Pain level max: 0 Pain level now: 0 - Additonal information Additional information: 88-year-old male presents to the emergency department stating that he was just released from the hospital yesterday for a dental infection and possible pneumonia. He is currently on Augmentin. Feeling very weak and tired at home. Nothing makes it better or worse. No chest pain. No shortness of breath. He is a poor historian. Patient sees Dr. Perry at [facility] for cardiology. Has been seen at [facility] in [place] in the past as well. Noted to be bradycardic with EMS. Review of Systems Unable to obtain: Dementia Constitutional: denies: Fever, Chills GI: denies: Nausea, Vomiting, Diarrhea Skin: denies: Rash Musculoskeletal: denies: Neck pain, Back pain Neurologic: denies: Headache PD PAST MEDICAL HISTORY - Past Medical History Cardiovascular: Hypertension, High cholesterol, Coronary artery disease, [place] Respiratory: Sleep apnea, CPAP use Endocrine/Autoimmune: Type 2 diabetes GI: GERD, Ulcers, Colon polyps : Incontinence, Nocturia, Frequency HEENT: Chronic vision loss, Chronic hearing loss Psych: None Musculoskeletal: Osteoarthritis, Chronic back pain Derm: Other - Past Surgical History Past Surgical History: Yes General: Colonoscopy Ortho: Carpal Tunnel surgery, Spine surgery Cardiovascular: Coronary stent, Angioplasty - Present Medications Home Medications: Ambulatory Orders Medication Instructions Recorded Confirmed Cholecalciferol (Vitamin D3) 2,000 unit PO BID 09/27/13 10/22/19 [Vitamin D3] Krill/[place]-3/Dha/Epa/Lipids 1 each PO DAILY 09/27/13 10/22/19 [Krill Oil 300 mg Softgel] Losartan [Cozaar] 50 mg PO DAILY 09/27/13 10/22/19 Metformin HCl 500 mg PO BID 09/27/13 10/22/19 Ubidecarenone [Co Q-10] 200 mg PO DAILY 09/27/13 10/22/19 Vitamin B Complex Vit C No.4 150 mg PO DAILY 09/27/13 10/22/19 [Super B Complex] Esomeprazole Magnesium [Nexium] 20 mg PO DAILY 03/05/15 10/22/19 Acetaminophen [Tylenol] 650 mg PO Q6H PRN 11/18/16 10/22/19 Aspirin Chewable [St Juvenal 81 mg PO DAILY 11/18/16 10/22/19 Aspirin] Cyanocobalamin (Vitamin B-12) 1 tab PO DAILY 04/05/19 10/22/19 [Vitamin B-12] Multivit-Min/FA/Lycopen/Lutein 1 tab PO DAILY 04/05/19 10/22/19 [Centrum Silver Men Tablet] Rosuvastatin Calcium 0.5 tab PO DAILY 04/05/19 10/22/19 Isosorbide Mononitrate ER [Imdur] 30 mg PO DAILY 10/20/19 10/22/19 Amox/Clav 875/125 [Augmentin] 1 each PO Q12H #4 tablet 10/21/19 10/22/19 Chlorhexidine [Peridex] 15 ml PO BID #20 udc 10/21/19 10/22/19 Saccharomyces Boulardii [Florastor] 250 mg PO BID #10 capsule 10/21/19 10/22/19 Tamsulosin [Flomax] 0.4 mg PO DAILY #15 capsule 10/21/19 10/22/19 - Allergies Allergies/Adverse Reactions: Allergies Allergy/AdvReac Type Severity Reaction Status Date / Time No Known Drug Allergies Allergy Verified 10/22/19 14:23 - Social History Does the pt smoke?: No Smoking Status: Former smoker Does the pt drink ETOH?: Yes Does the pt have substance abuse?: No - Immunizations Immunizations are current?: Yes - POLST Patient has POLST: Yes POLST Status: Limited Interventions (Interventions per daughter. She would like to proceed with surgical management of the disease but would not like to proceed with prolonged intubation.) PD ED PE NORMAL - Vitals Vital signs reviewed: Yes - General General: Alert and oriented X 3, No acute distress - HEENT HEENT: Moist mucous membranes - Neck Neck: Supple, no meningeal sign - Cardiac Cardiac: RRR, Other (bradycardic) - Respiratory Respiratory: No respiratory distress, Clear bilaterally - Abdomen Abdomen: Soft, Non tender, Non distended - Derm Derm: Warm and dry - Extremities Extremities: No edema - Neuro Neuro: Other (alert, pleasantly confused) Results - Vitals Vitals: Vital Signs - 24 hr 10/22/19 10/22/19 10/22/19 13:59 14:45 15:00 Temperature 36 C L Heart Rate 51 L 49 L 48 L Respiratory 18 16 17 Rate Blood Pressure 143/68 H 160/58 H 157/67 H O2 Saturation 99 96 98 10/22/19 10/22/19 10/22/19 15:30 16:00 16:30 Temperature Heart Rate 50 L 48 L 48 L Respiratory 15 13 15 Rate Blood Pressure 159/62 H 145/65 H 132/68 H O2 Saturation 98 99 96 Oxygen O2 Source [] Room air O2 Source Room air - EKG (time done) 1409 Rate: Rate (enter#) (52) Rhythm: Other (Mobitz II) [place]: Normal QRS: Normal Ischemia: Normal ST segments - Labs Labs: Laboratory Tests 10/22/19 10/22/19 10/22/19 14:55 14:55 14:55 WBC 8.6 RBC 3.74 L Hgb 12.4 L Hct 36.7 L MCV 98.1 H MCH 33.2 H MCHC 33.8 RDW 11.9 L Plt Count 234 MPV 10.2 Neut # (Auto) 6.4 Lymph # (Auto) 1.2 L Callahan # (Auto) 0.4 Eos # (Auto) 0.3 Baso # (Auto) 0.0 Absolute Nucleated RBC 0.00 Nucleated RBC % 0.0 Sodium 134 L Potassium 3.9 Chloride 102 Carbon Dioxide 24 Anion Gap 8.0 BUN 21 H Creatinine 1.1 Estimated GFR (MDRD) 63 L Glucose 218 H Calcium 8.2 L Phosphorus 2.9 Magnesium 1.8 Total Bilirubin 0.4 AST 26 ALT 42 Alkaline Phosphatase 45 Troponin I High Sens 10.8 Total Protein 6.0 L Albumin 2.8 L Globulin 3.2 Albumin/Globulin Ratio 0.9 L Lipase 40 - Rads (name of study) cxr Radiology: Prelim report reviewed, EMP read contemporaneously, See rad report (No acute disease found in terms of possible pneumonia. Heart size is within normal limits. Inspiratory volume is reduced, possible very mild pulmonary edema. ) PD MEDICAL DECISION MAKING - ED course Complexity details: reviewed results, re-evaluated patient, considered differential, d/w patient, d/w family ED course: Patient in a Mobitz type II heart block. External pacer placed and turned on. [facility] was consulted at 1450, they will not likely have a bed for approximately 3 hours, therefore will try [facility] in [place] next. Still no response from [facility] at 1600. Will try [facility] in [place]. Discussed the case with Dr. Mónica Johnson, ICU at [facility] in [place] who graciously accepts in transfer at 1700. Patient will be sent via helicopter as EMS is not comfortable with the patient in an ambulance. COBRA forms completed. This document was made in part using voice recognition software. While efforts are made to proofread this document, sound alike and grammatical errors may occur. Departure - Departure Disposition: 02 Transfer Acute Care Hosp Clinical Impression: Mobitz (type) II atrioventricular block Condition: Stable
[2019-10-22 15:01] LABS: BASOPHILS % (AUTO) 0.5 %; EOSINOPHILS # (AUTO) 0.3 10^3/uL (0.0-0.7); EOSINOPHILS % (AUTO) 3.4 %; HGB - HEMOGLOBIN 12.4 g/dL (14.0-18.0); LYMPHOCYTES # (AUTO) 1.2 10^3/uL (1.5-3.5); LYMPHOCYTES % (AUTO) 14.3 %; MEAN CORPUSCULAR HEMOGLOBIN 33.2 pg (27.0-31.0); MEAN CORPUSCULAR HGB CONC 33.8 g/dL (32.0-36.0); MEAN CORPUSCULAR VOLUME 98.1 fL (80.0-94.0); MEAN PLATELET VOLUME 10.2 fL (7.4-11.4); MONOCYTES # (AUTO) 0.4 10^3/uL (0.0-1.0); MONOCYTES % (AUTO) 4.8 %; NEUTROPHILS # (AUTO) 6.4 10^3/uL (1.5-6.6); NEUTROPHILS % (AUTO) 74.7 %; PLT - PLATELET COUNT 234 10^3/uL (130-450); RED BLOOD COUNT 3.74 10^6/uL (4.70-6.10); RED CELL DISTRIBUTION WIDTH 11.9 % (12.0-15.0); WHITE BLOOD COUNT 8.6 x10^3/uL (4.8-10.8)
[2019-10-22 15:16] LABS: ALBUMIN 2.8 g/dL (3.2-5.5); ALBUMIN/GLOBULIN RATIO 0.9 (1.0-2.2); BILIRUBIN,TOTAL 0.4 mg/dL (0.2-1.0); CALCIUM 8.2 mg/dL (8.5-10.3); CREATININE 1.1 mg/dL (0.6-1.2); MAGNESIUM 1.8 mg/dL (1.7-2.8); PHOSPHORUS 2.9 mg/dL (2.5-4.6)
--- NOTE | 2019-10-22 16:05 | XRAY Report ---
PROCEDURE: Chest 1 View X-Ray INDICATIONS: bradycardia TECHNIQUE: One view of the chest was acquired. COMPARISON: Prior chest plain film 10/14/2019 and 10/21/2019 FINDINGS: Surgical changes and devices: None. Lungs and pleura: No pleural effusions or pneumothorax. Lungs are mildly abnormal with reduced insp iratory volume and crowding of the bronchovascular markings. The heart size is not enlarged but the l flaca parenchyma raises question for presence of mild pulmonary edema in the setting of bradycardia.. Mediastinum: Mediastinal contours appear normal. Heart size is normal. Bones and chest wall: No suspicious bony lesions. Overlying soft tissues appear unremarkable. IMPRESSION: No acute disease found in terms of possible pneumonia. Heart size is within normal limits. Inspirator y volume is reduced, possible very mild pulmonary edema. Reviewed by: Oj Lopez MD on 10/22/2019 4:04 PM PDT Approved by: Oj Lopez MD on 10/22/2019 4:04 PM PDT Station ID: [id number]
[2019-10-22 17:15] VITALS: BP 158/61
== END 2019-10-22 17:39 | disposition short-term general hospital (02) ==
LOC: EDUNIT# → ED 14:00
DX: I44.1 Atrioventricular block, second degree (principal); R00.1 Bradycardia, unspecified; I10 Essential (primary) hypertension; F03.90 Unspecified dementia, unspecified severity, without behavioral disturbance, psychotic disturbance, mood disturbance, and anxiety; E11.9 Type 2 diabetes mellitus without complications; Z79.84 Long term (current) use of oral hypoglycemic drugs; Z79.82 Long term (current) use of aspirin; Z87.891 Personal history of nicotine dependence
CPT/HCPCS: 36415; 71045; 80053; 83690; 83735; 84100; 84484; 85025; 92953; 93005; 99284; 99285

== ENCOUNTER 2019-11-01 08:00 | Outpatient (CLI) | payer MEDICARE, OTHER ==
[2019-11-01 20:48] LABS: BASOPHILS # (AUTO) 0.1 10^3/uL (0.0-0.1); BASOPHILS % (AUTO) 0.6 %; EOSINOPHILS # (AUTO) 0.1 10^3/uL (0.0-0.7); EOSINOPHILS % (AUTO) 0.3 %; HGB - HEMOGLOBIN 14.3 g/dL (14.0-18.0); LYMPHOCYTES # (AUTO) 0.9 10^3/uL (1.5-3.5); LYMPHOCYTES % (AUTO) 4.5 %; MEAN CORPUSCULAR HEMOGLOBIN 33.1 pg (27.0-31.0); MEAN CORPUSCULAR HGB CONC 33.7 g/dL (32.0-36.0); MEAN CORPUSCULAR VOLUME 98.1 fL (80.0-94.0); MEAN PLATELET VOLUME 10.9 fL (7.4-11.4); MONOCYTES # (AUTO) 1.4 10^3/uL (0.0-1.0); MONOCYTES % (AUTO) 6.8 %; NEUTROPHILS # (AUTO) 17.3 10^3/uL (1.5-6.6); NEUTROPHILS % (AUTO) 86.9 %; PLT - PLATELET COUNT 330 10^3/uL (130-450); RED BLOOD COUNT 4.32 10^6/uL (4.70-6.10); RED CELL DISTRIBUTION WIDTH 12.7 % (12.0-15.0); WHITE BLOOD COUNT 19.9 x10^3/uL (4.8-10.8)
== END 2019-11-01 23:59 | disposition home or self-care (01) ==
LOC: LAB.R 08:00
PROVIDERS: ATTEND Family Medicine
DX: R53.1 Weakness (principal); R00.1 Bradycardia, unspecified
CPT/HCPCS: 85025

== ENCOUNTER 2019-11-02 08:00 | Outpatient (CLI) | payer MEDICARE, OTHER ==
[2019-11-02 08:21] LABS: ALBUMIN 3.9 g/dL (3.2-5.5); BILIRUBIN,TOTAL 1.2 mg/dL (0.2-1.0); CALCIUM 9.8 mg/dL (8.5-10.3); CREATININE 1.8 mg/dL (0.6-1.2)
== END 2019-11-02 23:59 | disposition home or self-care (01) ==
LOC: LAB.R 08:00
PROVIDERS: ATTEND Family Medicine
DX: R53.1 Weakness (principal); R00.1 Bradycardia, unspecified
CPT/HCPCS: 80053

== ENCOUNTER 2019-11-02 08:51 | Outpatient (CLI) | payer MEDICARE, OTHER | END 2019-11-02 08:52 | disposition short-term general hospital (02) | LOC: EMS 08:51 | PROVIDERS: ATTEND Surgery | DX: R41.0 Disorientation, unspecified (principal); R10.9 Unspecified abdominal pain | CPT/HCPCS: A0425; A0429; A0888 ==

== ENCOUNTER 2019-11-15 08:00 | Outpatient (CLI) | payer MEDICARE, OTHER ==
[2019-11-15 15:49] LABS: BASOPHILS # (AUTO) 0.1 10^3/uL (0.0-0.1); BASOPHILS % (AUTO) 0.6 %; EOSINOPHILS # (AUTO) 0.6 10^3/uL (0.0-0.7); EOSINOPHILS % (AUTO) 5.7 %; HGB - HEMOGLOBIN 14.8 g/dL (14.0-18.0); LYMPHOCYTES # (AUTO) 1.3 10^3/uL (1.5-3.5); LYMPHOCYTES % (AUTO) 13.1 %; MEAN CORPUSCULAR HEMOGLOBIN 33.2 pg (27.0-31.0); MEAN CORPUSCULAR HGB CONC 32.5 g/dL (32.0-36.0); MONOCYTES # (AUTO) 0.7 10^3/uL (0.0-1.0); MONOCYTES % (AUTO) 6.6 %; NEUTROPHILS # (AUTO) 7.2 10^3/uL (1.5-6.6); NEUTROPHILS % (AUTO) 73.4 %; RED BLOOD COUNT 4.46 10^6/uL (4.70-6.10); RED CELL DISTRIBUTION WIDTH 12.7 % (12.0-15.0); WHITE BLOOD COUNT 9.8 x10^3/uL (4.8-10.8)
[2019-11-15 15:50] LABS: CREATININE 1.4 mg/dL (0.6-1.2)
[2019-11-15 16:45] LABS: PLATELET MORPHOLOGY PLATELET CLUMPING (NORMAL)
[2019-11-15 16:47] LABS: RBC MORPHOLOGY (MULTIPLE) 1+ MACROCYTOSIS (NORMAL)
[2019-11-16 11:48] LABS: BILIRUBIN,URINE NEGATIVE (NEGATIVE); GLUCOSE, URINE (UA) NEGATIVE (NEGATIVE); KETONES,URINE (UA) NEGATIVE (NEGATIVE); LEUKOCYTE ESTERASE, URINE MODERATE (NEGATIVE); NITRITE,URINE NEGATIVE (NEGATIVE); OCCULT BLOOD,URINE NEGATIVE (NEGATIVE); PH,URINE 5.5 PH (5.0-7.5); PROTEIN,URINE NEGATIVE (NEGATIVE); UROBILINOGEN,URINE 0.2 (NORMAL) E.U./dL (NORMAL)
[2019-11-16 11:49] LABS: CLARITY,URINE SL. CLOUDY (CLEAR)
[2019-11-16 11:58] LABS: BACTERIA,URINE Few /HPF (None Seen); RBC,URINE 0-5 /HPF (0-5); SQUAMOUS EPITHELIAL CELL,UR NONE SEEN (<= Few); WBC CLUMPS,URINE PRESENT; YEAST,URINE PRESENT
== END 2019-11-15 23:59 | disposition home or self-care (01) ==
LOC: LAB.R 08:00
PROVIDERS: ATTEND Family Medicine
DX: N13.9 Obstructive and reflux uropathy, unspecified (principal); I10 Essential (primary) hypertension; E11.9 Type 2 diabetes mellitus without complications
CPT/HCPCS: 80048; 81001; 85025

== ENCOUNTER 2019-11-16 05:00 | Outpatient (CLI) | payer MEDICARE, OTHER | END 2019-11-16 05:01 | disposition home or self-care (01) | LOC: LAB.R 05:00 | PROVIDERS: ATTEND Family Medicine | DX: E11.9 Type 2 diabetes mellitus without complications (principal) | CPT/HCPCS: 81001 ==

== ENCOUNTER 2019-12-03 14:07 | Outpatient (CLI) | payer MEDICARE, OTHER ==
--- NOTE | 2019-12-03 15:12 | XRAY Report ---
PROCEDURE: Knee 2 View RT INDICATIONS: PAIN TECHNIQUE: 3 views of the right knee(s) were acquired. COMPARISON: None. FINDINGS: Bones: No fractures or dislocations. No suspicious bony lesions. Scattered subchondral sclerosis a nd spurring. Mild narrowing of the lateral joint space. Soft tissues: Small joint effusion. Scattered dystrophic and vascular calcifications. IMPRESSION: Mild degenerative joint disease Small joint effusion. If the patient's pain or other symptoms persist, consider further evaluation wi MRI. Reviewed by: Ramana Arzola MD on 12/03/2019 3:10 PM PDT Approved by: Ramana Arzola MD on 12/03/2019 3:10 PM PDT Station ID: [id number]
== END 2019-12-03 14:08 | disposition home or self-care (01) ==
LOC: DI 14:07
PROVIDERS: ATTEND Family Medicine
DX: M17.11 Unilateral primary osteoarthritis, right knee (principal); M25.461 Effusion, right knee

== ENCOUNTER 2020-06-03 12:45 | Outpatient (CLI) | payer MEDICARE, OTHER ==
[2020-06-03 16:32] LABS: BILIRUBIN,URINE NEGATIVE (NEGATIVE); GLUCOSE, URINE (UA) NEGATIVE (NEGATIVE); KETONES,URINE (UA) NEGATIVE (NEGATIVE); LEUKOCYTE ESTERASE, URINE TRACE (NEGATIVE); NITRITE,URINE POSITIVE (NEGATIVE); OCCULT BLOOD,URINE NEGATIVE (NEGATIVE); PROTEIN,URINE NEGATIVE (NEGATIVE); UROBILINOGEN,URINE 0.2 (NORMAL) E.U./dL (NORMAL)
[2020-06-03 16:36] LABS: BACTERIA,URINE Few /HPF (None Seen); CLARITY,URINE CLEAR (CLEAR); RBC,URINE 0-5 /HPF (0-5); SQUAMOUS EPITHELIAL CELL,UR FEW Squamous (<= Few)
[2020-06-03 16:37] LABS: AMORPHOUS SEDIMENT,UR Few /LPF
== END 2020-06-03 23:59 | disposition home or self-care (01) ==
LOC: LAB.R 12:45
PROVIDERS: ATTEND Physician Assistant Medical
DX: N39.0 Urinary tract infection, site not specified (principal)
CPT/HCPCS: 81001; 87077; 87086; 87181

== ENCOUNTER 2020-06-16 12:46 | Outpatient (CLI) | payer MEDICARE, OTHER | END 2020-06-16 12:47 | disposition home or self-care (01) | LOC: COV 12:46 | PROVIDERS: ATTEND Physician Assistant | DX: Z01.812 Encounter for preprocedural laboratory examination (principal); R00.1 Bradycardia, unspecified; Z20.822 Contact with and (suspected) exposure to COVID-19 ==

== ENCOUNTER 2020-06-19 21:10 | Outpatient (CLI) | payer MEDICARE, OTHER | END 2020-06-19 21:11 | disposition short-term general hospital (02) | LOC: EMS 21:10 | DX: R07.9 Chest pain, unspecified (principal) | CPT/HCPCS: A0425; A0427 ==

== ENCOUNTER 2020-08-10 08:00 | Outpatient (CLI) | payer MEDICARE, OTHER ==
[2020-08-10 18:00] LABS: BILIRUBIN,URINE NEGATIVE (NEGATIVE); GLUCOSE, URINE (UA) NEGATIVE (NEGATIVE); KETONES,URINE (UA) NEGATIVE (NEGATIVE); LEUKOCYTE ESTERASE, URINE MODERATE (NEGATIVE); NITRITE,URINE POSITIVE (NEGATIVE); OCCULT BLOOD,URINE NEGATIVE (NEGATIVE); PH,URINE 5.5 PH (5.0-7.5); PROTEIN,URINE NEGATIVE (NEGATIVE); UROBILINOGEN,URINE 0.2 (NORMAL) E.U./dL (NORMAL)
[2020-08-10 18:02] LABS: CLARITY,URINE HAZY (CLEAR)
[2020-08-10 18:13] LABS: BACTERIA,URINE Many /HPF (None Seen); RBC,URINE 0-5 /HPF (0-5); SQUAMOUS EPITHELIAL CELL,UR NONE SEEN (<= Few); WBC,URINE >25 /HPF (0-3)
== END 2020-08-10 23:59 | disposition home or self-care (01) ==
LOC: LAB.WCP 08:00
PROVIDERS: ATTEND Physician Assistant Medical
DX: N39.0 Urinary tract infection, site not specified (principal)
CPT/HCPCS: 81001; 81003; 87086; 87181

== ENCOUNTER 2020-08-23 08:00 | Outpatient (CLI) | payer MEDICARE, OTHER ==
[2020-08-23 18:10] LABS: CALCIUM 9.9 mg/dL (8.5-10.3); CREATININE 1.8 mg/dL (0.6-1.2); POTASSIUM 4.5 mmol/L (3.5-5.0)
[2020-08-23 20:24] LABS: ESTIMATED AVERAGE GLUCOSE 137 mg/dL (70-100); HEMOGLOBIN A1c% 6.4 % (4.27-6.07)
== END 2020-08-23 23:59 | disposition home or self-care (01) ==
LOC: LAB.WCP 08:00
PROVIDERS: ATTEND Physician Assistant Medical
DX: E11.9 Type 2 diabetes mellitus without complications (principal)
CPT/HCPCS: 36415; 80048; 83036

== ENCOUNTER → 2020-09-28 | Outpatient (CLI) | payer MEDICARE, OTHER ==
--- NOTE | 2020-09-28 18:42 | XRAY Report ---
PROCEDURE: Chest 2 View X-Ray INDICATIONS: 1 MONTH PRODUCTIVE COUGH TECHNIQUE: 2 view(s) of the chest. COMPARISON: CXR 10/22/2019. FINDINGS: Surgical changes and devices: Left pacemaker.. Lungs and pleura: No pleural effusions or pneumothorax. Lungs are clear. Mediastinum: Mediastinal contours are normal. Heart size is within normal limits. Bones and chest wall: No suspicious bony abnormalities. Soft tissues appear unremarkable. IMPRESSION: No acute cardiopulmonary abnormality. Reviewed by: Jordan Pretty MD on 09/28/2020 6:40 PM PDT Approved by: Jordan Pretty MD on 09/28/2020 6:40 PM PDT Station ID: [id number]
== END ==
LOC: DI.N 16:49
PROVIDERS: ATTEND Physician Assistant Medical
DX: R05 Cough (principal); Z20.822 Contact with and (suspected) exposure to COVID-19
CPT/HCPCS: 71046; U0004

== ENCOUNTER 2020-11-03 08:00 | Outpatient (CLI) | payer MEDICARE, OTHER ==
[2020-11-03 18:40] LABS: BASOPHILS % (AUTO) 0.7 %; EOSINOPHILS # (AUTO) 0.3 10^3/uL (0.0-0.7); EOSINOPHILS % (AUTO) 4.4 %; HCT - HEMATOCRIT 41.8 % (42.0-52.0); HGB - HEMOGLOBIN 13.9 g/dL (14.0-18.0); LYMPHOCYTES # (AUTO) 1.3 10^3/uL (1.5-3.5); MEAN CORPUSCULAR HEMOGLOBIN 32.8 pg (27.0-31.0); MEAN CORPUSCULAR HGB CONC 33.3 g/dL (32.0-36.0); MEAN CORPUSCULAR VOLUME 98.6 fL (80.0-94.0); MEAN PLATELET VOLUME 10.2 fL (7.4-11.4); MONOCYTES # (AUTO) 0.5 10^3/uL (0.0-1.0); MONOCYTES % (AUTO) 8.4 %; NEUTROPHILS # (AUTO) 3.7 10^3/uL (1.5-6.6); NEUTROPHILS % (AUTO) 64.2 %; PLT - PLATELET COUNT 251 10^3/uL (130-450); RED BLOOD COUNT 4.24 10^6/uL (4.70-6.10); RED CELL DISTRIBUTION WIDTH 12.2 % (12.0-15.0); WHITE BLOOD COUNT 5.7 x10^3/uL (4.8-10.8)
[2020-11-03 20:22] LABS: ALBUMIN 4.5 g/dL (3.2-5.5); ALBUMIN/GLOBULIN RATIO 1.4 (1.0-2.2); BILIRUBIN,TOTAL 0.5 mg/dL (0.2-1.0); CALCIUM 9.2 mg/dL (8.5-10.3); CREATININE 1.6 mg/dL (0.6-1.2); POTASSIUM 4.2 mmol/L (3.5-5.0); THYROID STIMULATING HORMONE 3.15 uIU/mL (0.34-5.60); TOTAL PROTEIN 7.7 g/dL (6.7-8.2)
== END 2020-11-03 23:59 | disposition home or self-care (01) ==
LOC: LAB.N 08:00
PROVIDERS: ATTEND Family Medicine
DX: I25.10 Atherosclerotic heart disease of native coronary artery without angina pectoris (principal); N18.9 Chronic kidney disease, unspecified; R60.0 Localized edema
CPT/HCPCS: 36415; 80053; 84443; 85025

== ENCOUNTER 2021-01-21 22:30 | Outpatient (CLI) | payer MEDICARE, OTHER | END 2021-01-21 22:31 | disposition EMS.NT | LOC: EMS 22:30 | DX: Z03.89 Encounter for observation for other suspected diseases and conditions ruled out (principal) ==

== ENCOUNTER 2021-01-25 08:00 | Outpatient (CLI) | payer MEDICARE, OTHER ==
[2021-01-25 17:57] LABS: BASOPHILS # (AUTO) 0.1 10^3/uL (0.0-0.1); BASOPHILS % (AUTO) 0.8 %; EOSINOPHILS # (AUTO) 0.3 10^3/uL (0.0-0.7); EOSINOPHILS % (AUTO) 4.7 %; HCT - HEMATOCRIT 41.1 % (42.0-52.0); HGB - HEMOGLOBIN 13.6 g/dL (14.0-18.0); LYMPHOCYTES # (AUTO) 1.2 10^3/uL (1.5-3.5); LYMPHOCYTES % (AUTO) 18.2 %; MEAN CORPUSCULAR HEMOGLOBIN 33.1 pg (27.0-31.0); MEAN CORPUSCULAR HGB CONC 33.1 g/dL (32.0-36.0); MEAN PLATELET VOLUME 10.4 fL (7.4-11.4); MONOCYTES # (AUTO) 0.4 10^3/uL (0.0-1.0); MONOCYTES % (AUTO) 6.5 %; NEUTROPHILS # (AUTO) 4.6 10^3/uL (1.5-6.6); NEUTROPHILS % (AUTO) 69.5 %; PLT - PLATELET COUNT 244 10^3/uL (130-450); RED BLOOD COUNT 4.11 10^6/uL (4.70-6.10); RED CELL DISTRIBUTION WIDTH 12.3 % (12.0-15.0); WHITE BLOOD COUNT 6.7 x10^3/uL (4.8-10.8)
[2021-01-25 18:02] LABS: BILIRUBIN,URINE NEGATIVE (NEGATIVE); GLUCOSE, URINE (UA) NEGATIVE (NEGATIVE); KETONES,URINE (UA) NEGATIVE (NEGATIVE); LEUKOCYTE ESTERASE, URINE NEGATIVE (NEGATIVE); NITRITE,URINE NEGATIVE (NEGATIVE); OCCULT BLOOD,URINE NEGATIVE (NEGATIVE); PH,URINE 5.5 PH (5.0-7.5); PROTEIN,URINE NEGATIVE (NEGATIVE); UROBILINOGEN,URINE 0.2 (NORMAL) E.U./dL (NORMAL)
[2021-01-25 18:03] LABS: CLARITY,URINE CLEAR (CLEAR)
[2021-01-25 18:05] LABS: CREATININE,URINE 105.1 mg/dL; MICROALBUM/CREATININE RATIO,UR 4.8 ug/mg (<30.0); MICROALBUMIN,URINE 0.5 mg/dL (0-300.0)
[2021-01-25 18:13] LABS: ALBUMIN 4.1 g/dL (3.2-5.5); ALBUMIN/GLOBULIN RATIO 1.3 (1.0-2.2); ALKALINE PHOSPHATASE 41 IU/L (42-121); ALT ALANINE AMINOTRANSFERASE 22 IU/L (10-60); AST ASPARTATE AMINOTRANSFERASE 23 IU/L (10-42); BILIRUBIN,TOTAL 0.7 mg/dL (0.2-1.0); BUN - BLOOD UREA NITROGEN 28 mg/dL (6-20); CALCIUM 9.3 mg/dL (8.5-10.3); CARBON DIOXIDE - CO2 24 mmol/L (21-32); CHLORIDE 104 mmol/L (101-111); CHOL/HDL RATIO 5.3 (<5.0); CHOLESTEROL 154 mg/dL; CREATININE 1.7 mg/dL (0.6-1.2); GFR - MDRD 38 (>89); GLUCOSE 111 mg/dL (70-100); HDL CHOLESTEROL 29 mg/dL; LDL CHOLESTEROL,CALCULATED 84 mg/dL; LDL/HDL RATIO 2.9 (<3.6); SODIUM 139 mmol/L (135-145); TOTAL PROTEIN 7.2 g/dL (6.7-8.2); TRIGLYCERIDES 207 mg/dL; VLDL CHOLESTEROL 41 mg/dL
[2021-01-25 18:21] LABS: BACTERIA,URINE None Seen /HPF (None Seen); RBC,URINE None Seen /HPF (0-5); SQUAMOUS EPITHELIAL CELL,UR RARE Squamous (<= Few); WBC,URINE 0-3 /HPF (0-3)
[2021-01-25 18:23] LABS: THYROID STIMULATING HORMONE 3.83 uIU/mL (0.34-5.60)
[2021-01-25 21:12] LABS: ESTIMATED AVERAGE GLUCOSE 154 mg/dL (70-100)
== END 2021-01-25 23:59 | disposition home or self-care (01) ==
LOC: LAB.WCP 08:00
PROVIDERS: ATTEND Physician Assistant Medical
DX: E11.9 Type 2 diabetes mellitus without complications (principal); N39.0 Urinary tract infection, site not specified; K21.9 Gastro-esophageal reflux disease without esophagitis; E78.5 Hyperlipidemia, unspecified
CPT/HCPCS: 36415; 80053; 80061; 81001; 82043; 82570; 83036; 83721; 84443; 85025; 87086

== ENCOUNTER 2021-02-08 00:48 | Outpatient (CLI) | payer MEDICARE, OTHER | END 2021-02-08 00:49 | disposition EMS.NT | LOC: EMS 00:48 | DX: Z03.89 Encounter for observation for other suspected diseases and conditions ruled out (principal) ==

== ENCOUNTER 2021-04-02 10:36 | Outpatient (CLI) | payer MEDICARE, OTHER | END 2021-04-02 10:37 | disposition short-term general hospital (02) | LOC: EMS 10:36 | DX: R53.1 Weakness (principal) | CPT/HCPCS: A0425; A0429 ==